=== PATIENT | male | born 1970 | race African-American/Black ===

== ENCOUNTER 2020-01-07 20:36 | Inpatient (IN) ==
[2020-01-07] MEDS ORDERED: METOCLOPRAMIDE 10 MG/2 ML VIAL IV STA (21:01)
[2020-01-07] MEDS ORDERED: SODIUM CHLORIDE 0.9% 1,000 ML IV STA (21:01)
[2020-01-07] MEDS ORDERED: ONDANSETRON 4 MG/2 ML VIAL IV STA (21:01)
[2020-01-07 21:13] LABS: Basophils % 0.3 % (0.0-0.8); Eosinophils # 0.1 10*3/uL (0.0-0.87); Eosinophils % 1.1 % (0.00-10.9); Hematocrit 43.5 VOL% (42.0-52.0); Hemoglobin 13.3 GM/DL (14.0-18.0); Immature Granulocytes % 0.8 %; Immature Granulocytes Absolute 0.09 #; Lymphocytes # 0.4 10*3/uL (1.4-4.0); Lymphocytes % 3.9 % (21.2-54.2); Mean Corpuscular HGB Conc 30.6 GM/DL (32-36); Mean Corpuscular Volume 81.5 FL (87-102); Monocytes % 5.7 % (1.7-12.7); Neutrophils % 88.2 % (38.7-73.9); Platelet Count 468 T/CUMM (130-400); Red Blood Count 5.34 MC/CUMM (3.8-5.5); Red Cell Distribution Width 21.7 % (9.3-17.3); White Blood Count 11.4 T/CUMM (4-12)
[2020-01-07 21:40] LABS: Lymphocytes 2 % (20-55); Platelet Estimate Adequate; Segmented Neutrophils 91 % (50-85); Total Cells Counted 100
[2020-01-07 21:50] LABS: INR 1.2
[2020-01-07] MEDS ORDERED: methylPREDNISolone SOD SUC 125 MG/2 ML VIAL IV STA (22:28)
[2020-01-07] MEDS ORDERED: AZITHROMYCIN INJ 500 MG in SODIUM CHLORIDE 0.9% 250 ML IV STA (22:28)
[2020-01-07] MEDS ORDERED: ENOXAPARIN 100 MG/ML SYRINGE SUBCUT STA (22:28)
[2020-01-07 22:29] LABS: Alanine Aminotransferase 11 U/L (16-61); Albumin 1.5 G/DL (3.4-5.0); Alkaline Phosphatase 82 U/L (45-117); Aspartate Amino Transferase 23 U/L (0-37); Blood Urea Nitrogen 281 MG/DL (7-18); Estimated Glom Filtration Rate 3 ML/MIN; Ferritin 468.4 ng/ml (26-388); Glucose 137 MG/DL (74-106); Osmolality,Calculated 374.5 MOS/KG (273-304); Total Protein 7.9 G/DL (6.4-8.3)
[2020-01-07 22:31] LABS: Troponin I 0.175 NG/ML (0.00-0.045)
[2020-01-07] MEDS ORDERED: DEXTROSE 50% 25 GM/50 ML VIAL IV STA (22:36)
[2020-01-07] MEDS ORDERED: CALCIUM CHLORIDE 1,000 MG/10 ML SYRINGE IV STA (22:36)
[2020-01-07] MEDS ORDERED: SODIUM BICARBONATE 50 MEQ/50 ML VIAL IV STA (22:36)
[2020-01-07] MEDS ORDERED: INSULIN REGULAR 100 UNIT/ML IV ONE (22:37)
[2020-01-07 22:41] LABS: Apearance,Urine CLOUDY (Clear); Bilirubin,Urine Negative (Negative); Blood, Urine Moderate mg/dL (Negative); Glucose,Urine (UA) 50 mg/dL (Negative); Ketones,Urine Negative (Negative); Nitrite,Urine Negative (Negative); Protein,Urine >=500 MG/DL; RBC,Urine 7 /HPF (0-4); Urine Color Yellow (Yellow); Urine Specific Gravity 1.026 (1.001-1.035); Urine Urobilinogen < 2.0 EU/DL (0.2-1.0); WBC,Urine 297 /HPF (0-6)
[2020-01-07] MEDS ORDERED: DEXTROSE 50% 25 GM/50 ML SYRINGE IV ONE (22:47)
[2020-01-07 23:12] LABS: Allen Test Positive; Pt O2 Delivery Device Other
[2020-01-07 23:14] LABS: ABG Base Excess -20.1 MMOL/L (-2.5-2.5); ABG HCO3 6.7 MMOL/L (20-26); ABG Oxygen Saturation 95.9 % (95-100); ABG PO2 105.1 MM HG (80-95); ABG TCO2 7.4 MMOL/L (23-27)
[2020-01-08] MEDS ORDERED: ALBUMIN 25% 25 GM in PREMIX 1 EACH IV PRN (00:55)
[2020-01-08] MEDS ORDERED: PANTOPRAZOLE 40 MG VIAL IV SCH (01:16)
[2020-01-08] MEDS ORDERED: PROMETHAZINE 25 MG/1 ML VIAL IM PRN (01:16)
[2020-01-08] MEDS ORDERED: ALBUTEROL 2.5 MG/3 ML NEB RESP TX PRN (01:16)
[2020-01-08 01:29] LABS: Calcium 9.1 MG/DL (8.5-10.1); Osmolality,Calculated 387.5 MOS/KG (273-304)
[2020-01-08] MEDS ORDERED: HEPARIN 10,000 UNIT/10 ML VIAL IV PRN (03:02)
[2020-01-08] MEDS: SODIUM CHLORIDE 0.9% 1,000 ML IV SCH ×2 (03:48→07:59)
[2020-01-08 04:53] LABS: ABG Base Excess -9.2 MMOL/L (-2.5-2.5); ABG HCO3 13.6 MMOL/L (20-26); ABG Oxygen Saturation 98.5 % (95-100); ABG PCO2 22.5 MM HG (35-48); ABG PO2 162.4 MM HG (80-95); ABG TCO2 14.3 MMOL/L (23-27); Allen Test Positive; Pt O2 Delivery Device Other
[2020-01-08 04:59] LABS: Hepatitis B Core IgM Quant 0.18 Index; Hepatitis B Surface Ag Quant 0.96 Index; Hepatitis B Surface Ag Result Negative (Negative); Hepatitis C Virus Ab Quant 0.15 Index; Hepatitis C Virus Ab Result Negative (Negative)
[2020-01-08 05:07] LABS: ABG PCO2 19.8 MM HG (35-48)
[2020-01-08 05:44] LABS: Basophils % 0.1 % (0.0-0.8); Hematocrit 35.5 VOL% (42.0-52.0); Hemoglobin 11.4 GM/DL (14.0-18.0); Lymphocytes # 0.2 10*3/uL (1.4-4.0); Lymphocytes % 1.7 % (21.2-54.2); Mean Corpuscular HGB Conc 32.1 GM/DL (32-36); Mean Platelet Volume 10.5 FL (9.6-12.0); Monocytes % 0.8 % (1.7-12.7); Neutrophils % 96.4 % (38.7-73.9); Platelet Count 377 T/CUMM (130-400); Red Blood Count 4.55 MC/CUMM (3.8-5.5); Red Cell Distribution Width 20.9 % (9.3-17.3); White Blood Count 9.9 T/CUMM (4-12)
[2020-01-08 06:16] LABS: Burr Cells Slight; Hypochromasia Slight; Lymphocytes 3 % (20-55); Microcytosis Slight; Platelet Estimate Adequate; Segmented Neutrophils 96 % (50-85); Total Cells Counted 100
[2020-01-08 06:17] LABS: Albumin 1.5 G/DL (3.4-5.0); Bilirubin,Total 0.6 MG/DL (0.2-1.0); Calcium 7.8 MG/DL (8.5-10.1); Osmolality,Calculated 346.5 MOS/KG (273-304); Total Protein 7.7 G/DL (6.4-8.3)
[2020-01-08] MEDS: cefTRIAXone 1,000 MG in SYRINGE 1 EACH IV SCH (06:47)
[2020-01-08] MEDS: PANTOPRAZOLE 40 MG VIAL IV SCH (09:00)
[2020-01-08] MEDS: ENOXAPARIN 30 MG/0.3 ML SYRINGE SUBCUT SCH (09:00)
[2020-01-08] MEDS: HYDROXYCHLOROQUINE 200 MG TABLET PO SCH (21:31)
[2020-01-09 05:25] LABS: Calcium 6.9 MG/DL (8.5-10.1); Osmolality,Calculated 355.4 MOS/KG (273-304)
[2020-01-09 05:29] LABS: Basophils % 0.1 % (0.0-0.8); Hematocrit 35.5 VOL% (42.0-52.0); Hemoglobin 11.2 GM/DL (14.0-18.0); Immature Granulocytes % 0.8 %; Immature Granulocytes Absolute 0.07 #; Lymphocytes # 0.4 10*3/uL (1.4-4.0); Lymphocytes % 4.3 % (21.2-54.2); Mean Corpuscular HGB Conc 31.5 GM/DL (32-36); Mean Corpuscular Volume 78.9 FL (87-102); Monocytes % 6.9 % (1.7-12.7); NRBC # 0.02 10*3/uL; Neutrophils % 87.9 % (38.7-73.9); Platelet Count 337 T/CUMM (130-400); Red Cell Distribution Width 20.7 % (9.3-17.3); White Blood Count 8.5 T/CUMM (4-12)
[2020-01-09] MEDS: cefTRIAXone 1,000 MG in SYRINGE 1 EACH IV SCH (05:56)
[2020-01-09] MEDS: SODIUM CHLORIDE 0.9% 1,000 ML IV SCH ×2 (05:59→08:54)
[2020-01-09] MEDS: PANTOPRAZOLE 40 MG VIAL IV SCH (09:08)
[2020-01-09] MEDS: ENOXAPARIN 30 MG/0.3 ML SYRINGE SUBCUT SCH (09:10)
[2020-01-09] MEDS: HYDROXYCHLOROQUINE 200 MG TABLET PO SCH ×2 (09:35→20:46)
[2020-01-09 10:42] LABS: Band Neutrophils 1 % (0-10); Hypochromasia 3+; Lymphocytes 4 % (20-55); Microcytosis 3+; Platelet Estimate Increased; Polychromasia Slight; Segmented Neutrophils 92 % (50-85); Total Cells Counted 100
[2020-01-09] MEDS: ONDANSETRON 4 MG/2 ML VIAL IV PRN (20:43)
[2020-01-10] MEDS: SODIUM CHLORIDE 0.9% 1,000 ML IV SCH ×3 (00:27→19:27)
[2020-01-10 03:58] LABS: Calcium 6.9 MG/DL (8.5-10.1)
[2020-01-10] MEDS: cefTRIAXone 1,000 MG in SYRINGE 1 EACH IV SCH (06:37)
[2020-01-10] MEDS: ONDANSETRON 4 MG/2 ML VIAL IV PRN ×2 (08:28→20:25)
[2020-01-10] MEDS: PANTOPRAZOLE 40 MG VIAL IV SCH (08:31)
[2020-01-10] MEDS: ENOXAPARIN 30 MG/0.3 ML SYRINGE SUBCUT SCH (08:33)
[2020-01-10 09:49] LABS: Basophils % 0.2 % (0.0-0.8); Eosinophils # 0.2 10*3/uL (0.0-0.87); Hematocrit 32.3 VOL% (42.0-52.0); Hemoglobin 10.4 GM/DL (14.0-18.0); Immature Granulocytes % 1.7 %; Immature Granulocytes Absolute 0.16 #; Lymphocytes # 0.3 10*3/uL (1.4-4.0); Lymphocytes % 3.6 % (21.2-54.2); Mean Corpuscular HGB Conc 32.2 GM/DL (32-36); Mean Corpuscular Volume 79.6 FL (87-102); Mean Platelet Volume 10.5 FL (9.6-12.0); Monocytes % 8.4 % (1.7-12.7); Neutrophils % 84.1 % (38.7-73.9); Platelet Count 274 T/CUMM (130-400); Red Blood Count 4.06 MC/CUMM (3.8-5.5); Red Cell Distribution Width 20.3 % (9.3-17.3); White Blood Count 9.6 T/CUMM (4-12)
[2020-01-10] MEDS: HYDROXYCHLOROQUINE 200 MG TABLET PO SCH ×2 (10:49→20:25)
[2020-01-11] MEDS: SODIUM CHLORIDE 0.9% 1,000 ML IV SCH ×2 (00:01→10:10)
[2020-01-11] MEDS: cefTRIAXone 1,000 MG in SYRINGE 1 EACH IV SCH (04:17)
[2020-01-11 04:43] LABS: Calcium 6.8 MG/DL (8.5-10.1)
[2020-01-11 04:47] LABS: Basophils % 0.2 % (0.0-0.8); Eosinophils # 0.2 10*3/uL (0.0-0.87); Eosinophils % 2.3 % (0.00-10.9); Hematocrit 32.2 VOL% (42.0-52.0); Hemoglobin 9.9 GM/DL (14.0-18.0); Immature Granulocytes % 2.3 %; Immature Granulocytes Absolute 0.23 #; Lymphocytes # 0.3 10*3/uL (1.4-4.0); Mean Corpuscular HGB Conc 30.7 GM/DL (32-36); Mean Platelet Volume 10.9 FL (9.6-12.0); Monocytes % 9.2 % (1.7-12.7); Platelet Count 259 T/CUMM (130-400); Red Blood Count 3.88 MC/CUMM (3.8-5.5); Red Cell Distribution Width 20.2 % (9.3-17.3); White Blood Count 9.8 T/CUMM (4-12)
[2020-01-11 05:13] LABS: Eosinophils 4 % (0-10); Lymphocytes 5 % (20-55); Platelet Estimate Adequate; Segmented Neutrophils 83 % (50-85); Total Cells Counted 100
[2020-01-11 05:14] LABS: Hypochromasia Slight; Ovalocytes Slight
[2020-01-11] MEDS: ONDANSETRON 4 MG/2 ML VIAL IV PRN (08:30)
[2020-01-11] MEDS: ENOXAPARIN 30 MG/0.3 ML SYRINGE SUBCUT SCH (08:38)
[2020-01-11] MEDS: HYDROXYCHLOROQUINE 200 MG TABLET PO SCH ×2 (08:38→21:21)
[2020-01-11] MEDS: PANTOPRAZOLE 40 MG VIAL IV SCH (08:38)
[2020-01-11] MEDS ORDERED: HEPARIN DRIP 25,000 UNITS/500 ML PREMIX IV SCH (21:00)
[2020-01-12] MEDS: SODIUM CHLORIDE 0.9% 1,000 ML IV SCH ×2 (02:40→17:47)
[2020-01-12] MEDS: cefTRIAXone 1,000 MG in SYRINGE 1 EACH IV SCH (04:46)
[2020-01-12 06:01] LABS: Basophils % 0.4 % (0.0-0.8); Eosinophils # 0.3 10*3/uL (0.0-0.87); Eosinophils % 2.6 % (0.00-10.9); Hematocrit 29.2 VOL% (42.0-52.0); Hemoglobin 9.3 GM/DL (14.0-18.0); Lymphocytes # 0.4 10*3/uL (1.4-4.0); Lymphocytes % 3.7 % (21.2-54.2); Mean Corpuscular HGB Conc 31.8 GM/DL (32-36); Mean Corpuscular Volume 79.6 FL (87-102); Mean Platelet Volume 11.5 FL (9.6-12.0); Monocytes % 10.1 % (1.7-12.7); Neutrophils % 81.2 % (38.7-73.9); Platelet Count 218 T/CUMM (130-400); Red Blood Count 3.67 MC/CUMM (3.8-5.5); Red Cell Distribution Width 20.1 % (9.3-17.3); White Blood Count 10.2 T/CUMM (4-12)
[2020-01-12 06:20] LABS: Eosinophils 4 % (0-10); Hypochromasia 1+; Lymphocytes 3 % (20-55); Microcytosis 1+; Platelet Estimate Normal; Segmented Neutrophils 81 % (50-85); Total Cells Counted 100
[2020-01-12 06:33] LABS: Calcium 6.6 MG/DL (8.5-10.1); Osmolality,Calculated 319.1 MOS/KG (273-304)
[2020-01-12] MEDS: HYDROXYCHLOROQUINE 200 MG TABLET PO SCH ×2 (07:47→20:50)
[2020-01-12] MEDS: PANTOPRAZOLE 40 MG VIAL IV SCH (08:07)
[2020-01-12] MEDS: LOPERAMIDE 2 MG CAPSULE PO PRN (13:28)
[2020-01-12] MEDS: HEPARIN 5,000 UNIT/1 ML VIAL SUBCUT SCH (13:39)
[2020-01-13] MEDS: HEPARIN 5,000 UNIT/1 ML VIAL SUBCUT SCH ×4 (00:40→22:02)
[2020-01-13] MEDS: cefTRIAXone 1,000 MG in SYRINGE 1 EACH IV SCH (05:50)
[2020-01-13 06:17] LABS: Basophils % 0.2 % (0.0-0.8); Eosinophils # 0.3 10*3/uL (0.0-0.87); Eosinophils % 2.9 % (0.00-10.9); Hematocrit 29.5 VOL% (42.0-52.0); Hemoglobin 8.8 GM/DL (14.0-18.0); Immature Granulocytes % 2.1 %; Immature Granulocytes Absolute 0.24 #; Lymphocytes # 0.4 10*3/uL (1.4-4.0); Lymphocytes % 3.1 % (21.2-54.2); Mean Corpuscular HGB Conc 29.8 GM/DL (32-36); Mean Corpuscular Volume 82.6 FL (87-102); Mean Platelet Volume 11.4 FL (9.6-12.0); Monocytes % 10.3 % (1.7-12.7); Neutrophils % 81.4 % (38.7-73.9); Platelet Count 217 T/CUMM (130-400); Red Blood Count 3.57 MC/CUMM (3.8-5.5); Red Cell Distribution Width 19.8 % (9.3-17.3); White Blood Count 11.2 T/CUMM (4-12)
[2020-01-13 06:38] LABS: Hypochromasia Slight; Lymphocytes 3 % (20-55); Microcytosis Slight; Platelet Estimate Adequate; Segmented Neutrophils 90 % (50-85); Total Cells Counted 100
[2020-01-13 06:39] LABS: Calcium 6.7 MG/DL (8.5-10.1)
[2020-01-13] MEDS: HYDROXYCHLOROQUINE 200 MG TABLET PO SCH (08:20)
[2020-01-13] MEDS: PANTOPRAZOLE 40 MG VIAL IV SCH (08:21)
[2020-01-13] MEDS: SODIUM CHLORIDE 0.9% 1,000 ML IV SCH (09:19)
[2020-01-13] MEDS: LOPERAMIDE 2 MG CAPSULE PO PRN ×2 (16:43→22:01)
[2020-01-14] MEDS: SODIUM CHLORIDE 0.9% 1,000 ML IV SCH ×2 (02:36→16:26)
[2020-01-14] MEDS: HEPARIN 5,000 UNIT/1 ML VIAL SUBCUT SCH ×3 (05:00→22:00)
[2020-01-14] MEDS: cefTRIAXone 1,000 MG in SYRINGE 1 EACH IV SCH (05:00)
[2020-01-14 05:04] LABS: Basophils # 0.1 10*3/uL (0.0-0.2); Basophils % 0.4 % (0.0-0.8); Eosinophils # 0.3 10*3/uL (0.0-0.87); Eosinophils % 1.9 % (0.00-10.9); Hematocrit 32.4 VOL% (42.0-52.0); Immature Granulocytes % 2.6 %; Immature Granulocytes Absolute 0.38 #; Lymphocytes # 0.5 10*3/uL (1.4-4.0); Lymphocytes % 3.7 % (21.2-54.2); Mean Corpuscular HGB Conc 30.9 GM/DL (32-36); Mean Platelet Volume 11.5 FL (9.6-12.0); Monocytes % 10.8 % (1.7-12.7); Neutrophils % 80.6 % (38.7-73.9); Platelet Count 238 T/CUMM (130-400); Red Blood Count 3.95 MC/CUMM (3.8-5.5); Red Cell Distribution Width 19.8 % (9.3-17.3); White Blood Count 14.5 T/CUMM (4-12)
[2020-01-14 05:39] LABS: Calcium 6.7 MG/DL (8.5-10.1); Osmolality,Calculated 315.7 MOS/KG (273-304)
[2020-01-14 06:12] LABS: Ferritin 578.3 ng/ml (26-388)
[2020-01-14 06:19] LABS: Anisocytosis 1+; Band Neutrophils 3 % (0-10); Eosinophils 1 % (0-10); Lymphocytes 3 % (20-55); Nucleated Red Blood Cells 1 (0-5); Platelet Estimate Normal; Segmented Neutrophils 78 % (50-85); Total Cells Counted 100
[2020-01-14] MEDS: PANTOPRAZOLE 40 MG VIAL IV SCH (09:08)
[2020-01-14] MEDS: ONDANSETRON 4 MG/2 ML VIAL IV PRN ×2 (10:02→13:51)
[2020-01-14] MEDS ORDERED: POTASSIUM CHLORIDE 20 MEQ TABLET PO ONE (14:00)
[2020-01-14] MEDS: LACTOBACILLUS ACIDOPHILUS/BULGARICUS CAPLET PO SCH ×2 (14:50→21:30)
[2020-01-15] MEDS: cefTRIAXone 1,000 MG in SYRINGE 1 EACH IV SCH (04:30)
[2020-01-15] MEDS: HEPARIN 5,000 UNIT/1 ML VIAL SUBCUT SCH ×3 (05:50→21:00)
[2020-01-15 06:31] LABS: Basophils # 0.1 10*3/uL (0.0-0.2); Basophils % 0.5 % (0.0-0.8); Eosinophils # 0.3 10*3/uL (0.0-0.87); Hematocrit 30.1 VOL% (42.0-52.0); Hemoglobin 9.3 GM/DL (14.0-18.0); Immature Granulocytes % 2.5 %; Immature Granulocytes Absolute 0.32 #; Lymphocytes # 0.4 10*3/uL (1.4-4.0); Lymphocytes % 2.8 % (21.2-54.2); Mean Corpuscular HGB Conc 30.9 GM/DL (32-36); Mean Corpuscular Volume 81.4 FL (87-102); Mean Platelet Volume 11.1 FL (9.6-12.0); Monocytes % 11.3 % (1.7-12.7); Neutrophils % 80.9 % (38.7-73.9); Platelet Count 222 T/CUMM (130-400); Red Cell Distribution Width 20.2 % (9.3-17.3)
[2020-01-15 06:46] LABS: Osmolality,Calculated 320.4 MOS/KG (273-304)
[2020-01-15 07:09] LABS: Ferritin 617.1 ng/ml (26-388)
[2020-01-15 08:04] LABS: Burr Cells Few; Eosinophils 1 % (0-10); Hypochromasia 2+; Segmented Neutrophils 93 % (50-85); Total Cells Counted 100
[2020-01-15 08:05] LABS: Ovalocytes Few; Platelet Estimate Adequate; Polychromasia Slight
[2020-01-15] MEDS: PANTOPRAZOLE 40 MG VIAL IV SCH (09:02)
[2020-01-15] MEDS: LACTOBACILLUS ACIDOPHILUS/BULGARICUS CAPLET PO SCH ×2 (09:02→20:15)
[2020-01-15] MEDS: SODIUM CHLORIDE 0.9% 1,000 ML IV SCH (09:02)
[2020-01-15] MEDS: ONDANSETRON 4 MG/2 ML VIAL IV PRN (09:05)
[2020-01-16] MEDS: SODIUM CHLORIDE 0.9% 1,000 ML IV SCH ×2 (02:54→18:52)
[2020-01-16] MEDS: HEPARIN 5,000 UNIT/1 ML VIAL SUBCUT SCH ×3 (05:40→21:49)
[2020-01-16 06:06] LABS: Basophils # 0.1 10*3/uL (0.0-0.2); Basophils % 0.4 % (0.0-0.8); Eosinophils # 0.4 10*3/uL (0.0-0.87); Eosinophils % 2.7 % (0.00-10.9); Hematocrit 28.9 VOL% (42.0-52.0); Hemoglobin 8.9 GM/DL (14.0-18.0); Immature Granulocytes % 2.4 %; Immature Granulocytes Absolute 0.31 #; Lymphocytes # 0.5 10*3/uL (1.4-4.0); Lymphocytes % 3.4 % (21.2-54.2); Mean Corpuscular HGB Conc 30.8 GM/DL (32-36); Mean Platelet Volume 11.1 FL (9.6-12.0); Neutrophils % 79.1 % (38.7-73.9); Platelet Count 223 T/CUMM (130-400); Red Blood Count 3.57 MC/CUMM (3.8-5.5); White Blood Count 13.1 T/CUMM (4-12)
[2020-01-16 06:35] LABS: Ferritin 564.8 ng/ml (26-388)
[2020-01-16 06:51] LABS: Band Neutrophils 1 % (0-10); Lymphocytes 2 % (20-55); Platelet Estimate Normal; Segmented Neutrophils 84 % (50-85); Total Cells Counted 100
[2020-01-16] MEDS: PANTOPRAZOLE 40 MG VIAL IV SCH (08:45)
[2020-01-16] MEDS: LACTOBACILLUS ACIDOPHILUS/BULGARICUS CAPLET PO SCH ×2 (08:46→20:12)
[2020-01-17] MEDS: HEPARIN 5,000 UNIT/1 ML VIAL SUBCUT SCH (05:35)
[2020-01-17 07:46] LABS: Osmolality,Calculated 304.8 MOS/KG (273-304)
[2020-01-17 08:22] LABS: Basophils % 0.4 % (0.0-0.8); Eosinophils # 0.3 10*3/uL (0.0-0.87); Eosinophils % 2.6 % (0.00-10.9); Hematocrit 28.1 VOL% (42.0-52.0); Hemoglobin 8.8 GM/DL (14.0-18.0); Immature Granulocytes % 3.7 %; Immature Granulocytes Absolute 0.38 #; Lymphocytes # 0.4 10*3/uL (1.4-4.0); Lymphocytes % 3.9 % (21.2-54.2); Mean Corpuscular HGB Conc 31.3 GM/DL (32-36); Mean Platelet Volume 10.5 FL (9.6-12.0); Monocytes % 9.3 % (1.7-12.7); Neutrophils % 80.1 % (38.7-73.9); Platelet Count 203 T/CUMM (130-400); Red Blood Count 3.47 MC/CUMM (3.8-5.5); Red Cell Distribution Width 20.2 % (9.3-17.3); White Blood Count 10.4 T/CUMM (4-12)
[2020-01-17 08:41] LABS: Band Neutrophils 1 % (0-10); Eosinophils 8 % (0-10); Hypochromasia 1+; Lymphocytes 2 % (20-55); Microcytosis Slight; Platelet Estimate Adequate; Segmented Neutrophils 77 % (50-85); Total Cells Counted 100
[2020-01-17] MEDS: PANTOPRAZOLE 40 MG VIAL IV SCH (08:46)
[2020-01-17] MEDS: LACTOBACILLUS ACIDOPHILUS/BULGARICUS CAPLET PO SCH ×2 (08:46→21:41)
[2020-01-17] MEDS: SODIUM CHLORIDE 0.9% 1,000 ML IV SCH (08:53)
[2020-01-17 10:01] LABS: Ferritin 511.6 ng/ml (26-388)
[2020-01-17 14:23] LABS: INR 1.1; PT Patient Result 11.4 SECS (9.8-11.9); Partial Thromboplastin Time 29.3 SECS (23.9-33.8)
[2020-01-17] MEDS: HEPARIN DRIP 25,000 UNITS/500 ML PREMIX IV SCH (15:20)
[2020-01-17 23:44] LABS: INR 1.1; PT Patient Result 11.6 SECS (9.8-11.9)
[2020-01-17 23:46] LABS: Partial Thromboplastin Time 47.6 SECS (23.9-33.8)
[2020-01-18] MEDS: LOPERAMIDE 2 MG CAPSULE PO PRN (00:50)
[2020-01-18] MEDS: SODIUM CHLORIDE 0.9% 1,000 ML IV SCH ×2 (02:46→10:33)
[2020-01-18 05:41] LABS: Basophils # 0.1 10*3/uL (0.0-0.2); Basophils % 0.3 % (0.0-0.8); Eosinophils # 0.5 10*3/uL (0.0-0.87); Eosinophils % 2.6 % (0.00-10.9); Hematocrit 22.1 VOL% (42.0-52.0); Immature Granulocytes % 3.5 %; Immature Granulocytes Absolute 0.61 #; Lymphocytes # 0.8 10*3/uL (1.4-4.0); Lymphocytes % 4.5 % (21.2-54.2); Mean Corpuscular HGB Conc 31.7 GM/DL (32-36); Mean Platelet Volume 10.6 FL (9.6-12.0); Monocytes % 8.5 % (1.7-12.7); Neutrophils % 80.6 % (38.7-73.9); Platelet Count 228 T/CUMM (130-400); Red Cell Distribution Width 20.3 % (9.3-17.3)
[2020-01-18 05:43] LABS: Red Blood Count 2.73 MC/CUMM (3.8-5.5); White Blood Count 17.3 T/CUMM (4-12)
[2020-01-18 06:05] LABS: Eosinophils 2 % (0-10); Hypochromasia 1+; Lymphocytes 3 % (20-55); Microcytosis 1+; Platelet Estimate Adequate; Segmented Neutrophils 88 % (50-85); Total Cells Counted 100
[2020-01-18 06:34] LABS: Ferritin 630.1 ng/ml (26-388)
[2020-01-18] MEDS ORDERED: POTASSIUM CHLORIDE 20 MEQ TABLET PO ONE ×2 (09:00→12:00)
[2020-01-18] MEDS: HEPARIN DRIP 25,000 UNITS/500 ML PREMIX IV SCH (09:27)
[2020-01-18] MEDS: LACTOBACILLUS ACIDOPHILUS/BULGARICUS CAPLET PO SCH ×2 (10:31→21:08)
[2020-01-19 07:55] LABS: Basophils % 0.2 % (0.0-0.8); Eosinophils # 0.4 10*3/uL (0.0-0.87); Eosinophils % 2.7 % (0.00-10.9); Hematocrit 28.2 VOL% (42.0-52.0); Hemoglobin 8.7 GM/DL (14.0-18.0); Immature Granulocytes % 2.9 %; Immature Granulocytes Absolute 0.45 #; Lymphocytes # 0.6 10*3/uL (1.4-4.0); Lymphocytes % 3.6 % (21.2-54.2); Mean Corpuscular HGB Conc 30.9 GM/DL (32-36); Mean Corpuscular Volume 81.7 FL (87-102); Mean Platelet Volume 11.7 FL (9.6-12.0); Monocytes % 10.9 % (1.7-12.7); Neutrophils % 79.7 % (38.7-73.9); Platelet Count 160 T/CUMM (130-400); Red Blood Count 3.45 MC/CUMM (3.8-5.5); Red Cell Distribution Width 20.7 % (9.3-17.3); White Blood Count 15.4 T/CUMM (4-12)
[2020-01-19 08:13] LABS: Eosinophils 2 % (0-10); Lymphocytes 2 % (20-55); Segmented Neutrophils 88 % (50-85); Total Cells Counted 100
[2020-01-19 08:14] LABS: Hypochromasia 1+; Microcytosis Slight; Platelet Estimate Adequate
[2020-01-19] MEDS: SODIUM CHLORIDE 0.9% 1,000 ML IV SCH ×2 (09:05→23:26)
[2020-01-19] MEDS: LACTOBACILLUS ACIDOPHILUS/BULGARICUS CAPLET PO SCH ×2 (09:06→20:40)
[2020-01-19] MEDS: HEPARIN DRIP 25,000 UNITS/500 ML PREMIX IV SCH (09:06)
[2020-01-19] MEDS: HEPARIN 5,000 UNIT/1 ML VIAL SUBCUT SCH ×2 (09:34→17:44)
[2020-01-19 11:45] LABS: Calcium 5.9 MG/DL (8.5-10.1); Osmolality,Calculated 298.8 MOS/KG (273-304)
[2020-01-19] MEDS ORDERED: POTASSIUM CHLORIDE INJ 50 MEQ in SODIUM CHLORIDE 0.9% 500 ML IV ONE (12:00)
[2020-01-19] MEDS ORDERED: ceFAZolin 1,000 MG in SYRINGE 1 EACH IV ONE (12:30)
[2020-01-19] MEDS ORDERED: HEPARIN 5,000 UNIT/1 ML VIAL ONE (13:05)
[2020-01-19] MEDS ORDERED: TISSUE ADHESIVE 1 EACH APPLICATOR TOP ONE (16:30)
[2020-01-19 17:17] LABS: ABG Base Excess -12.2 MMOL/L (-2.5-2.5); ABG HCO3 14.8 MMOL/L (20-26); ABG Oxygen Saturation 99.6 % (95-100); ABG PCO2 31.7 MM HG (35-48); ABG PH 7.253 (7.35-7.45); ABG TCO2 13.1 MMOL/L (23-27); Allen Test Positive; Pt O2 Delivery Device Ventilator
[2020-01-19 17:45] LABS: Basophils % 0.2 % (0.0-0.8); Eosinophils # 0.4 10*3/uL (0.0-0.87); Eosinophils % 2.1 % (0.00-10.9); Hematocrit 30.1 VOL% (42.0-52.0); Hemoglobin 9.1 GM/DL (14.0-18.0); Immature Granulocytes Absolute 0.52 #; Lymphocytes # 0.4 10*3/uL (1.4-4.0); Lymphocytes % 2.1 % (21.2-54.2); Mean Corpuscular HGB Conc 30.2 GM/DL (32-36); Mean Corpuscular Volume 83.6 FL (87-102); Mean Platelet Volume 10.9 FL (9.6-12.0); Monocytes % 10.2 % (1.7-12.7); NRBC # 0.02 10*3/uL; Neutrophils % 82.4 % (38.7-73.9); Platelet Count 168 T/CUMM (130-400); Red Cell Distribution Width 21.2 % (9.3-17.3); White Blood Count 17.4 T/CUMM (4-12)
[2020-01-19 18:01] LABS: Calcium 6.4 MG/DL (8.5-10.1); Osmolality,Calculated 298.8 MOS/KG (273-304)
[2020-01-19 18:11] LABS: Anisocytosis Slight; Eosinophils 3 % (0-10); Lymphocytes 2 % (20-55); Microcytosis Slight; Platelet Estimate Normal; Polychromasia Slight; Segmented Neutrophils 89 % (50-85); Total Cells Counted 100
[2020-01-20] MEDS: HEPARIN 5,000 UNIT/1 ML VIAL SUBCUT SCH ×3 (00:02→17:27)
[2020-01-20 04:09] LABS: Basophils % 0.1 % (0.0-0.8); Eosinophils # 0.4 10*3/uL (0.0-0.87); Eosinophils % 2.6 % (0.00-10.9); Hematocrit 27.4 VOL% (42.0-52.0); Hemoglobin 8.5 GM/DL (14.0-18.0); Immature Granulocytes % 3.1 %; Immature Granulocytes Absolute 0.44 #; Lymphocytes # 0.5 10*3/uL (1.4-4.0); Lymphocytes % 3.7 % (21.2-54.2); Mean Corpuscular Volume 80.8 FL (87-102); Mean Platelet Volume 11.3 FL (9.6-12.0); Monocytes % 10.1 % (1.7-12.7); Neutrophils % 80.4 % (38.7-73.9); Platelet Count 154 T/CUMM (130-400); Red Blood Count 3.39 MC/CUMM (3.8-5.5); Red Cell Distribution Width 21.3 % (9.3-17.3); White Blood Count 14.4 T/CUMM (4-12)
[2020-01-20 04:26] LABS: Calcium 6.4 MG/DL (8.5-10.1); Osmolality,Calculated 300.5 MOS/KG (273-304)
[2020-01-20 04:28] LABS: ABG Base Excess -12.5 MMOL/L (-2.5-2.5); ABG HCO3 13.3 MMOL/L (20-26); ABG Oxygen Saturation 98.5 % (95-100); ABG PCO2 29.9 MM HG (35-48); ABG PH 7.266 (7.35-7.45); ABG PO2 176.4 MM HG (80-95); ABG TCO2 14.2 MMOL/L (23-27); Allen Test Positive; Pt O2 Delivery Device Ventilator
[2020-01-20 04:56] LABS: Band Neutrophils 1 % (0-10); Eosinophils 4 % (0-10); Lymphocytes 1 % (20-55); Segmented Neutrophils 84 % (50-85); Total Cells Counted 100
[2020-01-20 04:57] LABS: Hypochromasia 1+; Microcytosis 1+; Platelet Estimate Adequate
[2020-01-20] MEDS: LACTOBACILLUS ACIDOPHILUS/BULGARICUS CAPLET PO SCH ×2 (08:34→20:53)
[2020-01-20] MEDS: SODIUM CHLORIDE 0.9% 1,000 ML IV SCH ×2 (08:47→17:28)
[2020-01-20] MEDS ORDERED: POTASSIUM CHLORIDE 20 MEQ/15 ML UDCUP PER TUBE ONE (10:00)
[2020-01-20] MEDS ORDERED: ALTEPLASE 2 MG VIAL INTRACATH ONE ×2 (15:30)
[2020-01-21] MEDS: HEPARIN 5,000 UNIT/1 ML VIAL SUBCUT SCH ×3 (00:10→17:30)
[2020-01-21] MEDS: SODIUM CHLORIDE 0.9% 1,000 ML IV SCH ×2 (01:33→06:32)
[2020-01-21 03:48] LABS: Basophils % 0.2 % (0.0-0.8); Eosinophils # 0.5 10*3/uL (0.0-0.87); Eosinophils % 2.9 % (0.00-10.9); Hematocrit 29.7 VOL% (42.0-52.0); Hemoglobin 9.1 GM/DL (14.0-18.0); Immature Granulocytes % 2.6 %; Immature Granulocytes Absolute 0.45 #; Lymphocytes # 0.8 10*3/uL (1.4-4.0); Lymphocytes % 4.5 % (21.2-54.2); Mean Corpuscular HGB Conc 30.6 GM/DL (32-36); Mean Corpuscular Volume 83.4 FL (87-102); Mean Platelet Volume 11.6 FL (9.6-12.0); Monocytes % 10.3 % (1.7-12.7); NRBC # 0.03 10*3/uL; Neutrophils % 79.5 % (38.7-73.9); Platelet Count 169 T/CUMM (130-400); Red Blood Count 3.56 MC/CUMM (3.8-5.5); Red Cell Distribution Width 21.8 % (9.3-17.3); White Blood Count 17.6 T/CUMM (4-12)
[2020-01-21 03:54] LABS: Calcium 6.4 MG/DL (8.5-10.1); Osmolality,Calculated 306.4 MOS/KG (273-304)
[2020-01-21 04:27] LABS: Band Neutrophils 2 % (0-10); Eosinophils 4 % (0-10); Lymphocytes 3 % (20-55); Metamyelocytes 1 %; Platelet Estimate Normal; Polychromasia Few; Segmented Neutrophils 79 % (50-85); Total Cells Counted 100
[2020-01-21 04:29] LABS: Hypochromasia 1+
[2020-01-21] MEDS: LACTOBACILLUS ACIDOPHILUS/BULGARICUS CAPLET PO SCH ×2 (08:30→22:10)
[2020-01-22] MEDS: HEPARIN 5,000 UNIT/1 ML VIAL SUBCUT SCH ×3 (00:45→17:04)
[2020-01-22] MEDS: LACTOBACILLUS ACIDOPHILUS/BULGARICUS CAPLET PO SCH ×2 (09:48→21:05)
[2020-01-22] MEDS: SODIUM BICARBONATE 650 MG TABLET PO SCH ×2 (17:04→21:05)
[2020-01-23] MEDS: HEPARIN 5,000 UNIT/1 ML VIAL SUBCUT SCH ×3 (00:50→17:37)
[2020-01-23 06:21] LABS: Basophils % 0.3 % (0.0-0.8); Eosinophils # 0.6 10*3/uL (0.0-0.87); Eosinophils % 4.7 % (0.00-10.9); Hematocrit 27.3 VOL% (42.0-52.0); Hemoglobin 8.5 GM/DL (14.0-18.0); Immature Granulocytes % 4.3 %; Immature Granulocytes Absolute 0.53 #; Lymphocytes # 0.9 10*3/uL (1.4-4.0); Lymphocytes % 7.3 % (21.2-54.2); Mean Corpuscular HGB Conc 31.1 GM/DL (32-36); Mean Corpuscular Volume 81.5 FL (87-102); Mean Platelet Volume 10.5 FL (9.6-12.0); Monocytes % 11.9 % (1.7-12.7); NRBC # 0.05 10*3/uL; Neutrophils % 71.5 % (38.7-73.9); Platelet Count 118 T/CUMM (130-400); Red Blood Count 3.35 MC/CUMM (3.8-5.5); Red Cell Distribution Width 21.7 % (9.3-17.3); White Blood Count 12.3 T/CUMM (4-12)
[2020-01-23 06:53] LABS: Calcium 6.6 MG/DL (8.5-10.1)
[2020-01-23 06:57] LABS: Anisocytosis 1+; Band Neutrophils 4 % (0-10); Eosinophils 1 % (0-10); Lymphocytes 8 % (20-55); Myelocytes 1 %; Ovalocytes 1+; Segmented Neutrophils 72 % (50-85); Total Cells Counted 100
[2020-01-23 06:58] LABS: Platelet Estimate Adequate
[2020-01-23] MEDS ORDERED: POTASSIUM CHLORIDE RIDER 10 MEQ in PREMIX 1 EACH IV PRN (08:16)
[2020-01-23] MEDS ORDERED: POTASSIUM CHLORIDE 20 MEQ TABLET PO ONE (08:16)
[2020-01-23] MEDS: SODIUM BICARBONATE 650 MG TABLET PO SCH ×2 (08:30→20:30)
[2020-01-23] MEDS: LACTOBACILLUS ACIDOPHILUS/BULGARICUS CAPLET PO SCH ×2 (08:30→20:30)
[2020-01-23] MEDS: LOPERAMIDE 2 MG CAPSULE PO PRN (20:30)
[2020-01-23] MEDS: ACETAMINOPHEN 325 MG TABLET PO PRN (20:30)
[2020-01-24] MEDS: HEPARIN 5,000 UNIT/1 ML VIAL SUBCUT SCH ×3 (01:00→16:34)
[2020-01-24 05:49] LABS: Basophils % 0.4 % (0.0-0.8); Eosinophils # 0.7 10*3/uL (0.0-0.87); Eosinophils % 6.4 % (0.00-10.9); Hemoglobin 7.9 GM/DL (14.0-18.0); Immature Granulocytes % 5.2 %; Immature Granulocytes Absolute 0.55 #; Lymphocytes % 9.4 % (21.2-54.2); Mean Corpuscular HGB Conc 30.4 GM/DL (32-36); Mean Corpuscular Volume 83.6 FL (87-102); Mean Platelet Volume 11.1 FL (9.6-12.0); Monocytes % 10.5 % (1.7-12.7); NRBC # 0.04 10*3/uL; Neutrophils % 68.1 % (38.7-73.9); Platelet Count 123 T/CUMM (130-400); Red Blood Count 3.11 MC/CUMM (3.8-5.5); White Blood Count 10.7 T/CUMM (4-12)
[2020-01-24 06:12] LABS: Calcium 6.2 MG/DL (8.5-10.1)
[2020-01-24 06:32] LABS: Anisocytosis 2+; Band Neutrophils 17 % (0-10); Eosinophils 3 % (0-10); Lymphocytes 10 % (20-55); Metamyelocytes 2 %; Nucleated Red Blood Cells 2 (0-5); Segmented Neutrophils 58 % (50-85); Total Cells Counted 100
[2020-01-24 06:33] LABS: Poikilocytosis Slight; Polychromasia Slight
[2020-01-24 06:34] LABS: Macrocytosis 1+; Platelet Estimate Adequate
[2020-01-24] MEDS: SODIUM BICARBONATE 650 MG TABLET PO SCH ×2 (09:11→21:30)
[2020-01-24] MEDS: LACTOBACILLUS ACIDOPHILUS/BULGARICUS CAPLET PO SCH ×2 (09:11→21:30)
[2020-01-24] MEDS: ACETAMINOPHEN 325 MG TABLET PO PRN (21:30)
[2020-01-24] MEDS: LOPERAMIDE 2 MG CAPSULE PO PRN (21:30)
[2020-01-25] MEDS: HEPARIN 5,000 UNIT/1 ML VIAL SUBCUT SCH ×3 (00:30→18:35)
[2020-01-25 06:09] LABS: Basophils % 0.2 % (0.0-0.8); Eosinophils # 0.9 10*3/uL (0.0-0.87); Eosinophils % 10.1 % (0.00-10.9); Hematocrit 24.4 VOL% (42.0-52.0); Hemoglobin 7.3 GM/DL (14.0-18.0); Immature Granulocytes % 5.9 %; Lymphocytes # 0.7 10*3/uL (1.4-4.0); Lymphocytes % 7.7 % (21.2-54.2); Mean Corpuscular HGB Conc 29.9 GM/DL (32-36); Mean Corpuscular Volume 84.1 FL (87-102); Mean Platelet Volume 11.2 FL (9.6-12.0); Monocytes % 11.2 % (1.7-12.7); NRBC # 0.02 10*3/uL; Neutrophils % 64.9 % (38.7-73.9); Platelet Count 125 T/CUMM (130-400); Red Cell Distribution Width 22.3 % (9.3-17.3); White Blood Count 8.4 T/CUMM (4-12)
[2020-01-25 06:30] LABS: Calcium 6.2 MG/DL (8.5-10.1); Osmolality,Calculated 282.4 MOS/KG (273-304)
[2020-01-25 06:31] LABS: Band Neutrophils 3 % (0-10); Eosinophils 14 % (0-10); Lymphocytes 3 % (20-55); Segmented Neutrophils 75 % (50-85); Total Cells Counted 100
[2020-01-25 06:32] LABS: Hypochromasia 1+; Microcytosis 1+; Platelet Estimate Adequate; Polychromasia Slight
[2020-01-25] MEDS: SODIUM BICARBONATE 650 MG TABLET PO SCH ×2 (08:19→21:56)
[2020-01-25] MEDS: LACTOBACILLUS ACIDOPHILUS/BULGARICUS CAPLET PO SCH ×2 (08:19→21:55)
[2020-01-25] MEDS: MENTHOL/ZINC OXIDE OINT 71 GM JAR TOP SCH ×2 (12:27→21:56)
[2020-01-25] MEDS: POTASSIUM CHLORIDE 20 MEQ TABLET PO SCH ×2 (18:35→21:56)
[2020-01-26] MEDS: HEPARIN 5,000 UNIT/1 ML VIAL SUBCUT SCH ×3 (01:31→16:44)
[2020-01-26] MEDS: MENTHOL/ZINC OXIDE OINT 71 GM JAR TOP SCH ×2 (09:07→21:20)
[2020-01-26] MEDS: POTASSIUM CHLORIDE 20 MEQ TABLET PO SCH ×2 (09:09→21:20)
[2020-01-26] MEDS: SODIUM BICARBONATE 650 MG TABLET PO SCH ×2 (09:09→21:20)
[2020-01-26] MEDS: LACTOBACILLUS ACIDOPHILUS/BULGARICUS CAPLET PO SCH ×2 (09:10→21:20)
[2020-01-26 11:11] LABS: Basophils % 0.4 % (0.0-0.8); Eosinophils # 0.8 10*3/uL (0.0-0.87); Eosinophils % 8.1 % (0.00-10.9); Hematocrit 26.5 VOL% (42.0-52.0); Immature Granulocytes % 4.4 %; Immature Granulocytes Absolute 0.46 #; Lymphocytes # 0.7 10*3/uL (1.4-4.0); Lymphocytes % 6.8 % (21.2-54.2); Mean Corpuscular HGB Conc 30.2 GM/DL (32-36); Mean Corpuscular Volume 84.1 FL (87-102); Mean Platelet Volume 11.5 FL (9.6-12.0); Monocytes % 9.4 % (1.7-12.7); NRBC # 0.02 10*3/uL; Neutrophils % 70.9 % (38.7-73.9); Platelet Count 134 T/CUMM (130-400); Red Blood Count 3.15 MC/CUMM (3.8-5.5); Red Cell Distribution Width 22.6 % (9.3-17.3); White Blood Count 10.4 T/CUMM (4-12)
[2020-01-26 11:30] LABS: Hypochromasia 1+; Microcytosis 1+; Ovalocytes Slight; Platelet Estimate Adequate; Polychromasia Slight; Spherocytes Slight
[2020-01-26 11:35] LABS: Calcium 6.3 MG/DL (8.5-10.1); Osmolality,Calculated 279.1 MOS/KG (273-304)
[2020-01-26] MEDS: traMADol 50 MG TABLET PO PRN ×2 (14:36→21:50)
[2020-01-27] MEDS: HEPARIN 5,000 UNIT/1 ML VIAL SUBCUT SCH ×2 (00:33→08:45)
[2020-01-27] MEDS: SODIUM BICARBONATE 650 MG TABLET PO SCH (08:44)
[2020-01-27] MEDS: POTASSIUM CHLORIDE 20 MEQ TABLET PO SCH (08:44)
[2020-01-27] MEDS: LACTOBACILLUS ACIDOPHILUS/BULGARICUS CAPLET PO SCH (08:45)
[2020-01-27] MEDS: traMADol 50 MG TABLET PO PRN (08:45)
[2020-01-27] MEDS: MENTHOL/ZINC OXIDE OINT 71 GM JAR TOP SCH (08:49)
[2020-01-27 12:04] VITALS: BP 98/59
[2020-01-28] MEDS ORDERED: allopurinoL 100 MG TABLET PO SCH (09:00)
== END 2020-01-27 15:24 | disposition home or self-care (01) | DRG 177 ==
LOC: EDBD → EDUNIT# → N.ED 20:36 → SUATTDRO 01-08 00:17 → N.EDINP 01-08 00:17 → N.ICU 01-08 00:46 → N.2E 01-11 16:04 → N.3E 01-16 14:40 → N.2W 01-17 10:16 → N.CC 01-19 15:26 → N.2E 01-21 17:02
PROVIDERS: ADMIT Surgery; ATTEND Hospitalist

== ENCOUNTER 2020-02-06 12:16 | Inpatient (IN) ==
[2020-02-06] MEDS ORDERED: ALBUTEROL 2.5 MG/3 ML NEB RESP TX STA (12:41)
[2020-02-06 13:17] LABS: Basophils # 0.1 10*3/uL (0.0-0.2); Basophils % 0.7 % (0.0-0.8); Eosinophils # 0.4 10*3/uL (0.0-0.87); Eosinophils % 2.1 % (0.00-10.9); Hematocrit 24.7 VOL% (42.0-52.0); Hemoglobin 7.1 GM/DL (14.0-18.0); Immature Granulocytes % 1.6 %; Immature Granulocytes Absolute 0.29 #; Lymphocytes # 1.8 10*3/uL (1.4-4.0); Lymphocytes % 10.2 % (21.2-54.2); Mean Corpuscular HGB Conc 28.7 GM/DL (32-36); Mean Corpuscular Volume 94.3 FL (87-102); Mean Platelet Volume 10.7 FL (9.6-12.0); Monocytes % 8.5 % (1.7-12.7); Neutrophils % 76.9 % (38.7-73.9); Platelet Count 276 T/CUMM (130-400); Red Blood Count 2.62 MC/CUMM (3.8-5.5); Red Cell Distribution Width 23.4 % (9.3-17.3); White Blood Count 17.8 T/CUMM (4-12)
[2020-02-06 13:35] LABS: Alanine Aminotransferase 16 U/L (16-61); Albumin 1.7 G/DL (3.4-5.0); Alkaline Phosphatase 76 U/L (45-117); Aspartate Amino Transferase 29 U/L (0-37); Blood Urea Nitrogen 28 MG/DL (7-18); Calcium 6.6 MG/DL (8.5-10.1); Estimated Glom Filtration Rate 12 ML/MIN; Glucose 113 MG/DL (74-106); Osmolality,Calculated 276.1 MOS/KG (273-304); Total Protein 7.1 G/DL (6.4-8.3)
[2020-02-06 13:36] LABS: INR 1.3; Troponin I 0.325 NG/ML (0.00-0.045)
[2020-02-06] MEDS ORDERED: PIPERACILLIN/TAZOBACTAM 3,375 MG in SODIUM CHLORIDE 0.9% 100 ML IV STA (13:41)
[2020-02-06] MEDS ORDERED: VANCOMYCIN INJ 1,000 MG in SODIUM CHLORIDE 0.9% 250 ML IV STA (13:41)
[2020-02-06 14:06] LABS: Anisocytosis 1+; Microcytosis 1+
[2020-02-06 14:07] LABS: Platelet Estimate Adequate; Polychromasia Few
[2020-02-06] MEDS ORDERED: ONDANSETRON 4 MG/2 ML VIAL IV PRN (16:10)
[2020-02-06] MEDS ORDERED: traMADol 50 MG TABLET PO PRN (16:17)
[2020-02-06] MEDS: HEPARIN 5,000 UNIT/1 ML VIAL SUBCUT SCH (18:22)
[2020-02-07] MEDS: PIPERACILLIN/TAZOBACTAM 3,375 MG in SODIUM CHLORIDE 0.9% 100 ML IV SCH ×2 (02:13→17:10)
[2020-02-07 03:40] LABS: Basophils # 0.1 10*3/uL (0.0-0.2); Basophils % 0.6 % (0.0-0.8); Eosinophils # 0.2 10*3/uL (0.0-0.87); Eosinophils % 1.3 % (0.00-10.9); Hematocrit 22.3 VOL% (42.0-52.0); Immature Granulocytes % 1.1 %; Immature Granulocytes Absolute 0.15 #; Lymphocytes # 0.9 10*3/uL (1.4-4.0); Lymphocytes % 6.4 % (21.2-54.2); Mean Corpuscular HGB Conc 28.7 GM/DL (32-36); Mean Corpuscular Volume 89.9 FL (87-102); Mean Platelet Volume 10.9 FL (9.6-12.0); Monocytes % 7.7 % (1.7-12.7); Neutrophils % 82.9 % (38.7-73.9); Platelet Count 187 T/CUMM (130-400); Red Blood Count 2.48 MC/CUMM (3.8-5.5); Red Cell Distribution Width 22.6 % (9.3-17.3); White Blood Count 13.4 T/CUMM (4-12)
[2020-02-07 03:45] LABS: Hemoglobin 6.4 GM/DL (14.0-18.0)
[2020-02-07 03:59] LABS: Calcium 6.6 MG/DL (8.5-10.1); Osmolality,Calculated 277.8 MOS/KG (273-304)
[2020-02-07] MEDS: HEPARIN 5,000 UNIT/1 ML VIAL SUBCUT SCH ×2 (06:06→17:11)
[2020-02-07] MEDS: allopurinoL 100 MG TABLET PO SCH (08:45)
[2020-02-07] MEDS ORDERED: atenoloL 50 MG TABLET PO SCH (09:00)
[2020-02-07] MEDS ORDERED: SODIUM CHLORIDE 0.9% 1,000 ML IV PRN ×3 (09:22→23:12)
[2020-02-07] MEDS ORDERED: POTASSIUM CHLORIDE 20 MEQ TABLET PO ONE (09:48)
[2020-02-07] MEDS ORDERED: ALBUTEROL/IPRATROPIUM 3 ML NEB RESP TX PRN (15:12)
[2020-02-07] MEDS ORDERED: FUROSEMIDE 40 MG/4 ML VIAL IV ONE (15:38)
[2020-02-07] MEDS ORDERED: SUCCINYLCHOLINE 200 MG/10 ML VIAL ONE ×2 (17:46→17:47)
[2020-02-07] MEDS ORDERED: NOREPINEPHRINE 4 MG/4 ML VIAL IV ONE (17:47)
[2020-02-07] MEDS ORDERED: ALBUTEROL 2.5 MG/3 ML NEB RESP TX PRN (17:50)
[2020-02-07] MEDS ORDERED: VECURONIUM 10 MG VIAL IV ONE (18:01)
[2020-02-07 18:44] LABS: Basophils # 0.1 10*3/uL (0.0-0.2); Basophils % 0.7 % (0.0-0.8); Eosinophils # 0.2 10*3/uL (0.0-0.87); Eosinophils % 1.3 % (0.00-10.9); Hematocrit 24.8 VOL% (42.0-52.0); Hemoglobin 7.3 GM/DL (14.0-18.0); Immature Granulocytes Absolute 0.17 #; Lymphocytes # 1.1 10*3/uL (1.4-4.0); Lymphocytes % 6.6 % (21.2-54.2); Mean Corpuscular HGB Conc 29.4 GM/DL (32-36); Mean Corpuscular Volume 91.9 FL (87-102); Monocytes % 5.9 % (1.7-12.7); Neutrophils % 84.5 % (38.7-73.9); Platelet Count 216 T/CUMM (130-400); Red Cell Distribution Width 22.4 % (9.3-17.3); White Blood Count 16.6 T/CUMM (4-12)
[2020-02-07] MEDS: PANTOPRAZOLE 40 MG VIAL IV SCH (18:44)
[2020-02-07] MEDS ORDERED: SUCCINYLCHOLINE 200 MG/10 ML VIAL IV ONE (18:44)
[2020-02-07 18:45] LABS: ABG Base Excess 1.8 MMOL/L (-2.5-2.5); ABG Oxygen Saturation 93.5 % (95-100); ABG PH 7.302 (7.35-7.45); ABG PO2 92.9 MM HG (80-95); ABG TCO2 27.6 MMOL/L (23-27); Allen Test Positive; Pt O2 Delivery Device Ventilator
[2020-02-07] MEDS ORDERED: propofoL 200 MG/20 ML VIAL IV ONE (18:45)
[2020-02-07 18:51] LABS: Calcium 6.7 MG/DL (8.5-10.1); Osmolality,Calculated 281.8 MOS/KG (273-304)
[2020-02-07] MEDS: NOREPINEPHRINE 8 MG in SODIUM CHLORIDE 0.9% 242 ML IV PRN (19:12)
[2020-02-07] MEDS: ALBUTEROL/IPRATROPIUM 3 ML NEB RESP TX SCH (20:27)
[2020-02-07 20:34] LABS: ABG Base Excess 2.1 MMOL/L (-2.5-2.5); ABG HCO3 26.3 MMOL/L (20-26); ABG Oxygen Saturation 97.9 % (95-100); ABG PCO2 49.2 MM HG (35-48); ABG PH 7.361 (7.35-7.45); ABG TCO2 26.5 MMOL/L (23-27)
[2020-02-07] MEDS ORDERED: LEVOFLOXACIN INJ 500 MG in PREMIX 1 EACH IV ONE (21:00)
[2020-02-07 22:32] LABS: Hematocrit 23.1 VOL% (42.0-52.0); Hemoglobin 6.7 GM/DL (14.0-18.0)
[2020-02-08] MEDS: ALBUTEROL/IPRATROPIUM 3 ML NEB RESP TX SCH ×4 (00:16→19:00)
[2020-02-08] MEDS: PIPERACILLIN/TAZOBACTAM 3,375 MG in SODIUM CHLORIDE 0.9% 100 ML IV SCH ×2 (03:30→15:50)
[2020-02-08 04:50] LABS: ABG Base Excess 1.2 MMOL/L (-2.5-2.5); ABG HCO3 25.5 MMOL/L (20-26); ABG Oxygen Saturation 99.4 % (95-100); ABG PCO2 46.8 MM HG (35-48); ABG PH 7.368 (7.35-7.45); ABG TCO2 24.7 MMOL/L (23-27); Allen Test Positive; Pt O2 Delivery Device Ventilator
[2020-02-08 05:36] LABS: Basophils # 0.1 10*3/uL (0.0-0.2); Basophils % 0.5 % (0.0-0.8); Eosinophils # 0.1 10*3/uL (0.0-0.87); Eosinophils % 0.4 % (0.00-10.9); Hematocrit 24.7 VOL% (42.0-52.0); Hemoglobin 7.3 GM/DL (14.0-18.0); Immature Granulocytes % 1.1 %; Immature Granulocytes Absolute 0.18 #; Lymphocytes # 0.8 10*3/uL (1.4-4.0); Lymphocytes % 4.6 % (21.2-54.2); Mean Corpuscular HGB Conc 29.6 GM/DL (32-36); Mean Corpuscular Volume 92.2 FL (87-102); Mean Platelet Volume 10.4 FL (9.6-12.0); Monocytes % 5.9 % (1.7-12.7); Neutrophils % 87.5 % (38.7-73.9); Platelet Count 211 T/CUMM (130-400); Red Blood Count 2.68 MC/CUMM (3.8-5.5); Red Cell Distribution Width 21.2 % (9.3-17.3)
[2020-02-08 05:46] LABS: Calcium 6.7 MG/DL (8.5-10.1); Osmolality,Calculated 287.7 MOS/KG (273-304)
[2020-02-08 06:04] LABS: Lymphocytes 4 % (20-55); Platelet Estimate Adequate; Segmented Neutrophils 94 % (50-85); Total Cells Counted 100
[2020-02-08 06:05] LABS: Hypochromasia 1+; Microcytosis Slight
[2020-02-08] MEDS: NOREPINEPHRINE 8 MG in SODIUM CHLORIDE 0.9% 242 ML IV PRN (07:11)
[2020-02-08] MEDS: allopurinoL 100 MG TABLET PO SCH (09:51)
[2020-02-08] MEDS ORDERED: ALBUMIN 25% 25 GM in PREMIX 1 EACH IV ONE ×2 (13:30→13:33)
[2020-02-08] MEDS ORDERED: CALCIUM GLUCONATE 1,000 MG in SODIUM CHLORIDE 0.9% 100 ML IV ONE (13:31)
[2020-02-08] MEDS ORDERED: HEPARIN 10,000 UNIT/10 ML VIAL IV SCH (13:45)
[2020-02-08] MEDS ORDERED: SODIUM CHLORIDE 0.9% 1,000 ML IV PRN ×2 (13:56→14:00)
[2020-02-08] MEDS: PANTOPRAZOLE 40 MG VIAL IV SCH (17:09)
[2020-02-09] MEDS: ALBUTEROL/IPRATROPIUM 3 ML NEB RESP TX SCH ×4 (01:00→19:00)
[2020-02-09] MEDS: PIPERACILLIN/TAZOBACTAM 3,375 MG in SODIUM CHLORIDE 0.9% 100 ML IV SCH ×2 (02:12→14:50)
[2020-02-09 04:23] LABS: ABG Base Excess 0.1 MMOL/L (-2.5-2.5); ABG HCO3 24.5 MMOL/L (20-26); ABG Oxygen Saturation 94.1 % (95-100); ABG PCO2 38.6 MM HG (35-48); ABG PO2 72.9 MM HG (80-95); ABG TCO2 25.7 MMOL/L (23-27); Allen Test Positive; Pt O2 Delivery Device Ventilator
[2020-02-09 05:11] LABS: Basophils # 0.1 10*3/uL (0.0-0.2); Basophils % 0.4 % (0.0-0.8); Eosinophils # 0.6 10*3/uL (0.0-0.87); Eosinophils % 4.1 % (0.00-10.9); Hemoglobin 8.2 GM/DL (14.0-18.0); Immature Granulocytes % 1.4 %; Lymphocytes # 0.6 10*3/uL (1.4-4.0); Lymphocytes % 4.5 % (21.2-54.2); Mean Corpuscular HGB Conc 31.5 GM/DL (32-36); Mean Corpuscular Volume 87.5 FL (87-102); Mean Platelet Volume 11.1 FL (9.6-12.0); Monocytes % 4.5 % (1.7-12.7); Neutrophils % 85.1 % (38.7-73.9); Platelet Count 162 T/CUMM (130-400); Red Blood Count 2.97 MC/CUMM (3.8-5.5); Red Cell Distribution Width 21.5 % (9.3-17.3); White Blood Count 13.9 T/CUMM (4-12)
[2020-02-09 05:24] LABS: Calcium 7.5 MG/DL (8.5-10.1); Osmolality,Calculated 281.5 MOS/KG (273-304)
[2020-02-09 05:34] LABS: Anisocytosis 1+; Band Neutrophils 3 % (0-10); Eosinophils 2 % (0-10); Hypochromasia 1+; Lymphocytes 5 % (20-55); Microcytosis 1+; Segmented Neutrophils 88 % (50-85); Total Cells Counted 100
[2020-02-09 05:35] LABS: Platelet Estimate Adequate; Polychromasia Slight
[2020-02-09] MEDS: allopurinoL 100 MG TABLET PO SCH (08:16)
[2020-02-09] MEDS ORDERED: DEXAMETHASONE 0.5 MG/5 ML ORAL.SYR PO SCH (09:00)
[2020-02-09] MEDS: NOREPINEPHRINE 8 MG in SODIUM CHLORIDE 0.9% 242 ML IV PRN (09:20)
[2020-02-09] MEDS: [UNRECOGNIZED DRUG - OTHER] PER TUBE SCH ×2 (11:03→21:57)
[2020-02-09] MEDS: DEXAMETHASONE PER TUBE SCH ×2 (11:03→21:57)
[2020-02-09] MEDS: MENTHOL/ZINC OXIDE OINT 71 GM JAR TOP SCH ×2 (17:04→21:57)
[2020-02-09] MEDS: PANTOPRAZOLE 40 MG VIAL IV SCH (17:24)
[2020-02-09] MEDS: INSULIN REGULAR 100 UNIT/ML SUBCUT SCH ×2 (18:06→23:10)
[2020-02-09] MEDS: LEVOFLOXACIN INJ 250 MG in PREMIX 1 EACH IV SCH (21:57)
[2020-02-10] MEDS: PIPERACILLIN/TAZOBACTAM 3,375 MG in SODIUM CHLORIDE 0.9% 100 ML IV SCH ×2 (03:03→16:51)
[2020-02-10 03:29] LABS: ABG Base Excess 1.6 MMOL/L (-2.5-2.5); ABG HCO3 25.8 MMOL/L (20-26); ABG Oxygen Saturation 95.6 % (95-100); ABG PCO2 40.5 MM HG (35-48); ABG PH 7.419 (7.35-7.45); ABG PO2 80.3 MM HG (80-95); ABG TCO2 23.2 MMOL/L (23-27); Allen Test Positive; Pt O2 Delivery Device Ventilator
[2020-02-10] MEDS: ALBUTEROL/IPRATROPIUM 3 ML NEB RESP TX SCH ×3 (04:39→14:01)
[2020-02-10] MEDS: INSULIN REGULAR 100 UNIT/ML SUBCUT SCH ×3 (05:03→18:00)
[2020-02-10 05:39] LABS: Calcium 7.4 MG/DL (8.5-10.1); Osmolality,Calculated 277.1 MOS/KG (273-304)
[2020-02-10] MEDS: [UNRECOGNIZED DRUG - OTHER] PER TUBE SCH ×2 (08:20→20:52)
[2020-02-10] MEDS: DEXAMETHASONE PER TUBE SCH ×2 (08:20→20:52)
[2020-02-10] MEDS: MENTHOL/ZINC OXIDE OINT 71 GM JAR TOP SCH ×2 (08:20→20:52)
[2020-02-10] MEDS: allopurinoL 100 MG TABLET PO SCH (08:20)
[2020-02-10] MEDS: NOREPINEPHRINE 8 MG in SODIUM CHLORIDE 0.9% 242 ML IV PRN (08:21)
[2020-02-10] MEDS: MICAFUNGIN 100 MG in SODIUM CHLORIDE 0.9% 100 ML IV SCH (12:04)
[2020-02-10] MEDS: PANTOPRAZOLE 40 MG VIAL IV SCH (18:00)
[2020-02-11] MEDS: INSULIN REGULAR 100 UNIT/ML SUBCUT SCH ×5 (00:20→23:13)
[2020-02-11] MEDS: ALBUTEROL/IPRATROPIUM 3 ML NEB RESP TX SCH ×4 (03:14→19:05)
[2020-02-11] MEDS: PIPERACILLIN/TAZOBACTAM 3,375 MG in SODIUM CHLORIDE 0.9% 100 ML IV SCH ×2 (03:46→15:34)
[2020-02-11 05:01] LABS: ABG Base Excess -1.1 MMOL/L (-2.5-2.5); ABG HCO3 23.5 MMOL/L (20-26); ABG Oxygen Saturation 96.1 % (95-100); ABG PCO2 42.6 MM HG (35-48); ABG PH 7.363 (7.35-7.45); ABG PO2 83.8 MM HG (80-95); ABG TCO2 22.6 MMOL/L (23-27); Allen Test Positive; Pt O2 Delivery Device Ventilator
[2020-02-11 08:21] LABS: Basophils % 0.2 % (0.0-0.8); Eosinophils % 0.2 % (0.00-10.9); Hematocrit 28.3 VOL% (42.0-52.0); Hemoglobin 8.8 GM/DL (14.0-18.0); Immature Granulocytes % 2.3 %; Immature Granulocytes Absolute 0.28 #; Lymphocytes # 0.6 10*3/uL (1.4-4.0); Lymphocytes % 4.9 % (21.2-54.2); Mean Corpuscular HGB Conc 31.1 GM/DL (32-36); Mean Corpuscular Volume 87.9 FL (87-102); Monocytes % 5.6 % (1.7-12.7); Neutrophils % 86.8 % (38.7-73.9); Platelet Count 154 T/CUMM (130-400); Red Blood Count 3.22 MC/CUMM (3.8-5.5); Red Cell Distribution Width 22.5 % (9.3-17.3)
[2020-02-11] MEDS: [UNRECOGNIZED DRUG - OTHER] PER TUBE SCH ×2 (08:22→20:57)
[2020-02-11] MEDS: MENTHOL/ZINC OXIDE OINT 71 GM JAR TOP SCH ×2 (08:22→20:58)
[2020-02-11] MEDS: DEXAMETHASONE PER TUBE SCH ×2 (08:22→20:57)
[2020-02-11] MEDS: allopurinoL 100 MG TABLET PO SCH (08:22)
[2020-02-11 08:37] LABS: Calcium 7.3 MG/DL (8.5-10.1); Osmolality,Calculated 279.2 MOS/KG (273-304)
[2020-02-11 08:44] LABS: Band Neutrophils 1 % (0-10); Eosinophils 1 % (0-10); Hypochromasia 1+; Lymphocytes 4 % (20-55); Microcytosis 1+; Platelet Estimate Adequate; Segmented Neutrophils 90 % (50-85); Total Cells Counted 100
[2020-02-11] MEDS: MICAFUNGIN 100 MG in SODIUM CHLORIDE 0.9% 100 ML IV SCH (12:30)
[2020-02-11] MEDS: PANTOPRAZOLE 40 MG VIAL IV SCH (18:28)
[2020-02-11] MEDS: LEVOFLOXACIN INJ 250 MG in PREMIX 1 EACH IV SCH (20:56)
[2020-02-12] MEDS: ALBUTEROL/IPRATROPIUM 3 ML NEB RESP TX SCH ×4 (00:22→19:49)
[2020-02-12] MEDS: PIPERACILLIN/TAZOBACTAM 3,375 MG in SODIUM CHLORIDE 0.9% 100 ML IV SCH ×2 (03:43→15:01)
[2020-02-12 04:24] LABS: Basophils % 0.1 % (0.0-0.8); Eosinophils % 0.3 % (0.00-10.9); Hematocrit 25.3 VOL% (42.0-52.0); Hemoglobin 8.1 GM/DL (14.0-18.0); Immature Granulocytes % 3.8 %; Immature Granulocytes Absolute 0.43 #; Lymphocytes # 0.5 10*3/uL (1.4-4.0); Mean Corpuscular Volume 86.1 FL (87-102); Mean Platelet Volume 11.1 FL (9.6-12.0); Monocytes % 4.6 % (1.7-12.7); Neutrophils % 87.2 % (38.7-73.9); Platelet Count 152 T/CUMM (130-400); Red Blood Count 2.94 MC/CUMM (3.8-5.5); Red Cell Distribution Width 22.2 % (9.3-17.3); White Blood Count 11.2 T/CUMM (4-12)
[2020-02-12 04:38] LABS: Calcium 7.3 MG/DL (8.5-10.1); Osmolality,Calculated 275.1 MOS/KG (273-304)
[2020-02-12 04:40] LABS: ABG Base Excess 0.8 MMOL/L (-2.5-2.5); ABG HCO3 25.2 MMOL/L (20-26); ABG Oxygen Saturation 99.4 % (95-100); ABG PCO2 44.9 MM HG (35-48); ABG PH 7.375 (7.35-7.45); ABG TCO2 24.5 MMOL/L (23-27); Allen Test Positive; Pt O2 Delivery Device Ventilator
[2020-02-12 04:52] LABS: Hypochromasia 1+; Lymphocytes 2 % (20-55); Platelet Estimate Adequate; Segmented Neutrophils 97 % (50-85); Total Cells Counted 100
[2020-02-12 04:53] LABS: Microcytosis 1+
[2020-02-12] MEDS: INSULIN REGULAR 100 UNIT/ML SUBCUT SCH ×3 (06:21→18:02)
[2020-02-12] MEDS ORDERED: DEXTROSE 10% 250 ML BAG IV PRN (09:11)
[2020-02-12] MEDS ORDERED: GLUCAGON 1 MG VIAL IM PRN (09:11)
[2020-02-12] MEDS: DEXMEDETOMIDINE 200 MCG in SODIUM CHLORIDE 0.9% 48 ML IV PRN ×2 (10:05→16:14)
[2020-02-12] MEDS: allopurinoL 100 MG TABLET PO SCH (10:05)
[2020-02-12] MEDS: MENTHOL/ZINC OXIDE OINT 71 GM JAR TOP SCH ×2 (10:06→20:33)
[2020-02-12] MEDS: MICAFUNGIN 100 MG in SODIUM CHLORIDE 0.9% 100 ML IV SCH (12:33)
[2020-02-12] MEDS: [UNRECOGNIZED DRUG - OTHER] PER TUBE SCH (13:04)
[2020-02-12] MEDS: DEXAMETHASONE PER TUBE SCH (13:04)
[2020-02-12] MEDS: PANTOPRAZOLE 40 MG VIAL IV SCH (17:54)
[2020-02-12] MEDS: DEXAMETHASONE 4 MG TABLET PER TUBE SCH (20:33)
[2020-02-13] MEDS: INSULIN REGULAR 100 UNIT/ML SUBCUT SCH ×4 (00:55→18:50)
[2020-02-13] MEDS: DEXMEDETOMIDINE 200 MCG in SODIUM CHLORIDE 0.9% 48 ML IV PRN (03:00)
[2020-02-13] MEDS: ALBUTEROL/IPRATROPIUM 3 ML NEB RESP TX SCH ×4 (03:03→20:13)
[2020-02-13] MEDS: PIPERACILLIN/TAZOBACTAM 3,375 MG in SODIUM CHLORIDE 0.9% 100 ML IV SCH ×2 (03:15→15:31)
[2020-02-13 03:49] LABS: ABG Base Excess -1.5 MMOL/L (-2.5-2.5); ABG HCO3 21.2 MMOL/L (20-26); ABG PCO2 30.7 MM HG (35-48); ABG PH 7.458 (7.35-7.45); ABG PO2 127.9 MM HG (80-95); ABG TCO2 22.2 MMOL/L (23-27)
[2020-02-13 03:50] LABS: ABG Oxygen Saturation 98.7 % (95-100)
[2020-02-13 05:16] LABS: Basophils % 0.1 % (0.0-0.8); Eosinophils % 0.1 % (0.00-10.9); Hematocrit 24.2 VOL% (42.0-52.0); Hemoglobin 7.9 GM/DL (14.0-18.0); Immature Granulocytes % 4.7 %; Immature Granulocytes Absolute 0.36 #; Lymphocytes # 0.5 10*3/uL (1.4-4.0); Mean Corpuscular HGB Conc 32.6 GM/DL (32-36); Mean Corpuscular Volume 84.9 FL (87-102); Mean Platelet Volume 10.9 FL (9.6-12.0); Monocytes % 5.8 % (1.7-12.7); Neutrophils % 83.3 % (38.7-73.9); Platelet Count 159 T/CUMM (130-400); Red Blood Count 2.85 MC/CUMM (3.8-5.5); Red Cell Distribution Width 22.5 % (9.3-17.3); White Blood Count 7.6 T/CUMM (4-12)
[2020-02-13 05:30] LABS: Calcium 7.3 MG/DL (8.5-10.1); Osmolality,Calculated 288.7 MOS/KG (273-304)
[2020-02-13] MEDS: allopurinoL 100 MG TABLET PO SCH (09:03)
[2020-02-13] MEDS: DEXAMETHASONE 4 MG TABLET PER TUBE SCH ×2 (09:03→22:11)
[2020-02-13] MEDS: MENTHOL/ZINC OXIDE OINT 71 GM JAR TOP SCH ×2 (09:03→22:11)
[2020-02-13] MEDS: MICAFUNGIN 100 MG in SODIUM CHLORIDE 0.9% 100 ML IV SCH (12:58)
[2020-02-13] MEDS: DEXMEDETOMIDINE 400 MCG in SODIUM CHLORIDE 0.9% 96 ML IV PRN (13:56)
[2020-02-13] MEDS: PANTOPRAZOLE 40 MG VIAL IV SCH (19:05)
[2020-02-13] MEDS: LEVOFLOXACIN INJ 250 MG in PREMIX 1 EACH IV SCH (22:11)
[2020-02-14] MEDS: INSULIN REGULAR 100 UNIT/ML SUBCUT SCH ×3 (00:20→12:22)
[2020-02-14] MEDS: ALBUTEROL/IPRATROPIUM 3 ML NEB RESP TX SCH ×4 (01:47→19:37)
[2020-02-14] MEDS: PIPERACILLIN/TAZOBACTAM 3,375 MG in SODIUM CHLORIDE 0.9% 100 ML IV SCH (04:15)
[2020-02-14 04:26] LABS: ABG Base Excess 0.6 MMOL/L (-2.5-2.5); ABG Oxygen Saturation 98.9 % (95-100); ABG PCO2 44.9 MM HG (35-48); ABG PH 7.372 (7.35-7.45); ABG TCO2 24.3 MMOL/L (23-27); Allen Test Positive; Pt O2 Delivery Device Ventilator
[2020-02-14 05:10] LABS: Basophils % 0.5 % (0.0-0.8); Eosinophils # 0.2 10*3/uL (0.0-0.87); Eosinophils % 2.5 % (0.00-10.9); Hematocrit 26.5 VOL% (42.0-52.0); Hemoglobin 8.3 GM/DL (14.0-18.0); Immature Granulocytes % 5.5 %; Immature Granulocytes Absolute 0.47 #; Lymphocytes # 0.6 10*3/uL (1.4-4.0); Lymphocytes % 6.5 % (21.2-54.2); Mean Corpuscular HGB Conc 31.3 GM/DL (32-36); Monocytes % 7.5 % (1.7-12.7); Neutrophils % 77.5 % (38.7-73.9); Platelet Count 168 T/CUMM (130-400); Red Blood Count 3.01 MC/CUMM (3.8-5.5); Red Cell Distribution Width 22.4 % (9.3-17.3); White Blood Count 8.6 T/CUMM (4-12)
[2020-02-14 05:38] LABS: Calcium 7.6 MG/DL (8.5-10.1); Osmolality,Calculated 282.7 MOS/KG (273-304)
[2020-02-14 06:12] LABS: Band Neutrophils 1 % (0-10); Hypochromasia 1+; Lymphocytes 6 % (20-55); Nucleated Red Blood Cells 1 (0-5); Platelet Estimate Adequate; Segmented Neutrophils 84 % (50-85); Total Cells Counted 100
[2020-02-14] MEDS: allopurinoL 100 MG TABLET PO SCH (09:42)
[2020-02-14] MEDS: DEXAMETHASONE 4 MG TABLET PER TUBE SCH ×2 (09:42→20:30)
[2020-02-14] MEDS: MENTHOL/ZINC OXIDE OINT 71 GM JAR TOP SCH ×2 (09:42→20:30)
[2020-02-14] MEDS: DEXMEDETOMIDINE 400 MCG in SODIUM CHLORIDE 0.9% 96 ML IV PRN (10:03)
[2020-02-14 11:52] LABS: ABG Base Excess -0.3 MMOL/L (-2.5-2.5); ABG HCO3 24.2 MMOL/L (20-26); ABG Oxygen Saturation 98.9 % (95-100); ABG PCO2 46.3 MM HG (35-48); ABG PH 7.349 (7.35-7.45); ABG TCO2 23.7 MMOL/L (23-27); Pt O2 Delivery Device Ventilator
[2020-02-14] MEDS: MICAFUNGIN 100 MG in SODIUM CHLORIDE 0.9% 100 ML IV SCH (12:32)
[2020-02-14] MEDS: PANTOPRAZOLE 40 MG VIAL IV SCH (18:13)
[2020-02-15] MEDS: ALBUTEROL/IPRATROPIUM 3 ML NEB RESP TX SCH ×4 (00:01→19:15)
[2020-02-15] MEDS: ACETAMINOPHEN 325 MG TABLET PO PRN (03:04)
[2020-02-15 03:17] LABS: ABG Base Excess -1.5 MMOL/L (-2.5-2.5); ABG HCO3 23.2 MMOL/L (20-26); ABG Oxygen Saturation 98.1 % (95-100); ABG PCO2 39.7 MM HG (35-48); ABG PH 7.379 (7.35-7.45); ABG TCO2 21.5 MMOL/L (23-27)
[2020-02-15 04:43] LABS: Calcium 8.1 MG/DL (8.5-10.1); Osmolality,Calculated 289.5 MOS/KG (273-304)
[2020-02-15 04:44] LABS: Osmolality,Calculated 289.5 MOS/KG (273-304)
[2020-02-15] MEDS: MENTHOL/ZINC OXIDE OINT 71 GM JAR TOP SCH ×2 (08:23→20:40)
[2020-02-15] MEDS: allopurinoL 100 MG TABLET PO SCH (08:23)
[2020-02-15] MEDS: DEXAMETHASONE 4 MG TABLET PER TUBE SCH ×2 (08:23→20:39)
[2020-02-15] MEDS: PANTOPRAZOLE 40 MG TABLET PO SCH (09:11)
[2020-02-15] MEDS: MICAFUNGIN 100 MG in SODIUM CHLORIDE 0.9% 100 ML IV SCH (11:50)
[2020-02-15 15:15] LABS: Calcium 8.2 MG/DL (8.5-10.1); Osmolality,Calculated 290.5 MOS/KG (273-304)
[2020-02-15] MEDS ORDERED: POTASSIUM CHLORIDE 20 MEQ TABLET PO ONE (15:50)
[2020-02-15] MEDS: LEVOFLOXACIN INJ 250 MG in PREMIX 1 EACH IV SCH (20:38)
[2020-02-16] MEDS: ALBUTEROL/IPRATROPIUM 3 ML NEB RESP TX SCH ×4 (01:55→19:37)
[2020-02-16 05:49] LABS: Calcium 8.4 MG/DL (8.5-10.1); Osmolality,Calculated 296.3 MOS/KG (273-304)
[2020-02-16] MEDS: PANTOPRAZOLE 40 MG TABLET PO SCH (08:29)
[2020-02-16] MEDS: DEXAMETHASONE 4 MG TABLET PER TUBE SCH ×2 (08:29→20:26)
[2020-02-16] MEDS: allopurinoL 100 MG TABLET PO SCH (08:29)
[2020-02-16] MEDS: POTASSIUM CHLORIDE 20 MEQ TABLET PO SCH ×2 (08:29→20:26)
[2020-02-16] MEDS: MENTHOL/ZINC OXIDE OINT 71 GM JAR TOP SCH ×2 (08:29→20:27)
[2020-02-16] MEDS ORDERED: ALTEPLASE 2 MG VIAL IV ONE (09:31)
[2020-02-16] MEDS: MICAFUNGIN 100 MG in SODIUM CHLORIDE 0.9% 100 ML IV SCH (11:10)
[2020-02-17] MEDS: ALBUTEROL/IPRATROPIUM 3 ML NEB RESP TX SCH ×4 (00:44→19:51)
[2020-02-17] MEDS: ACETAMINOPHEN 325 MG TABLET PO PRN (03:12)
[2020-02-17] MEDS: POTASSIUM CHLORIDE 20 MEQ TABLET PO SCH ×2 (09:43→20:30)
[2020-02-17] MEDS: allopurinoL 100 MG TABLET PO SCH (09:44)
[2020-02-17] MEDS: DEXAMETHASONE 4 MG TABLET PER TUBE SCH ×2 (09:44→20:30)
[2020-02-17] MEDS: MENTHOL/ZINC OXIDE OINT 71 GM JAR TOP SCH ×2 (09:44→20:31)
[2020-02-17] MEDS: PANTOPRAZOLE 40 MG TABLET PO SCH (09:44)
[2020-02-18] MEDS: ALBUTEROL/IPRATROPIUM 3 ML NEB RESP TX SCH ×3 (01:05→14:07)
[2020-02-18 04:47] LABS: Basophils # 0.1 10*3/uL (0.0-0.2); Basophils % 0.6 % (0.0-0.8); Eosinophils # 0.5 10*3/uL (0.0-0.87); Hematocrit 29.5 VOL% (42.0-52.0); Hemoglobin 9.4 GM/DL (14.0-18.0); Immature Granulocytes % 1.7 %; Immature Granulocytes Absolute 0.18 #; Lymphocytes # 0.5 10*3/uL (1.4-4.0); Mean Corpuscular HGB Conc 31.9 GM/DL (32-36); Mean Corpuscular Volume 87.5 FL (87-102); Monocytes % 7.4 % (1.7-12.7); Neutrophils % 80.3 % (38.7-73.9); Platelet Count 270 T/CUMM (130-400); Red Blood Count 3.37 MC/CUMM (3.8-5.5); White Blood Count 10.8 T/CUMM (4-12)
[2020-02-18 05:37] LABS: Bilirubin,Total 1.3 MG/DL (0.2-1.0); Calcium 8.4 MG/DL (8.5-10.1); Osmolality,Calculated 289.3 MOS/KG (273-304); Total Protein 6.9 G/DL (6.4-8.3)
[2020-02-18 05:48] LABS: Hypochromasia 1+; Microcytosis 1+; Ovalocytes Slight; Platelet Estimate Normal; Target Cells Slight
[2020-02-18] MEDS: DEXAMETHASONE 4 MG TABLET PER TUBE SCH (09:00)
[2020-02-18] MEDS: MENTHOL/ZINC OXIDE OINT 71 GM JAR TOP SCH (09:00)
[2020-02-18] MEDS: POTASSIUM CHLORIDE 20 MEQ TABLET PO SCH (09:00)
[2020-02-18] MEDS: PANTOPRAZOLE 40 MG TABLET PO SCH (14:43)
[2020-02-18] MEDS: allopurinoL 100 MG TABLET PO SCH (14:44)
[2020-02-18 16:16] VITALS: BP 98/67
== END 2020-02-18 17:33 | disposition home health service (06) | DRG 870 ==
LOC: N.ED 12:16 → N.EDINP 16:10 → SUATTDRO 16:10 → N.ICU 17:25 → N.TELES 20:02 → N.ICU 02-07 18:07 → N.TELEN 02-17 13:45
PROVIDERS: ADMIT Internal Medicine; ATTEND Family Medicine

== ENCOUNTER 2020-04-04 18:48 | Observation (INO) ==
[2020-04-04 19:37] LABS: Basophils # 0.1 10*3/uL (0.0-0.2); Basophils % 0.7 % (0.0-0.8); Eosinophils # 0.7 10*3/uL (0.0-0.87); Eosinophils % 5.3 % (0.00-10.9); Hematocrit 27.8 VOL% (42.0-52.0); Hemoglobin 8.5 GM/DL (14.0-18.0); Immature Granulocytes % 0.5 %; Immature Granulocytes Absolute 0.07 #; Lymphocytes % 7.1 % (21.2-54.2); Mean Corpuscular HGB Conc 30.6 GM/DL (32-36); Mean Corpuscular Volume 96.9 FL (87-102); Mean Platelet Volume 10.9 FL (9.6-12.0); Monocytes % 7.6 % (1.7-12.7); Neutrophils % 78.8 % (38.7-73.9); Platelet Count 347 T/CUMM (130-400); Red Blood Count 2.87 MC/CUMM (3.8-5.5); Red Cell Distribution Width 16.3 % (9.3-17.3); White Blood Count 13.4 T/CUMM (4-12)
[2020-04-04] MEDS ORDERED: ALBUTEROL/IPRATROPIUM 3 ML NEB RESP TX STA (19:53)
[2020-04-04] MEDS ORDERED: ONDANSETRON 4 MG/2 ML VIAL IV STA (19:53)
[2020-04-04] MEDS ORDERED: FUROSEMIDE 100 MG/10 ML VIAL IV STA (19:53)
[2020-04-04] MEDS ORDERED: methylPREDNISolone SOD SUC 125 MG/2 ML VIAL IV STA (19:53)
[2020-04-04 20:00] LABS: Albumin 2.4 G/DL (3.4-5.0); Bilirubin,Total 0.7 MG/DL (0.2-1.0); Calcium 8.9 MG/DL (8.5-10.1); Osmolality,Calculated 291.3 MOS/KG (273-304); Total Protein 8.1 G/DL (6.4-8.3)
[2020-04-04] MEDS ORDERED: cefTRIAXone 1,000 MG in SODIUM CHLORIDE 0.9% 100 ML IV STA (20:13)
[2020-04-04 20:20] LABS: Ferritin 342.1 ng/ml (26-388)
[2020-04-04 20:36] LABS: PT Patient Result 10.9 SECS (9.8-11.9)
[2020-04-04] MEDS ORDERED: ACETAMINOPHEN 325 MG TABLET PO PRN (20:39)
[2020-04-04] MEDS ORDERED: MORPHINE 4 MG/1 ML VIAL IV PRN (20:39)
[2020-04-04] MEDS ORDERED: ONDANSETRON 4 MG/2 ML VIAL IV PRN (20:39)
[2020-04-04] MEDS: DOCUSATE SODIUM 100 MG CAPSULE PO SCH (21:15)
[2020-04-04] MEDS: SODIUM CHLORIDE 0.9% 1,000 ML IV SCH (21:15)
[2020-04-04] MEDS: ENOXAPARIN 30 MG/0.3 ML SYRINGE SUBCUT SCH (21:15)
[2020-04-04 22:34] LABS: Apearance,Urine CLEAR (Clear); Bilirubin,Urine Negative (Negative); Blood, Urine Negative (Negative); Glucose,Urine (UA) 50 mg/dL (Negative); Hyaline Casts,Urine 4 /LPF (0-3); Ketones,Urine Negative (Negative); Mucus,Urine Occasional /LPF (Occasional); Nitrite,Urine Negative (Negative); Protein,Urine >=500 MG/DL; RBC,Urine 2 /HPF (0-4); Squamous Epithelial Cell,Urine Occasional /HPF (0-10); Urine Color Yellow (Yellow); Urine Specific Gravity 1.014 (1.001-1.035); Urine Urobilinogen < 2.0 EU/DL (0.2-1.0); WBC,Urine 5 /HPF (0-6)
[2020-04-04 22:39] LABS: Barbiturates Screen,Urine Negative (Negative); Benzodiazepines Screen,Urine Negative (Negative); Cannabinoid Screen,Urine Negative (Negative); Opiate Screen,Urine Negative (Negative); Phencyclidine Screen,Urine Negative (Negative)
[2020-04-04] MEDS: ALBUTEROL/IPRATROPIUM 3 ML NEB RESP TX SCH (23:41)
[2020-04-05] MEDS: ALBUTEROL/IPRATROPIUM 3 ML NEB RESP TX SCH ×5 (02:45→20:37)
[2020-04-05] MEDS ORDERED: methylPREDNISolone ACETATE 40 MG/1 ML VIAL ONE (03:47)
[2020-04-05] MEDS: methylPREDNISolone SOD SUC 40 MG/1 ML VIAL IV SCH ×3 (04:03→21:10)
[2020-04-05 04:32] LABS: Basophils # 0.1 10*3/uL (0.0-0.2); Basophils % 0.4 % (0.0-0.8); Eosinophils % 0.1 % (0.00-10.9); Hematocrit 25.9 VOL% (42.0-52.0); Hemoglobin 7.8 GM/DL (14.0-18.0); Immature Granulocytes Absolute 0.13 #; Lymphocytes # 0.4 10*3/uL (1.4-4.0); Lymphocytes % 2.8 % (21.2-54.2); Mean Corpuscular HGB Conc 30.1 GM/DL (32-36); Mean Corpuscular Volume 99.6 FL (87-102); Mean Platelet Volume 10.8 FL (9.6-12.0); Monocytes % 1.2 % (1.7-12.7); Neutrophils % 94.5 % (38.7-73.9); Platelet Count 324 T/CUMM (130-400); Red Cell Distribution Width 16.1 % (9.3-17.3); White Blood Count 13.3 T/CUMM (4-12)
[2020-04-05 04:50] LABS: Eosinophils 1 % (0-10); Hypochromasia 2+; Lymphocytes 3 % (20-55); Platelet Estimate Adequate; Segmented Neutrophils 95 % (50-85); Total Cells Counted 100
[2020-04-05 04:51] LABS: Microcytosis Slight
[2020-04-05 04:53] LABS: Albumin 2.2 G/DL (3.4-5.0); Bilirubin,Total 0.6 MG/DL (0.2-1.0); Calcium 8.6 MG/DL (8.5-10.1); Osmolality,Calculated 289.5 MOS/KG (273-304); Risk Ratio 3.83; Total Protein 7.6 G/DL (6.4-8.3)
[2020-04-05] MEDS ORDERED: ALBUTEROL/IPRATROPIUM 3 ML NEB RESP TX ONE ×3 (08:11→15:47)
[2020-04-05] MEDS ORDERED: DOCUSATE SODIUM 100 MG CAPSULE ONE (09:28)
[2020-04-05] MEDS ORDERED: PANTOPRAZOLE 40 MG TABLET PO ONE (09:28)
[2020-04-05] MEDS ORDERED: FUROSEMIDE 40 MG/4 ML VIAL ONE (09:28)
[2020-04-05] MEDS: PANTOPRAZOLE 40 MG TABLET PO SCH (09:31)
[2020-04-05] MEDS: DOCUSATE SODIUM 100 MG CAPSULE PO SCH ×2 (09:31→21:11)
[2020-04-05] MEDS: FUROSEMIDE 40 MG/4 ML VIAL IV SCH ×2 (09:32→19:04)
[2020-04-05] MEDS ORDERED: HEPARIN 10,000 UNIT/10 ML VIAL IV SCH (15:30)
[2020-04-05] MEDS ORDERED: cefTRIAXone 1,000 MG in SYRINGE 1 EACH IV SCH (21:00)
[2020-04-05] MEDS: ENOXAPARIN 30 MG/0.3 ML SYRINGE SUBCUT SCH (21:12)
[2020-04-05] MEDS: SODIUM CHLORIDE 0.9% 1,000 ML IV SCH (21:16)
[2020-04-05 21:24] LABS: Troponin I 0.273 NG/ML (0.00-0.045)
[2020-04-06] MEDS: ALBUTEROL/IPRATROPIUM 3 ML NEB RESP TX SCH ×5 (00:38→14:41)
[2020-04-06] MEDS: methylPREDNISolone SOD SUC 40 MG/1 ML VIAL IV SCH ×2 (04:55→13:41)
[2020-04-06 06:25] LABS: Troponin I 0.277 NG/ML (0.00-0.045)
[2020-04-06] MEDS: PANTOPRAZOLE 40 MG TABLET PO SCH (10:14)
[2020-04-06] MEDS: DOCUSATE SODIUM 100 MG CAPSULE PO SCH (10:14)
[2020-04-06] MEDS: FUROSEMIDE 40 MG/4 ML VIAL IV SCH (10:14)
[2020-04-06 10:46] LABS: Basophils % 0.2 % (0.0-0.8); Hematocrit 24.7 VOL% (42.0-52.0); Hemoglobin 7.7 GM/DL (14.0-18.0); Immature Granulocytes % 0.9 %; Immature Granulocytes Absolute 0.12 #; Lymphocytes # 0.5 10*3/uL (1.4-4.0); Lymphocytes % 3.7 % (21.2-54.2); Mean Corpuscular HGB Conc 31.2 GM/DL (32-36); Mean Corpuscular Volume 95.7 FL (87-102); Mean Platelet Volume 10.7 FL (9.6-12.0); Monocytes % 5.1 % (1.7-12.7); Neutrophils % 90.1 % (38.7-73.9); Platelet Count 329 T/CUMM (130-400); Red Blood Count 2.58 MC/CUMM (3.8-5.5); Red Cell Distribution Width 16.1 % (9.3-17.3); White Blood Count 12.9 T/CUMM (4-12)
[2020-04-06 11:03] LABS: Calcium 8.2 MG/DL (8.5-10.1); Osmolality,Calculated 292.7 MOS/KG (273-304)
[2020-04-06 11:09] LABS: Eosinophils 1 % (0-10); Hypochromasia 2+; Lymphocytes 6 % (20-55); Microcytosis 1+; Ovalocytes Slight; Platelet Estimate Adequate; Segmented Neutrophils 86 % (50-85); Total Cells Counted 100
[2020-04-06 12:26] VITALS: BP 136/91
== END 2020-04-06 16:18 | disposition home health service (06) ==
LOC: N.EDINP 18:48 → N.ED 18:48 → N.EDINP 04-05 13:36 → N.TELES 04-05 13:45
PROVIDERS: ADMIT Family Medicine; ATTEND Family Medicine

== ENCOUNTER 2020-07-02 16:55 | Observation (INO) ==
[2020-07-02 19:05] LABS: Basophils # 0.1 10*3/uL (0.0-0.2); Basophils % 0.4 % (0.0-0.8); Eosinophils # 0.2 10*3/uL (0.0-0.87); Eosinophils % 1.7 % (0.00-10.9); Hematocrit 31.4 VOL% (42.0-52.0); Hemoglobin 10.2 GM/DL (14.0-18.0); Immature Granulocytes % 0.9 %; Immature Granulocytes Absolute 0.11 #; Lymphocytes # 0.8 10*3/uL (1.4-4.0); Lymphocytes % 6.2 % (21.2-54.2); Mean Corpuscular HGB Conc 32.5 GM/DL (32-36); Mean Platelet Volume 11.3 FL (9.6-12.0); Monocytes % 11.4 % (1.7-12.7); Neutrophils % 79.4 % (38.7-73.9); Platelet Count 213 T/CUMM (130-400); Red Blood Count 3.53 MC/CUMM (3.8-5.5); Red Cell Distribution Width 16.1 % (9.3-17.3); White Blood Count 12.8 T/CUMM (4-12)
[2020-07-02 19:17] LABS: Alanine Aminotransferase < 6 U/L (16-61); Albumin 2.5 G/DL (3.4-5.0); Alkaline Phosphatase 67 U/L (45-117); Aspartate Amino Transferase 15 U/L (0-37); Blood Urea Nitrogen 16 MG/DL (7-18); Calcium 8.3 MG/DL (8.5-10.1); Estimated Glom Filtration Rate 16 ML/MIN; Glucose 103 MG/DL (74-106); Osmolality,Calculated 275.7 MOS/KG (273-304)
[2020-07-02] MEDS ORDERED: ASPIRIN EC 325 MG TABLET PO STA (19:34)
[2020-07-02] MEDS ORDERED: ENOXAPARIN 30 MG/0.3 ML SYRINGE SUBCUT STA (19:34)
[2020-07-02] MEDS ORDERED: ALUM/MAG/SIMETH/LIDO VISC 1:1 30 ML BOTTLE PO STA (19:38)
[2020-07-02] MEDS ORDERED: ONDANSETRON 4 MG/2 ML VIAL IV PRN (19:39)
[2020-07-02] MEDS ORDERED: ACETAMINOPHEN 325 MG TABLET PO PRN (19:39)
[2020-07-02] MEDS ORDERED: ASPIRIN 325 MG TABLET PO ONE (21:07)
[2020-07-03 04:47] LABS: Basophils % 0.4 % (0.0-0.8); Eosinophils % 0.4 % (0.00-10.9); Hematocrit 27.8 VOL% (42.0-52.0); Hemoglobin 8.9 GM/DL (14.0-18.0); Immature Granulocytes % 0.8 %; Immature Granulocytes Absolute 0.08 #; Lymphocytes # 0.5 10*3/uL (1.4-4.0); Mean Corpuscular Volume 89.1 FL (87-102); Mean Platelet Volume 10.4 FL (9.6-12.0); Monocytes % 11.1 % (1.7-12.7); Neutrophils % 82.3 % (38.7-73.9); Platelet Count 180 T/CUMM (130-400); Red Blood Count 3.12 MC/CUMM (3.8-5.5); Red Cell Distribution Width 16.3 % (9.3-17.3); White Blood Count 10.5 T/CUMM (4-12)
[2020-07-03 05:16] LABS: Alanine Aminotransferase < 6 U/L (16-61); Albumin 2.3 G/DL (3.4-5.0); Alkaline Phosphatase 55 U/L (45-117); Aspartate Amino Transferase 10 U/L (0-37); Blood Urea Nitrogen 19 MG/DL (7-18); Calcium 7.9 MG/DL (8.5-10.1); Estimated Glom Filtration Rate 14 ML/MIN; Glucose 100 MG/DL (74-106); Osmolality,Calculated 282.3 MOS/KG (273-304); Total Protein 6.6 G/DL (6.4-8.3)
[2020-07-03] MEDS: amLODIPine 5 MG TABLET PO SCH (09:59)
[2020-07-03] MEDS: PANTOPRAZOLE 40 MG VIAL IV SCH (09:59)
[2020-07-03] MEDS: atenoloL 50 MG TABLET PO SCH (09:59)
[2020-07-03] MEDS: ASPIRIN EC 81 MG TABLET PO SCH (12:00)
[2020-07-04 04:35] LABS: Basophils % 0.3 % (0.0-0.8); Eosinophils % 0.3 % (0.00-10.9); Hematocrit 33.3 VOL% (42.0-52.0); Hemoglobin 10.5 GM/DL (14.0-18.0); Immature Granulocytes % 0.6 %; Immature Granulocytes Absolute 0.09 #; Lymphocytes # 0.6 10*3/uL (1.4-4.0); Mean Corpuscular HGB Conc 31.5 GM/DL (32-36); Mean Platelet Volume 10.9 FL (9.6-12.0); Monocytes % 7.7 % (1.7-12.7); Neutrophils % 87.1 % (38.7-73.9); Platelet Count 177 T/CUMM (130-400); Red Cell Distribution Width 16.1 % (9.3-17.3); White Blood Count 15.5 T/CUMM (4-12)
[2020-07-04 04:54] LABS: Calcium 8.3 MG/DL (8.5-10.1); Osmolality,Calculated 281.7 MOS/KG (273-304)
[2020-07-04 04:58] LABS: Risk Ratio 3.5; VLDL CHOLESTEROL 14.4 MG/DL
[2020-07-04 05:29] LABS: Band Neutrophils 3 % (0-10); Hypochromasia 1+; Lymphocytes 4 % (20-55); Microcytosis 1+; Ovalocytes Slight; Platelet Estimate Adequate; Segmented Neutrophils 88 % (50-85); Total Cells Counted 100
[2020-07-04] MEDS ORDERED: LIDOCAINE 5% PATCH TRANSDERM SCH (09:00)
[2020-07-04] MEDS ORDERED: ACETAMINOPHEN 325 MG TABLET PO SCH (09:00)
[2020-07-04] MEDS: ASPIRIN EC 81 MG TABLET PO SCH (09:59)
[2020-07-04] MEDS: amLODIPine 5 MG TABLET PO SCH (10:00)
[2020-07-04] MEDS: GABAPENTIN 100 MG CAPSULE PO SCH ×2 (10:00→14:56)
[2020-07-04] MEDS: PANTOPRAZOLE 40 MG VIAL IV SCH (10:01)
[2020-07-04] MEDS: atenoloL 50 MG TABLET PO SCH (10:01)
[2020-07-04 13:03] VITALS: BP 127/72
== END 2020-07-04 16:41 | disposition home or self-care (01) ==
LOC: N.EDINP 16:55 → N.ED 16:55 → N.TELES 20:19
PROVIDERS: ADMIT Family Medicine; ATTEND Family Medicine

== ENCOUNTER 2020-07-09 15:11 | Observation (INO) ==
[2020-07-09] MEDS ORDERED: ONDANSETRON 4 MG/2 ML VIAL IV PRN (15:50)
[2020-07-09 15:56] LABS: Basophils % 0.1 % (0.0-0.8); Eosinophils # 0.4 10*3/uL (0.0-0.87); Eosinophils % 1.6 % (0.00-10.9); Hematocrit 27.4 VOL% (42.0-52.0); Hemoglobin 8.8 GM/DL (14.0-18.0); Immature Granulocytes % 5.3 %; Immature Granulocytes Absolute 1.14 #; Lymphocytes # 0.6 10*3/uL (1.4-4.0); Lymphocytes % 2.9 % (21.2-54.2); Mean Corpuscular HGB Conc 32.1 GM/DL (32-36); Mean Corpuscular Volume 89.8 FL (87-102); Monocytes % 3.2 % (1.7-12.7); Neutrophils % 86.9 % (38.7-73.9); Platelet Count 281 T/CUMM (130-400); Red Blood Count 3.05 MC/CUMM (3.8-5.5); Red Cell Distribution Width 17.2 % (9.3-17.3); White Blood Count 21.5 T/CUMM (4-12)
[2020-07-09 16:06] LABS: INR 1.1; PT Patient Result 11.4 SECS (9.8-11.9)
[2020-07-09 16:12] LABS: Calcium 8.1 MG/DL (8.5-10.1); Osmolality,Calculated 292.5 MOS/KG (273-304)
[2020-07-09] MEDS: GABAPENTIN 100 MG CAPSULE PO SCH (21:20)
[2020-07-10] MEDS ORDERED: HEPARIN 5,000 UNIT/1 ML VIAL ONE (08:42)
[2020-07-10] MEDS ORDERED: BUPIVACAINE MPF 0.25% 30 ML VIAL ONE (08:42)
[2020-07-10] MEDS ORDERED: LIDOCAINE 1%/EPI INJ 20 ML VIAL ONE (08:42)
[2020-07-10] MEDS ORDERED: propofoL 200 MG/20 ML VIAL IV ONE (09:15)
[2020-07-10] MEDS ORDERED: fentaNYL 100 MCG/2 ML VIAL ONE (09:15)
[2020-07-10] MEDS ORDERED: MIDAZOLAM 2 MG/2 ML VIAL ONE (09:15)
[2020-07-10] MEDS ORDERED: LIDOCAINE 2% 5 ML VIAL ONE (09:15)
[2020-07-10] MEDS ORDERED: SODIUM CHLORIDE 0.9% 100 ML IV ONE (11:34)
[2020-07-10] MEDS: PANTOPRAZOLE 40 MG TABLET PO SCH (11:46)
[2020-07-10] MEDS: atenoloL 50 MG TABLET PO SCH (11:46)
[2020-07-10] MEDS: amLODIPine 10 MG TABLET PO SCH (11:46)
[2020-07-10] MEDS: GABAPENTIN 100 MG CAPSULE PO SCH ×3 (11:47→21:42)
[2020-07-10] MEDS ORDERED: SKIN HEALING OINT (AQUAPHOR) 50 GM TUBE TOP PRN (14:06)
[2020-07-11] MEDS ORDERED: MIDAZOLAM 2 MG/2 ML VIAL IV ONE (08:42)
[2020-07-11] MEDS ORDERED: DIAZEPAM 5 MG TABLET PO ONE (08:42)
[2020-07-11] MEDS ORDERED: ceFAZolin 1,000 MG in SYRINGE 1 EACH IV ONE (08:42)
[2020-07-11] MEDS ORDERED: fentaNYL 100 MCG/2 ML VIAL IV ONE (08:42)
[2020-07-11] MEDS ORDERED: HEPARIN LOCK FLUSH 500 UNIT/5 ML SYRINGE IV ONE (10:16)
[2020-07-11] MEDS ORDERED: TISSUE ADHESIVE 1 EACH APPLICATOR TOP ONE (10:17)
[2020-07-11] MEDS: atenoloL 50 MG TABLET PO SCH (11:38)
[2020-07-11] MEDS: PANTOPRAZOLE 40 MG TABLET PO SCH (11:38)
[2020-07-11] MEDS: amLODIPine 10 MG TABLET PO SCH (11:38)
[2020-07-11] MEDS: GABAPENTIN 100 MG CAPSULE PO SCH ×3 (11:38→20:42)
[2020-07-11] MEDS: SODIUM CHLORIDE 0.45% 1,000 ML IV SCH (11:39)
[2020-07-11] MEDS ORDERED: HEPARIN LOCK FLUSH 500 UNIT/5 ML SYRINGE IV PRN (12:53)
[2020-07-11] MEDS ORDERED: MORPHINE 4 MG/1 ML VIAL IV PRN ×2 (20:10→20:14)
[2020-07-11] MEDS ORDERED: HEPARIN 10,000 UNIT/10 ML VIAL IV SCH (20:30)
[2020-07-12] MEDS ORDERED: VANCOMYCIN INJ 1,000 MG in SODIUM CHLORIDE 0.9% 250 ML IV SCH ×3 (09:34→17:00)
[2020-07-12] MEDS: atenoloL 50 MG TABLET PO SCH (13:24)
[2020-07-12] MEDS: PANTOPRAZOLE 40 MG TABLET PO SCH (13:25)
[2020-07-12] MEDS: GABAPENTIN 100 MG CAPSULE PO SCH ×3 (13:25→15:56)
[2020-07-12] MEDS: amLODIPine 10 MG TABLET PO SCH (13:25)
[2020-07-12] MEDS: SODIUM CHLORIDE 0.45% 1,000 ML IV SCH (13:26)
[2020-07-12 15:57] VITALS: BP 123/73
[2020-07-12] MEDS ORDERED: SODIUM CHLORIDE 0.9% 250 ML IV ONE (16:43)
== END 2020-07-12 18:30 | disposition home or self-care (01) ==
LOC: N.ED 15:11 → N.EDINP 15:11 → N.3E 17:12
PROVIDERS: ADMIT Surgery; ATTEND Surgery

== ENCOUNTER 2020-10-10 16:45 | Inpatient (IN) ==
[2020-10-10 18:13] LABS: Thyroid Stimulating Hormone 3.31 uIU/ml (0.358-3.74)
[2020-10-10 18:15] LABS: Basophils # 0.1 10*3/uL (0.0-0.2); Basophils % 0.6 % (0.0-0.8); Eosinophils # 0.2 10*3/uL (0.0-0.87); Eosinophils % 1.1 % (0.00-10.9); Hematocrit 29.9 VOL% (42.0-52.0); Hemoglobin 9.2 GM/DL (14.0-18.0); Immature Granulocytes % 1.6 %; Immature Granulocytes Absolute 0.28 #; Lymphocytes # 0.4 10*3/uL (1.4-4.0); Lymphocytes % 2.3 % (21.2-54.2); Mean Corpuscular HGB Conc 30.8 GM/DL (32-36); Mean Corpuscular Volume 86.7 FL (87-102); Monocytes % 4.6 % (1.7-12.7); Neutrophils % 89.8 % (38.7-73.9); Platelet Count 588 T/CUMM (130-400); Red Blood Count 3.45 MC/CUMM (3.8-5.5); Red Cell Distribution Width 18.9 % (9.3-17.3); White Blood Count 17.7 T/CUMM (4-12)
[2020-10-10 18:22] LABS: Alanine Aminotransferase 18 U/L (16-61); Albumin 1.9 G/DL (3.4-5.0); Alkaline Phosphatase 112 U/L (45-117); Aspartate Amino Transferase 25 U/L (0-37); Blood Urea Nitrogen 125 MG/DL (7-18); Carbon Dioxide 24 MMOL/L (21-32); Estimated Glom Filtration Rate 4 ML/MIN; Glucose 103 MG/DL (74-106); Osmolality,Calculated 301.7 MOS/KG (273-304); Sodium 131 MMOL/L (136-145); Total Protein 9.3 G/DL (6.4-8.3); Troponin I 0.016 NG/ML (0.00-0.045)
[2020-10-10] MEDS ORDERED: INSULIN REGULAR 10 UNIT, CALCIUM GLUCONATE 1,000 MG in DEXTROSE 10% 250 ML IV ONE ×2 (18:34→19:00)
[2020-10-10] MEDS ORDERED: SODIUM POLYSTYRENE SULFATE 15 GM/60 ML BOTTLE PO STA (18:35)
[2020-10-10 18:50] LABS: Anisocytosis 1+; Atypical Lymphocytes Few; Band Neutrophils 2 % (0-10); Hypochromasia 1+; Lymphocytes 3 % (20-55); Metamyelocytes 1 %; Microcytosis 1+; Segmented Neutrophils 88 % (50-85); Total Cells Counted 100
[2020-10-10 18:51] LABS: Platelet Estimate Increased; Polychromasia Few
[2020-10-10] MEDS ORDERED: ONDANSETRON 4 MG/2 ML VIAL IV PRN (19:03)
[2020-10-10] MEDS ORDERED: FUROSEMIDE 100 MG/10 ML VIAL IV STA (19:26)
[2020-10-10 21:27] LABS: Albumin 1.9 G/DL (3.4-5.0); Bilirubin,Direct 0.21 MG/DL (0.0-0.20); Bilirubin,Indirect 0.5 MG/DL (0.0-1.0); Bilirubin,Total 0.7 MG/DL (0.2-1.0); Total Protein 9.1 G/DL (6.4-8.3)
[2020-10-11] MEDS: SODIUM POLYSTYRENE SULFATE 15 GM/60 ML BOTTLE PO SCH ×2 (00:35→03:19)
[2020-10-11 04:29] LABS: Basophils # 0.1 10*3/uL (0.0-0.2); Basophils % 0.4 % (0.0-0.8); Eosinophils # 0.1 10*3/uL (0.0-0.87); Eosinophils % 0.5 % (0.00-10.9); Hematocrit 27.6 VOL% (42.0-52.0); Hemoglobin 7.9 GM/DL (14.0-18.0); Immature Granulocytes % 1.2 %; Immature Granulocytes Absolute 0.23 #; Lymphocytes # 0.4 10*3/uL (1.4-4.0); Lymphocytes % 2.1 % (21.2-54.2); Mean Corpuscular HGB Conc 28.6 GM/DL (32-36); Mean Corpuscular Volume 93.6 FL (87-102); Mean Platelet Volume 9.2 FL (9.6-12.0); Monocytes % 5.9 % (1.7-12.7); Neutrophils % 89.9 % (38.7-73.9); Platelet Count 558 T/CUMM (130-400); Red Blood Count 2.95 MC/CUMM (3.8-5.5); Red Cell Distribution Width 18.8 % (9.3-17.3); White Blood Count 19.2 T/CUMM (4-12)
[2020-10-11 04:34] LABS: INR 1.2; PT Patient Result 12.5 SECS (9.8-11.9)
[2020-10-11 04:44] LABS: Calcium 8.8 MG/DL (8.5-10.1); Potassium 5.2 MMOL/L (3.5-5.1)
[2020-10-11 04:50] LABS: Uric Acid 9.9 MG/DL (3.5-7.2)
[2020-10-11 05:09] LABS: Eosinophils 1 % (0-10); Hypochromasia 2+; Lymphocytes 3 % (20-55); Microcytosis 1+; Platelet Estimate Increased; Segmented Neutrophils 88 % (50-85); Total Cells Counted 100
[2020-10-11 05:10] LABS: Ovalocytes Slight
[2020-10-11] MEDS ORDERED: SODIUM ZIRCONIUM CYCLOSILICATE 10 GM PACK PO SCH (09:00)
[2020-10-11] MEDS ORDERED: amLODIPine 10 MG TABLET PO SCH (09:00)
[2020-10-11] MEDS ORDERED: atenoloL 50 MG TABLET PO SCH (09:00)
[2020-10-11] MEDS: CALCIUM ACETATE 667 MG CAPSULE PO SCH ×2 (09:01→13:05)
[2020-10-11] MEDS: ASPIRIN EC 81 MG TABLET PO SCH (09:02)
[2020-10-11] MEDS: PANTOPRAZOLE 40 MG TABLET PO SCH (09:02)
[2020-10-11] MEDS ORDERED: HEPARIN 10,000 UNIT/10 ML VIAL IV SCH (17:45)
[2020-10-11] MEDS: SEVELAMER CARBONATE 800 MG TABLET PO SCH (17:48)
[2020-10-12] MEDS: ACETAMINOPHEN 325 MG TABLET PO PRN ×2 (00:59→17:08)
[2020-10-12 05:07] LABS: Basophils # 0.1 10*3/uL (0.0-0.2); Basophils % 0.6 % (0.0-0.8); Eosinophils # 0.2 10*3/uL (0.0-0.87); Eosinophils % 1.4 % (0.00-10.9); Hematocrit 27.2 VOL% (42.0-52.0); Hemoglobin 8.1 GM/DL (14.0-18.0); Immature Granulocytes % 1.2 %; Immature Granulocytes Absolute 0.17 #; Lymphocytes # 0.5 10*3/uL (1.4-4.0); Lymphocytes % 3.5 % (21.2-54.2); Mean Corpuscular HGB Conc 29.8 GM/DL (32-36); Mean Corpuscular Volume 90.7 FL (87-102); Monocytes % 7.3 % (1.7-12.7); Platelet Count 457 T/CUMM (130-400); Red Cell Distribution Width 18.6 % (9.3-17.3); White Blood Count 13.9 T/CUMM (4-12)
[2020-10-12 05:22] LABS: Calcium 9.1 MG/DL (8.5-10.1); Osmolality,Calculated 281.2 MOS/KG (273-304); Potassium 4.6 MMOL/L (3.5-5.1)
[2020-10-12 05:26] LABS: Eosinophils 1 % (0-10); Hypochromasia 1+; Lymphocytes 4 % (20-55); Microcytosis 1+; Platelet Estimate Adequate; Segmented Neutrophils 83 % (50-85); Total Cells Counted 100
[2020-10-12] MEDS: ASPIRIN EC 81 MG TABLET PO SCH (10:13)
[2020-10-12] MEDS: SEVELAMER CARBONATE 800 MG TABLET PO SCH ×3 (10:14→17:08)
[2020-10-12] MEDS: PANTOPRAZOLE 40 MG TABLET PO SCH (10:14)
[2020-10-12] MEDS ORDERED: VANCOMYCIN INJ 2,000 MG in SODIUM CHLORIDE 0.9% 500 ML IV ONE (15:00)
[2020-10-12] MEDS: RIVAROXABAN 15 MG TABLET PO SCH (17:08)
[2020-10-13 06:34] LABS: Calcium 8.8 MG/DL (8.5-10.1); Osmolality,Calculated 282.4 MOS/KG (273-304); Potassium 4.3 MMOL/L (3.5-5.1)
[2020-10-13 06:50] LABS: Immunoglobulin A 724 MG/DL (70-400); Immunoglobulin G 2200 MG/DL (700-1600); Immunoglobulin M 155 MG/DL (40-230)
[2020-10-13 07:49] LABS: Immunoglobulin A (Chem) 724 MG/DL (70-400); Immunoglobulin G (Chem) 2200 MG/DL (700-1600); Immunoglobulin M (Chem) 155 MG/DL (40-230)
[2020-10-13] MEDS: RIVAROXABAN 15 MG TABLET PO SCH ×2 (09:18→17:30)
[2020-10-13] MEDS: ASPIRIN EC 81 MG TABLET PO SCH (09:18)
[2020-10-13] MEDS: SEVELAMER CARBONATE 800 MG TABLET PO SCH ×3 (09:18→17:30)
[2020-10-13] MEDS: traMADol 50 MG TABLET PO PRN (09:19)
[2020-10-13] MEDS: PANTOPRAZOLE 40 MG TABLET PO SCH (09:19)
[2020-10-13 09:31] LABS: Albumin (SPE) 3.3 G/DL (3.2-5.3); Albumin (SPE) Rel % 36.5 %; Alpha 1 (SPE) 0.6 G/DL (0.1-0.4); Alpha 1 (SPE) Rel % 6.6 %; Alpha 2 (SPE) 1.2 G/DL (0.4-1.0); Alpha 2 (SPE) Rel % 13.2 %; Beta (SPE) 1.1 G/DL (0.5-1.1); Beta (SPE) Rel % 12.3 %; Gamma (SPE) 2.8 G/DL (0.7-1.7); Gamma (SPE) Rel % 31.4 %
[2020-10-13 10:08] LABS: Basophils # 0.1 10*3/uL (0.0-0.2); Basophils % 0.6 % (0.0-0.8); Eosinophils # 0.3 10*3/uL (0.0-0.87); Eosinophils % 1.8 % (0.00-10.9); Hematocrit 32.7 VOL% (42.0-52.0); Hemoglobin 9.7 GM/DL (14.0-18.0); Immature Granulocytes Absolute 0.15 #; Lymphocytes # 0.5 10*3/uL (1.4-4.0); Lymphocytes % 3.4 % (21.2-54.2); Mean Corpuscular HGB Conc 29.7 GM/DL (32-36); Mean Corpuscular Volume 88.1 FL (87-102); Mean Platelet Volume 9.1 FL (9.6-12.0); Monocytes % 6.5 % (1.7-12.7); Neutrophils % 86.7 % (38.7-73.9); Platelet Count 505 T/CUMM (130-400); Red Blood Count 3.71 MC/CUMM (3.8-5.5); Red Cell Distribution Width 18.3 % (9.3-17.3); White Blood Count 14.6 T/CUMM (4-12)
[2020-10-13 10:29] LABS: Eosinophils 1 % (0-10); Hypochromasia 1+; Lymphocytes 4 % (20-55); Microcytosis 1+; Segmented Neutrophils 85 % (50-85); Total Cells Counted 100
[2020-10-13] MEDS: ALBUTEROL/IPRATROPIUM 3 ML NEB RESP TX SCH ×2 (14:38→20:03)
[2020-10-13] MEDS ORDERED: VANCOMYCIN INJ 750 MG in SODIUM CHLORIDE 0.9% 250 ML IV PRN (17:00)
[2020-10-13] MEDS ORDERED: VANCOMYCIN INJ 750 MG in SODIUM CHLORIDE 0.9% 250 ML IV ONE (17:00)
[2020-10-14] MEDS: ALBUTEROL/IPRATROPIUM 3 ML NEB RESP TX SCH ×4 (00:38→19:10)
[2020-10-14 05:54] LABS: Basophils # 0.1 10*3/uL (0.0-0.2); Basophils % 0.6 % (0.0-0.8); Eosinophils # 0.3 10*3/uL (0.0-0.87); Eosinophils % 2.4 % (0.00-10.9); Hemoglobin 8.1 GM/DL (14.0-18.0); Immature Granulocytes % 1.2 %; Immature Granulocytes Absolute 0.15 #; Lymphocytes # 0.6 10*3/uL (1.4-4.0); Lymphocytes % 4.4 % (21.2-54.2); Mean Corpuscular HGB Conc 28.9 GM/DL (32-36); Mean Platelet Volume 9.3 FL (9.6-12.0); Neutrophils % 84.4 % (38.7-73.9); Platelet Count 461 T/CUMM (130-400); Red Blood Count 3.11 MC/CUMM (3.8-5.5); Red Cell Distribution Width 18.1 % (9.3-17.3); White Blood Count 12.6 T/CUMM (4-12)
[2020-10-14 06:12] LABS: Calcium 8.6 MG/DL (8.5-10.1); Potassium 4.3 MMOL/L (3.5-5.1)
[2020-10-14 06:16] LABS: Risk Ratio 3.02
[2020-10-14 07:25] LABS: Eosinophils 3 % (0-10); Hypochromasia 2+; Lymphocytes 4 % (20-55); Myelocytes 2 %; Segmented Neutrophils 83 % (50-85); Total Cells Counted 100
[2020-10-14 07:26] LABS: Microcytosis 1+; Platelet Estimate Increased; Target Cells Slight
[2020-10-14] MEDS: SEVELAMER CARBONATE 800 MG TABLET PO SCH ×3 (09:14→17:21)
[2020-10-14] MEDS: RIVAROXABAN 15 MG TABLET PO SCH ×2 (09:25→17:21)
[2020-10-14] MEDS: PANTOPRAZOLE 40 MG TABLET PO SCH (09:25)
[2020-10-14] MEDS: ASPIRIN EC 81 MG TABLET PO SCH (09:25)
[2020-10-14] MEDS ORDERED: MIDAZOLAM 10 MG/2 ML VIAL ONE (12:27)
[2020-10-14 12:34] LABS: Immuno Free Light Chain Kappa 53.52 MG/DL (0.33-1.94); Immuno Free Light Chain Lambda 100.97 MG/DL (0.57-2.63); Immuno Free Light Chain Ratio 0.53 MG/DL (0.26-1.65)
[2020-10-14] MEDS ORDERED: MIDAZOLAM 2 MG/2 ML VIAL IV ONE (12:44)
[2020-10-14] MEDS: SODIUM CHLORIDE 0.9% 1,000 ML IV SCH (14:07)
[2020-10-15] MEDS: ALBUTEROL/IPRATROPIUM 3 ML NEB RESP TX SCH ×4 (00:40→19:28)
[2020-10-15 04:30] LABS: Basophils # 0.1 10*3/uL (0.0-0.2); Basophils % 0.7 % (0.0-0.8); Eosinophils # 0.5 10*3/uL (0.0-0.87); Eosinophils % 3.8 % (0.00-10.9); Hematocrit 27.9 VOL% (42.0-52.0); Hemoglobin 8.2 GM/DL (14.0-18.0); Immature Granulocytes % 0.9 %; Immature Granulocytes Absolute 0.12 #; Lymphocytes # 0.5 10*3/uL (1.4-4.0); Lymphocytes % 4.1 % (21.2-54.2); Mean Corpuscular HGB Conc 29.4 GM/DL (32-36); Mean Corpuscular Volume 89.1 FL (87-102); Mean Platelet Volume 9.3 FL (9.6-12.0); Monocytes % 6.9 % (1.7-12.7); Neutrophils % 83.6 % (38.7-73.9); Platelet Count 471 T/CUMM (130-400); Red Blood Count 3.13 MC/CUMM (3.8-5.5); White Blood Count 13.1 T/CUMM (4-12)
[2020-10-15 04:53] LABS: Calcium 8.6 MG/DL (8.5-10.1); Potassium 4.2 MMOL/L (3.5-5.1)
[2020-10-15 05:18] LABS: Eosinophils 2 % (0-10); Lymphocytes 2 % (20-55); Segmented Neutrophils 90 % (50-85); Total Cells Counted 100
[2020-10-15 05:19] LABS: Hypochromasia 3+; Platelet Estimate Increased
[2020-10-15] MEDS: RIVAROXABAN 15 MG TABLET PO SCH ×2 (07:01→18:14)
[2020-10-15] MEDS: traMADol 50 MG TABLET PO PRN (07:01)
[2020-10-15] MEDS ORDERED: LIDOCAINE 1%/EPI INJ 20 ML VIAL MISC INJ ONE (08:00)
[2020-10-15] MEDS: PANTOPRAZOLE 40 MG TABLET PO SCH (09:04)
[2020-10-15] MEDS: ASPIRIN EC 81 MG TABLET PO SCH (09:04)
[2020-10-15] MEDS: SEVELAMER CARBONATE 800 MG TABLET PO SCH (18:09)
[2020-10-15] MEDS: SODIUM CHLORIDE 0.9% 1,000 ML IV SCH (18:10)
[2020-10-16] MEDS: ALBUTEROL/IPRATROPIUM 3 ML NEB RESP TX SCH ×4 (00:27→19:53)
[2020-10-16] MEDS: traMADol 50 MG TABLET PO PRN (04:30)
[2020-10-16 06:38] LABS: Basophils % 0.3 % (0.0-0.8); Eosinophils # 0.4 10*3/uL (0.0-0.87); Eosinophils % 3.5 % (0.00-10.9); Hematocrit 27.8 VOL% (42.0-52.0); Hemoglobin 8.4 GM/DL (14.0-18.0); Immature Granulocytes % 1.1 %; Immature Granulocytes Absolute 0.13 #; Lymphocytes # 0.4 10*3/uL (1.4-4.0); Lymphocytes % 3.4 % (21.2-54.2); Mean Corpuscular HGB Conc 30.2 GM/DL (32-36); Mean Corpuscular Volume 87.7 FL (87-102); Mean Platelet Volume 9.4 FL (9.6-12.0); Monocytes % 6.5 % (1.7-12.7); Neutrophils % 85.2 % (38.7-73.9); Platelet Count 424 T/CUMM (130-400); Red Blood Count 3.17 MC/CUMM (3.8-5.5); Red Cell Distribution Width 17.6 % (9.3-17.3); White Blood Count 11.3 T/CUMM (4-12)
[2020-10-16 06:44] LABS: Calcium 8.6 MG/DL (8.5-10.1)
[2020-10-16 08:25] LABS: Band Neutrophils 1 % (0-10); Eosinophils 2 % (0-10); Lymphocytes 2 % (20-55); Segmented Neutrophils 88 % (50-85); Total Cells Counted 100
[2020-10-16 08:26] LABS: Anisocytosis 2+; Macrocytosis 2+; Platelet Estimate Increased
[2020-10-16] MEDS: ASPIRIN EC 81 MG TABLET PO SCH (09:12)
[2020-10-16] MEDS: PANTOPRAZOLE 40 MG TABLET PO SCH (09:12)
[2020-10-16] MEDS: RIVAROXABAN 15 MG TABLET PO SCH ×2 (09:12→16:54)
[2020-10-16] MEDS: SEVELAMER CARBONATE 800 MG TABLET PO SCH ×3 (09:13→16:54)
[2020-10-16] MEDS: SODIUM CHLORIDE 0.9% 1,000 ML IV SCH (13:45)
[2020-10-17] MEDS: ALBUTEROL/IPRATROPIUM 3 ML NEB RESP TX SCH ×4 (01:13→20:25)
[2020-10-17] MEDS: traMADol 50 MG TABLET PO PRN (06:29)
[2020-10-17 06:54] LABS: Basophils % 0.2 % (0.0-0.8); Eosinophils # 0.9 10*3/uL (0.0-0.87); Eosinophils % 6.7 % (0.00-10.9); Hematocrit 29.9 VOL% (42.0-52.0); Hemoglobin 8.7 GM/DL (14.0-18.0); Immature Granulocytes % 0.8 %; Lymphocytes # 0.4 10*3/uL (1.4-4.0); Mean Corpuscular HGB Conc 29.1 GM/DL (32-36); Mean Corpuscular Volume 90.6 FL (87-102); Mean Platelet Volume 9.8 FL (9.6-12.0); Monocytes % 5.3 % (1.7-12.7); Platelet Count 424 T/CUMM (130-400); Red Cell Distribution Width 17.5 % (9.3-17.3); White Blood Count 12.8 T/CUMM (4-12)
[2020-10-17 07:02] LABS: Eosinophils 5 % (0-10); Lymphocytes 1 % (20-55); Segmented Neutrophils 88 % (50-85); Total Cells Counted 100
[2020-10-17 07:03] LABS: Calcium 8.9 MG/DL (8.5-10.1); Hypochromasia 2+; Microcytosis 1+; Osmolality,Calculated 274.2 MOS/KG (273-304); Potassium 4.2 MMOL/L (3.5-5.1)
[2020-10-17 07:06] LABS: Platelet Estimate Increased
[2020-10-17] MEDS: PANTOPRAZOLE 40 MG TABLET PO SCH (08:17)
[2020-10-17] MEDS: RIVAROXABAN 15 MG TABLET PO SCH ×2 (08:18→16:21)
[2020-10-17] MEDS: ASPIRIN EC 81 MG TABLET PO SCH (08:18)
[2020-10-17] MEDS: SEVELAMER CARBONATE 800 MG TABLET PO SCH ×3 (08:18→16:21)
[2020-10-17 10:32] LABS: Albumin (UPER) 253.3 MG/DL; Albumin (UPER) Rel% 40.6 %; Alpha 1 (UPER) 72.4 MG/DL; Alpha 1 (UPER) Rel% 11.6 %; Alpha 2 (UPER) 52.4 MG/DL; Alpha 2 (UPER) Rel % 8.4 %; Beta (UPER) 126.6 MG/DL; Beta (UPER) Rel % 20.3 %; Gamma (UPER) 119.1 MG/DL; Gamma (UPER) Rel % 19.1 %
[2020-10-17] MEDS: IBUPROFEN 600 MG TABLET PO PRN (16:21)
[2020-10-18] MEDS: ALBUTEROL/IPRATROPIUM 3 ML NEB RESP TX SCH ×4 (00:22→19:05)
[2020-10-18 07:16] LABS: Calcium 8.7 MG/DL (8.5-10.1); Potassium 4.6 MMOL/L (3.5-5.1)
[2020-10-18 07:30] LABS: Basophils % 0.3 % (0.0-0.8); Eosinophils # 0.8 10*3/uL (0.0-0.87); Eosinophils % 7.5 % (0.00-10.9); Hemoglobin 8.7 GM/DL (14.0-18.0); Immature Granulocytes % 0.6 %; Immature Granulocytes Absolute 0.07 #; Lymphocytes # 0.3 10*3/uL (1.4-4.0); Lymphocytes % 3.1 % (21.2-54.2); Mean Corpuscular Volume 88.5 FL (87-102); Mean Platelet Volume 9.5 FL (9.6-12.0); Monocytes % 5.8 % (1.7-12.7); Neutrophils % 82.7 % (38.7-73.9); Platelet Count 437 T/CUMM (130-400); Red Blood Count 3.39 MC/CUMM (3.8-5.5); Red Cell Distribution Width 17.3 % (9.3-17.3); White Blood Count 10.8 T/CUMM (4-12)
[2020-10-18 07:37] LABS: Eosinophils 11 % (0-10); Hypochromasia 1+; Lymphocytes 4 % (20-55); Microcytosis 1+; Platelet Estimate Adequate; Segmented Neutrophils 78 % (50-85); Total Cells Counted 100
[2020-10-18] MEDS ORDERED: CLINDAMYCIN INJ 900 MG in PREMIX 1 EACH IV ONE (08:00)
[2020-10-18] MEDS: RIVAROXABAN 15 MG TABLET PO SCH ×2 (09:16→18:45)
[2020-10-18] MEDS: PANTOPRAZOLE 40 MG TABLET PO SCH (09:16)
[2020-10-18] MEDS: SEVELAMER CARBONATE 800 MG TABLET PO SCH ×3 (09:16→18:45)
[2020-10-18] MEDS: ASPIRIN EC 81 MG TABLET PO SCH (09:16)
[2020-10-18] MEDS: ceFAZolin 2,000 MG in PREMIX 1 EACH IV SCH (18:54)
[2020-10-18] MEDS: traMADol 50 MG TABLET PO PRN (23:43)
[2020-10-19] MEDS: ALBUTEROL/IPRATROPIUM 3 ML NEB RESP TX SCH ×4 (01:54→20:51)
[2020-10-19 05:52] LABS: Basophils % 0.2 % (0.0-0.8); Eosinophils # 0.9 10*3/uL (0.0-0.87); Eosinophils % 9.7 % (0.00-10.9); Hemoglobin 8.4 GM/DL (14.0-18.0); Immature Granulocytes % 0.6 %; Immature Granulocytes Absolute 0.06 #; Lymphocytes # 0.3 10*3/uL (1.4-4.0); Lymphocytes % 3.4 % (21.2-54.2); Mean Corpuscular Volume 90.1 FL (87-102); Mean Platelet Volume 9.3 FL (9.6-12.0); Monocytes % 6.7 % (1.7-12.7); Neutrophils % 79.4 % (38.7-73.9); Platelet Count 481 T/CUMM (130-400); Red Blood Count 3.22 MC/CUMM (3.8-5.5); Red Cell Distribution Width 17.3 % (9.3-17.3); White Blood Count 9.6 T/CUMM (4-12)
[2020-10-19 06:16] LABS: Eosinophils 10 % (0-10); Hypochromasia 1+; Lymphocytes 3 % (20-55); Microcytosis 1+; Platelet Estimate Adequate; Segmented Neutrophils 85 % (50-85); Total Cells Counted 100
[2020-10-19 06:29] LABS: Calcium 8.5 MG/DL (8.5-10.1); Osmolality,Calculated 282.2 MOS/KG (273-304); Potassium 4.7 MMOL/L (3.5-5.1)
[2020-10-19] MEDS ORDERED: MIDAZOLAM 2 MG/2 ML VIAL ONE (08:28)
[2020-10-19] MEDS ORDERED: fentaNYL 100 MCG/2 ML VIAL ONE (08:28)
[2020-10-19] MEDS ORDERED: LIDOCAINE 2% 5 ML VIAL ONE (08:28)
[2020-10-19] MEDS ORDERED: propofoL 200 MG/20 ML VIAL IV ONE (08:28)
[2020-10-19] MEDS ORDERED: HEPARIN 5,000 UNIT/1 ML VIAL ONE (08:29)
[2020-10-19] MEDS ORDERED: BUPIVACAINE MPF 0.25% 30 ML VIAL ONE (08:29)
[2020-10-19] MEDS ORDERED: LIDOCAINE 1%/EPI INJ 20 ML VIAL ONE (08:30)
[2020-10-19] MEDS ORDERED: DEXMEDETOMIDINE 200 MCG/2 ML VIAL ONE (08:51)
[2020-10-19] MEDS ORDERED: KETAMINE 500 MG/10 ML VIAL ONE (08:59)
[2020-10-19] MEDS ORDERED: SODIUM CHLORIDE 0.9% 250 ML IV SCH (09:00)
[2020-10-19] MEDS ORDERED: ePHEDrine 50 MG/ML VIAL ONE (09:02)
[2020-10-19] MEDS ORDERED: ETOMIDATE 40 MG/20 ML VIAL IV ONE (09:03)
[2020-10-19] MEDS ORDERED: CLINDAMYCIN INJ 50 ML IV ONE (09:09)
[2020-10-19] MEDS ORDERED: DEXTROSE 50% 25 GM/50 ML VIAL IV PRN (10:00)
[2020-10-19] MEDS ORDERED: GLUCAGON 1 MG VIAL IM PRN (10:00)
[2020-10-19] MEDS: SEVELAMER CARBONATE 800 MG TABLET PO SCH ×3 (12:39→21:41)
[2020-10-19] MEDS: RIVAROXABAN 15 MG TABLET PO SCH ×2 (12:40→21:41)
[2020-10-19] MEDS: PANTOPRAZOLE 40 MG TABLET PO SCH (12:40)
[2020-10-19] MEDS: ASPIRIN EC 81 MG TABLET PO SCH (12:40)
[2020-10-20] MEDS: ALBUTEROL/IPRATROPIUM 3 ML NEB RESP TX SCH ×5 (00:23→20:23)
[2020-10-20] MEDS ORDERED: SODIUM CHLORIDE 0.9% 250 ML IV ONE ×2 (01:03→01:58)
[2020-10-20] MEDS: ACETAMINOPHEN 325 MG TABLET PO PRN (06:21)
[2020-10-20 06:48] LABS: Basophils % 0.2 % (0.0-0.8); Eosinophils # 0.7 10*3/uL (0.0-0.87); Hematocrit 27.2 VOL% (42.0-52.0); Hemoglobin 7.8 GM/DL (14.0-18.0); Immature Granulocytes % 0.7 %; Immature Granulocytes Absolute 0.06 #; Lymphocytes # 0.3 10*3/uL (1.4-4.0); Lymphocytes % 3.5 % (21.2-54.2); Mean Corpuscular HGB Conc 28.7 GM/DL (32-36); Mean Corpuscular Volume 89.8 FL (87-102); Mean Platelet Volume 9.5 FL (9.6-12.0); Monocytes % 7.7 % (1.7-12.7); Neutrophils % 79.9 % (38.7-73.9); Platelet Count 409 T/CUMM (130-400); Red Blood Count 3.03 MC/CUMM (3.8-5.5); Red Cell Distribution Width 17.5 % (9.3-17.3)
[2020-10-20 07:09] LABS: Calcium 8.3 MG/DL (8.5-10.1); Osmolality,Calculated 274.2 MOS/KG (273-304); Potassium 4.7 MMOL/L (3.5-5.1)
[2020-10-20 07:20] LABS: Anisocytosis 2+; Band Neutrophils 4 % (0-10); Eosinophils 9 % (0-10); Lymphocytes 3 % (20-55); Platelet Estimate Normal; Segmented Neutrophils 80 % (50-85); Total Cells Counted 100
[2020-10-20 07:22] LABS: Hypochromasia 1+
[2020-10-20 07:23] LABS: Macrocytosis Slight
[2020-10-20] MEDS: SEVELAMER CARBONATE 800 MG TABLET PO SCH ×3 (08:33→16:49)
[2020-10-20] MEDS: ASPIRIN EC 81 MG TABLET PO SCH (08:33)
[2020-10-20] MEDS: RIVAROXABAN 15 MG TABLET PO SCH ×2 (08:33→16:49)
[2020-10-20] MEDS: PANTOPRAZOLE 40 MG TABLET PO SCH (08:33)
[2020-10-20] MEDS: ceFAZolin 2,000 MG in PREMIX 1 EACH IV SCH (17:08)
[2020-10-21] MEDS: ALBUTEROL/IPRATROPIUM 3 ML NEB RESP TX SCH ×4 (01:33→19:55)
[2020-10-21] MEDS: ACETAMINOPHEN 325 MG TABLET PO PRN (05:16)
[2020-10-21 05:58] LABS: Basophils % 0.4 % (0.0-0.8); Eosinophils # 0.7 10*3/uL (0.0-0.87); Eosinophils % 6.4 % (0.00-10.9); Hematocrit 25.4 VOL% (42.0-52.0); Hemoglobin 7.5 GM/DL (14.0-18.0); Immature Granulocytes % 0.8 %; Immature Granulocytes Absolute 0.08 #; Lymphocytes # 0.5 10*3/uL (1.4-4.0); Lymphocytes % 4.7 % (21.2-54.2); Mean Corpuscular HGB Conc 29.5 GM/DL (32-36); Mean Corpuscular Volume 89.1 FL (87-102); Mean Platelet Volume 9.2 FL (9.6-12.0); Monocytes % 10.9 % (1.7-12.7); Neutrophils % 76.8 % (38.7-73.9); Platelet Count 360 T/CUMM (130-400); Red Blood Count 2.85 MC/CUMM (3.8-5.5); Red Cell Distribution Width 17.3 % (9.3-17.3); White Blood Count 10.2 T/CUMM (4-12)
[2020-10-21 06:10] LABS: Calcium 8.7 MG/DL (8.5-10.1); Osmolality,Calculated 271.1 MOS/KG (273-304); Potassium 4.4 MMOL/L (3.5-5.1)
[2020-10-21 06:28] LABS: Eosinophils 5 % (0-10); Lymphocytes 8 % (20-55); Platelet Estimate Normal; Segmented Neutrophils 82 % (50-85); Total Cells Counted 100
[2020-10-21 06:29] LABS: Hypochromasia 1+
[2020-10-21] MEDS: PANTOPRAZOLE 40 MG TABLET PO SCH (08:22)
[2020-10-21] MEDS: RIVAROXABAN 15 MG TABLET PO SCH ×2 (08:22→16:01)
[2020-10-21] MEDS: SEVELAMER CARBONATE 800 MG TABLET PO SCH ×3 (08:22→16:01)
[2020-10-21] MEDS: ASPIRIN EC 81 MG TABLET PO SCH (08:22)
[2020-10-21] MEDS: NAFCILLIN 2,000 MG in SODIUM CHLORIDE 0.9% 100 ML IV SCH ×4 (11:17→22:10)
[2020-10-21] MEDS ORDERED: VANCOMYCIN INJ 2,000 MG in SODIUM CHLORIDE 0.9% 500 ML IV ONE (16:00)
[2020-10-22] MEDS: ALBUTEROL/IPRATROPIUM 3 ML NEB RESP TX SCH ×4 (01:45→19:44)
[2020-10-22] MEDS: NAFCILLIN 2,000 MG in SODIUM CHLORIDE 0.9% 100 ML IV SCH ×6 (02:49→22:21)
[2020-10-22] MEDS: ACETAMINOPHEN 325 MG TABLET PO PRN (04:39)
[2020-10-22] MEDS: SEVELAMER CARBONATE 800 MG TABLET PO SCH ×3 (07:41→17:25)
[2020-10-22] MEDS: PANTOPRAZOLE 40 MG TABLET PO SCH (08:00)
[2020-10-22] MEDS: ASPIRIN EC 81 MG TABLET PO SCH (08:00)
[2020-10-22] MEDS: RIVAROXABAN 15 MG TABLET PO SCH ×2 (08:00→17:25)
[2020-10-22] MEDS ORDERED: VANCOMYCIN INJ 750 MG in SODIUM CHLORIDE 0.9% 250 ML IV PRN (17:00)
[2020-10-23] MEDS: ALBUTEROL/IPRATROPIUM 3 ML NEB RESP TX SCH ×5 (01:03→19:40)
[2020-10-23] MEDS: NAFCILLIN 2,000 MG in SODIUM CHLORIDE 0.9% 100 ML IV SCH ×6 (03:55→22:39)
[2020-10-23] MEDS: PANTOPRAZOLE 40 MG TABLET PO SCH (08:23)
[2020-10-23] MEDS: ASPIRIN EC 81 MG TABLET PO SCH (08:23)
[2020-10-23] MEDS: RIVAROXABAN 15 MG TABLET PO SCH ×2 (08:23→18:07)
[2020-10-23] MEDS: SEVELAMER CARBONATE 800 MG TABLET PO SCH ×4 (08:24→18:07)
[2020-10-24] MEDS: ALBUTEROL/IPRATROPIUM 3 ML NEB RESP TX SCH ×4 (00:20→20:04)
[2020-10-24] MEDS: ACETAMINOPHEN 325 MG TABLET PO PRN (02:31)
[2020-10-24] MEDS: NAFCILLIN 2,000 MG in SODIUM CHLORIDE 0.9% 100 ML IV SCH ×6 (02:31→22:10)
[2020-10-24 06:04] LABS: Basophils # 0.1 10*3/uL (0.0-0.2); Basophils % 0.8 % (0.0-0.8); Eosinophils # 0.7 10*3/uL (0.0-0.87); Eosinophils % 6.6 % (0.00-10.9); Hematocrit 25.7 VOL% (42.0-52.0); Hemoglobin 7.5 GM/DL (14.0-18.0); Immature Granulocytes % 0.5 %; Immature Granulocytes Absolute 0.05 #; Lymphocytes # 0.8 10*3/uL (1.4-4.0); Lymphocytes % 7.7 % (21.2-54.2); Mean Corpuscular HGB Conc 29.2 GM/DL (32-36); Mean Corpuscular Volume 90.2 FL (87-102); Mean Platelet Volume 9.5 FL (9.6-12.0); Monocytes % 10.3 % (1.7-12.7); Neutrophils % 74.1 % (38.7-73.9); Platelet Count 303 T/CUMM (130-400); Red Blood Count 2.85 MC/CUMM (3.8-5.5); Red Cell Distribution Width 17.2 % (9.3-17.3); White Blood Count 10.6 T/CUMM (4-12)
[2020-10-24 06:32] LABS: Calcium 8.4 MG/DL (8.5-10.1); Osmolality,Calculated 277.8 MOS/KG (273-304); Potassium 4.6 MMOL/L (3.5-5.1)
[2020-10-24] MEDS: RIVAROXABAN 15 MG TABLET PO SCH ×2 (08:11→16:54)
[2020-10-24] MEDS: SEVELAMER CARBONATE 800 MG TABLET PO SCH ×3 (08:11→16:54)
[2020-10-24] MEDS: ASPIRIN EC 81 MG TABLET PO SCH (08:11)
[2020-10-24] MEDS: PANTOPRAZOLE 40 MG TABLET PO SCH (08:11)
[2020-10-25] MEDS: ALBUTEROL/IPRATROPIUM 3 ML NEB RESP TX SCH ×4 (00:36→19:43)
[2020-10-25] MEDS: NAFCILLIN 2,000 MG in SODIUM CHLORIDE 0.9% 100 ML IV SCH ×6 (02:32→22:06)
[2020-10-25] MEDS: SEVELAMER CARBONATE 800 MG TABLET PO SCH ×3 (08:29→18:15)
[2020-10-25] MEDS: RIVAROXABAN 15 MG TABLET PO SCH ×2 (08:30→18:14)
[2020-10-25] MEDS: ASPIRIN EC 81 MG TABLET PO SCH (08:30)
[2020-10-25] MEDS: PANTOPRAZOLE 40 MG TABLET PO SCH (08:30)
[2020-10-25 11:15] LABS: Hepatitis B Core IgM Quant 0.13 Index; Hepatitis B Surface Ag Quant < 0.10 Index; Hepatitis B Surface Ag Result Non-Reactive (NonReactive); Hepatitis C Virus Ab Quant 0.17 Index; Hepatitis C Virus Ab Result Non-Reactive (NonReactive)
[2020-10-25] MEDS ORDERED: POLYETHYLENE GLYCOL POWDER 17 GM PACK PO PRN (18:05)
[2020-10-25] MEDS ORDERED: LORazepam 2 MG/1 ML VIAL IV ONE (21:02)
[2020-10-25 21:45] LABS: Alanine Aminotransferase < 6 U/L (16-61); Alkaline Phosphatase 71 U/L (45-117); Aspartate Amino Transferase 13 U/L (0-37); Blood Urea Nitrogen 20 MG/DL (7-18); Calcium 8.7 MG/DL (8.5-10.1); Carbon Dioxide 25 MMOL/L (21-32); Estimated Glom Filtration Rate 14 ML/MIN; Glucose 90 MG/DL (74-106); Sodium 136 MMOL/L (136-145); Total Protein 9.5 G/DL (5.0-7.5)
[2020-10-26] MEDS: ALBUTEROL/IPRATROPIUM 3 ML NEB RESP TX SCH ×4 (01:21→19:09)
[2020-10-26] MEDS: NAFCILLIN 2,000 MG in SODIUM CHLORIDE 0.9% 100 ML IV SCH ×6 (02:52→22:40)
[2020-10-26] MEDS: SEVELAMER CARBONATE 800 MG TABLET PO SCH ×3 (09:15→18:36)
[2020-10-26] MEDS: IBUPROFEN 600 MG TABLET PO PRN (09:15)
[2020-10-26] MEDS: ASPIRIN EC 81 MG TABLET PO SCH (09:17)
[2020-10-26] MEDS: PANTOPRAZOLE 40 MG TABLET PO SCH (09:17)
[2020-10-26] MEDS: RIVAROXABAN 15 MG TABLET PO SCH ×2 (09:19→18:37)
[2020-10-27] MEDS: ALBUTEROL/IPRATROPIUM 3 ML NEB RESP TX SCH ×3 (02:09→13:43)
[2020-10-27] MEDS: NAFCILLIN 2,000 MG in SODIUM CHLORIDE 0.9% 100 ML IV SCH ×7 (02:31→22:51)
[2020-10-27 06:15] LABS: Basophils # 0.1 10*3/uL (0.0-0.2); Basophils % 1.5 % (0.0-0.8); Eosinophils # 0.9 10*3/uL (0.0-0.87); Eosinophils % 9.1 % (0.00-10.9); Hematocrit 26.9 VOL% (42.0-52.0); Hemoglobin 7.7 GM/DL (14.0-18.0); Immature Granulocytes % 0.5 %; Immature Granulocytes Absolute 0.05 #; Lymphocytes # 0.5 10*3/uL (1.4-4.0); Lymphocytes % 5.6 % (21.2-54.2); Mean Corpuscular HGB Conc 28.6 GM/DL (32-36); Mean Corpuscular Volume 90.3 FL (87-102); Mean Platelet Volume 9.3 FL (9.6-12.0); Monocytes % 6.8 % (1.7-12.7); Neutrophils % 76.5 % (38.7-73.9); Platelet Count 236 T/CUMM (130-400); Red Blood Count 2.98 MC/CUMM (3.8-5.5); Red Cell Distribution Width 17.3 % (9.3-17.3); White Blood Count 9.3 T/CUMM (4-12)
[2020-10-27 06:32] LABS: Calcium 8.2 MG/DL (8.5-10.1); Osmolality,Calculated 274.1 MOS/KG (273-304); Potassium 4.7 MMOL/L (3.5-5.1)
[2020-10-27 06:38] LABS: Hypochromasia 2+; Microcytosis 1+; Platelet Estimate Adequate
[2020-10-27] MEDS: SEVELAMER CARBONATE 800 MG TABLET PO SCH ×3 (10:20→18:10)
[2020-10-27] MEDS: RIVAROXABAN 15 MG TABLET PO SCH ×2 (13:32→18:10)
[2020-10-27] MEDS: ASPIRIN EC 81 MG TABLET PO SCH (13:32)
[2020-10-27] MEDS: PANTOPRAZOLE 40 MG TABLET PO SCH (13:32)
[2020-10-27] MEDS: ACETAMINOPHEN 325 MG TABLET PO PRN (22:54)
[2020-10-28] MEDS: ALBUTEROL/IPRATROPIUM 3 ML NEB RESP TX SCH ×4 (02:45→19:56)
[2020-10-28] MEDS: NAFCILLIN 2,000 MG in SODIUM CHLORIDE 0.9% 100 ML IV SCH ×5 (03:36→18:18)
[2020-10-28 06:03] LABS: Basophils # 0.1 10*3/uL (0.0-0.2); Basophils % 1.6 % (0.0-0.8); Eosinophils # 0.7 10*3/uL (0.0-0.87); Eosinophils % 8.6 % (0.00-10.9); Hematocrit 26.7 VOL% (42.0-52.0); Hemoglobin 7.6 GM/DL (14.0-18.0); Immature Granulocytes % 0.4 %; Immature Granulocytes Absolute 0.03 #; Lymphocytes # 0.5 10*3/uL (1.4-4.0); Lymphocytes % 6.3 % (21.2-54.2); Mean Corpuscular HGB Conc 28.5 GM/DL (32-36); Mean Corpuscular Volume 91.1 FL (87-102); Mean Platelet Volume 9.8 FL (9.6-12.0); Monocytes % 8.8 % (1.7-12.7); Neutrophils % 74.3 % (38.7-73.9); Platelet Count 242 T/CUMM (130-400); Red Blood Count 2.93 MC/CUMM (3.8-5.5); Red Cell Distribution Width 17.1 % (9.3-17.3); White Blood Count 8.3 T/CUMM (4-12)
[2020-10-28 06:14] LABS: Calcium 7.9 MG/DL (8.5-10.1); Potassium 4.8 MMOL/L (3.5-5.1)
[2020-10-28 07:36] LABS: Hypochromasia 2+
[2020-10-28 07:37] LABS: Microcytosis 1+
[2020-10-28 07:38] LABS: Platelet Estimate Normal
[2020-10-28] MEDS: RIVAROXABAN 15 MG TABLET PO SCH ×2 (09:39→16:33)
[2020-10-28] MEDS: SEVELAMER CARBONATE 800 MG TABLET PO SCH ×3 (09:39→16:34)
[2020-10-28] MEDS: PANTOPRAZOLE 40 MG TABLET PO SCH (09:40)
[2020-10-28] MEDS: ASPIRIN EC 81 MG TABLET PO SCH (09:40)
[2020-10-29] MEDS: NAFCILLIN 2,000 MG in SODIUM CHLORIDE 0.9% 100 ML IV SCH ×5 (00:01→15:10)
[2020-10-29] MEDS: ALBUTEROL/IPRATROPIUM 3 ML NEB RESP TX SCH ×4 (02:03→19:41)
[2020-10-29 05:31] LABS: Potassium 4.8 MMOL/L (3.5-5.1)
[2020-10-29 05:46] LABS: Basophils # 0.1 10*3/uL (0.0-0.2); Eosinophils # 0.6 10*3/uL (0.0-0.87); Eosinophils % 7.2 % (0.00-10.9); Hemoglobin 7.7 GM/DL (14.0-18.0); Immature Granulocytes % 0.4 %; Immature Granulocytes Absolute 0.04 #; Lymphocytes # 0.5 10*3/uL (1.4-4.0); Lymphocytes % 5.1 % (21.2-54.2); Mean Corpuscular HGB Conc 29.6 GM/DL (32-36); Mean Platelet Volume 9.8 FL (9.6-12.0); Monocytes % 8.8 % (1.7-12.7); Neutrophils % 77.5 % (38.7-73.9); Platelet Count 229 T/CUMM (130-400); Red Blood Count 2.92 MC/CUMM (3.8-5.5); Red Cell Distribution Width 17.2 % (9.3-17.3)
[2020-10-29 06:02] LABS: Anisocytosis 1+; Hypochromasia Slight; Platelet Estimate Normal
[2020-10-29] MEDS: RIVAROXABAN 15 MG TABLET PO SCH ×2 (08:25→16:44)
[2020-10-29] MEDS: SEVELAMER CARBONATE 800 MG TABLET PO SCH ×3 (08:25→16:44)
[2020-10-29] MEDS: ASPIRIN EC 81 MG TABLET PO SCH (08:25)
[2020-10-29] MEDS: PANTOPRAZOLE 40 MG TABLET PO SCH (08:25)
[2020-10-29] MEDS ORDERED: VANCOMYCIN INJ 1,000 MG in SODIUM CHLORIDE 0.9% 250 ML IV SCH (17:00)
[2020-10-30] MEDS: ALBUTEROL/IPRATROPIUM 3 ML NEB RESP TX SCH ×2 (00:01→07:52)
[2020-10-30] MEDS: RIVAROXABAN 15 MG TABLET PO SCH (07:56)
[2020-10-30] MEDS: SEVELAMER CARBONATE 800 MG TABLET PO SCH ×2 (07:56→12:58)
[2020-10-30] MEDS: ASPIRIN EC 81 MG TABLET PO SCH (09:34)
[2020-10-30] MEDS: PANTOPRAZOLE 40 MG TABLET PO SCH (09:34)
[2020-10-30 09:57] VITALS: BP 116/80
== END 2020-10-30 12:37 | disposition home or self-care (01) | DRG 466 ==
LOC: EDUNIT# → EDBD → N.ED 16:45 → SUATTDRO 19:03 → N.EDINP 19:03 → N.CC 23:14 → N.TELEN 10-11 16:58
PROVIDERS: ADMIT Family Medicine; ATTEND Internal Medicine

== ENCOUNTER 2020-11-22 12:08 | Inpatient (IN) ==
[2020-11-22 13:33] LABS: Basophils % 0.3 % (0.0-0.8); Eosinophils # 0.2 10*3/uL (0.0-0.87); Eosinophils % 1.5 % (0.00-10.9); Immature Granulocytes % 0.6 %; Immature Granulocytes Absolute 0.09 #; Lymphocytes # 0.3 10*3/uL (1.4-4.0); Lymphocytes % 2.1 % (21.2-54.2); Mean Corpuscular HGB Conc 29.4 GM/DL (32-36); Mean Corpuscular Volume 96.5 FL (87-102); Mean Platelet Volume 9.4 FL (9.6-12.0); Monocytes % 2.1 % (1.7-12.7); Neutrophils % 93.4 % (38.7-73.9); Platelet Count 330 T/CUMM (130-400); Red Blood Count 2.26 MC/CUMM (3.8-5.5); White Blood Count 14.6 T/CUMM (4-12)
[2020-11-22 13:36] LABS: Hematocrit 21.8 VOL% (42.0-52.0); Hemoglobin 6.4 GM/DL (14.0-18.0)
[2020-11-22 13:48] LABS: Calcium 9.4 MG/DL (8.5-10.1); Osmolality,Calculated 300.3 MOS/KG (273-304); Potassium 4.1 MMOL/L (3.5-5.1)
[2020-11-22] MEDS ORDERED: FUROSEMIDE 40 MG/4 ML VIAL IV STA (14:34)
[2020-11-22] MEDS ORDERED: ONDANSETRON 4 MG/2 ML VIAL IV PRN (15:00)
[2020-11-22 15:13] LABS: Eosinophils 2 % (0-10); Hypochromasia 4+; Lymphocytes 3 % (20-55); Microcytosis 4+; Segmented Neutrophils 95 % (50-85); Total Cells Counted 100
[2020-11-22 15:29] LABS: ABG Base Excess 1.9 MMOL/L (-2.5-2.5); ABG HCO3 26.2 MMOL/L (20-26); ABG PCO2 51.1 MM HG (35-48); ABG PH 7.347 (7.35-7.45); ABG TCO2 26.7 MMOL/L (23-27)
[2020-11-22] MEDS: CALCIUM ACETATE 667 MG CAPSULE PO SCH (16:51)
[2020-11-23 03:52] LABS: Basophils % 0.4 % (0.0-0.8); Eosinophils # 0.3 10*3/uL (0.0-0.87); Hematocrit 19.6 VOL% (42.0-52.0); Immature Granulocytes % 0.6 %; Immature Granulocytes Absolute 0.06 #; Lymphocytes # 0.6 10*3/uL (1.4-4.0); Lymphocytes % 5.2 % (21.2-54.2); Mean Corpuscular HGB Conc 30.1 GM/DL (32-36); Mean Corpuscular Volume 94.7 FL (87-102); Mean Platelet Volume 9.4 FL (9.6-12.0); Monocytes % 4.2 % (1.7-12.7); Neutrophils % 86.6 % (38.7-73.9); Platelet Count 285 T/CUMM (130-400); Red Blood Count 2.07 MC/CUMM (3.8-5.5); Red Cell Distribution Width 20.2 % (9.3-17.3); White Blood Count 10.9 T/CUMM (4-12)
[2020-11-23 03:55] LABS: Hemoglobin 5.9 GM/DL (14.0-18.0)
[2020-11-23 04:12] LABS: Albumin 2.3 G/DL (3.4-5.0); Bilirubin,Total 0.8 MG/DL (0.2-1.0); Calcium 8.9 MG/DL (8.5-10.1); Osmolality,Calculated 291.5 MOS/KG (273-304); Potassium 4.2 MMOL/L (3.5-5.1); Total Protein 9.2 G/DL (6.4-8.2)
[2020-11-23] MEDS ORDERED: SODIUM CHLORIDE 0.9% 1,000 ML IV PRN (04:23)
[2020-11-23] MEDS: PANTOPRAZOLE 40 MG TABLET PO SCH (09:08)
[2020-11-23] MEDS: amLODIPine 10 MG TABLET PO SCH (09:08)
[2020-11-23] MEDS: CALCIUM ACETATE 667 MG CAPSULE PO SCH ×2 (09:08→12:14)
[2020-11-23] MEDS: RIVAROXABAN 20 MG TABLET PO SCH (09:09)
[2020-11-23] MEDS: ASPIRIN EC 81 MG TABLET PO SCH (09:09)
[2020-11-23] MEDS ORDERED: HEPARIN 10,000 UNIT/10 ML VIAL IV SCH (18:15)
[2020-11-24 06:17] LABS: Calcium 9.6 MG/DL (8.5-10.1); Osmolality,Calculated 289.1 MOS/KG (273-304); Potassium 3.8 MMOL/L (3.5-5.1)
[2020-11-24 06:19] LABS: Basophils # 0.1 10*3/uL (0.0-0.2); Basophils % 0.6 % (0.0-0.8); Eosinophils # 0.5 10*3/uL (0.0-0.87); Eosinophils % 4.7 % (0.00-10.9); Hematocrit 25.5 VOL% (42.0-52.0); Immature Granulocytes % 0.5 %; Immature Granulocytes Absolute 0.05 #; Lymphocytes # 0.5 10*3/uL (1.4-4.0); Lymphocytes % 4.5 % (21.2-54.2); Mean Corpuscular HGB Conc 31.4 GM/DL (32-36); Mean Corpuscular Volume 91.7 FL (87-102); Mean Platelet Volume 9.2 FL (9.6-12.0); Monocytes % 5.2 % (1.7-12.7); Neutrophils % 84.5 % (38.7-73.9); Platelet Count 330 T/CUMM (130-400); Red Cell Distribution Width 19.4 % (9.3-17.3); White Blood Count 10.8 T/CUMM (4-12)
[2020-11-24 06:21] LABS: Red Blood Count 2.78 MC/CUMM (3.8-5.5)
[2020-11-24 06:34] LABS: Eosinophils 4 % (0-10); Lymphocytes 3 % (20-55); Platelet Estimate Normal; Segmented Neutrophils 88 % (50-85); Total Cells Counted 100
[2020-11-24 06:35] LABS: Hypochromasia Slight
[2020-11-24 07:54] VITALS: BP 110/75
[2020-11-24] MEDS: CALCIUM ACETATE 667 MG CAPSULE PO SCH ×2 (10:43→14:43)
[2020-11-24] MEDS: amLODIPine 10 MG TABLET PO SCH (10:45)
[2020-11-24] MEDS: RIVAROXABAN 20 MG TABLET PO SCH (10:45)
[2020-11-24] MEDS: ASPIRIN EC 81 MG TABLET PO SCH (10:45)
[2020-11-24] MEDS: PANTOPRAZOLE 40 MG TABLET PO SCH (10:45)
== END 2020-11-24 03:45 | disposition home or self-care (01) | DRG 133 ==
LOC: EDBD → EDUNIT# → N.ED 12:08 → SUATTDRO 15:00 → N.EDINP 15:00 → N.ICU 15:27 → N.3E 11-23 17:59
PROVIDERS: ADMIT Family Medicine; ATTEND Internal Medicine

== ENCOUNTER 2020-12-29 17:37 | Inpatient (IN) ==
[2020-12-29] MEDS ORDERED: ONDANSETRON 4 MG/2 ML VIAL IV STA (18:20)
[2020-12-29 18:54] LABS: Basophils # 0.1 10*3/uL (0.0-0.2); Basophils % 0.3 % (0.0-0.8); Eosinophils # 0.2 10*3/uL (0.0-0.87); Hematocrit 32.1 VOL% (42.0-52.0); Hemoglobin 9.8 GM/DL (14.0-18.0); Immature Granulocytes % 0.9 %; Immature Granulocytes Absolute 0.15 #; Lymphocytes # 0.7 10*3/uL (1.4-4.0); Lymphocytes % 4.5 % (21.2-54.2); Mean Corpuscular HGB Conc 30.5 GM/DL (32-36); Mean Corpuscular Volume 90.2 FL (87-102); Mean Platelet Volume 10.1 FL (9.6-12.0); Neutrophils % 84.3 % (38.7-73.9); Platelet Count 420 T/CUMM (130-400); Red Blood Count 3.56 MC/CUMM (3.8-5.5); White Blood Count 16.4 T/CUMM (4-12)
[2020-12-29] MEDS ORDERED: fentaNYL 100 MCG/2 ML VIAL IV STA ×2 (19:16→22:57)
[2020-12-29 19:25] LABS: Alanine Aminotransferase 10 U/L (16-61); Albumin 2.1 G/DL (3.4-5.0); Alkaline Phosphatase 82 U/L (45-117); Aspartate Amino Transferase 45 U/L (0-37); Blood Urea Nitrogen 25 MG/DL (7-18); Calcium 9.3 MG/DL (8.5-10.1); Carbon Dioxide 35 MMOL/L (21-32); Estimated Glom Filtration Rate 17 ML/MIN; Glucose 87 MG/DL (74-106); Osmolality,Calculated 268.4 MOS/KG (273-304); Potassium 5.1 MMOL/L (3.5-5.1); Sodium 133 MMOL/L (136-145); Total Protein 9.1 G/DL (6.4-8.2)
[2020-12-29 19:48] LABS: Band Neutrophils 3 % (0-10); Eosinophils 3 % (0-10); Lymphocytes 6 % (20-55); Total Cells Counted 100
[2020-12-29 19:49] LABS: Burr Cells Few; Hypochromasia Slight; Microcytosis Slight; Ovalocytes Few; Platelet Estimate Normal; Segmented Neutrophils 83 % (50-85)
[2020-12-29] MEDS ORDERED: CEFEPIME 1,000 MG in SODIUM CHLORIDE 0.9% 100 ML IV STA (20:28)
[2020-12-29] MEDS ORDERED: VANCOMYCIN INJ 1,000 MG in SODIUM CHLORIDE 0.9% 250 ML IV STA (20:29)
[2020-12-29] MEDS ORDERED: ASPIRIN CHEW 81 MG TABLET PO STA (20:29)
[2020-12-29] MEDS ORDERED: ENOXAPARIN 30 MG/0.3 ML SYRINGE SUBCUT STA (20:30)
[2020-12-29] MEDS ORDERED: ENOXAPARIN 100 MG/ML SYRINGE SUBCUT ONE (20:35)
[2020-12-29] MEDS ORDERED: hydrALAZINE 20 MG/1 ML VIAL IV PRN (21:19)
[2020-12-29] MEDS ORDERED: GLUCAGON 1 MG VIAL IM PRN (21:19)
[2020-12-29] MEDS ORDERED: ZALEPLON 5 MG CAPSULE PO PRN (21:19)
[2020-12-29] MEDS ORDERED: diphenhydrAMINE CAP 25 MG CAPSULE PO PRN (21:19)
[2020-12-29] MEDS ORDERED: guaiFENesin/DM ER 600-30 MG TABLET PO PRN (21:19)
[2020-12-29] MEDS ORDERED: ONDANSETRON 4 MG/2 ML VIAL IV PRN (21:19)
[2020-12-29] MEDS ORDERED: DEXTROSE 50% 25 GM/50 ML VIAL IV PRN (21:19)
[2020-12-29] MEDS ORDERED: NICOTINE 21 MG/24 HR PATCH TRANSDERM PRN (21:19)
[2020-12-29] MEDS ORDERED: VANCOMYCIN INJ 500 MG in SODIUM CHLORIDE 0.9% 100 ML IV PRN (23:10)
[2020-12-30] MEDS ORDERED: VANCOMYCIN INJ 1,000 MG in SODIUM CHLORIDE 0.9% 250 ML IV ONE
[2020-12-30] MEDS: ALBUTEROL/IPRATROPIUM 3 ML NEB RESP TX SCH ×4 (01:38→20:52)
[2020-12-30] MEDS ORDERED: LEVOFLOXACIN INJ 750 MG/150 ML PREMIX IV ONE (02:00)
[2020-12-30] MEDS: PIPERACILLIN/TAZOBACTAM 3,375 MG in SODIUM CHLORIDE 0.9% 100 ML IV SCH ×2 (04:48→15:36)
[2020-12-30 06:06] LABS: Basophils % 0.4 % (0.0-0.8); Eosinophils # 0.3 10*3/uL (0.0-0.87); Eosinophils % 2.6 % (0.00-10.9); Hematocrit 26.5 VOL% (42.0-52.0); Hemoglobin 8.2 GM/DL (14.0-18.0); Immature Granulocytes % 0.8 %; Immature Granulocytes Absolute 0.09 #; Lymphocytes # 0.2 10*3/uL (1.4-4.0); Lymphocytes % 1.7 % (21.2-54.2); Mean Corpuscular HGB Conc 30.9 GM/DL (32-36); Mean Corpuscular Volume 89.5 FL (87-102); Monocytes % 7.5 % (1.7-12.7); Platelet Count 372 T/CUMM (130-400); Red Blood Count 2.96 MC/CUMM (3.8-5.5); Red Cell Distribution Width 18.1 % (9.3-17.3)
[2020-12-30 06:13] LABS: Eosinophils 3 % (0-10); Hypochromasia 1+; Lymphocytes 1 % (20-55); Microcytosis 1+; Platelet Estimate Adequate; Segmented Neutrophils 92 % (50-85); Total Cells Counted 100
[2020-12-30 06:59] LABS: Calcium 9.3 MG/DL (8.5-10.1); Osmolality,Calculated 278.8 MOS/KG (273-304); Potassium 3.6 MMOL/L (3.5-5.1)
[2020-12-30] MEDS: PANTOPRAZOLE 40 MG TABLET PO SCH (09:32)
[2020-12-30] MEDS ORDERED: CLINDAMYCIN INJ 900 MG/50 ML PREMIX IV ONE (09:39)
[2020-12-30] MEDS ORDERED: LIDOCAINE 1%/EPI INJ 20 ML VIAL ONE (10:33)
[2020-12-30] MEDS ORDERED: ETOMIDATE 40 MG/20 ML VIAL IV ONE (10:40)
[2020-12-30] MEDS ORDERED: LIDOCAINE 2% 5 ML VIAL ONE (10:40)
[2020-12-30] MEDS ORDERED: propofoL 200 MG/20 ML VIAL IV ONE (10:40)
[2020-12-30] MEDS ORDERED: SODIUM CHLORIDE 0.9% 250 ML IV SCH (11:00)
[2020-12-30] MEDS ORDERED: fentaNYL 100 MCG/2 ML VIAL ONE (11:05)
[2020-12-30 13:35] LABS: Amylase,Pleural Fluid 46 U/L; Glucose,Pleural Fluid < 1 MG/DL
[2020-12-30 14:34] LABS: Lymphocytes,Pleural Fluid 17 %; Neutrophils,Pleural Fluid 83 %; RBC,Pleural Fluid 78436 T/CUMM
[2020-12-30] MEDS: ACETAMINOPHEN 325 MG TABLET PO PRN (18:22)
[2020-12-30 23:19] LABS: Bilirubin,Urine Negative (Negative); Blood, Urine Small mg/dL (Negative); Glucose,Urine (UA) 50 mg/dL (Negative); Ketones,Urine Negative (Negative); Mucus,Urine Occasional /LPF (Occasional); Nitrite,Urine Negative (Negative); Protein,Urine >=500 MG/DL; RBC,Urine 12 /HPF (0-4); Squamous Epithelial Cell,Urine Few /HPF (0-10); Urine Appearance CLOUDY (Clear); Urine Color Amber (Yellow); Urine Specific Gravity 1.025 (1.001-1.035); Urine Urobilinogen < 2.0 EU/DL (0.2-1.0)
[2020-12-31] MEDS: ALBUTEROL/IPRATROPIUM 3 ML NEB RESP TX SCH ×4 (00:26→18:30)
[2020-12-31] MEDS: PIPERACILLIN/TAZOBACTAM 3,375 MG in SODIUM CHLORIDE 0.9% 100 ML IV SCH ×2 (03:43→14:20)
[2020-12-31 05:38] LABS: Basophils % 0.1 % (0.0-0.8); Eosinophils # 0.6 10*3/uL (0.0-0.87); Eosinophils % 5.5 % (0.00-10.9); Hemoglobin 8.4 GM/DL (14.0-18.0); Immature Granulocytes Absolute 0.11 #; Lymphocytes # 0.3 10*3/uL (1.4-4.0); Mean Platelet Volume 9.9 FL (9.6-12.0); Monocytes % 8.4 % (1.7-12.7); Platelet Count 390 T/CUMM (130-400); Red Blood Count 3.11 MC/CUMM (3.8-5.5); Red Cell Distribution Width 18.6 % (9.3-17.3); White Blood Count 10.8 T/CUMM (4-12)
[2020-12-31 05:59] LABS: Albumin 1.7 G/DL (3.4-5.0); Calcium 8.9 MG/DL (8.5-10.1); Osmolality,Calculated 281.8 MOS/KG (273-304); Potassium 3.9 MMOL/L (3.5-5.1)
[2020-12-31 06:54] LABS: Sedimentation Rate-Westergren 123 MM/HR (0-20)
[2020-12-31 07:10] LABS: Band Neutrophils 4 % (0-10); Eosinophils 4 % (0-10); Lymphocytes 3 % (20-55); Platelet Estimate Normal; Segmented Neutrophils 81 % (50-85); Total Cells Counted 100
[2020-12-31 07:11] LABS: Hypochromasia Slight
[2020-12-31] MEDS ORDERED: HEPARIN 10,000 UNIT/10 ML VIAL IV SCH (12:30)
[2020-12-31] MEDS: PANTOPRAZOLE 40 MG TABLET PO SCH (12:36)
[2020-12-31] MEDS: CALCIUM ACETATE 667 MG CAPSULE PO SCH ×2 (12:36→17:29)
[2020-12-31] MEDS: DOCUSATE SODIUM 100 MG CAPSULE PO PRN (12:37)
[2020-12-31] MEDS: ACETAMINOPHEN 325 MG TABLET PO PRN (12:37)
[2020-12-31] MEDS ORDERED: VANCOMYCIN INJ 500 MG in SODIUM CHLORIDE 0.9% 100 ML IV ONE (18:00)
[2021-01-01] MEDS: ALBUTEROL/IPRATROPIUM 3 ML NEB RESP TX SCH ×4 (01:40→18:51)
[2021-01-01] MEDS ORDERED: LEVOFLOXACIN INJ 500 MG/100 ML PREMIX IV SCH (02:00)
[2021-01-01] MEDS: PIPERACILLIN/TAZOBACTAM 3,375 MG in SODIUM CHLORIDE 0.9% 100 ML IV SCH ×2 (04:07→16:19)
[2021-01-01 06:27] LABS: Basophils % 0.2 % (0.0-0.8); Eosinophils # 0.8 10*3/uL (0.0-0.87); Eosinophils % 8.8 % (0.00-10.9); Hematocrit 29.1 VOL% (42.0-52.0); Hemoglobin 8.5 GM/DL (14.0-18.0); Immature Granulocytes % 1.1 %; Lymphocytes # 0.4 10*3/uL (1.4-4.0); Lymphocytes % 4.2 % (21.2-54.2); Mean Corpuscular HGB Conc 29.2 GM/DL (32-36); Mean Corpuscular Volume 92.4 FL (87-102); Monocytes % 7.8 % (1.7-12.7); Neutrophils % 77.9 % (38.7-73.9); Platelet Count 431 T/CUMM (130-400); Red Blood Count 3.15 MC/CUMM (3.8-5.5); Red Cell Distribution Width 18.7 % (9.3-17.3); White Blood Count 9.1 T/CUMM (4-12)
[2021-01-01 06:50] LABS: Albumin 1.9 G/DL (3.4-5.0); Calcium 9.3 MG/DL (8.5-10.1); Potassium 4.5 MMOL/L (3.5-5.1)
[2021-01-01 07:06] LABS: Eosinophils 6 % (0-10); Lymphocytes 4 % (20-55); Platelet Estimate Increased; Segmented Neutrophils 86 % (50-85); Total Cells Counted 100
[2021-01-01 07:07] LABS: Hypochromasia Slight
[2021-01-01] MEDS: ASPIRIN EC 81 MG TABLET PO SCH (08:52)
[2021-01-01] MEDS: DOCUSATE SODIUM 100 MG CAPSULE PO PRN ×2 (08:52→08:53)
[2021-01-01] MEDS: PANTOPRAZOLE 40 MG TABLET PO SCH (08:52)
[2021-01-01] MEDS: CALCIUM ACETATE 667 MG CAPSULE PO SCH ×3 (08:53→16:19)
[2021-01-01 10:39] LABS: Sedimentation Rate-Westergren 120 MM/HR (0-20)
[2021-01-01] MEDS: ACETAMINOPHEN 325 MG TABLET PO PRN (16:24)
[2021-01-02] MEDS: ALBUTEROL/IPRATROPIUM 3 ML NEB RESP TX SCH ×4 (01:40→19:40)
[2021-01-02] MEDS: PIPERACILLIN/TAZOBACTAM 3,375 MG in SODIUM CHLORIDE 0.9% 100 ML IV SCH (03:29)
[2021-01-02 09:12] LABS: INR 1.2; PT Patient Result 13.2 SECS (10.5-12.0)
[2021-01-02] MEDS: CALCIUM ACETATE 667 MG CAPSULE PO SCH ×4 (09:40→17:53)
[2021-01-02] MEDS: PANTOPRAZOLE 40 MG TABLET PO SCH (09:40)
[2021-01-02] MEDS: ASPIRIN EC 81 MG TABLET PO SCH (09:40)
[2021-01-02] MEDS: ceFAZolin 2,000 MG/50 ML DUPLEX IV SCH (12:55)
[2021-01-03] MEDS: ALBUTEROL/IPRATROPIUM 3 ML NEB RESP TX SCH ×4 (07:00→20:42)
[2021-01-03 07:56] LABS: Basophils % 0.1 % (0.0-0.8); Eosinophils # 1.2 10*3/uL (0.0-0.87); Eosinophils % 10.7 % (0.00-10.9); Hematocrit 27.4 VOL% (42.0-52.0); Hemoglobin 8.3 GM/DL (14.0-18.0); Immature Granulocytes % 1.9 %; Immature Granulocytes Absolute 0.21 #; Lymphocytes # 0.5 10*3/uL (1.4-4.0); Lymphocytes % 4.4 % (21.2-54.2); Mean Corpuscular HGB Conc 30.3 GM/DL (32-36); Mean Platelet Volume 9.9 FL (9.6-12.0); Monocytes % 5.2 % (1.7-12.7); Neutrophils % 77.7 % (38.7-73.9); Platelet Count 440 T/CUMM (130-400); Red Blood Count 3.08 MC/CUMM (3.8-5.5); Red Cell Distribution Width 19.2 % (9.3-17.3); White Blood Count 11.2 T/CUMM (4-12)
[2021-01-03 08:15] LABS: Eosinophils 14 % (0-10); Hypochromasia 1+; Lymphocytes 3 % (20-55); Microcytosis 1+; Platelet Estimate Adequate; Segmented Neutrophils 78 % (50-85); Total Cells Counted 100
[2021-01-03 08:22] LABS: Calcium 9.9 MG/DL (8.5-10.1); Potassium 4.7 MMOL/L (3.5-5.1)
[2021-01-03] MEDS: CALCIUM ACETATE 667 MG CAPSULE PO SCH ×3 (08:54→17:22)
[2021-01-03] MEDS: PANTOPRAZOLE 40 MG TABLET PO SCH (13:27)
[2021-01-03] MEDS: ASPIRIN EC 81 MG TABLET PO SCH (13:27)
[2021-01-03] MEDS: ceFAZolin 2,000 MG/50 ML DUPLEX IV SCH (17:38)
[2021-01-03] MEDS: CLINDAMYCIN INJ 900 MG/50 ML PREMIX IV SCH (18:31)
[2021-01-04] MEDS: ALBUTEROL/IPRATROPIUM 3 ML NEB RESP TX SCH ×4 (00:24→18:55)
[2021-01-04] MEDS: CLINDAMYCIN INJ 900 MG/50 ML PREMIX IV SCH ×3 (02:10→17:11)
[2021-01-04 05:54] LABS: Basophils # 0.1 10*3/uL (0.0-0.2); Basophils % 0.5 % (0.0-0.8); Eosinophils # 1.1 10*3/uL (0.0-0.87); Eosinophils % 11.1 % (0.00-10.9); Hematocrit 27.5 VOL% (42.0-52.0); Hemoglobin 8.5 GM/DL (14.0-18.0); Immature Granulocytes Absolute 0.21 #; Lymphocytes # 0.6 10*3/uL (1.4-4.0); Lymphocytes % 6.1 % (21.2-54.2); Mean Corpuscular HGB Conc 30.9 GM/DL (32-36); Mean Corpuscular Volume 88.1 FL (87-102); Mean Platelet Volume 9.6 FL (9.6-12.0); Monocytes % 5.9 % (1.7-12.7); Neutrophils % 74.4 % (38.7-73.9); Platelet Count 396 T/CUMM (130-400); Red Blood Count 3.12 MC/CUMM (3.8-5.5); Red Cell Distribution Width 19.2 % (9.3-17.3); White Blood Count 10.3 T/CUMM (4-12)
[2021-01-04 06:04] LABS: Calcium 9.8 MG/DL (8.5-10.1); Osmolality,Calculated 276.8 MOS/KG (273-304); Potassium 4.1 MMOL/L (3.5-5.1)
[2021-01-04 06:35] LABS: Eosinophils 13 % (0-10); Hypochromasia 1+; Lymphocytes 5 % (20-55); Segmented Neutrophils 77 % (50-85); Total Cells Counted 100
[2021-01-04 06:36] LABS: Microcytosis 1+; Platelet Estimate Normal
[2021-01-04] MEDS: CALCIUM ACETATE 667 MG CAPSULE PO SCH ×3 (09:19→17:09)
[2021-01-04] MEDS: ASPIRIN EC 81 MG TABLET PO SCH (09:20)
[2021-01-04] MEDS: PANTOPRAZOLE 40 MG TABLET PO SCH (09:20)
[2021-01-04] MEDS: MORPHINE 4 MG/1 ML VIAL IV PRN ×2 (12:22→17:29)
[2021-01-05] MEDS: CLINDAMYCIN INJ 900 MG/50 ML PREMIX IV SCH ×3 (01:06→18:36)
[2021-01-05] MEDS: MORPHINE 4 MG/1 ML VIAL IV PRN ×2 (01:07→06:05)
[2021-01-05] MEDS: ALBUTEROL/IPRATROPIUM 3 ML NEB RESP TX SCH ×4 (04:41→18:10)
[2021-01-05 05:04] LABS: Basophils % 0.4 % (0.0-0.8); Eosinophils # 1.2 10*3/uL (0.0-0.87); Hematocrit 31.4 VOL% (42.0-52.0); Hemoglobin 9.5 GM/DL (14.0-18.0); Immature Granulocytes % 2.5 %; Immature Granulocytes Absolute 0.25 #; Lymphocytes # 0.7 10*3/uL (1.4-4.0); Lymphocytes % 7.3 % (21.2-54.2); Mean Corpuscular HGB Conc 30.3 GM/DL (32-36); Mean Corpuscular Volume 90.8 FL (87-102); Mean Platelet Volume 9.5 FL (9.6-12.0); Monocytes % 5.2 % (1.7-12.7); Neutrophils % 72.6 % (38.7-73.9); Platelet Count 414 T/CUMM (130-400); Red Blood Count 3.46 MC/CUMM (3.8-5.5); Red Cell Distribution Width 19.3 % (9.3-17.3); White Blood Count 10.2 T/CUMM (4-12)
[2021-01-05 05:29] LABS: Eosinophils 8 % (0-10); Lymphocytes 6 % (20-55); Platelet Estimate Increased; Segmented Neutrophils 82 % (50-85); Total Cells Counted 100
[2021-01-05 05:32] LABS: Calcium 10.2 MG/DL (8.5-10.1); Osmolality,Calculated 275.1 MOS/KG (273-304); Potassium 4.2 MMOL/L (3.5-5.1)
[2021-01-05] MEDS: CALCIUM ACETATE 667 MG CAPSULE PO SCH ×3 (09:20→17:50)
[2021-01-05] MEDS: PANTOPRAZOLE 40 MG TABLET PO SCH (09:20)
[2021-01-05] MEDS: ASPIRIN EC 81 MG TABLET PO SCH (09:20)
[2021-01-05] MEDS: ceFAZolin 2,000 MG/50 ML DUPLEX IV SCH (17:44)
[2021-01-06] MEDS: ALBUTEROL/IPRATROPIUM 3 ML NEB RESP TX SCH ×4 (00:50→20:05)
[2021-01-06] MEDS: CLINDAMYCIN INJ 900 MG/50 ML PREMIX IV SCH ×5 (01:30→23:33)
[2021-01-06 05:55] LABS: Basophils # 0.1 10*3/uL (0.0-0.2); Basophils % 0.5 % (0.0-0.8); Eosinophils # 1.4 10*3/uL (0.0-0.87); Eosinophils % 11.3 % (0.00-10.9); Hematocrit 31.4 VOL% (42.0-52.0); Hemoglobin 9.4 GM/DL (14.0-18.0); Immature Granulocytes % 2.2 %; Immature Granulocytes Absolute 0.27 #; Lymphocytes % 7.7 % (21.2-54.2); Mean Corpuscular HGB Conc 29.9 GM/DL (32-36); Mean Corpuscular Volume 90.2 FL (87-102); Mean Platelet Volume 9.5 FL (9.6-12.0); Monocytes % 4.7 % (1.7-12.7); Neutrophils % 73.6 % (38.7-73.9); Platelet Count 400 T/CUMM (130-400); Red Blood Count 3.48 MC/CUMM (3.8-5.5); Red Cell Distribution Width 19.4 % (9.3-17.3); White Blood Count 12.3 T/CUMM (4-12)
[2021-01-06] MEDS: MORPHINE 4 MG/1 ML VIAL IV PRN (05:59)
[2021-01-06 06:16] LABS: Calcium 10.2 MG/DL (8.5-10.1); Osmolality,Calculated 271.1 MOS/KG (273-304); Potassium 4.3 MMOL/L (3.5-5.1)
[2021-01-06 06:44] LABS: Anisocytosis 1+; Band Neutrophils 5 % (0-10); Eosinophils 10 % (0-10); Lymphocytes 10 % (20-55); Platelet Estimate Normal; Segmented Neutrophils 70 % (50-85); Total Cells Counted 100
[2021-01-06] MEDS: ASPIRIN EC 81 MG TABLET PO SCH (08:49)
[2021-01-06] MEDS: CALCIUM ACETATE 667 MG CAPSULE PO SCH ×3 (08:49→17:12)
[2021-01-06] MEDS: PANTOPRAZOLE 40 MG TABLET PO SCH (08:49)
[2021-01-07] MEDS: ALBUTEROL/IPRATROPIUM 3 ML NEB RESP TX SCH ×4 (00:43→19:30)
[2021-01-07] MEDS: CLINDAMYCIN INJ 900 MG/50 ML PREMIX IV SCH ×4 (02:14→23:31)
[2021-01-07] MEDS: CALCIUM ACETATE 667 MG CAPSULE PO SCH ×3 (08:22→16:11)
[2021-01-07] MEDS: PANTOPRAZOLE 40 MG TABLET PO SCH (08:23)
[2021-01-07] MEDS: ASPIRIN EC 81 MG TABLET PO SCH (08:23)
[2021-01-07] MEDS: MORPHINE 4 MG/1 ML VIAL IV PRN (20:47)
[2021-01-08] MEDS: ALBUTEROL/IPRATROPIUM 3 ML NEB RESP TX SCH ×4 (00:24→20:10)
[2021-01-08] MEDS: MORPHINE 4 MG/1 ML VIAL IV PRN (04:01)
[2021-01-08 05:05] LABS: Basophils % 0.3 % (0.0-0.8); Eosinophils # 1.6 10*3/uL (0.0-0.87); Eosinophils % 11.1 % (0.00-10.9); Hematocrit 31.9 VOL% (42.0-52.0); Hemoglobin 9.6 GM/DL (14.0-18.0); Immature Granulocytes % 2.7 %; Immature Granulocytes Absolute 0.37 #; Lymphocytes # 1.1 10*3/uL (1.4-4.0); Lymphocytes % 7.7 % (21.2-54.2); Mean Corpuscular HGB Conc 30.1 GM/DL (32-36); Mean Corpuscular Volume 90.4 FL (87-102); Mean Platelet Volume 9.6 FL (9.6-12.0); Monocytes % 4.9 % (1.7-12.7); Neutrophils % 73.3 % (38.7-73.9); Platelet Count 408 T/CUMM (130-400); Red Blood Count 3.53 MC/CUMM (3.8-5.5); Red Cell Distribution Width 19.9 % (9.3-17.3)
[2021-01-08 05:53] LABS: Calcium 9.6 MG/DL (8.5-10.1); Potassium 3.5 MMOL/L (3.5-5.1)
[2021-01-08 05:57] LABS: Eosinophils 10 % (0-10); Lymphocytes 5 % (20-55); Platelet Estimate Increased; Segmented Neutrophils 82 % (50-85); Total Cells Counted 100
[2021-01-08 05:58] LABS: Anisocytosis 1+; Hypochromasia Slight; Microcytosis 1+; Polychromasia Slight
[2021-01-08] MEDS: PANTOPRAZOLE 40 MG TABLET PO SCH (09:13)
[2021-01-08] MEDS: CALCIUM ACETATE 667 MG CAPSULE PO SCH ×3 (09:13→16:13)
[2021-01-08] MEDS: ASPIRIN EC 81 MG TABLET PO SCH (09:13)
[2021-01-08] MEDS: CLINDAMYCIN INJ 900 MG/50 ML PREMIX IV SCH ×3 (09:13→23:27)
[2021-01-08] MEDS: ACETAMINOPHEN 325 MG TABLET PO PRN (11:50)
[2021-01-09] MEDS: MORPHINE 4 MG/1 ML VIAL IV PRN ×2 (00:14→06:23)
[2021-01-09] MEDS: ALBUTEROL/IPRATROPIUM 3 ML NEB RESP TX SCH ×2 (01:33→08:05)
[2021-01-09] MEDS: CALCIUM ACETATE 667 MG CAPSULE PO SCH ×2 (09:34→13:51)
[2021-01-09] MEDS: PANTOPRAZOLE 40 MG TABLET PO SCH (09:35)
[2021-01-09] MEDS: ASPIRIN EC 81 MG TABLET PO SCH (09:35)
[2021-01-09] MEDS: CLINDAMYCIN INJ 900 MG/50 ML PREMIX IV SCH (09:35)
[2021-01-09 12:54] VITALS: BP 87/67
== END 2021-01-09 15:17 | disposition home health service (06) | DRG 137 ==
LOC: N.ED 17:37 → N.EDINP 21:19 → SUATTDRO 21:19 → N.EDINP 23:20 → N.TELEN 23:40
PROVIDERS: ADMIT Internal Medicine; ATTEND Internal Medicine Geriatric Medicine

== ENCOUNTER 2021-03-14 07:40 | Inpatient (IN) ==
[2021-03-14] MEDS ORDERED: ETOMIDATE 20 MG/10 ML VIAL IV ONE (07:50)
[2021-03-14] MEDS ORDERED: ROCURONIUM 100 MG/10 ML VIAL IV ONE (07:52)
[2021-03-14] MEDS ORDERED: NITROGLYCERIN DRIP 50 MG/250 ML BOTTLE IV SCH (08:00)
[2021-03-14] MEDS ORDERED: ALBUTEROL NEB SOLN 5 MG/ML 20 ML/BOTTLE CONT NEB SCH (08:00)
[2021-03-14] MEDS ORDERED: ALBUTEROL 2.5 MG/3 ML NEB RESP TX PRN (08:05)
[2021-03-14] MEDS ORDERED: ACETAMINOPHEN 325 MG TABLET PO PRN (08:07)
[2021-03-14] MEDS ORDERED: ALBUTEROL/IPRATROPIUM 3 ML NEB RESP TX PRN (08:07)
[2021-03-14] MEDS ORDERED: hydrALAZINE 20 MG/1 ML VIAL IV PRN (08:07)
[2021-03-14] MEDS ORDERED: ONDANSETRON 4 MG/2 ML VIAL IV PRN (08:07)
[2021-03-14 08:15] LABS: ABG Base Excess -1.6 MMOL/L (-2.5-2.5); ABG HCO3 26.1 MMOL/L (20-26); ABG Oxygen Saturation 99.6 % (95-100); ABG PCO2 57.7 MM HG (35-48); ABG PH 7.273 (7.35-7.45); ABG PO2 281.3 MM HG (80-95); ABG TCO2 27.9 MMOL/L (23-27)
[2021-03-14 09:08] LABS: ABG Base Excess 1.5 MMOL/L (-2.5-2.5); ABG HCO3 27.9 MMOL/L (20-26); ABG Oxygen Saturation 99.4 % (95-100); ABG PCO2 52.1 MM HG (35-48); ABG PH 7.347 (7.35-7.45); ABG PO2 265.5 MM HG (80-95); ABG TCO2 29.5 MMOL/L (23-27); Allen Test Positive; Pt O2 Delivery Device Ventilator
[2021-03-14 09:10] LABS: Basophils # 0.1 10*3/uL (0.0-0.2); Basophils % 0.3 % (0.0-0.8); Eosinophils # 0.8 10*3/uL (0.0-0.87); Eosinophils % 4.5 % (0.00-10.9); Hematocrit 34.9 VOL% (42.0-52.0); Hemoglobin 10.7 GM/DL (14.0-18.0); Immature Granulocytes % 0.7 %; Immature Granulocytes Absolute 0.12 #; Lymphocytes # 0.4 10*3/uL (1.4-4.0); Lymphocytes % 2.3 % (21.2-54.2); Mean Corpuscular HGB Conc 30.7 GM/DL (32-36); Mean Corpuscular Volume 96.4 FL (87-102); Mean Platelet Volume 10.1 FL (9.6-12.0); Monocytes % 4.9 % (1.7-12.7); Neutrophils % 87.3 % (38.7-73.9); Platelet Count 251 T/CUMM (130-400); Red Blood Count 3.62 MC/CUMM (3.8-5.5); Red Cell Distribution Width 19.1 % (9.3-17.3); White Blood Count 17.2 T/CUMM (4-12)
[2021-03-14 09:21] LABS: INR 1.1; PT Patient Result 11.8 SECS (10.5-12.0); Partial Thromboplastin Time 56.9 SECS (23.9-33.8)
[2021-03-14 09:39] LABS: Albumin 2.7 G/DL (3.4-5.0); Band Neutrophils 2 % (0-10); Bilirubin,Total 0.8 MG/DL (0.20-1.00); Calcium 8.7 MG/DL (8.5-10.1); Eosinophils 5 % (0-10); Lymphocytes 3 % (20-55); Osmolality,Calculated 291.7 MOS/KG (273-304); Potassium 4.5 MMOL/L (3.5-5.1); Segmented Neutrophils 87 % (50-85); Total Cells Counted 100; Total Protein 7.9 G/DL (6.4-8.2)
[2021-03-14 09:40] LABS: Platelet Estimate Normal; Polychromasia Slight
[2021-03-14] MEDS: RIVAROXABAN 20 MG TABLET PO SCH (10:31)
[2021-03-14] MEDS: amLODIPine 10 MG TABLET PO SCH (10:31)
[2021-03-14] MEDS: ASPIRIN EC 81 MG TABLET PO SCH (10:31)
[2021-03-14] MEDS: PANTOPRAZOLE 40 MG VIAL IV SCH (10:35)
[2021-03-14] MEDS ORDERED: MIDAZOLAM 100 MG in SODIUM CHLORIDE 0.9% 80 ML IV PRN (12:12)
[2021-03-14] MEDS ORDERED: HEPARIN 5,000 UNIT/1 ML VIAL ONE ×2 (12:16→12:21)
[2021-03-14] MEDS ORDERED: MIDAZOLAM 2 MG/2 ML VIAL ONE (12:19)
[2021-03-14] MEDS: CALCIUM ACETATE 667 MG CAPSULE PO SCH ×2 (12:24→17:08)
[2021-03-14] MEDS ORDERED: MIDAZOLAM 2 MG/2 ML VIAL IV STA (12:25)
[2021-03-14 15:19] LABS: ABG Base Excess 2.2 MMOL/L (-2.5-2.5); ABG HCO3 26.4 MMOL/L (20-26); ABG Oxygen Saturation 98.1 % (95-100); ABG PCO2 48.6 MM HG (35-48); ABG PH 7.371 (7.35-7.45); ABG TCO2 25.5 MMOL/L (23-27)
[2021-03-14] MEDS ORDERED: FUROSEMIDE 100 MG/10 ML VIAL ONE (16:06)
[2021-03-14] MEDS ORDERED: FUROSEMIDE 40 MG/4 ML VIAL IV STA (16:17)
[2021-03-15] MEDS: OLOPATADINE 0.1% OPH SOLN 5 ML BOTTLE BOTH EYES SCH ×3 (00:09→20:31)
[2021-03-15 05:36] LABS: Basophils % 0.1 % (0.0-0.8); Eosinophils # 1.1 10*3/uL (0.0-0.87); Hematocrit 36.3 VOL% (42.0-52.0); Hemoglobin 11.5 GM/DL (14.0-18.0); Immature Granulocytes % 0.3 %; Immature Granulocytes Absolute 0.03 #; Lymphocytes # 0.3 10*3/uL (1.4-4.0); Lymphocytes % 3.6 % (21.2-54.2); Mean Corpuscular HGB Conc 31.7 GM/DL (32-36); Mean Corpuscular Volume 95.8 FL (87-102); Monocytes % 1.8 % (1.7-12.7); Neutrophils % 82.2 % (38.7-73.9); Platelet Count 222 T/CUMM (130-400); Red Blood Count 3.79 MC/CUMM (3.8-5.5); White Blood Count 8.8 T/CUMM (4-12)
[2021-03-15 05:53] LABS: Albumin 2.5 G/DL (3.4-5.0); Bilirubin,Total 1.3 MG/DL (0.20-1.00); Osmolality,Calculated 281.7 MOS/KG (273-304); Potassium 4.6 MMOL/L (3.5-5.1); Total Protein 7.6 G/DL (6.4-8.2)
[2021-03-15 07:25] LABS: Band Neutrophils 1 % (0-10); Eosinophils 11 % (0-10); Hypochromasia 1+; Lymphocytes 6 % (20-55); Microcytosis 1+; Segmented Neutrophils 80 % (50-85); Total Cells Counted 100
[2021-03-15 07:26] LABS: Platelet Estimate Normal
[2021-03-15] MEDS: PANTOPRAZOLE 40 MG VIAL IV SCH (09:35)
[2021-03-15] MEDS: amLODIPine 10 MG TABLET PO SCH (09:36)
[2021-03-15] MEDS: RIVAROXABAN 20 MG TABLET PO SCH (09:36)
[2021-03-15] MEDS: ASPIRIN EC 81 MG TABLET PO SCH (09:36)
[2021-03-15] MEDS: CALCIUM ACETATE 667 MG CAPSULE PO SCH ×3 (09:36→16:14)
[2021-03-16 04:56] LABS: Basophils % 0.1 % (0.0-0.8); Eosinophils # 1.5 10*3/uL (0.0-0.87); Eosinophils % 20.3 % (0.00-10.9); Hematocrit 34.3 VOL% (42.0-52.0); Hemoglobin 10.9 GM/DL (14.0-18.0); Immature Granulocytes % 0.4 %; Immature Granulocytes Absolute 0.03 #; Lymphocytes # 0.3 10*3/uL (1.4-4.0); Lymphocytes % 4.4 % (21.2-54.2); Mean Corpuscular HGB Conc 31.8 GM/DL (32-36); Mean Corpuscular Volume 94.8 FL (87-102); Mean Platelet Volume 10.6 FL (9.6-12.0); Monocytes % 6.2 % (1.7-12.7); Neutrophils % 68.6 % (38.7-73.9); Platelet Count 225 T/CUMM (130-400); Red Blood Count 3.62 MC/CUMM (3.8-5.5); Red Cell Distribution Width 18.6 % (9.3-17.3); White Blood Count 7.5 T/CUMM (4-12)
[2021-03-16 05:24] LABS: Anisocytosis 1+; Eosinophils 16 % (0-10); Hypochromasia 1+; Lymphocytes 1 % (20-55); Microcytosis 1+; Segmented Neutrophils 74 % (50-85); Total Cells Counted 100
[2021-03-16 05:25] LABS: Platelet Estimate Normal
[2021-03-16 05:29] LABS: Albumin 2.6 G/DL (3.4-5.0); Calcium 8.9 MG/DL (8.5-10.1); Osmolality,Calculated 292.4 MOS/KG (273-304); Potassium 4.7 MMOL/L (3.5-5.1); Total Protein 7.9 G/DL (6.4-8.2)
[2021-03-16 08:16] VITALS: BP 112/78
[2021-03-16] MEDS: OLOPATADINE 0.1% OPH SOLN 5 ML BOTTLE BOTH EYES SCH (09:12)
[2021-03-16] MEDS: amLODIPine 10 MG TABLET PO SCH (09:12)
[2021-03-16] MEDS: PANTOPRAZOLE 40 MG VIAL IV SCH (09:13)
[2021-03-16] MEDS ORDERED: PANTOPRAZOLE 40 MG TABLET PO SCH (10:00)
[2021-03-16] MEDS: CALCIUM ACETATE 667 MG CAPSULE PO SCH ×2 (10:15→11:05)
[2021-03-16] MEDS ORDERED: HEPARIN 10,000 UNIT/10 ML VIAL IV SCH (11:00)
[2021-03-16] MEDS: ASPIRIN EC 81 MG TABLET PO SCH (11:05)
[2021-03-16] MEDS: RIVAROXABAN 20 MG TABLET PO SCH (11:05)
== END 2021-03-16 14:06 | disposition home or self-care (01) | DRG 133 ==
LOC: EDUNIT# → EDBD → N.ED 07:40 → SUATTDRO 08:05 → N.EDINP 08:05 → N.TELES 21:44
PROVIDERS: ADMIT Family Medicine; ATTEND Internal Medicine

== ENCOUNTER 2021-06-08 07:32 | Inpatient (IN) ==
[2021-06-08] MEDS ORDERED: HEPARIN LOCK FLUSH 500 UNIT/5 ML SYRINGE IV ONE ×2 (08:54→09:20)
[2021-06-08 09:09] LABS: Basophils # 0.1 10*3/uL (0.0-0.2); Basophils % 0.7 % (0.0-0.8); Eosinophils # 0.1 10*3/uL (0.0-0.87); Eosinophils % 0.6 % (0.00-10.9); Hematocrit 27.7 VOL% (42.0-52.0); Hemoglobin 8.9 GM/DL (14.0-18.0); Immature Granulocytes % 0.6 %; Immature Granulocytes Absolute 0.11 #; Lymphocytes # 0.4 10*3/uL (1.4-4.0); Lymphocytes % 2.4 % (21.2-54.2); Mean Corpuscular HGB Conc 32.1 GM/DL (32-36); Mean Corpuscular Volume 89.1 FL (87-102); Mean Platelet Volume 9.3 FL (9.6-12.0); Neutrophils % 89.7 % (38.7-73.9); Platelet Count 429 T/CUMM (130-400); Red Blood Count 3.11 MC/CUMM (3.8-5.5); Red Cell Distribution Width 18.6 % (9.3-17.3)
[2021-06-08 09:29] LABS: Band Neutrophils 1 % (0-10); Eosinophils 1 % (0-10); Hypochromasia 1+; Lymphocytes 2 % (20-55); Microcytosis 1+; Platelet Estimate Adequate; Segmented Neutrophils 94 % (50-85); Total Cells Counted 100
[2021-06-08 10:00] LABS: INR 1.1; PT Patient Result 12.6 SECS (10.5-12.0)
[2021-06-08] MEDS ORDERED: ONDANSETRON 4 MG/2 ML VIAL IV PRN (10:01)
[2021-06-08 10:02] LABS: Partial Thromboplastin Time 99.5 SECS (23.8-32.1)
[2021-06-08 10:03] LABS: Calcium 8.5 MG/DL (8.5-10.1); Osmolality,Calculated 273.4 MOS/KG (273-304); Potassium 4.7 MMOL/L (3.5-5.1)
[2021-06-08] MEDS ORDERED: CIPROFLOXACIN 500 MG TABLET PO SCH (10:30)
[2021-06-08] MEDS: PANTOPRAZOLE 40 MG TABLET PO SCH (12:33)
[2021-06-08] MEDS: APIXABAN 5 MG TABLET PO SCH ×2 (12:33→20:05)
[2021-06-08] MEDS ORDERED: HEPARIN 10,000 UNIT/10 ML VIAL IV SCH (14:45)
[2021-06-08 15:11] LABS: Hepatitis B Core IgM Quant 0.06 Index; Hepatitis B Surface Ag Quant < 0.10 Index; Hepatitis B Surface Ag Result Non-Reactive (NonReactive); Hepatitis C Virus Ab Quant 0.12 Index; Hepatitis C Virus Ab Result Non-Reactive (NonReactive)
[2021-06-08] MEDS: oxyCODONE/ACETAMINOPHEN 5-325 MG TABLET PO PRN ×2 (15:59→22:55)
[2021-06-08] MEDS: amLODIPine 10 MG TABLET PO SCH (15:59)
[2021-06-08] MEDS: CALCIUM ACETATE 667 MG CAPSULE PO SCH (18:02)
[2021-06-09 05:37] LABS: Basophils # 0.1 10*3/uL (0.0-0.2); Eosinophils # 0.1 10*3/uL (0.0-0.87); Eosinophils % 0.8 % (0.00-10.9); Hematocrit 26.4 VOL% (42.0-52.0); Hemoglobin 8.4 GM/DL (14.0-18.0); Immature Granulocytes % 0.9 %; Lymphocytes # 0.8 10*3/uL (1.4-4.0); Lymphocytes % 6.6 % (21.2-54.2); Mean Corpuscular HGB Conc 31.8 GM/DL (32-36); Mean Corpuscular Volume 90.4 FL (87-102); Mean Platelet Volume 9.8 FL (9.6-12.0); Monocytes % 11.7 % (1.7-12.7); Platelet Count 374 T/CUMM (130-400); Red Blood Count 2.92 MC/CUMM (3.8-5.5); Red Cell Distribution Width 18.3 % (9.3-17.3); White Blood Count 11.4 T/CUMM (4-12)
[2021-06-09] MEDS ORDERED: amLODIPine 10 MG TABLET PO SCH (09:00)
[2021-06-09] MEDS: PANTOPRAZOLE 40 MG TABLET PO SCH (09:03)
[2021-06-09] MEDS: CALCIUM ACETATE 667 MG CAPSULE PO SCH ×3 (09:03→17:01)
[2021-06-09] MEDS: APIXABAN 5 MG TABLET PO SCH ×2 (09:04→20:35)
[2021-06-09] MEDS: amLODIPine 10 MG TABLET PO SCH (09:04)
[2021-06-09] MEDS: oxyCODONE/ACETAMINOPHEN 5-325 MG TABLET PO PRN (09:05)
[2021-06-09] MEDS: MENTHOL/ZINC OXIDE OINT 71 GM JAR TOP SCH ×2 (19:12→20:35)
[2021-06-10] MEDS: oxyCODONE/ACETAMINOPHEN 5-325 MG TABLET PO PRN ×2 (00:17→15:51)
[2021-06-10] MEDS: amLODIPine 10 MG TABLET PO SCH (10:22)
[2021-06-10] MEDS: CALCIUM ACETATE 667 MG CAPSULE PO SCH ×3 (10:22→16:44)
[2021-06-10] MEDS: MENTHOL/ZINC OXIDE OINT 71 GM JAR TOP SCH ×3 (10:22→20:53)
[2021-06-10] MEDS: APIXABAN 5 MG TABLET PO SCH ×2 (10:22→20:53)
[2021-06-10] MEDS: PANTOPRAZOLE 40 MG TABLET PO SCH (10:23)
[2021-06-11] MEDS: oxyCODONE/ACETAMINOPHEN 5-325 MG TABLET PO PRN (06:56)
[2021-06-11] MEDS: amLODIPine 10 MG TABLET PO SCH (08:44)
[2021-06-11] MEDS: CALCIUM ACETATE 667 MG CAPSULE PO SCH ×3 (08:44→17:04)
[2021-06-11] MEDS: APIXABAN 5 MG TABLET PO SCH ×2 (08:44→21:09)
[2021-06-11] MEDS: PANTOPRAZOLE 40 MG TABLET PO SCH (08:44)
[2021-06-11] MEDS: MENTHOL/ZINC OXIDE OINT 71 GM JAR TOP SCH ×2 (08:45→21:09)
[2021-06-11 08:49] LABS: Basophils # 0.1 10*3/uL (0.0-0.2); Basophils % 1.1 % (0.0-0.8); Eosinophils # 0.1 10*3/uL (0.0-0.87); Eosinophils % 1.3 % (0.00-10.9); Hematocrit 25.1 VOL% (42.0-52.0); Hemoglobin 7.7 GM/DL (14.0-18.0); Immature Granulocytes % 0.6 %; Immature Granulocytes Absolute 0.06 #; Lymphocytes # 0.9 10*3/uL (1.4-4.0); Lymphocytes % 9.3 % (21.2-54.2); Mean Corpuscular HGB Conc 30.7 GM/DL (32-36); Mean Corpuscular Volume 91.3 FL (87-102); Mean Platelet Volume 9.6 FL (9.6-12.0); Monocytes % 14.7 % (1.7-12.7); Platelet Count 375 T/CUMM (130-400); Red Blood Count 2.75 MC/CUMM (3.8-5.5); Red Cell Distribution Width 18.4 % (9.3-17.3); White Blood Count 9.5 T/CUMM (4-12)
[2021-06-11 09:20] LABS: Calcium 8.6 MG/DL (8.5-10.1); Osmolality,Calculated 274.8 MOS/KG (273-304); Potassium 4.2 MMOL/L (3.5-5.1)
[2021-06-12] MEDS: oxyCODONE/ACETAMINOPHEN 5-325 MG TABLET PO PRN ×3 (00:59→23:54)
[2021-06-12 06:03] LABS: Basophils # 0.1 10*3/uL (0.0-0.2); Eosinophils # 0.1 10*3/uL (0.0-0.87); Eosinophils % 1.5 % (0.00-10.9); Hematocrit 23.3 VOL% (42.0-52.0); Hemoglobin 7.3 GM/DL (14.0-18.0); Immature Granulocytes Absolute 0.09 #; Lymphocytes # 0.9 10*3/uL (1.4-4.0); Lymphocytes % 9.9 % (21.2-54.2); Mean Corpuscular HGB Conc 31.3 GM/DL (32-36); Mean Corpuscular Volume 91.7 FL (87-102); Mean Platelet Volume 9.7 FL (9.6-12.0); Monocytes % 11.7 % (1.7-12.7); Neutrophils % 74.9 % (38.7-73.9); Platelet Count 374 T/CUMM (130-400); Red Blood Count 2.54 MC/CUMM (3.8-5.5); Red Cell Distribution Width 17.7 % (9.3-17.3); White Blood Count 8.9 T/CUMM (4-12)
[2021-06-12 06:25] LABS: Calcium 8.6 MG/DL (8.5-10.1); Osmolality,Calculated 276.8 MOS/KG (273-304); Potassium 4.4 MMOL/L (3.5-5.1)
[2021-06-12] MEDS ORDERED: SODIUM CHLORIDE 0.9% 1,000 ML IV PRN (07:47)
[2021-06-12 08:15] LABS: Basophils # 0.1 10*3/uL (0.0-0.2); Eosinophils # 0.1 10*3/uL (0.0-0.87); Eosinophils % 1.5 % (0.00-10.9); Hematocrit 24.1 VOL% (42.0-52.0); Hemoglobin 7.5 GM/DL (14.0-18.0); Immature Granulocytes % 0.7 %; Immature Granulocytes Absolute 0.06 #; Lymphocytes # 0.8 10*3/uL (1.4-4.0); Lymphocytes % 9.8 % (21.2-54.2); Mean Corpuscular HGB Conc 31.1 GM/DL (32-36); Mean Corpuscular Volume 92.3 FL (87-102); Mean Platelet Volume 9.4 FL (9.6-12.0); Monocytes % 13.6 % (1.7-12.7); Neutrophils % 73.4 % (38.7-73.9); Platelet Count 357 T/CUMM (130-400); Red Blood Count 2.61 MC/CUMM (3.8-5.5); Red Cell Distribution Width 17.6 % (9.3-17.3); White Blood Count 8.2 T/CUMM (4-12)
[2021-06-12 08:18] LABS: % Iron Saturation 32.9 % (18-50); Ferritin 748.3 ng/mL (26-388)
[2021-06-12] MEDS ORDERED: EPOETIN ALFA-EPBX 2,000 UNIT/ML VIAL IV PRN (08:47)
[2021-06-12] MEDS: CALCIUM ACETATE 667 MG CAPSULE PO SCH ×3 (09:02→16:13)
[2021-06-12] MEDS: PANTOPRAZOLE 40 MG TABLET PO SCH (09:03)
[2021-06-12] MEDS: APIXABAN 5 MG TABLET PO SCH ×2 (09:03→21:02)
[2021-06-12] MEDS: amLODIPine 10 MG TABLET PO SCH (09:03)
[2021-06-12 09:07] LABS: Folate 3.15 NG/ML (5.38-24.0); Vitamin B12 1496 PG/ML (211-911)
[2021-06-12 09:14] LABS: Sedimentation Rate-Westergren 132 MM/HR (0-20)
[2021-06-12 09:17] LABS: Anisocytosis 1+; Macrocytosis Slight; Platelet Estimate Normal
[2021-06-12 10:15] LABS: Hemoglobin A1 (Alkaline) 97.7 % (96.5-98.5); Hemoglobin A2 (Alkaline) 2.3 % (1.5-3.5)
[2021-06-12] MEDS: FOLIC ACID 1 MG TABLET PO SCH (11:05)
[2021-06-12] MEDS: MENTHOL/ZINC OXIDE OINT 71 GM JAR TOP SCH ×2 (11:25→21:02)
[2021-06-13] MEDS: PANTOPRAZOLE 40 MG TABLET PO SCH (08:38)
[2021-06-13] MEDS: APIXABAN 5 MG TABLET PO SCH ×2 (08:38→20:52)
[2021-06-13] MEDS: CALCIUM ACETATE 667 MG CAPSULE PO SCH ×3 (08:38→17:00)
[2021-06-13] MEDS: oxyCODONE/ACETAMINOPHEN 5-325 MG TABLET PO PRN (08:38)
[2021-06-13] MEDS: FOLIC ACID 1 MG TABLET PO SCH (08:38)
[2021-06-13] MEDS: amLODIPine 10 MG TABLET PO SCH (08:38)
[2021-06-13 09:34] LABS: Basophils # 0.1 10*3/uL (0.0-0.2); Basophils % 1.1 % (0.0-0.8); Eosinophils # 0.2 10*3/uL (0.0-0.87); Eosinophils % 2.2 % (0.00-10.9); Hematocrit 24.8 VOL% (42.0-52.0); Hemoglobin 7.8 GM/DL (14.0-18.0); Immature Granulocytes % 0.6 %; Immature Granulocytes Absolute 0.05 #; Lymphocytes # 0.7 10*3/uL (1.4-4.0); Lymphocytes % 9.4 % (21.2-54.2); Mean Corpuscular HGB Conc 31.5 GM/DL (32-36); Mean Corpuscular Volume 91.2 FL (87-102); Mean Platelet Volume 9.5 FL (9.6-12.0); Monocytes % 9.1 % (1.7-12.7); Neutrophils % 77.6 % (38.7-73.9); Platelet Count 388 T/CUMM (130-400); Red Blood Count 2.72 MC/CUMM (3.8-5.5); Red Cell Distribution Width 17.6 % (9.3-17.3); White Blood Count 7.9 T/CUMM (4-12)
[2021-06-13 10:17] LABS: Calcium 8.8 MG/DL (8.5-10.1); Osmolality,Calculated 275.1 MOS/KG (273-304)
[2021-06-13] MEDS: MENTHOL/ZINC OXIDE OINT 71 GM JAR TOP SCH ×2 (10:34→20:52)
[2021-06-14 05:57] LABS: Basophils # 0.1 10*3/uL (0.0-0.2); Basophils % 1.3 % (0.0-0.8); Eosinophils # 0.2 10*3/uL (0.0-0.87); Eosinophils % 1.6 % (0.00-10.9); Hematocrit 33.7 VOL% (42.0-52.0); Hemoglobin 10.7 GM/DL (14.0-18.0); Immature Granulocytes % 1.1 %; Lymphocytes # 0.7 10*3/uL (1.4-4.0); Lymphocytes % 7.3 % (21.2-54.2); Mean Corpuscular HGB Conc 31.8 GM/DL (32-36); Mean Corpuscular Volume 90.3 FL (87-102); Mean Platelet Volume 9.9 FL (9.6-12.0); Monocytes % 10.1 % (1.7-12.7); Neutrophils % 78.6 % (38.7-73.9); Platelet Count 383 T/CUMM (130-400); Red Blood Count 3.73 MC/CUMM (3.8-5.5); White Blood Count 9.4 T/CUMM (4-12)
[2021-06-14 06:20] LABS: Calcium 9.2 MG/DL (8.5-10.1); Osmolality,Calculated 275.8 MOS/KG (273-304); Potassium 4.2 MMOL/L (3.5-5.1)
[2021-06-14] MEDS: oxyCODONE/ACETAMINOPHEN 5-325 MG TABLET PO PRN (07:07)
[2021-06-14] MEDS: amLODIPine 10 MG TABLET PO SCH (09:23)
[2021-06-14] MEDS: CALCIUM ACETATE 667 MG CAPSULE PO SCH (09:23)
[2021-06-14] MEDS: FOLIC ACID 1 MG TABLET PO SCH (09:23)
[2021-06-14] MEDS: APIXABAN 5 MG TABLET PO SCH (09:24)
[2021-06-14] MEDS: PANTOPRAZOLE 40 MG TABLET PO SCH (09:24)
[2021-06-14] MEDS: MENTHOL/ZINC OXIDE OINT 71 GM JAR TOP SCH (09:24)
[2021-06-14 11:20] VITALS: BP 112/78
[2021-06-15] MEDS ORDERED: APIXABAN 5 MG TABLET PO SCH (09:00)
== END 2021-06-14 16:13 | disposition home or self-care (01) | DRG 197 ==
LOC: EDUNIT# → N.ED 07:32 → N.EDINP 07:32 → SUATTDRO 09:28 → N.3E 09:56
PROVIDERS: ADMIT Internal Medicine; ATTEND Internal Medicine

== ENCOUNTER 2021-07-12 20:54 | Inpatient (IN) ==
[2021-07-12] MEDS ORDERED: SODIUM CHLORIDE 0.9% 2,500 ML IV ONE (21:28)
[2021-07-12] MEDS ORDERED: SODIUM CHLORIDE 0.9% 500 ML IV STA (21:31)
[2021-07-12 21:44] LABS: Basophils # 0.1 10*3/uL (0.0-0.2); Basophils % 0.2 % (0.0-0.8); Eosinophils % 0.1 % (0.00-10.9); Immature Granulocytes % 1.5 %; Lymphocytes # 0.7 10*3/uL (1.4-4.0); Lymphocytes % 2.2 % (21.2-54.2); Monocytes % 1.6 % (1.7-12.7); NRBC # 0.02 10*3/uL; Neutrophils % 94.4 % (38.7-73.9); Platelet Count 136 T/CUMM (130-400); Red Blood Count 1.91 MC/CUMM (3.8-5.5); Red Cell Distribution Width 17.1 % (9.3-17.3); White Blood Count 33.5 T/CUMM (4-12)
[2021-07-12 21:48] LABS: Hematocrit 16.8 VOL% (42.0-52.0); Hemoglobin 5.2 GM/DL (14.0-18.0)
[2021-07-12 22:02] LABS: Alanine Aminotransferase 10 U/L (16-61); Albumin 1.1 G/DL (3.4-5.0); Alkaline Phosphatase 170 U/L (45-117); Aspartate Amino Transferase 23 U/L (0-37); Blood Urea Nitrogen 13 MG/DL (7-18); Calcium 8.5 MG/DL (8.5-10.1); Carbon Dioxide 28 MMOL/L (21-32); Estimated Glom Filtration Rate 49 ML/MIN; Glucose 72 MG/DL (74-106); Osmolality,Calculated 271.8 MOS/KG (273-304); Potassium 2.9 MMOL/L (3.5-5.1); Sodium 137 MMOL/L (136-145); Total Protein 6.8 G/DL (6.4-8.2)
[2021-07-12 22:43] LABS: Band Neutrophils 1 % (0-10); Hypochromia 1+; Lymphocytes 2 % (20-55); Microcytosis 1+; Platelet Estimate Normal; Segmented Neutrophils 96 % (50-85); Total Cells Counted 100
[2021-07-12] MEDS ORDERED: PIPERACILLIN/TAZOBACTAM 3,375 MG in SODIUM CHLORIDE 0.9% 100 ML IV STA (22:45)
[2021-07-12 22:46] LABS: Stomatocytes Slight
[2021-07-12] MEDS ORDERED: SODIUM CHLORIDE 0.9% 1,000 ML IV STA (23:07)
[2021-07-13] MEDS ORDERED: PHENYLEPHRINE DRIP 40 MG/250 ML PREMIX IV PRN (00:18)
[2021-07-13] MEDS ORDERED: SODIUM CHLORIDE 0.9% 1,000 ML IV PRN ×3 (00:18→09:15)
[2021-07-13] MEDS ORDERED: NICOTINE 21 MG/24 HR PATCH TRANSDERM PRN (00:18)
[2021-07-13] MEDS: ALBUTEROL/IPRATROPIUM 3 ML NEB RESP TX SCH ×4 (01:46→19:30)
[2021-07-13] MEDS ORDERED: VANCOMYCIN INJ 750 MG in SODIUM CHLORIDE 0.9% 250 ML IV PRN (02:36)
[2021-07-13] MEDS ORDERED: SODIUM CHLORIDE 0.9% 1,000 ML IV STA (02:48)
[2021-07-13] MEDS ORDERED: VANCOMYCIN INJ 1,500 MG in SODIUM CHLORIDE 0.9% 500 ML IV ONE ×2 (03:00→08:00)
[2021-07-13] MEDS ORDERED: ALBUMIN 25% 25 GM/100 ML VIAL IV ONE (06:57)
[2021-07-13 08:40] LABS: Basophils # 0.1 10*3/uL (0.0-0.2); Basophils % 0.2 % (0.0-0.8); Hematocrit 18.5 VOL% (42.0-52.0); Immature Granulocytes % 1.9 %; Immature Granulocytes Absolute 0.57 #; Lymphocytes # 0.7 10*3/uL (1.4-4.0); Lymphocytes % 2.2 % (21.2-54.2); Mean Corpuscular HGB Conc 31.9 GM/DL (32-36); Mean Corpuscular Volume 87.7 FL (87-102); Monocytes % 1.7 % (1.7-12.7); Platelet Count 110 T/CUMM (130-400); Red Blood Count 2.11 MC/CUMM (3.8-5.5); Red Cell Distribution Width 16.3 % (9.3-17.3)
[2021-07-13 08:49] LABS: Hemoglobin 5.9 GM/DL (14.0-18.0)
[2021-07-13 09:06] LABS: Band Neutrophils 12 % (0-10); Lymphocytes 1 % (20-55); Metamyelocytes 2 %; Segmented Neutrophils 82 % (50-85); Total Cells Counted 100
[2021-07-13 09:07] LABS: Hypochromia 1+; Microcytosis 1+; Platelet Estimate Decreased
[2021-07-13 09:10] LABS: Albumin 1.4 G/DL (3.4-5.0); Bilirubin,Total 1.4 MG/DL (0.20-1.00); Calcium 8.3 MG/DL (8.5-10.1); Osmolality,Calculated 279.4 MOS/KG (273-304); Potassium 3.3 MMOL/L (3.5-5.1); Total Protein 6.4 G/DL (6.4-8.2)
[2021-07-13] MEDS ORDERED: PHENYLEPHRINE DRIP 40 MG/250 ML PREMIX IV ONE (09:22)
[2021-07-13] MEDS: PHENYLEPHRINE DRIP 40 MG/250 ML PREMIX IV PRN ×2 (09:30→15:41)
[2021-07-13] MEDS: PIPERACILLIN/TAZOBACTAM 3,375 MG in SODIUM CHLORIDE 0.9% 100 ML IV SCH ×2 (09:31→21:40)
[2021-07-13] MEDS: PANTOPRAZOLE 40 MG VIAL IV SCH (09:31)
[2021-07-14] MEDS: ALBUTEROL/IPRATROPIUM 3 ML NEB RESP TX SCH ×4 (00:50→20:00)
[2021-07-14] MEDS: PHENYLEPHRINE DRIP 40 MG/250 ML PREMIX IV PRN ×3 (02:04→19:33)
[2021-07-14] MEDS: PANTOPRAZOLE 40 MG VIAL IV SCH (08:14)
[2021-07-14] MEDS: PIPERACILLIN/TAZOBACTAM 3,375 MG in SODIUM CHLORIDE 0.9% 100 ML IV SCH ×2 (08:15→21:40)
[2021-07-14 08:26] LABS: Basophils # 0.1 10*3/uL (0.0-0.2); Basophils % 0.4 % (0.0-0.8); Eosinophils # 0.2 10*3/uL (0.0-0.87); Eosinophils % 0.7 % (0.00-10.9); Hematocrit 29.5 VOL% (42.0-52.0); Hemoglobin 9.4 GM/DL (14.0-18.0); Immature Granulocytes % 1.5 %; Immature Granulocytes Absolute 0.41 #; Lymphocytes # 0.6 10*3/uL (1.4-4.0); Lymphocytes % 2.2 % (21.2-54.2); Mean Corpuscular HGB Conc 31.9 GM/DL (32-36); Mean Corpuscular Volume 84.8 FL (87-102); Mean Platelet Volume 10.9 FL (9.6-12.0); Monocytes % 1.5 % (1.7-12.7); Neutrophils % 93.7 % (38.7-73.9); Platelet Count 108 T/CUMM (130-400); Red Blood Count 3.48 MC/CUMM (3.8-5.5); Red Cell Distribution Width 16.5 % (9.3-17.3); White Blood Count 26.8 T/CUMM (4-12)
[2021-07-14 08:51] LABS: Alanine Aminotransferase < 9 U/L (16-61); Albumin 1.2 G/DL (3.4-5.0); Alkaline Phosphatase 160 U/L (45-117); Aspartate Amino Transferase 18 U/L (0-37); Blood Urea Nitrogen 26 MG/DL (7-18); Calcium 8.3 MG/DL (8.5-10.1); Carbon Dioxide 26 MMOL/L (21-32); Estimated Glom Filtration Rate 32 ML/MIN; Glucose 106 MG/DL (74-106); Osmolality,Calculated 279.7 MOS/KG (273-304); Potassium 2.7 MMOL/L (3.5-5.1); Sodium 138 MMOL/L (136-145); Total Protein 6.5 G/DL (6.4-8.2)
[2021-07-14] MEDS ORDERED: POTASSIUM PHOSPHATE 30 MMOL in SODIUM CHLORIDE 0.9% 250 ML IV ONE (09:30)
[2021-07-14 09:39] LABS: Band Neutrophils 11 % (0-10); Eosinophils 1 % (0-10); Hypochromia 2+; Lymphocytes 1 % (20-55); Platelet Estimate Adequate; Polychromasia Slight; Segmented Neutrophils 86 % (50-85); Target Cells Few; Total Cells Counted 100
[2021-07-14] MEDS: POTASSIUM CHLORIDE RIDER 10 MEQ/100 ML PREMIX IV SCH ×4 (10:56→14:08)
[2021-07-14] MEDS: ACETAMINOPHEN 325 MG TABLET PO PRN (21:40)
[2021-07-15] MEDS: ALBUTEROL/IPRATROPIUM 3 ML NEB RESP TX SCH ×5 (00:02→23:45)
[2021-07-15] MEDS: PHENYLEPHRINE DRIP 40 MG/250 ML PREMIX IV PRN ×5 (02:25→21:52)
[2021-07-15 04:56] LABS: Calcium 8.1 MG/DL (8.5-10.1); Osmolality,Calculated 267.7 MOS/KG (273-304); Potassium 4.8 MMOL/L (3.5-5.1)
[2021-07-15] MEDS ORDERED: HYDROCORTISONE 100 MG VIAL IV ONE (08:17)
[2021-07-15] MEDS: PANTOPRAZOLE 40 MG VIAL IV SCH (08:22)
[2021-07-15] MEDS ORDERED: LEVOFLOXACIN INJ 750 MG/150 ML PREMIX IV SCH (09:00)
[2021-07-15 09:13] LABS: Basophils # 0.1 10*3/uL (0.0-0.2); Basophils % 0.4 % (0.0-0.8); Eosinophils # 0.3 10*3/uL (0.0-0.87); Hematocrit 25.9 VOL% (42.0-52.0); Hemoglobin 8.5 GM/DL (14.0-18.0); Immature Granulocytes % 1.6 %; Lymphocytes # 0.8 10*3/uL (1.4-4.0); Lymphocytes % 2.6 % (21.2-54.2); Mean Corpuscular HGB Conc 32.8 GM/DL (32-36); Mean Corpuscular Volume 84.6 FL (87-102); Mean Platelet Volume 10.6 FL (9.6-12.0); Monocytes % 1.7 % (1.7-12.7); NRBC # 0.02 10*3/uL; Neutrophils % 92.7 % (38.7-73.9); Red Blood Count 3.06 MC/CUMM (3.8-5.5); White Blood Count 30.7 T/CUMM (4-12)
[2021-07-15 09:18] LABS: Platelet Count 87 T/CUMM (130-400)
[2021-07-15 09:33] LABS: Band Neutrophils 10 % (0-10); Hypochromia 2+; Lymphocytes 5 % (20-55); Segmented Neutrophils 80 % (50-85); Target Cells Slight; Total Cells Counted 100
[2021-07-15 09:38] LABS: Microcytosis 1+; Ovalocytes Slight; Platelet Estimate Decreased
[2021-07-15] MEDS: ONDANSETRON 4 MG/2 ML VIAL IV PRN (09:42)
[2021-07-15] MEDS ORDERED: HEPARIN 10,000 UNIT/10 ML VIAL IV SCH (16:45)
[2021-07-15] MEDS: MEROPENEM 500 MG in SODIUM CHLORIDE 0.9% 100 ML IV SCH (17:21)
[2021-07-15] MEDS: HYDROCORTISONE 100 MG VIAL IV SCH (20:22)
[2021-07-15] MEDS ORDERED: VANCOMYCIN INJ 750 MG in SODIUM CHLORIDE 0.9% 250 ML IV ONE (21:00)
[2021-07-16] MEDS: PHENYLEPHRINE DRIP 40 MG/250 ML PREMIX IV PRN ×4 (02:10→13:55)
[2021-07-16] MEDS: MEROPENEM 500 MG in SODIUM CHLORIDE 0.9% 100 ML IV SCH ×3 (02:10→18:03)
[2021-07-16 05:20] LABS: Basophils # 0.1 10*3/uL (0.0-0.2); Basophils % 0.3 % (0.0-0.8); Hematocrit 31.5 VOL% (42.0-52.0); Immature Granulocytes % 1.2 %; Immature Granulocytes Absolute 0.26 #; Lymphocytes # 0.7 10*3/uL (1.4-4.0); Lymphocytes % 3.2 % (21.2-54.2); Mean Corpuscular HGB Conc 31.7 GM/DL (32-36); Mean Corpuscular Volume 85.8 FL (87-102); Mean Platelet Volume 10.9 FL (9.6-12.0); Monocytes % 1.2 % (1.7-12.7); NRBC # 0.02 10*3/uL; Neutrophils % 94.1 % (38.7-73.9); Platelet Count 77 T/CUMM (130-400); Red Blood Count 3.67 MC/CUMM (3.8-5.5); Red Cell Distribution Width 17.4 % (9.3-17.3); White Blood Count 21.3 T/CUMM (4-12)
[2021-07-16 05:55] LABS: Band Neutrophils 1 % (0-10); Lymphocytes 2 % (20-55); Platelet Estimate Decreased; Segmented Neutrophils 96 % (50-85); Total Cells Counted 100
[2021-07-16 05:56] LABS: Hypochromia Slight; Microcytosis Slight
[2021-07-16 06:13] LABS: Albumin 1.2 G/DL (3.4-5.0); Osmolality,Calculated 272.4 MOS/KG (273-304); Potassium 4.2 MMOL/L (3.5-5.1); Total Protein 7.9 G/DL (6.4-8.2)
[2021-07-16] MEDS: ALBUTEROL/IPRATROPIUM 3 ML NEB RESP TX SCH ×3 (07:00→19:45)
[2021-07-16] MEDS: PANTOPRAZOLE 40 MG VIAL IV SCH (08:38)
[2021-07-16] MEDS: HYDROCORTISONE 100 MG VIAL IV SCH ×2 (08:38→21:54)
[2021-07-16] MEDS ORDERED: MIDAZOLAM 2 MG/2 ML VIAL ONE (08:40)
[2021-07-16] MEDS ORDERED: fentaNYL 100 MCG/2 ML VIAL ONE (08:40)
[2021-07-16] MEDS ORDERED: HEPARIN/NACL 0.9% 2 UNITS/ML 1,000 UNIT/500 ML BAG IV ONE (08:55)
[2021-07-16] MEDS ORDERED: ALBUMIN 5% 12.5 GM/250 ML VIAL IV ONE (10:29)
[2021-07-16] MEDS ORDERED: ePHEDrine 50 MG/ML VIAL ONE (12:02)
[2021-07-16 12:16] LABS: ABG Base Excess -1.5 MMOL/L (-2.5-2.5); ABG HCO3 22.6 MMOL/L (20-26); ABG Oxygen Saturation 99.1 % (95-100); ABG PCO2 35.2 MM HG (35-48); ABG PH 7.426 (7.35-7.45); ABG PO2 302.7 MM HG (80-95); ABG TCO2 23.7 MMOL/L (23-27); Glucose Heart Surgery 121 MG/DL (74-106); Hemoglobin Heart Surgery 7.7 G/DL (14.0-18.0); Potassium Heart/CVR 3.7 MMOL/L (3.5-5.1)
[2021-07-16] MEDS ORDERED: PHENYLEPHRINE 10 MG/1 ML VIAL IV ONE (12:25)
[2021-07-16] MEDS ORDERED: SODIUM CHLORIDE 0.9% 1,000 ML IV PRN ×2 (12:40→14:40)
[2021-07-16] MEDS: MIDODRINE 5 MG TABLET PO SCH ×2 (13:00→21:52)
[2021-07-16] MEDS ORDERED: LIDOCAINE 2% 5 ML VIAL ONE (13:20)
[2021-07-16] MEDS ORDERED: propofoL 200 MG/20 ML VIAL IV ONE (13:20)
[2021-07-16] MEDS ORDERED: ROCURONIUM 50 MG/5 ML VIAL IV ONE (13:20)
[2021-07-16] MEDS ORDERED: SODIUM CHLORIDE 0.9% 500 ML IV ONE (13:21)
[2021-07-16] MEDS ORDERED: SODIUM CHLORIDE 0.9% 250 ML IV ONE (13:21)
[2021-07-16] MEDS ORDERED: SEVOFLURANE 1 UNIT/15 MINUTE INH ONE (13:23)
[2021-07-16] MEDS ORDERED: TRANEXAMIC ACID 1,000 MG/10 ML VIAL ONE (13:23)
[2021-07-16 15:30] LABS: ABG Base Excess -3.6 MMOL/L (-2.5-2.5); ABG HCO3 21.4 MMOL/L (20-26); ABG Oxygen Saturation 99.8 % (95-100); ABG PCO2 34.7 MM HG (35-48); ABG PH 7.387 (7.35-7.45); ABG TCO2 19.2 MMOL/L (23-27)
[2021-07-16] MEDS: PHENYLEPHRINE INJ 160 MG in SODIUM CHLORIDE 0.9% 234 ML IV SCH ×2 (16:03→21:55)
[2021-07-16] MEDS: MIDAZOLAM 100 MG in SODIUM CHLORIDE 0.9% 80 ML IV PRN (16:03)
[2021-07-16 17:23] LABS: Basophils # 0.1 10*3/uL (0.0-0.2); Basophils % 0.2 % (0.0-0.8); Hematocrit 26.8 VOL% (42.0-52.0); Hemoglobin 8.5 GM/DL (14.0-18.0); Immature Granulocytes % 0.8 %; Immature Granulocytes Absolute 0.19 #; Lymphocytes # 1.4 10*3/uL (1.4-4.0); Lymphocytes % 5.7 % (21.2-54.2); Mean Corpuscular HGB Conc 31.7 GM/DL (32-36); Mean Corpuscular Volume 87.3 FL (87-102); Monocytes % 2.6 % (1.7-12.7); NRBC # 0.03 10*3/uL; Neutrophils % 90.7 % (38.7-73.9); Red Blood Count 3.07 MC/CUMM (3.8-5.5); Red Cell Distribution Width 15.8 % (9.3-17.3)
[2021-07-16 17:25] LABS: Platelet Count 61 T/CUMM (130-400)
[2021-07-16 17:42] LABS: Anisocytosis 1+; Band Neutrophils 7 % (0-10); Hypochromia 1+; Lymphocytes 6 % (20-55); Segmented Neutrophils 86 % (50-85); Total Cells Counted 100
[2021-07-16 17:43] LABS: Burr Cells Few; Platelet Estimate Decreased; Polychromasia Few
[2021-07-16] MEDS ORDERED: GENTAMICIN INJ 240 MG in SODIUM CHLORIDE 0.9% 100 ML IV ONE (18:00)
[2021-07-16 21:40] LABS: Calcium 7.5 MG/DL (8.5-10.1); Osmolality,Calculated 287.4 MOS/KG (273-304); Potassium 3.8 MMOL/L (3.5-5.1)
[2021-07-17] MEDS: ALBUTEROL/IPRATROPIUM 3 ML NEB RESP TX SCH ×4 (01:00→19:19)
[2021-07-17] MEDS: MEROPENEM 500 MG in SODIUM CHLORIDE 0.9% 100 ML IV SCH ×2 (02:35→09:46)
[2021-07-17] MEDS: PHENYLEPHRINE INJ 160 MG in SODIUM CHLORIDE 0.9% 234 ML IV SCH (04:16)
[2021-07-17 05:34] LABS: Basophils % 0.2 % (0.0-0.8); Eosinophils % 0.1 % (0.00-10.9); Hematocrit 24.8 VOL% (42.0-52.0); Hemoglobin 8.1 GM/DL (14.0-18.0); Immature Granulocytes % 1.3 %; Immature Granulocytes Absolute 0.25 #; Lymphocytes # 1.4 10*3/uL (1.4-4.0); Lymphocytes % 7.1 % (21.2-54.2); Mean Corpuscular HGB Conc 32.7 GM/DL (32-36); Mean Corpuscular Volume 85.5 FL (87-102); Mean Platelet Volume 12.4 FL (9.6-12.0); Monocytes % 2.5 % (1.7-12.7); NRBC # 0.05 10*3/uL; Neutrophils % 88.8 % (38.7-73.9); Platelet Count 74 T/CUMM (130-400); Red Cell Distribution Width 15.6 % (9.3-17.3); White Blood Count 19.4 T/CUMM (4-12)
[2021-07-17 05:46] LABS: Alanine Aminotransferase < 9 U/L (16-61); Albumin 1.2 G/DL (3.4-5.0); Alkaline Phosphatase 105 U/L (45-117); Aspartate Amino Transferase 17 U/L (0-37); Blood Urea Nitrogen 41 MG/DL (7-18); Calcium 7.4 MG/DL (8.5-10.1); Carbon Dioxide 18 MMOL/L (21-32); Estimated Glom Filtration Rate 30 ML/MIN; Glucose 116 MG/DL (74-106); Osmolality,Calculated 287.5 MOS/KG (273-304); Potassium 4.3 MMOL/L (3.5-5.1); Sodium 139 MMOL/L (136-145); Total Protein 5.8 G/DL (6.4-8.2)
[2021-07-17 05:54] LABS: Band Neutrophils 1 % (0-10); Hypochromia 1+; Lymphocytes 7 % (20-55); Microcytosis 1+; Nucleated Red Blood Cells 1 (0-5); Ovalocytes Slight; Platelet Estimate Decreased; Segmented Neutrophils 91 % (50-85); Total Cells Counted 100
[2021-07-17 07:16] LABS: ABG Base Excess -4.6 MMOL/L (-2.5-2.5); ABG HCO3 18.1 MMOL/L (20-26); ABG PCO2 24.9 MM HG (35-48); ABG PH 7.479 (7.35-7.45); ABG PO2 397.2 MM HG (80-95); ABG TCO2 18.9 MMOL/L (23-27)
[2021-07-17 07:46] LABS: Basophils % 0.2 % (0.0-0.8); Eosinophils % 0.1 % (0.00-10.9); Hematocrit 23.2 VOL% (42.0-52.0); Hemoglobin 7.8 GM/DL (14.0-18.0); Immature Granulocytes % 1.2 %; Immature Granulocytes Absolute 0.21 #; Lymphocytes # 1.2 10*3/uL (1.4-4.0); Lymphocytes % 6.8 % (21.2-54.2); Mean Corpuscular HGB Conc 33.6 GM/DL (32-36); Mean Corpuscular Volume 84.7 FL (87-102); Mean Platelet Volume 11.1 FL (9.6-12.0); Monocytes % 2.3 % (1.7-12.7); NRBC # 0.04 10*3/uL; Neutrophils % 89.4 % (38.7-73.9); Platelet Count 71 T/CUMM (130-400); Red Blood Count 2.74 MC/CUMM (3.8-5.5); Red Cell Distribution Width 15.6 % (9.3-17.3); White Blood Count 17.9 T/CUMM (4-12)
[2021-07-17] MEDS: HYDROmorphone 2 MG/1 ML VIAL IV PRN ×2 (07:48→16:23)
[2021-07-17 08:08] LABS: Band Neutrophils 1 % (0-10); Hypochromia 1+; Lymphocytes 7 % (20-55); Microcytosis 1+; Platelet Estimate Decreased; Segmented Neutrophils 87 % (50-85); Total Cells Counted 100
[2021-07-17] MEDS: MIDODRINE 5 MG TABLET PO SCH ×2 (08:34→20:51)
[2021-07-17] MEDS: HYDROCORTISONE 100 MG VIAL IV SCH ×2 (08:34→20:52)
[2021-07-17] MEDS: PANTOPRAZOLE 40 MG VIAL IV SCH (08:35)
[2021-07-17] MEDS: PHENYLEPHRINE DRIP 40 MG/250 ML PREMIX IV PRN ×9 (08:50→22:41)
[2021-07-17] MEDS ORDERED: ALBUMIN 25% 25 GM/100 ML VIAL IV ONE (11:00)
[2021-07-17] MEDS: SODIUM HYPOCHLORITE 0.25% IRRIG 473 ML BOTTLE TOP SCH (12:00)
[2021-07-17] MEDS ORDERED: FUROSEMIDE 40 MG/4 ML VIAL IV ONE (12:00)
[2021-07-17 12:22] LABS: Basophils % 0.2 % (0.0-0.8); Eosinophils % 0.1 % (0.00-10.9); Hematocrit 21.5 VOL% (42.0-52.0); Immature Granulocytes % 1.4 %; Immature Granulocytes Absolute 0.26 #; Lymphocytes # 1.3 10*3/uL (1.4-4.0); Lymphocytes % 6.8 % (21.2-54.2); Mean Corpuscular HGB Conc 32.6 GM/DL (32-36); Mean Platelet Volume 12.2 FL (9.6-12.0); Monocytes % 2.4 % (1.7-12.7); NRBC # 0.03 10*3/uL; Neutrophils % 89.1 % (38.7-73.9); Platelet Count 73 T/CUMM (130-400); Red Blood Count 2.53 MC/CUMM (3.8-5.5); Red Cell Distribution Width 15.7 % (9.3-17.3)
[2021-07-17 12:46] LABS: Band Neutrophils 1 % (0-10); Lymphocytes 7 % (20-55); Segmented Neutrophils 89 % (50-85); Total Cells Counted 100
[2021-07-17 12:47] LABS: Hypochromia 2+
[2021-07-17 12:48] LABS: Microcytosis 1+; Platelet Estimate Adequate; Polychromasia Slight
[2021-07-17] MEDS ORDERED: NOREPINEPHRINE 4 MG/4 ML VIAL IV ONE (14:01)
[2021-07-17] MEDS: NOREPINEPHRINE 8 MG in SODIUM CHLORIDE 0.9% 242 ML IV PRN (14:08)
[2021-07-17] MEDS ORDERED: GENTAMICIN INJ 160 MG in SODIUM CHLORIDE 0.9% 100 ML IV PRN (17:00)
[2021-07-17 20:22] LABS: Basophils # 0.1 10*3/uL (0.0-0.2); Basophils % 0.2 % (0.0-0.8); Hematocrit 20.3 VOL% (42.0-52.0); Hemoglobin 6.6 GM/DL (14.0-18.0); Immature Granulocytes % 1.5 %; Immature Granulocytes Absolute 0.34 #; Lymphocytes # 1.6 10*3/uL (1.4-4.0); Lymphocytes % 7.1 % (21.2-54.2); Mean Corpuscular HGB Conc 32.5 GM/DL (32-36); Mean Corpuscular Volume 85.3 FL (87-102); Mean Platelet Volume 11.1 FL (9.6-12.0); Monocytes % 2.2 % (1.7-12.7); NRBC # 0.05 10*3/uL; Platelet Count 89 T/CUMM (130-400); Red Blood Count 2.38 MC/CUMM (3.8-5.5); Red Cell Distribution Width 16.1 % (9.3-17.3); White Blood Count 22.1 T/CUMM (4-12)
[2021-07-17 20:41] LABS: Band Neutrophils 9 % (0-10); Lymphocytes 3 % (20-55); Nucleated Red Blood Cells 1 (0-5); Segmented Neutrophils 87 % (50-85); Total Cells Counted 100
[2021-07-17 20:42] LABS: Anisocytosis 1+; Macrocytosis Slight; Microcytosis 1+; Poikilocytosis Slight; Polychromasia 1+; Schistocytes Slight
[2021-07-17 20:43] LABS: Platelet Estimate Decreased
[2021-07-18] MEDS: PHENYLEPHRINE DRIP 40 MG/250 ML PREMIX IV PRN ×8 (00:19→16:00)
[2021-07-18] MEDS: ALBUTEROL/IPRATROPIUM 3 ML NEB RESP TX SCH ×4 (01:10→19:00)
[2021-07-18] MEDS: HYDROmorphone 2 MG/1 ML VIAL IV PRN ×2 (02:04→10:15)
[2021-07-18 04:46] LABS: ABG Base Excess -5.7 MMOL/L (-2.5-2.5); ABG HCO3 19.7 MMOL/L (20-26); ABG Oxygen Saturation 99.2 % (95-100); ABG PCO2 34.6 MM HG (35-48); ABG PH 7.353 (7.35-7.45); ABG TCO2 17.8 MMOL/L (23-27)
[2021-07-18 04:59] LABS: Basophils # 0.1 10*3/uL (0.0-0.2); Basophils % 0.3 % (0.0-0.8); Eosinophils % 0.1 % (0.00-10.9); Hematocrit 26.5 VOL% (42.0-52.0); Immature Granulocytes % 1.4 %; Immature Granulocytes Absolute 0.26 #; Lymphocytes # 1.5 10*3/uL (1.4-4.0); Lymphocytes % 7.9 % (21.2-54.2); Mean Corpuscular HGB Conc 32.8 GM/DL (32-36); Mean Corpuscular Volume 84.9 FL (87-102); Mean Platelet Volume 11.7 FL (9.6-12.0); Monocytes % 2.5 % (1.7-12.7); NRBC # 0.03 10*3/uL; Neutrophils % 87.8 % (38.7-73.9); Platelet Count 82 T/CUMM (130-400); Red Cell Distribution Width 15.3 % (9.3-17.3); White Blood Count 18.7 T/CUMM (4-12)
[2021-07-18 05:03] LABS: Red Blood Count 3.12 MC/CUMM (3.8-5.5)
[2021-07-18 05:04] LABS: Hemoglobin 8.7 GM/DL (14.0-18.0)
[2021-07-18 05:20] LABS: Alanine Aminotransferase < 9 U/L (16-61); Albumin 1.3 G/DL (3.4-5.0); Alkaline Phosphatase 99 U/L (45-117); Aspartate Amino Transferase 17 U/L (0-37); Blood Urea Nitrogen 57 MG/DL (7-18); Carbon Dioxide 18 MMOL/L (21-32); Estimated Glom Filtration Rate 28 ML/MIN; Glucose 118 MG/DL (74-106); Osmolality,Calculated 291.7 MOS/KG (273-304); Potassium 4.1 MMOL/L (3.5-5.1); Sodium 138 MMOL/L (136-145); Total Protein 5.8 G/DL (6.4-8.2)
[2021-07-18 05:22] LABS: Band Neutrophils 1 % (0-10); Hypochromia 1+; Lymphocytes 5 % (20-55); Microcytosis 1+; Platelet Estimate Decreased; Segmented Neutrophils 92 % (50-85); Total Cells Counted 100
[2021-07-18] MEDS ORDERED: SODIUM CHLORIDE 0.9% 1,000 ML IV PRN (07:18)
[2021-07-18] MEDS: PANTOPRAZOLE 40 MG VIAL IV SCH (09:12)
[2021-07-18] MEDS: HYDROCORTISONE 100 MG VIAL IV SCH ×2 (09:12→20:03)
[2021-07-18] MEDS: MEROPENEM 500 MG in SODIUM CHLORIDE 0.9% 100 ML IV SCH (09:14)
[2021-07-18] MEDS: SODIUM HYPOCHLORITE 0.25% IRRIG 473 ML BOTTLE TOP SCH (09:22)
[2021-07-18 10:08] LABS: Basophils % 0.1 % (0.0-0.8); Eosinophils % 0.1 % (0.00-10.9); Hematocrit 25.2 VOL% (42.0-52.0); Hemoglobin 8.4 GM/DL (14.0-18.0); Immature Granulocytes % 1.4 %; Immature Granulocytes Absolute 0.26 #; Lymphocytes # 1.6 10*3/uL (1.4-4.0); Lymphocytes % 8.6 % (21.2-54.2); Mean Corpuscular HGB Conc 33.3 GM/DL (32-36); Mean Corpuscular Volume 84.8 FL (87-102); Mean Platelet Volume 11.4 FL (9.6-12.0); Monocytes % 2.7 % (1.7-12.7); NRBC # 0.03 10*3/uL; Neutrophils % 87.1 % (38.7-73.9); Platelet Count 83 T/CUMM (130-400); Red Blood Count 2.97 MC/CUMM (3.8-5.5); Red Cell Distribution Width 15.6 % (9.3-17.3); White Blood Count 18.1 T/CUMM (4-12)
[2021-07-18] MEDS: MIDODRINE 5 MG TABLET PO SCH ×2 (10:17→20:02)
[2021-07-18 10:35] LABS: Band Neutrophils 1 % (0-10); Eosinophils 1 % (0-10); Hypochromia 1+; Lymphocytes 4 % (20-55); Microcytosis 1+; Nucleated Red Blood Cells 1 (0-5); Platelet Estimate Decreased; Segmented Neutrophils 88 % (50-85); Total Cells Counted 100
[2021-07-18 15:45] LABS: Basophils % 0.2 % (0.0-0.8); Eosinophils % 0.1 % (0.00-10.9); Hematocrit 31.9 VOL% (42.0-52.0); Hemoglobin 10.7 GM/DL (14.0-18.0); Immature Granulocytes Absolute 0.16 #; Lymphocytes # 1.6 10*3/uL (1.4-4.0); Lymphocytes % 10.1 % (21.2-54.2); Mean Corpuscular HGB Conc 33.5 GM/DL (32-36); Mean Corpuscular Volume 86.7 FL (87-102); Mean Platelet Volume 11.4 FL (9.6-12.0); Monocytes % 2.7 % (1.7-12.7); NRBC # 0.02 10*3/uL; Neutrophils % 85.9 % (38.7-73.9); Platelet Count 67 T/CUMM (130-400); Red Blood Count 3.68 MC/CUMM (3.8-5.5); Red Cell Distribution Width 16.2 % (9.3-17.3); White Blood Count 16.2 T/CUMM (4-12)
[2021-07-18 16:11] LABS: Band Neutrophils 3 % (0-10); Lymphocytes 5 % (20-55); Segmented Neutrophils 91 % (50-85); Total Cells Counted 100
[2021-07-18 16:12] LABS: Basophilic Stippling Few
[2021-07-18 16:13] LABS: Atypical Lymphocytes Few; Hypochromia Slight; Polychromasia Few
[2021-07-18 16:15] LABS: Burr Cells Slight; Platelet Estimate Decreased; Target Cells Slight
[2021-07-18] MEDS ORDERED: GENTAMICIN INJ 160 MG in SODIUM CHLORIDE 0.9% 100 ML IV ONE (17:00)
[2021-07-18] MEDS: MIDAZOLAM 100 MG in SODIUM CHLORIDE 0.9% 80 ML IV PRN (18:25)
[2021-07-19] MEDS: ALBUTEROL/IPRATROPIUM 3 ML NEB RESP TX SCH ×4 (00:28→19:47)
[2021-07-19] MEDS: HYDROmorphone 2 MG/1 ML VIAL IV PRN (02:32)
[2021-07-19 04:31] LABS: ABG HCO3 21.9 MMOL/L (20-26); ABG Oxygen Saturation 99.6 % (95-100); ABG PCO2 36.5 MM HG (35-48); ABG PH 7.381 (7.35-7.45); ABG TCO2 19.9 MMOL/L (23-27)
[2021-07-19 04:34] LABS: Basophils % 0.1 % (0.0-0.8); Eosinophils % 0.1 % (0.00-10.9); Hematocrit 27.9 VOL% (42.0-52.0); Hemoglobin 9.1 GM/DL (14.0-18.0); Immature Granulocytes % 1.1 %; Immature Granulocytes Absolute 0.12 #; Lymphocytes # 0.9 10*3/uL (1.4-4.0); Lymphocytes % 8.8 % (21.2-54.2); Mean Corpuscular HGB Conc 32.6 GM/DL (32-36); Mean Corpuscular Volume 87.2 FL (87-102); Mean Platelet Volume 10.9 FL (9.6-12.0); Monocytes % 3.4 % (1.7-12.7); Neutrophils % 86.5 % (38.7-73.9); Red Cell Distribution Width 16.1 % (9.3-17.3)
[2021-07-19 04:35] LABS: Platelet Count 56 T/CUMM (130-400); White Blood Count 10.6 T/CUMM (4-12)
[2021-07-19 04:48] LABS: Albumin 1.3 G/DL (3.4-5.0); Calcium 6.8 MG/DL (8.5-10.1); Osmolality,Calculated 283.8 MOS/KG (273-304); Potassium 3.8 MMOL/L (3.5-5.1); Total Protein 5.2 G/DL (6.4-8.2)
[2021-07-19 04:53] LABS: Hypochromia Slight; Lymphocytes 12 % (20-55); Microcytosis Slight; Platelet Estimate Decreased; Segmented Neutrophils 85 % (50-85); Total Cells Counted 100
[2021-07-19] MEDS: MIDODRINE 5 MG TABLET PO SCH ×2 (08:56→20:33)
[2021-07-19] MEDS: HYDROCORTISONE 100 MG VIAL IV SCH ×2 (08:58→20:33)
[2021-07-19] MEDS: PANTOPRAZOLE 40 MG VIAL IV SCH (09:00)
[2021-07-19] MEDS ORDERED: LIDOCAINE 2% 5 ML VIAL ONE (09:58)
[2021-07-19] MEDS ORDERED: propofoL 200 MG/20 ML VIAL IV ONE (09:58)
[2021-07-19] MEDS ORDERED: ROCURONIUM 50 MG/5 ML VIAL IV ONE (09:58)
[2021-07-19] MEDS ORDERED: fentaNYL 100 MCG/2 ML VIAL ONE ×2 (09:58→12:22)
[2021-07-19] MEDS ORDERED: MIDAZOLAM 2 MG/2 ML VIAL ONE (09:59)
[2021-07-19] MEDS ORDERED: PHENYLEPHRINE 10 MG/1 ML VIAL IV ONE ×2 (11:01→12:46)
[2021-07-19] MEDS: SODIUM HYPOCHLORITE 0.25% IRRIG 473 ML BOTTLE TOP SCH (11:21)
[2021-07-19] MEDS: MEROPENEM 500 MG in SODIUM CHLORIDE 0.9% 100 ML IV SCH (14:14)
[2021-07-19 14:45] LABS: Basophils % 0.1 % (0.0-0.8); Eosinophils % 0.1 % (0.00-10.9); Hemoglobin 8.5 GM/DL (14.0-18.0); Immature Granulocytes Absolute 0.14 #; Lymphocytes # 1.2 10*3/uL (1.4-4.0); Mean Corpuscular HGB Conc 32.7 GM/DL (32-36); Mean Corpuscular Volume 87.2 FL (87-102); Mean Platelet Volume 11.5 FL (9.6-12.0); Monocytes % 3.6 % (1.7-12.7); NRBC # 0.02 10*3/uL; Neutrophils % 87.2 % (38.7-73.9); Platelet Count 85 T/CUMM (130-400); Red Blood Count 2.98 MC/CUMM (3.8-5.5); Red Cell Distribution Width 16.1 % (9.3-17.3)
[2021-07-19 14:48] LABS: White Blood Count 14.7 T/CUMM (4-12)
[2021-07-19 15:24] LABS: Calcium 6.2 MG/DL (8.5-10.1); Osmolality,Calculated 285.7 MOS/KG (273-304)
[2021-07-19] MEDS ORDERED: ALBUMIN 5% 12.5 GM/250 ML VIAL IV STA (16:39)
[2021-07-19] MEDS ORDERED: ALBUMIN 5% 12.5 GM/250 ML VIAL IV ONE (16:47)
[2021-07-19] MEDS: PHENYLEPHRINE INJ 160 MG in SODIUM CHLORIDE 0.9% 234 ML IV PRN (20:28)
[2021-07-19 20:32] LABS: ABG HCO3 17.4 MMOL/L (20-26); ABG Oxygen Saturation 98.8 % (95-100); ABG PH 7.366 (7.35-7.45); ABG PO2 233.2 MM HG (80-95); ABG TCO2 18.3 MMOL/L (23-27)
[2021-07-19 20:37] LABS: Basophils % 0.1 % (0.0-0.8); Hematocrit 24.7 VOL% (42.0-52.0); Immature Granulocytes % 0.8 %; Immature Granulocytes Absolute 0.19 #; Mean Corpuscular HGB Conc 32.4 GM/DL (32-36); Mean Corpuscular Volume 88.2 FL (87-102); Mean Platelet Volume 12.2 FL (9.6-12.0); Monocytes % 2.5 % (1.7-12.7); NRBC # 0.03 10*3/uL; Neutrophils % 87.6 % (38.7-73.9); Platelet Count 98 T/CUMM (130-400); Red Cell Distribution Width 16.1 % (9.3-17.3); White Blood Count 22.5 T/CUMM (4-12)
[2021-07-19 20:58] LABS: Band Neutrophils 12 % (0-10); Lymphocytes 6 % (20-55); Metamyelocytes 1 %; Nucleated Red Blood Cells 2 (0-5); Segmented Neutrophils 78 % (50-85); Total Cells Counted 100
[2021-07-19 20:59] LABS: Anisocytosis 1+; Macrocytosis Slight; Microcytosis 1+; Platelet Estimate Decreased; Polychromasia 1+
[2021-07-19 21:00] LABS: Dohle Bodies Few; Toxic Granulation 1+
[2021-07-19 21:01] LABS: Burr Cells Few; Poikilocytosis Few
[2021-07-19] MEDS ORDERED: SODIUM CHLORIDE 0.9% 250 ML IV ONE (21:19)
[2021-07-19] MEDS ORDERED: NOREPINEPHRINE 4 MG/4 ML VIAL IV ONE (21:28)
[2021-07-19] MEDS: NOREPINEPHRINE 8 MG in SODIUM CHLORIDE 0.9% 242 ML IV PRN (21:59)
[2021-07-19] MEDS ORDERED: SODIUM CHLORIDE 0.9% 500 ML IV ONE (23:31)
[2021-07-20] MEDS: ALBUTEROL/IPRATROPIUM 3 ML NEB RESP TX SCH ×4 (00:30→19:00)
[2021-07-20] MEDS: PHENYLEPHRINE INJ 160 MG in SODIUM CHLORIDE 0.9% 234 ML IV PRN ×4 (02:34→20:50)
[2021-07-20 03:48] LABS: ABG Oxygen Saturation 99.7 % (95-100); ABG PCO2 25.5 MM HG (35-48); ABG PH 7.399 (7.35-7.45); ABG TCO2 14.5 MMOL/L (23-27)
[2021-07-20 03:51] LABS: Basophils # 0.1 10*3/uL (0.0-0.2); Basophils % 0.2 % (0.0-0.8); Hematocrit 26.5 VOL% (42.0-52.0); Hemoglobin 8.5 GM/DL (14.0-18.0); Immature Granulocytes % 1.3 %; Immature Granulocytes Absolute 0.34 #; Lymphocytes % 7.7 % (21.2-54.2); Mean Corpuscular HGB Conc 32.1 GM/DL (32-36); Mean Corpuscular Volume 88.3 FL (87-102); Mean Platelet Volume 11.9 FL (9.6-12.0); Monocytes % 1.9 % (1.7-12.7); NRBC # 0.09 10*3/uL; Neutrophils % 88.9 % (38.7-73.9); Platelet Count 114 T/CUMM (130-400); Red Cell Distribution Width 15.9 % (9.3-17.3); White Blood Count 26.1 T/CUMM (4-12)
[2021-07-20 04:16] LABS: Albumin 1.4 G/DL (3.4-5.0); Bilirubin,Total 0.7 MG/DL (0.20-1.00); Calcium 6.2 MG/DL (8.5-10.1); Osmolality,Calculated 295.3 MOS/KG (273-304); Potassium 4.5 MMOL/L (3.5-5.1); Total Protein 5.6 G/DL (6.4-8.2)
[2021-07-20 04:21] LABS: Hypochromia 1+; Lymphocytes 4 % (20-55); Microcytosis 1+; Nucleated Red Blood Cells 2 (0-5); Platelet Estimate Decreased; Segmented Neutrophils 93 % (50-85); Total Cells Counted 100
[2021-07-20] MEDS ORDERED: SODIUM BICARBONATE 50 MEQ/50 ML VIAL IV ONE (08:03)
[2021-07-20] MEDS: NOREPINEPHRINE 8 MG in SODIUM CHLORIDE 0.9% 242 ML IV PRN ×4 (08:20→23:49)
[2021-07-20] MEDS: MIDODRINE 5 MG TABLET PO SCH ×2 (08:26→20:50)
[2021-07-20] MEDS: HYDROCORTISONE 100 MG VIAL IV SCH ×2 (08:29→20:50)
[2021-07-20] MEDS: PANTOPRAZOLE 40 MG VIAL IV SCH (09:06)
[2021-07-20] MEDS ORDERED: CALCIUM GLUCONATE 1,000 MG in SODIUM CHLORIDE 0.9% 100 ML IV STA (10:13)
[2021-07-20] MEDS: SODIUM HYPOCHLORITE 0.25% IRRIG 473 ML BOTTLE TOP SCH (10:16)
[2021-07-20 11:59] LABS: Basophils % 0.2 % (0.0-0.8); Hematocrit 23.6 VOL% (42.0-52.0); Hemoglobin 7.7 GM/DL (14.0-18.0); Immature Granulocytes % 1.2 %; Immature Granulocytes Absolute 0.31 #; Lymphocytes # 1.9 10*3/uL (1.4-4.0); Lymphocytes % 7.7 % (21.2-54.2); Mean Corpuscular HGB Conc 32.6 GM/DL (32-36); Mean Corpuscular Volume 88.1 FL (87-102); Mean Platelet Volume 12.1 FL (9.6-12.0); Monocytes % 2.7 % (1.7-12.7); Neutrophils % 88.2 % (38.7-73.9); Platelet Count 115 T/CUMM (130-400); Red Blood Count 2.68 MC/CUMM (3.8-5.5); Red Cell Distribution Width 16.1 % (9.3-17.3)
[2021-07-20 12:21] LABS: Lymphocytes 8 % (20-55); Segmented Neutrophils 88 % (50-85); Total Cells Counted 100
[2021-07-20 12:22] LABS: Anisocytosis 2+; Hypochromia Slight; Macrocytosis 1+; Microcytosis 1+; Platelet Estimate Adequate; Polychromasia Slight
[2021-07-20 14:44] LABS: ABG Base Excess -6.5 MMOL/L (-2.5-2.5); ABG HCO3 19.1 MMOL/L (20-26); ABG Oxygen Saturation 99.5 % (95-100); ABG PCO2 30.9 MM HG (35-48); ABG PH 7.372 (7.35-7.45); ABG TCO2 16.8 MMOL/L (23-27)
[2021-07-20 15:21] LABS: Calcium 6.3 MG/DL (8.5-10.1); Osmolality,Calculated 295.1 MOS/KG (273-304); Potassium 4.4 MMOL/L (3.5-5.1)
[2021-07-20] MEDS: MEROPENEM 500 MG in SODIUM CHLORIDE 0.9% 100 ML IV SCH (17:33)
[2021-07-20] MEDS: INSULIN REGULAR 100 UNIT/ML SUBCUT SCH ×2 (19:09→23:59)
[2021-07-20 21:12] LABS: Basophils % 0.1 % (0.0-0.8); Hematocrit 22.2 VOL% (42.0-52.0); Hemoglobin 7.3 GM/DL (14.0-18.0); Immature Granulocytes % 1.3 %; Immature Granulocytes Absolute 0.31 #; Lymphocytes # 1.7 10*3/uL (1.4-4.0); Lymphocytes % 6.9 % (21.2-54.2); Mean Corpuscular HGB Conc 32.9 GM/DL (32-36); Mean Corpuscular Volume 88.4 FL (87-102); Mean Platelet Volume 11.9 FL (9.6-12.0); Monocytes % 2.5 % (1.7-12.7); NRBC # 0.19 10*3/uL; Neutrophils % 89.2 % (38.7-73.9); Platelet Count 152 T/CUMM (130-400); Red Blood Count 2.51 MC/CUMM (3.8-5.5); Red Cell Distribution Width 16.2 % (9.3-17.3); White Blood Count 23.9 T/CUMM (4-12)
[2021-07-20 21:38] LABS: Band Neutrophils 1 % (0-10); Hypochromia Slight; Lymphocytes 5 % (20-55); Platelet Estimate Normal; Segmented Neutrophils 94 % (50-85); Total Cells Counted 100
[2021-07-21] MEDS: ALBUTEROL/IPRATROPIUM 3 ML NEB RESP TX SCH ×4 (01:15→19:55)
[2021-07-21] MEDS: PHENYLEPHRINE INJ 160 MG in SODIUM CHLORIDE 0.9% 234 ML IV PRN (02:30)
[2021-07-21] MEDS: MIDAZOLAM 100 MG in SODIUM CHLORIDE 0.9% 80 ML IV PRN (03:05)
[2021-07-21 04:12] LABS: Basophils % 0.1 % (0.0-0.8); Hematocrit 21.6 VOL% (42.0-52.0); Immature Granulocytes % 1.3 %; Immature Granulocytes Absolute 0.34 #; Lymphocytes # 1.8 10*3/uL (1.4-4.0); Lymphocytes % 7.1 % (21.2-54.2); Mean Corpuscular HGB Conc 32.4 GM/DL (32-36); Mean Corpuscular Volume 88.9 FL (87-102); Mean Platelet Volume 11.3 FL (9.6-12.0); Monocytes % 2.5 % (1.7-12.7); NRBC # 0.19 10*3/uL; Platelet Count 154 T/CUMM (130-400); Red Blood Count 2.43 MC/CUMM (3.8-5.5); White Blood Count 25.5 T/CUMM (4-12)
[2021-07-21 04:13] LABS: ABG Base Excess -7.5 MMOL/L (-2.5-2.5); ABG HCO3 18.2 MMOL/L (20-26); ABG Oxygen Saturation 99.5 % (95-100); ABG PCO2 30.5 MM HG (35-48); ABG PH 7.358 (7.35-7.45); ABG TCO2 16.3 MMOL/L (23-27)
[2021-07-21] MEDS: NOREPINEPHRINE 8 MG in SODIUM CHLORIDE 0.9% 242 ML IV PRN (04:20)
[2021-07-21 04:29] LABS: Albumin 1.5 G/DL (3.4-5.0); Bilirubin,Total 0.7 MG/DL (0.20-1.00); Calcium 6.2 MG/DL (8.5-10.1); Osmolality,Calculated 293.5 MOS/KG (273-304); Potassium 4.4 MMOL/L (3.5-5.1); Total Protein 5.5 G/DL (6.4-8.2)
[2021-07-21 04:50] LABS: Hypochromia 1+; Lymphocytes 2 % (20-55); Microcytosis 1+; Nucleated Red Blood Cells 1 (0-5); Platelet Estimate Adequate; Segmented Neutrophils 97 % (50-85); Total Cells Counted 100
[2021-07-21] MEDS: INSULIN REGULAR 100 UNIT/ML SUBCUT SCH ×3 (06:02→18:17)
[2021-07-21] MEDS ORDERED: PHENYLEPHRINE DRIP 40 MG/250 ML PREMIX IV ONE ×2 (06:45→06:46)
[2021-07-21] MEDS: PHENYLEPHRINE DRIP 40 MG/250 ML PREMIX IV PRN ×8 (06:50→21:40)
[2021-07-21] MEDS ORDERED: SODIUM CHLORIDE 0.9% 1,000 ML IV PRN (07:22)
[2021-07-21] MEDS: MIDODRINE 5 MG TABLET PO SCH ×2 (09:00→21:33)
[2021-07-21] MEDS: HYDROmorphone 2 MG/1 ML VIAL IV PRN (09:15)
[2021-07-21] MEDS: SODIUM HYPOCHLORITE 0.25% IRRIG 473 ML BOTTLE TOP SCH (10:10)
[2021-07-21 10:52] LABS: Peripheral Blood Smear Slide SEE INTERP.
[2021-07-21 10:56] LABS: Peripheral Smear Path Interp SEE COMMENTS
[2021-07-21 12:06] LABS: Hematocrit 31.9 VOL% (42.0-52.0); Hemoglobin 10.3 GM/DL (14.0-18.0)
[2021-07-21] MEDS: PANTOPRAZOLE 40 MG VIAL IV SCH (13:04)
[2021-07-21] MEDS: HYDROCORTISONE 100 MG VIAL IV SCH ×2 (13:04→21:32)
[2021-07-21] MEDS ORDERED: MIDAZOLAM 2 MG/2 ML VIAL ONE ×2 (13:18)
[2021-07-21] MEDS ORDERED: ROCURONIUM 50 MG/5 ML VIAL IV ONE ×2 (13:18→14:54)
[2021-07-21] MEDS ORDERED: CALCIUM CHLORIDE 1,000 MG/10 ML VIAL IV ONE ×3 (13:36→15:22)
[2021-07-21] MEDS ORDERED: SEVOFLURANE 1 UNIT/15 MINUTE INH ONE ×3 (15:22→15:45)
[2021-07-21] MEDS ORDERED: PHENYLEPHRINE 1 MG/10 ML SYRINGE IV ONE (15:44)
[2021-07-21] MEDS: MEROPENEM 500 MG in SODIUM CHLORIDE 0.9% 100 ML IV SCH (17:59)
[2021-07-21] MEDS: DEXTROSE 50% 25 GM/50 ML SYRINGE IV PRN (18:12)
[2021-07-22] MEDS: ALBUTEROL/IPRATROPIUM 3 ML NEB RESP TX SCH ×4 (00:41→19:50)
[2021-07-22] MEDS: PHENYLEPHRINE DRIP 40 MG/250 ML PREMIX IV PRN ×5 (00:52→23:45)
[2021-07-22] MEDS: INSULIN REGULAR 100 UNIT/ML SUBCUT SCH ×4 (00:57→17:39)
[2021-07-22] MEDS: HYDROmorphone 2 MG/1 ML VIAL IV PRN ×2 (04:09→21:29)
[2021-07-22 04:31] LABS: ABG Base Excess -3.9 MMOL/L (-2.5-2.5); ABG HCO3 21.1 MMOL/L (20-26); ABG Oxygen Saturation 99.6 % (95-100); ABG PCO2 36.5 MM HG (35-48); ABG PH 7.367 (7.35-7.45); ABG TCO2 19.8 MMOL/L (23-27)
[2021-07-22 04:34] LABS: Basophils % 0.1 % (0.0-0.8); Eosinophils % 0.1 % (0.00-10.9); Hematocrit 21.4 VOL% (42.0-52.0); Immature Granulocytes % 0.7 %; Immature Granulocytes Absolute 0.12 #; Mean Corpuscular HGB Conc 32.7 GM/DL (32-36); Mean Corpuscular Volume 87.3 FL (87-102); Mean Platelet Volume 11.4 FL (9.6-12.0); Monocytes % 2.2 % (1.7-12.7); NRBC # 0.13 10*3/uL; Neutrophils % 90.9 % (38.7-73.9); Platelet Count 137 T/CUMM (130-400); Red Blood Count 2.45 MC/CUMM (3.8-5.5); Red Cell Distribution Width 15.5 % (9.3-17.3); White Blood Count 16.2 T/CUMM (4-12)
[2021-07-22 04:56] LABS: Alanine Aminotransferase < 6 U/L (16-61); Albumin 1.4 G/DL (3.4-5.0); Alkaline Phosphatase 85 U/L (45-117); Aspartate Amino Transferase 18 U/L (0-37); Blood Urea Nitrogen 37 MG/DL (7-18); Calcium 7.1 MG/DL (8.5-10.1); Carbon Dioxide 22 MMOL/L (21-32); Estimated Glom Filtration Rate 49 ML/MIN; Glucose 97 MG/DL (74-106); Osmolality,Calculated 289.3 MOS/KG (273-304); Potassium 3.9 MMOL/L (3.5-5.1); Sodium 141 MMOL/L (136-145); Total Protein 4.9 G/DL (6.4-8.2)
[2021-07-22 04:57] LABS: Lymphocytes 5 % (20-55); Nucleated Red Blood Cells 1 (0-5); Platelet Estimate Normal; Segmented Neutrophils 95 % (50-85); Total Cells Counted 100
[2021-07-22 04:58] LABS: Hypochromia Slight; Microcytosis 1+; Pappenheimer Bodies 1+
[2021-07-22 05:00] LABS: Polychromasia Slight
[2021-07-22] MEDS ORDERED: SODIUM CHLORIDE 0.9% 1,000 ML IV PRN ×3 (05:52→07:40)
[2021-07-22] MEDS: HYDROCORTISONE 100 MG VIAL IV SCH ×2 (08:20→21:27)
[2021-07-22] MEDS: PANTOPRAZOLE 40 MG VIAL IV SCH (08:20)
[2021-07-22] MEDS: MIDODRINE 5 MG TABLET PO SCH ×2 (08:21→21:25)
[2021-07-22] MEDS: SODIUM HYPOCHLORITE 0.25% IRRIG 473 ML BOTTLE TOP SCH (08:21)
[2021-07-22] MEDS ORDERED: MIDAZOLAM 2 MG/2 ML VIAL ONE (11:14)
[2021-07-22] MEDS ORDERED: ROCURONIUM 50 MG/5 ML VIAL IV ONE (11:14)
[2021-07-22] MEDS ORDERED: SEVOFLURANE 1 UNIT/15 MINUTE INH ONE (12:57)
[2021-07-22] MEDS: MEROPENEM 500 MG in SODIUM CHLORIDE 0.9% 100 ML IV SCH (17:53)
[2021-07-23] MEDS: ALBUTEROL/IPRATROPIUM 3 ML NEB RESP TX SCH ×5 (00:05→19:30)
[2021-07-23 13:00] LABS: ABG PCO2 37.1 MM HG (35-48); ABG PH 7.364 (7.35-7.45)
[2021-07-23 13:01] LABS: ABG Base Excess -3.8 MMOL/L (-2.5-2.5); ABG HCO3 21.3 MMOL/L (20-26); ABG Oxygen Saturation 99.5 % (95-100); ABG TCO2 19.6 MMOL/L (23-27)
[2021-07-23 13:17] LABS: Basophils % 0.2 % (0.0-0.8); Hematocrit 25.8 VOL% (42.0-52.0); Hemoglobin 8.6 GM/DL (14.0-18.0); Immature Granulocytes % 0.7 %; Immature Granulocytes Absolute 0.07 #; Lymphocytes # 0.6 10*3/uL (1.4-4.0); Mean Corpuscular HGB Conc 33.3 GM/DL (32-36); Mean Corpuscular Volume 87.5 FL (87-102); Mean Platelet Volume 11.5 FL (9.6-12.0); Monocytes % 2.6 % (1.7-12.7); NRBC # 0.05 10*3/uL; Neutrophils % 90.5 % (38.7-73.9); Platelet Count 93 T/CUMM (130-400); Red Blood Count 2.95 MC/CUMM (3.8-5.5); Red Cell Distribution Width 15.8 % (9.3-17.3); White Blood Count 10.6 T/CUMM (4-12)
[2021-07-23] MEDS: INSULIN REGULAR 100 UNIT/ML SUBCUT SCH ×2 (13:41→18:38)
[2021-07-23] MEDS: SODIUM HYPOCHLORITE 0.25% IRRIG 473 ML BOTTLE TOP SCH (13:42)
[2021-07-23] MEDS: PANTOPRAZOLE 40 MG VIAL IV SCH (13:42)
[2021-07-23] MEDS: MIDODRINE 5 MG TABLET PO SCH ×2 (13:42→20:11)
[2021-07-23] MEDS: HYDROCORTISONE 100 MG VIAL IV SCH ×2 (13:42→20:15)
[2021-07-23] MEDS: MIDAZOLAM 100 MG in SODIUM CHLORIDE 0.9% 80 ML IV PRN (16:49)
[2021-07-23 18:47] LABS: Alanine Aminotransferase < 9 U/L (16-61); Albumin 1.4 G/DL (3.4-5.0); Alkaline Phosphatase 82 U/L (45-117); Aspartate Amino Transferase 14 U/L (0-37); Bilirubin,Total 0.58 MG/DL (0.20-1.00); Blood Urea Nitrogen 41 MG/DL (7-18); Calcium 6.9 MG/DL (8.5-10.1); Estimated Glom Filtration Rate 41 ML/MIN; Glucose 116 MG/DL (74-106); Total Protein 4.8 G/DL (6.4-8.2)
[2021-07-23 18:48] LABS: Carbon Dioxide 20 MMOL/L (21-32); Osmolality,Calculated 291.3 MOS/KG (273-304); Potassium 3.9 MMOL/L (3.5-5.1); Sodium 141 MMOL/L (136-145)
[2021-07-23] MEDS: MEROPENEM 500 MG in SODIUM CHLORIDE 0.9% 100 ML IV SCH (18:49)
[2021-07-24] MEDS: INSULIN REGULAR 100 UNIT/ML SUBCUT SCH ×4 (00:34→18:00)
[2021-07-24] MEDS: ALBUTEROL/IPRATROPIUM 3 ML NEB RESP TX SCH ×4 (00:45→20:04)
[2021-07-24 03:36] LABS: ABG Base Excess -3.4 MMOL/L (-2.5-2.5); ABG HCO3 21.6 MMOL/L (20-26); ABG Oxygen Saturation 99.4 % (95-100); ABG PCO2 34.9 MM HG (35-48); ABG PH 7.388 (7.35-7.45); ABG TCO2 19.5 MMOL/L (23-27)
[2021-07-24 03:43] LABS: Basophils % 0.1 % (0.0-0.8); Hematocrit 26.7 VOL% (42.0-52.0); Immature Granulocytes % 0.4 %; Immature Granulocytes Absolute 0.04 #; Lymphocytes # 0.5 10*3/uL (1.4-4.0); Lymphocytes % 5.1 % (21.2-54.2); Mean Corpuscular HGB Conc 33.7 GM/DL (32-36); Mean Corpuscular Volume 86.7 FL (87-102); Mean Platelet Volume 11.8 FL (9.6-12.0); Monocytes % 2.7 % (1.7-12.7); NRBC # 0.03 10*3/uL; Neutrophils % 91.7 % (38.7-73.9); Platelet Count 100 T/CUMM (130-400); Red Blood Count 3.08 MC/CUMM (3.8-5.5); Red Cell Distribution Width 15.9 % (9.3-17.3); White Blood Count 10.1 T/CUMM (4-12)
[2021-07-24 03:56] LABS: Calcium 6.6 MG/DL (8.5-10.1); Osmolality,Calculated 297.8 MOS/KG (273-304)
[2021-07-24 03:58] LABS: Alanine Aminotransferase < 6 U/L (16-61); Albumin 1.5 G/DL (3.4-5.0); Alkaline Phosphatase 86 U/L (45-117); Aspartate Amino Transferase 14 U/L (0-37); Blood Urea Nitrogen 46 MG/DL (7-18); Calcium 6.8 MG/DL (8.5-10.1); Carbon Dioxide 21 MMOL/L (21-32); Estimated Glom Filtration Rate 35 ML/MIN; Glucose 96 MG/DL (74-106); Osmolality,Calculated 292.3 MOS/KG (273-304); Sodium 141 MMOL/L (136-145)
[2021-07-24 04:05] LABS: Band Neutrophils 1 % (0-10); Lymphocytes 2 % (20-55); Platelet Estimate Decreased; Segmented Neutrophils 96 % (50-85); Total Cells Counted 100
[2021-07-24 04:06] LABS: Hypochromia 1+; Microcytosis 1+
[2021-07-24] MEDS ORDERED: MIDAZOLAM 100 MG in SODIUM CHLORIDE 0.9% 80 ML IV PRN (04:14)
[2021-07-24] MEDS: HYDROCORTISONE 100 MG VIAL IV SCH ×2 (09:25→20:59)
[2021-07-24] MEDS: PANTOPRAZOLE 40 MG VIAL IV SCH (09:25)
[2021-07-24] MEDS: MIDODRINE 5 MG TABLET PO SCH ×2 (09:30→20:57)
[2021-07-24] MEDS: COLLAGENASE OINT 30 GM TUBE TOP SCH (12:20)
[2021-07-24] MEDS: SODIUM HYPOCHLORITE 0.25% IRRIG 473 ML BOTTLE TOP SCH (12:20)
[2021-07-24] MEDS: MEROPENEM 500 MG in SODIUM CHLORIDE 0.9% 100 ML IV SCH (18:15)
[2021-07-25] MEDS: INSULIN REGULAR 100 UNIT/ML SUBCUT SCH ×4 (00:26→17:53)
[2021-07-25] MEDS: ALBUTEROL/IPRATROPIUM 3 ML NEB RESP TX SCH ×4 (01:22→20:18)
[2021-07-25 05:17] LABS: Osmolality,Calculated 291.3 MOS/KG (273-304); Potassium 3.7 MMOL/L (3.5-5.1)
[2021-07-25 05:18] LABS: Basophils % 0.1 % (0.0-0.8); Eosinophils % 0.1 % (0.00-10.9); Hematocrit 28.1 VOL% (42.0-52.0); Hemoglobin 9.2 GM/DL (14.0-18.0); Immature Granulocytes % 0.5 %; Immature Granulocytes Absolute 0.05 #; Lymphocytes # 0.5 10*3/uL (1.4-4.0); Lymphocytes % 4.3 % (21.2-54.2); Mean Corpuscular HGB Conc 32.7 GM/DL (32-36); Mean Corpuscular Volume 86.7 FL (87-102); Monocytes % 3.6 % (1.7-12.7); NRBC # 0.03 10*3/uL; Neutrophils % 91.4 % (38.7-73.9); Platelet Count 127 T/CUMM (130-400); Red Blood Count 3.24 MC/CUMM (3.8-5.5); Red Cell Distribution Width 15.5 % (9.3-17.3)
[2021-07-25 05:44] LABS: ABG Base Excess -0.1 MMOL/L (-2.5-2.5); ABG HCO3 24.4 MMOL/L (20-26); ABG Oxygen Saturation 99.7 % (95-100); ABG PCO2 34.1 MM HG (35-48); ABG PH 7.446 (7.35-7.45); ABG TCO2 21.2 MMOL/L (23-27)
[2021-07-25 05:49] LABS: Band Neutrophils 1 % (0-10); Hypochromia Slight; Lymphocytes 5 % (20-55); Microcytosis Slight; Nucleated Red Blood Cells 1 (0-5); Segmented Neutrophils 92 % (50-85); Total Cells Counted 100
[2021-07-25] MEDS ORDERED: METHYL SALICYLATE 60 ML BOTTLE TOP PRN (07:48)
[2021-07-25] MEDS: MIDODRINE 5 MG TABLET PO SCH ×2 (09:05→21:02)
[2021-07-25] MEDS: PANTOPRAZOLE 40 MG VIAL IV SCH (09:05)
[2021-07-25] MEDS: COLLAGENASE OINT 30 GM TUBE TOP SCH (09:09)
[2021-07-25] MEDS: SODIUM HYPOCHLORITE 0.25% IRRIG 473 ML BOTTLE TOP SCH (09:09)
[2021-07-25] MEDS: PHENYLEPHRINE DRIP 40 MG/250 ML PREMIX IV PRN (09:24)
[2021-07-25] MEDS: HYDROCORTISONE 100 MG VIAL IV SCH ×2 (10:21→21:04)
[2021-07-25] MEDS: HYDROmorphone 2 MG/1 ML VIAL IV PRN (13:49)
[2021-07-25] MEDS: MIDAZOLAM 100 MG in SODIUM CHLORIDE 0.9% 80 ML IV PRN (16:20)
[2021-07-25] MEDS: MEROPENEM 500 MG in SODIUM CHLORIDE 0.9% 100 ML IV SCH (17:53)
[2021-07-26] MEDS: INSULIN REGULAR 100 UNIT/ML SUBCUT SCH ×4 (00:12→17:44)
[2021-07-26] MEDS: ALBUTEROL/IPRATROPIUM 3 ML NEB RESP TX SCH ×4 (00:33→20:10)
[2021-07-26 04:20] LABS: Basophils % 0.1 % (0.0-0.8); Eosinophils % 0.1 % (0.00-10.9); Hematocrit 26.5 VOL% (42.0-52.0); Hemoglobin 8.8 GM/DL (14.0-18.0); Immature Granulocytes % 0.5 %; Immature Granulocytes Absolute 0.05 #; Lymphocytes # 0.4 10*3/uL (1.4-4.0); Lymphocytes % 4.1 % (21.2-54.2); Mean Corpuscular HGB Conc 33.2 GM/DL (32-36); Mean Corpuscular Volume 86.3 FL (87-102); Mean Platelet Volume 12.1 FL (9.6-12.0); Monocytes % 3.9 % (1.7-12.7); NRBC # 0.02 10*3/uL; Neutrophils % 91.3 % (38.7-73.9); Platelet Count 119 T/CUMM (130-400); Red Blood Count 3.07 MC/CUMM (3.8-5.5); Red Cell Distribution Width 16.7 % (9.3-17.3); White Blood Count 9.9 T/CUMM (4-12)
[2021-07-26 04:21] LABS: ABG Base Excess 0.6 MMOL/L (-2.5-2.5); ABG HCO3 23.8 MMOL/L (20-26); ABG Oxygen Saturation 98.7 % (95-100); ABG PCO2 32.2 MM HG (35-48); ABG PH 7.486 (7.35-7.45); ABG PO2 199.3 MM HG (80-95); ABG TCO2 24.8 MMOL/L (23-27)
[2021-07-26 04:30] LABS: Osmolality,Calculated 290.1 MOS/KG (273-304); Potassium 3.7 MMOL/L (3.5-5.1)
[2021-07-26 04:39] LABS: Hypochromia 1+; Lymphocytes 3 % (20-55); Microcytosis 1+; Platelet Estimate Normal; Segmented Neutrophils 94 % (50-85); Total Cells Counted 100
[2021-07-26] MEDS: HYDROmorphone 2 MG/1 ML VIAL IV PRN ×2 (08:21→23:17)
[2021-07-26] MEDS: SODIUM HYPOCHLORITE 0.25% IRRIG 473 ML BOTTLE TOP SCH (08:35)
[2021-07-26] MEDS: PANTOPRAZOLE 40 MG VIAL IV SCH (09:57)
[2021-07-26] MEDS: HYDROCORTISONE 100 MG VIAL IV SCH ×2 (09:57→21:34)
[2021-07-26] MEDS: MIDODRINE 5 MG TABLET PO SCH ×2 (09:57→21:34)
[2021-07-26] MEDS ORDERED: VANCOMYCIN INJ 750 MG in SODIUM CHLORIDE 0.9% 250 ML IV PRN (11:50)
[2021-07-26] MEDS ORDERED: VANCOMYCIN INJ 1,750 MG in SODIUM CHLORIDE 0.9% 500 ML IV ONE (13:00)
[2021-07-26] MEDS: COLLAGENASE OINT 30 GM TUBE TOP SCH (14:04)
[2021-07-26 14:43] LABS: Albumin 1.6 G/DL (3.4-5.0); Bilirubin,Direct 0.29 MG/DL (0.0-0.20); Bilirubin,Indirect 0.3 MG/DL (0.0-1.0); Bilirubin,Total 0.6 MG/DL (0.20-1.00); Total Protein 5.2 G/DL (6.4-8.2)
[2021-07-26] MEDS: PHENYLEPHRINE DRIP 40 MG/250 ML PREMIX IV PRN (16:39)
[2021-07-26] MEDS: MEROPENEM 500 MG in SODIUM CHLORIDE 0.9% 100 ML IV SCH (17:52)
[2021-07-27] MEDS: ALBUTEROL/IPRATROPIUM 3 ML NEB RESP TX SCH ×4 (00:05→19:14)
[2021-07-27] MEDS: INSULIN REGULAR 100 UNIT/ML SUBCUT SCH ×4 (02:04→17:53)
[2021-07-27] MEDS: HYDROmorphone 2 MG/1 ML VIAL IV PRN ×2 (02:13→10:26)
[2021-07-27 04:53] LABS: ABG Base Excess 0.3 MMOL/L (-2.5-2.5); ABG HCO3 23.7 MMOL/L (20-26); ABG Oxygen Saturation 98.9 % (95-100); ABG PCO2 33.3 MM HG (35-48); ABG PO2 208.7 MM HG (80-95); ABG TCO2 24.7 MMOL/L (23-27); Basophils % 0.1 % (0.0-0.8); Eosinophils % 0.2 % (0.00-10.9); Hematocrit 27.2 VOL% (42.0-52.0); Hemoglobin 9.1 GM/DL (14.0-18.0); Immature Granulocytes % 0.3 %; Immature Granulocytes Absolute 0.03 #; Lymphocytes # 0.5 10*3/uL (1.4-4.0); Lymphocytes % 5.8 % (21.2-54.2); Mean Corpuscular HGB Conc 33.5 GM/DL (32-36); Mean Corpuscular Volume 87.2 FL (87-102); Mean Platelet Volume 11.9 FL (9.6-12.0); Monocytes % 6.1 % (1.7-12.7); NRBC # 0.02 10*3/uL; Neutrophils % 87.5 % (38.7-73.9); Platelet Count 95 T/CUMM (130-400); Red Blood Count 3.12 MC/CUMM (3.8-5.5); Red Cell Distribution Width 17.5 % (9.3-17.3); White Blood Count 8.8 T/CUMM (4-12)
[2021-07-27 05:06] LABS: Calcium 7.3 MG/DL (8.5-10.1); Osmolality,Calculated 288.3 MOS/KG (273-304); Potassium 3.7 MMOL/L (3.5-5.1)
[2021-07-27 05:12] LABS: Band Neutrophils 5 % (0-10); Hypochromia 1+; Lymphocytes 4 % (20-55); Segmented Neutrophils 84 % (50-85); Total Cells Counted 100
[2021-07-27 05:13] LABS: Microcytosis 1+; Platelet Estimate Decreased
[2021-07-27] MEDS: COLLAGENASE OINT 30 GM TUBE TOP SCH (08:11)
[2021-07-27] MEDS: SODIUM HYPOCHLORITE 0.25% IRRIG 473 ML BOTTLE TOP SCH (08:11)
[2021-07-27] MEDS: MIDODRINE 5 MG TABLET PO SCH ×2 (08:12→21:24)
[2021-07-27] MEDS: HYDROCORTISONE 100 MG VIAL IV SCH ×2 (08:27→21:24)
[2021-07-27] MEDS: PANTOPRAZOLE 40 MG VIAL IV SCH (08:27)
[2021-07-27] MEDS: MIDAZOLAM 100 MG in SODIUM CHLORIDE 0.9% 80 ML IV PRN (15:41)
[2021-07-27 16:47] LABS: Hepatitis B Core IgM Quant 0.14 Index; Hepatitis B Surface Ag Quant < 0.10 Index; Hepatitis B Surface Ag Result Non-Reactive (NonReactive); Hepatitis C Virus Ab Quant 0.03 Index; Hepatitis C Virus Ab Result Non-Reactive (NonReactive)
[2021-07-27] MEDS: MEROPENEM 500 MG in SODIUM CHLORIDE 0.9% 100 ML IV SCH (17:34)
[2021-07-28] MEDS: ALBUTEROL/IPRATROPIUM 3 ML NEB RESP TX SCH ×4 (00:21→19:23)
[2021-07-28] MEDS: INSULIN REGULAR 100 UNIT/ML SUBCUT SCH ×4 (00:47→18:41)
[2021-07-28] MEDS: HYDROmorphone 2 MG/1 ML VIAL IV PRN (01:46)
[2021-07-28 03:47] LABS: ABG Base Excess 1.4 MMOL/L (-2.5-2.5); ABG HCO3 24.9 MMOL/L (20-26); ABG Oxygen Saturation 98.7 % (95-100); ABG PCO2 34.7 MM HG (35-48); ABG PH 7.473 (7.35-7.45); ABG PO2 211.2 MM HG (80-95); ABG TCO2 25.9 MMOL/L (23-27)
[2021-07-28 03:49] LABS: Basophils % 0.1 % (0.0-0.8); Eosinophils % 0.3 % (0.00-10.9); Hematocrit 28.2 VOL% (42.0-52.0); Hemoglobin 9.2 GM/DL (14.0-18.0); Immature Granulocytes % 0.7 %; Immature Granulocytes Absolute 0.05 #; Lymphocytes # 0.4 10*3/uL (1.4-4.0); Lymphocytes % 5.6 % (21.2-54.2); Mean Corpuscular HGB Conc 32.6 GM/DL (32-36); Mean Corpuscular Volume 88.1 FL (87-102); Mean Platelet Volume 12.2 FL (9.6-12.0); Neutrophils % 86.3 % (38.7-73.9); Platelet Count 102 T/CUMM (130-400); Red Cell Distribution Width 17.8 % (9.3-17.3); White Blood Count 7.6 T/CUMM (4-12)
[2021-07-28 04:03] LABS: Calcium 7.5 MG/DL (8.5-10.1); Osmolality,Calculated 292.1 MOS/KG (273-304); Potassium 3.7 MMOL/L (3.5-5.1)
[2021-07-28 04:15] LABS: Band Neutrophils 2 % (0-10); Lymphocytes 7 % (20-55); Platelet Estimate Adequate; Segmented Neutrophils 88 % (50-85); Total Cells Counted 100
[2021-07-28] MEDS ORDERED: LIDOCAINE 1%/EPI INJ 20 ML VIAL ONE (06:27)
[2021-07-28] MEDS ORDERED: VECURONIUM 10 MG VIAL IV ONE (07:21)
[2021-07-28] MEDS ORDERED: MIDAZOLAM 10 MG/2 ML VIAL ONE (07:23)
[2021-07-28] MEDS: COLLAGENASE OINT 30 GM TUBE TOP SCH (08:15)
[2021-07-28] MEDS: SODIUM HYPOCHLORITE 0.25% IRRIG 473 ML BOTTLE TOP SCH (08:15)
[2021-07-28] MEDS ORDERED: PHENYLEPHRINE 1 MG/10 ML SYRINGE IV ONE (08:20)
[2021-07-28] MEDS ORDERED: PHENYLEPHRINE 10 MG/1 ML VIAL IV ONE (08:31)
[2021-07-28] MEDS ORDERED: SEVOFLURANE 1 UNIT/15 MINUTE INH ONE (08:38)
[2021-07-28] MEDS ORDERED: SODIUM CHLORIDE 0.9% 250 ML IV ONE (08:38)
[2021-07-28] MEDS: MIDODRINE 5 MG TABLET PO SCH ×2 (10:43→20:58)
[2021-07-28] MEDS: PANTOPRAZOLE 40 MG VIAL IV SCH (10:44)
[2021-07-28] MEDS: HYDROCORTISONE 100 MG VIAL IV SCH ×2 (10:45→20:58)
[2021-07-28] MEDS ORDERED: EPOETIN ALFA-EPBX 10,000 UNIT/ML VIAL IV PRN (13:11)
[2021-07-28] MEDS: MEROPENEM 500 MG in SODIUM CHLORIDE 0.9% 100 ML IV SCH (18:30)
[2021-07-29] MEDS: INSULIN REGULAR 100 UNIT/ML SUBCUT SCH ×4 (01:17→19:06)
[2021-07-29] MEDS: ALBUTEROL/IPRATROPIUM 3 ML NEB RESP TX SCH ×4 (01:38→19:24)
[2021-07-29] MEDS ORDERED: HEPARIN/NACL 0.9% 2 UNITS/ML 1,000 UNIT/500 ML BAG IV ONE (03:53)
[2021-07-29 04:06] LABS: ABG Base Excess 1.2 MMOL/L (-2.5-2.5); ABG Oxygen Saturation 99.1 % (95-100); ABG PCO2 30.7 MM HG (35-48); ABG PH 7.511 (7.35-7.45); ABG PO2 216.3 MM HG (80-95); ABG TCO2 24.9 MMOL/L (23-27)
[2021-07-29 04:11] LABS: Basophils % 0.1 % (0.0-0.8); Eosinophils % 0.5 % (0.00-10.9); Hematocrit 25.4 VOL% (42.0-52.0); Hemoglobin 8.3 GM/DL (14.0-18.0); Immature Granulocytes % 0.6 %; Immature Granulocytes Absolute 0.05 #; Lymphocytes # 0.5 10*3/uL (1.4-4.0); Lymphocytes % 6.2 % (21.2-54.2); Mean Corpuscular HGB Conc 32.7 GM/DL (32-36); Mean Corpuscular Volume 89.1 FL (87-102); Monocytes % 8.6 % (1.7-12.7); NRBC # 0.02 10*3/uL; Platelet Count 117 T/CUMM (130-400); Red Blood Count 2.85 MC/CUMM (3.8-5.5); Red Cell Distribution Width 18.8 % (9.3-17.3); White Blood Count 8.3 T/CUMM (4-12)
[2021-07-29 04:23] LABS: Calcium 7.4 MG/DL (8.5-10.1); Osmolality,Calculated 294.1 MOS/KG (273-304); Potassium 3.9 MMOL/L (3.5-5.1)
[2021-07-29 04:41] LABS: Band Neutrophils 10 % (0-10); Hypochromia 1+; Lymphocytes 9 % (20-55); Microcytosis 1+; Segmented Neutrophils 74 % (50-85); Total Cells Counted 100
[2021-07-29] MEDS: SODIUM HYPOCHLORITE 0.25% IRRIG 473 ML BOTTLE TOP SCH (08:34)
[2021-07-29] MEDS: MIDODRINE 5 MG TABLET PO SCH ×2 (08:35→20:45)
[2021-07-29] MEDS: PANTOPRAZOLE 40 MG VIAL IV SCH (08:36)
[2021-07-29] MEDS: HYDROCORTISONE 100 MG VIAL IV SCH ×2 (08:37→20:45)
[2021-07-29] MEDS: COLLAGENASE OINT 30 GM TUBE TOP SCH (10:00)
[2021-07-29] MEDS: PHENYLEPHRINE DRIP 40 MG/250 ML PREMIX IV PRN (11:15)
[2021-07-29] MEDS: MEROPENEM 500 MG in SODIUM CHLORIDE 0.9% 100 ML IV SCH (19:25)
[2021-07-29] MEDS: MIDAZOLAM 100 MG in SODIUM CHLORIDE 0.9% 80 ML IV PRN (20:35)
[2021-07-30] MEDS: INSULIN REGULAR 100 UNIT/ML SUBCUT SCH ×4 (00:12→18:37)
[2021-07-30] MEDS: ALBUTEROL/IPRATROPIUM 3 ML NEB RESP TX SCH ×4 (00:22→19:38)
[2021-07-30 04:34] LABS: ABG Base Excess 1.3 MMOL/L (-2.5-2.5); ABG HCO3 25.6 MMOL/L (20-26); ABG Oxygen Saturation 99.9 % (95-100); ABG PCO2 32.9 MM HG (35-48); ABG PH 7.482 (7.35-7.45); ABG TCO2 23.1 MMOL/L (23-27)
[2021-07-30 04:38] LABS: Basophils % 0.1 % (0.0-0.8); Eosinophils % 0.1 % (0.00-10.9); Hematocrit 25.1 VOL% (42.0-52.0); Hemoglobin 8.1 GM/DL (14.0-18.0); Immature Granulocytes % 1.5 %; Immature Granulocytes Absolute 0.15 #; Lymphocytes # 0.6 10*3/uL (1.4-4.0); Lymphocytes % 6.3 % (21.2-54.2); Mean Corpuscular HGB Conc 32.3 GM/DL (32-36); Mean Corpuscular Volume 90.3 FL (87-102); Mean Platelet Volume 12.7 FL (9.6-12.0); Monocytes % 8.2 % (1.7-12.7); NRBC # 0.02 10*3/uL; Neutrophils % 83.8 % (38.7-73.9); Platelet Count 140 T/CUMM (130-400); Red Blood Count 2.78 MC/CUMM (3.8-5.5); Red Cell Distribution Width 19.9 % (9.3-17.3); White Blood Count 9.9 T/CUMM (4-12)
[2021-07-30 04:56] LABS: Band Neutrophils 7 % (0-10); Hypochromia 1+; Lymphocytes 9 % (20-55); Microcytosis 1+; Platelet Estimate Adequate; Segmented Neutrophils 78 % (50-85); Total Cells Counted 100
[2021-07-30 05:02] LABS: High Sensitive Troponin I* 106.8 ng/L (0-78)
[2021-07-30 05:10] LABS: Calcium 7.4 MG/DL (8.5-10.1); Osmolality,Calculated 290.5 MOS/KG (273-304); Potassium 3.6 MMOL/L (3.5-5.1)
[2021-07-30] MEDS: SODIUM HYPOCHLORITE 0.25% IRRIG 473 ML BOTTLE TOP SCH (09:11)
[2021-07-30] MEDS: MIDODRINE 5 MG TABLET PO SCH ×2 (09:12→21:47)
[2021-07-30] MEDS: HYDROCORTISONE 100 MG VIAL IV SCH ×2 (09:13→21:47)
[2021-07-30] MEDS: COLLAGENASE OINT 30 GM TUBE TOP SCH (09:14)
[2021-07-30] MEDS: PANTOPRAZOLE 40 MG VIAL IV SCH (09:18)
[2021-07-30] MEDS: HYDROmorphone 2 MG/1 ML VIAL IV PRN (15:30)
[2021-07-30] MEDS: MEROPENEM 500 MG in SODIUM CHLORIDE 0.9% 100 ML IV SCH (17:30)
[2021-07-30 22:04] LABS: ABG Base Excess 0.9 MMOL/L (-2.5-2.5); ABG HCO3 25.2 MMOL/L (20-26); ABG Oxygen Saturation 99.8 % (95-100); ABG PCO2 48.4 MM HG (35-48); ABG PH 7.351 (7.35-7.45)
[2021-07-31] MEDS: ALBUTEROL/IPRATROPIUM 3 ML NEB RESP TX SCH ×4 (00:42→19:21)
[2021-07-31] MEDS: INSULIN REGULAR 100 UNIT/ML SUBCUT SCH ×4 (01:11→18:25)
[2021-07-31 05:04] LABS: ABG Base Excess 1.1 MMOL/L (-2.5-2.5); ABG HCO3 25.2 MMOL/L (20-26); ABG Oxygen Saturation 98.6 % (95-100); ABG PO2 156.8 MM HG (80-95); ABG TCO2 26.4 MMOL/L (23-27)
[2021-07-31 05:21] LABS: Basophils % 0.1 % (0.0-0.8); Eosinophils % 0.1 % (0.00-10.9); Hematocrit 25.3 VOL% (42.0-52.0); Hemoglobin 8.1 GM/DL (14.0-18.0); Immature Granulocytes % 1.2 %; Immature Granulocytes Absolute 0.14 #; Lymphocytes # 0.7 10*3/uL (1.4-4.0); Lymphocytes % 5.9 % (21.2-54.2); Mean Corpuscular Volume 92.3 FL (87-102); Monocytes % 8.5 % (1.7-12.7); Neutrophils % 84.2 % (38.7-73.9); Platelet Count 139 T/CUMM (130-400); Red Blood Count 2.74 MC/CUMM (3.8-5.5); Red Cell Distribution Width 20.7 % (9.3-17.3); White Blood Count 12.2 T/CUMM (4-12)
[2021-07-31 05:36] LABS: Calcium 7.8 MG/DL (8.5-10.1); Osmolality,Calculated 292.4 MOS/KG (273-304); Potassium 3.7 MMOL/L (3.5-5.1)
[2021-07-31 05:38] LABS: Band Neutrophils 3 % (0-10); Lymphocytes 10 % (20-55); Nucleated Red Blood Cells 1 (0-5); Segmented Neutrophils 82 % (50-85); Total Cells Counted 100
[2021-07-31 05:39] LABS: Hypochromia 1+; Microcytosis 1+; Platelet Estimate Adequate
[2021-07-31] MEDS: HYDROmorphone 2 MG/1 ML VIAL IV PRN (08:49)
[2021-07-31] MEDS: SODIUM HYPOCHLORITE 0.25% IRRIG 473 ML BOTTLE TOP SCH (09:00)
[2021-07-31] MEDS: COLLAGENASE OINT 30 GM TUBE TOP SCH (09:19)
[2021-07-31] MEDS: APIXABAN 2.5 MG TABLET PO SCH ×2 (09:28→21:03)
[2021-07-31] MEDS: PANTOPRAZOLE 40 MG VIAL IV SCH (09:29)
[2021-07-31] MEDS: MIDODRINE 5 MG TABLET PO SCH ×2 (09:29→21:03)
[2021-07-31] MEDS: HYDROCORTISONE 100 MG VIAL IV SCH ×2 (09:30→21:02)
[2021-07-31] MEDS: METOCLOPRAMIDE 10 MG/2 ML VIAL IV SCH ×2 (18:25)
[2021-07-31] MEDS: MEROPENEM 500 MG in SODIUM CHLORIDE 0.9% 100 ML IV SCH (18:25)
[2021-08-01] MEDS: ALBUTEROL/IPRATROPIUM 3 ML NEB RESP TX SCH ×4 (00:04→19:29)
[2021-08-01] MEDS: INSULIN REGULAR 100 UNIT/ML SUBCUT SCH ×4 (00:53→17:28)
[2021-08-01] MEDS: METOCLOPRAMIDE 10 MG/2 ML VIAL IV SCH ×4 (00:56→18:08)
[2021-08-01 06:38] LABS: Basophils % 0.1 % (0.0-0.8); Eosinophils % 0.1 % (0.00-10.9); Hematocrit 25.4 VOL% (42.0-52.0); Immature Granulocytes % 0.8 %; Lymphocytes # 0.5 10*3/uL (1.4-4.0); Lymphocytes % 4.4 % (21.2-54.2); Mean Corpuscular HGB Conc 31.5 GM/DL (32-36); Mean Corpuscular Volume 92.7 FL (87-102); Mean Platelet Volume 12.9 FL (9.6-12.0); Monocytes % 5.3 % (1.7-12.7); NRBC # 0.02 10*3/uL; Neutrophils % 89.3 % (38.7-73.9); Platelet Count 155 T/CUMM (130-400); Red Blood Count 2.74 MC/CUMM (3.8-5.5); Red Cell Distribution Width 21.1 % (9.3-17.3)
[2021-08-01 07:11] LABS: Hypochromia Slight; Lymphocytes 11 % (20-55); Platelet Estimate Normal; Segmented Neutrophils 84 % (50-85); Total Cells Counted 100
[2021-08-01 07:14] LABS: Calcium 7.8 MG/DL (8.5-10.1); Osmolality,Calculated 300.1 MOS/KG (273-304); Potassium 3.9 MMOL/L (3.5-5.1)
[2021-08-01] MEDS: PANTOPRAZOLE 40 MG VIAL IV SCH (12:26)
[2021-08-01] MEDS: HYDROCORTISONE 100 MG VIAL IV SCH ×2 (12:26→21:19)
[2021-08-01] MEDS ORDERED: MIDAZOLAM 2 MG/2 ML VIAL ONE (12:40)
[2021-08-01] MEDS ORDERED: BUPIVACAINE MPF 0.25% 30 ML VIAL ONE (13:13)
[2021-08-01] MEDS ORDERED: LIDOCAINE 1%/EPI INJ 20 ML VIAL ONE (13:13)
[2021-08-01] MEDS ORDERED: KETAMINE 500 MG/10 ML VIAL ONE (13:15)
[2021-08-01] MEDS ORDERED: propofoL 200 MG/20 ML VIAL IV ONE (13:15)
[2021-08-01] MEDS ORDERED: LIDOCAINE 2% 5 ML VIAL ONE (13:15)
[2021-08-01] MEDS ORDERED: ETOMIDATE 40 MG/20 ML VIAL IV ONE (13:15)
[2021-08-01] MEDS ORDERED: fentaNYL 100 MCG/2 ML VIAL ONE (13:54)
[2021-08-01] MEDS: APIXABAN 2.5 MG TABLET PO SCH ×2 (15:48→21:19)
[2021-08-01] MEDS: MIDODRINE 5 MG TABLET PO SCH ×2 (15:48→21:19)
[2021-08-01] MEDS: SODIUM HYPOCHLORITE 0.25% IRRIG 473 ML BOTTLE TOP SCH (15:49)
[2021-08-01] MEDS: COLLAGENASE OINT 30 GM TUBE TOP SCH (15:49)
[2021-08-01] MEDS: MEROPENEM 500 MG in SODIUM CHLORIDE 0.9% 100 ML IV SCH (18:08)
[2021-08-02] MEDS: METOCLOPRAMIDE 10 MG/2 ML VIAL IV SCH ×4 (00:47→18:10)
[2021-08-02] MEDS: INSULIN REGULAR 100 UNIT/ML SUBCUT SCH ×4 (00:47→17:52)
[2021-08-02] MEDS: ALBUTEROL/IPRATROPIUM 3 ML NEB RESP TX SCH ×4 (01:21→19:42)
[2021-08-02 05:45] LABS: Basophils % 0.1 % (0.0-0.8); Eosinophils % 0.1 % (0.00-10.9); Hematocrit 25.3 VOL% (42.0-52.0); Hemoglobin 7.9 GM/DL (14.0-18.0); Immature Granulocytes % 0.8 %; Immature Granulocytes Absolute 0.12 #; Lymphocytes # 0.9 10*3/uL (1.4-4.0); Lymphocytes % 5.7 % (21.2-54.2); Mean Corpuscular HGB Conc 31.2 GM/DL (32-36); Mean Corpuscular Volume 94.1 FL (87-102); Mean Platelet Volume 12.3 FL (9.6-12.0); NRBC # 0.02 10*3/uL; Neutrophils % 88.3 % (38.7-73.9); Platelet Count 180 T/CUMM (130-400); Red Blood Count 2.69 MC/CUMM (3.8-5.5); Red Cell Distribution Width 21.1 % (9.3-17.3); White Blood Count 15.5 T/CUMM (4-12)
[2021-08-02 05:59] LABS: Calcium 7.6 MG/DL (8.5-10.1); Osmolality,Calculated 287.4 MOS/KG (273-304); Potassium 3.8 MMOL/L (3.5-5.1)
[2021-08-02 06:05] LABS: High Sensitive Troponin I* 150.2 ng/L (0-78)
[2021-08-02 06:37] LABS: Hypochromia 1+; Lymphocytes 2 % (20-55); Microcytosis 1+; Platelet Estimate Adequate; Segmented Neutrophils 95 % (50-85); Total Cells Counted 100
[2021-08-02] MEDS: DEXTROSE 50% 25 GM/50 ML SYRINGE IV PRN ×2 (06:43→12:22)
[2021-08-02] MEDS: MIDODRINE 5 MG TABLET PO SCH ×2 (08:54→21:15)
[2021-08-02] MEDS: APIXABAN 2.5 MG TABLET PO SCH ×2 (08:54→21:14)
[2021-08-02] MEDS: PANTOPRAZOLE 40 MG VIAL IV SCH (08:55)
[2021-08-02] MEDS: HYDROCORTISONE 100 MG VIAL IV SCH ×2 (08:57→21:15)
[2021-08-02] MEDS: HYDROmorphone 2 MG/1 ML VIAL IV PRN (12:29)
[2021-08-02] MEDS: COLLAGENASE OINT 30 GM TUBE TOP SCH (13:45)
[2021-08-02] MEDS: SODIUM HYPOCHLORITE 0.25% IRRIG 473 ML BOTTLE TOP SCH (13:45)
[2021-08-02] MEDS: MEROPENEM 500 MG in SODIUM CHLORIDE 0.9% 100 ML IV SCH (18:12)
[2021-08-03] MEDS: ALBUTEROL/IPRATROPIUM 3 ML NEB RESP TX SCH ×4 (00:25→19:45)
[2021-08-03] MEDS: HYDROmorphone 2 MG/1 ML VIAL IV PRN ×2 (00:50→17:19)
[2021-08-03] MEDS: INSULIN REGULAR 100 UNIT/ML SUBCUT SCH ×4 (00:55→18:26)
[2021-08-03] MEDS: METOCLOPRAMIDE 10 MG/2 ML VIAL IV SCH ×4 (00:55→17:17)
[2021-08-03 09:43] LABS: Basophils % 0.1 % (0.0-0.8); Eosinophils # 0.1 10*3/uL (0.0-0.87); Eosinophils % 0.5 % (0.00-10.9); Hematocrit 24.6 VOL% (42.0-52.0); Hemoglobin 7.8 GM/DL (14.0-18.0); Immature Granulocytes Absolute 0.14 #; Lymphocytes # 0.9 10*3/uL (1.4-4.0); Mean Corpuscular HGB Conc 31.7 GM/DL (32-36); Mean Corpuscular Volume 94.3 FL (87-102); Mean Platelet Volume 11.8 FL (9.6-12.0); Monocytes % 4.6 % (1.7-12.7); Neutrophils % 87.8 % (38.7-73.9); Platelet Count 185 T/CUMM (130-400); Red Blood Count 2.61 MC/CUMM (3.8-5.5); Red Cell Distribution Width 21.7 % (9.3-17.3); White Blood Count 14.7 T/CUMM (4-12)
[2021-08-03 10:19] LABS: Albumin 1.7 G/DL (3.4-5.0); Bilirubin,Total 1.1 MG/DL (0.20-1.00); Calcium 7.8 MG/DL (8.5-10.1); Osmolality,Calculated 290.5 MOS/KG (273-304); Potassium 3.8 MMOL/L (3.5-5.1); Total Protein 5.3 G/DL (6.4-8.2)
[2021-08-03] MEDS: MIDODRINE 5 MG TABLET PO SCH ×2 (10:19→21:10)
[2021-08-03] MEDS: APIXABAN 2.5 MG TABLET PO SCH ×2 (10:19→21:10)
[2021-08-03] MEDS: PANTOPRAZOLE 40 MG VIAL IV SCH (10:28)
[2021-08-03] MEDS: HYDROCORTISONE 100 MG VIAL IV SCH ×2 (10:30→21:10)
[2021-08-03] MEDS ORDERED: MIDAZOLAM 2 MG/2 ML VIAL ONE (10:38)
[2021-08-03] MEDS ORDERED: KETAMINE 500 MG/10 ML VIAL ONE (10:38)
[2021-08-03] MEDS ORDERED: LIDOCAINE 1%/EPI INJ 20 ML VIAL ONE (10:39)
[2021-08-03] MEDS ORDERED: BUPIVACAINE MPF 0.25% 30 ML VIAL ONE (10:39)
[2021-08-03] MEDS ORDERED: HEPARIN 5,000 UNIT/1 ML VIAL ONE (10:39)
[2021-08-03] MEDS ORDERED: LACTATED RINGERS 1,000 ML IV ONE (12:07)
[2021-08-03] MEDS ORDERED: ETOMIDATE 40 MG/20 ML VIAL IV ONE (12:07)
[2021-08-03] MEDS: COLLAGENASE OINT 30 GM TUBE TOP SCH (12:45)
[2021-08-03] MEDS: SODIUM HYPOCHLORITE 0.25% IRRIG 473 ML BOTTLE TOP SCH (12:45)
[2021-08-03] MEDS: SERTRALINE 50 MG TABLET PO SCH (14:25)
[2021-08-03] MEDS: NOREPINEPHRINE 8 MG in SODIUM CHLORIDE 0.9% 242 ML IV PRN (14:44)
[2021-08-03] MEDS: DEXTROSE 50% 25 GM/50 ML SYRINGE IV PRN ×2 (14:54→15:22)
[2021-08-03] MEDS: MEROPENEM 500 MG in SODIUM CHLORIDE 0.9% 100 ML IV SCH (17:15)
[2021-08-04] MEDS: ALBUTEROL/IPRATROPIUM 3 ML NEB RESP TX SCH ×4 (00:50→20:10)
[2021-08-04] MEDS: METOCLOPRAMIDE 10 MG/2 ML VIAL IV SCH ×4 (00:55→17:40)
[2021-08-04 04:45] LABS: Basophils % 0.1 % (0.0-0.8); Eosinophils % 0.1 % (0.00-10.9); Hematocrit 26.4 VOL% (42.0-52.0); Hemoglobin 8.4 GM/DL (14.0-18.0); Immature Granulocytes % 1.1 %; Immature Granulocytes Absolute 0.26 #; Lymphocytes # 0.8 10*3/uL (1.4-4.0); Lymphocytes % 3.4 % (21.2-54.2); Mean Corpuscular HGB Conc 31.8 GM/DL (32-36); Mean Corpuscular Volume 95.3 FL (87-102); Mean Platelet Volume 11.7 FL (9.6-12.0); Monocytes % 3.3 % (1.7-12.7); Platelet Count 181 T/CUMM (130-400); Red Blood Count 2.77 MC/CUMM (3.8-5.5); Red Cell Distribution Width 22.3 % (9.3-17.3); White Blood Count 24.6 T/CUMM (4-12)
[2021-08-04 05:00] LABS: Osmolality,Calculated 289.5 MOS/KG (273-304); Potassium 3.5 MMOL/L (3.5-5.1)
[2021-08-04 05:13] LABS: Band Neutrophils 2 % (0-10); Lymphocytes 3 % (20-55); Nucleated Red Blood Cells 1 (0-5); Platelet Estimate Normal; Segmented Neutrophils 95 % (50-85); Total Cells Counted 100
[2021-08-04 05:14] LABS: Hypochromia Slight
[2021-08-04] MEDS: INSULIN REGULAR 100 UNIT/ML SUBCUT SCH ×4 (06:32→17:46)
[2021-08-04] MEDS: NOREPINEPHRINE 8 MG in SODIUM CHLORIDE 0.9% 242 ML IV PRN (06:39)
[2021-08-04] MEDS: HYDROmorphone 2 MG/1 ML VIAL IV PRN (08:46)
[2021-08-04] MEDS: COLLAGENASE OINT 30 GM TUBE TOP SCH (08:55)
[2021-08-04] MEDS: SODIUM HYPOCHLORITE 0.25% IRRIG 473 ML BOTTLE TOP SCH (08:55)
[2021-08-04] MEDS: PANTOPRAZOLE 40 MG VIAL IV SCH (09:58)
[2021-08-04] MEDS: HYDROCORTISONE 100 MG VIAL IV SCH ×2 (10:00→20:49)
[2021-08-04] MEDS: SERTRALINE 50 MG TABLET PO SCH (10:30)
[2021-08-04] MEDS: APIXABAN 2.5 MG TABLET PO SCH ×2 (10:30→20:49)
[2021-08-04] MEDS: MIDODRINE 5 MG TABLET PO SCH ×2 (10:30→20:49)
[2021-08-04 15:23] LABS: Calcium 8.1 MG/DL (8.5-10.1); Osmolality,Calculated 292.4 MOS/KG (273-304); Potassium 3.6 MMOL/L (3.5-5.1)
[2021-08-04] MEDS ORDERED: POTASSIUM BICARB EFFERVESCENT 20 MEQ TAB.EFF NG ONE (17:22)
[2021-08-04] MEDS: MEROPENEM 500 MG in SODIUM CHLORIDE 0.9% 100 ML IV SCH (17:43)
[2021-08-04] MEDS: MELATONIN 3 MG TABLET PO PRN (23:46)
[2021-08-05] MEDS: METOCLOPRAMIDE 10 MG/2 ML VIAL IV SCH ×4 (00:18→17:59)
[2021-08-05] MEDS: INSULIN REGULAR 100 UNIT/ML SUBCUT SCH ×4 (00:22→17:53)
[2021-08-05] MEDS: ALBUTEROL/IPRATROPIUM 3 ML NEB RESP TX SCH ×4 (00:45→19:04)
[2021-08-05 05:33] LABS: Basophils % 0.1 % (0.0-0.8); Eosinophils % 0.1 % (0.00-10.9); Hematocrit 23.6 VOL% (42.0-52.0); Hemoglobin 7.3 GM/DL (14.0-18.0); Immature Granulocytes % 0.8 %; Immature Granulocytes Absolute 0.12 #; Lymphocytes # 0.6 10*3/uL (1.4-4.0); Mean Corpuscular HGB Conc 30.9 GM/DL (32-36); Mean Corpuscular Volume 97.1 FL (87-102); Mean Platelet Volume 11.7 FL (9.6-12.0); Monocytes % 3.2 % (1.7-12.7); Neutrophils % 91.8 % (38.7-73.9); Platelet Count 124 T/CUMM (130-400); Red Blood Count 2.43 MC/CUMM (3.8-5.5); Red Cell Distribution Width 22.9 % (9.3-17.3); White Blood Count 15.9 T/CUMM (4-12)
[2021-08-05 05:46] LABS: Calcium 8.2 MG/DL (8.5-10.1); Potassium 3.8 MMOL/L (3.5-5.1)
[2021-08-05 06:00] LABS: Anisocytosis 2+; Band Neutrophils 24 % (0-10); Basophilic Stippling Slight; Lymphocytes 4 % (20-55); Platelet Estimate Adequate; Segmented Neutrophils 71 % (50-85); Total Cells Counted 100
[2021-08-05 06:01] LABS: Macrocytosis Slight
[2021-08-05 07:54] LABS: ABG Base Excess 1.5 MMOL/L (-2.5-2.5); ABG HCO3 25.7 MMOL/L (20-26); ABG Oxygen Saturation 99.6 % (95-100); ABG PCO2 43.5 MM HG (35-48); ABG PH 7.393 (7.35-7.45); ABG TCO2 24.9 MMOL/L (23-27); Allen Test Positive
[2021-08-05] MEDS: APIXABAN 2.5 MG TABLET PO SCH ×2 (08:59→21:10)
[2021-08-05] MEDS: MIDODRINE 5 MG TABLET PO SCH ×2 (08:59→21:09)
[2021-08-05] MEDS: SERTRALINE 50 MG TABLET PO SCH (08:59)
[2021-08-05] MEDS: HYDROCORTISONE 100 MG VIAL IV SCH ×2 (11:48→21:09)
[2021-08-05] MEDS: PANTOPRAZOLE 40 MG VIAL IV SCH (11:51)
[2021-08-05] MEDS: COLLAGENASE OINT 30 GM TUBE TOP SCH (14:15)
[2021-08-05] MEDS: SODIUM HYPOCHLORITE 0.25% IRRIG 473 ML BOTTLE TOP SCH (14:15)
[2021-08-05] MEDS: MEROPENEM 500 MG in SODIUM CHLORIDE 0.9% 100 ML IV SCH (17:57)
[2021-08-06] MEDS: ALBUTEROL/IPRATROPIUM 3 ML NEB RESP TX SCH ×4 (00:14→19:44)
[2021-08-06] MEDS: METOCLOPRAMIDE 10 MG/2 ML VIAL IV SCH ×4 (00:44→18:41)
[2021-08-06] MEDS: INSULIN REGULAR 100 UNIT/ML SUBCUT SCH ×4 (00:46→19:08)
[2021-08-06 04:25] LABS: Basophils % 0.1 % (0.0-0.8); Eosinophils % 0.2 % (0.00-10.9); Hematocrit 23.9 VOL% (42.0-52.0); Hemoglobin 7.4 GM/DL (14.0-18.0); Immature Granulocytes % 0.8 %; Immature Granulocytes Absolute 0.09 #; Lymphocytes # 0.4 10*3/uL (1.4-4.0); Lymphocytes % 3.8 % (21.2-54.2); Mean Corpuscular Volume 98.4 FL (87-102); Mean Platelet Volume 11.7 FL (9.6-12.0); Monocytes % 2.9 % (1.7-12.7); Neutrophils % 92.2 % (38.7-73.9); Platelet Count 127 T/CUMM (130-400); Red Blood Count 2.43 MC/CUMM (3.8-5.5); Red Cell Distribution Width 22.5 % (9.3-17.3); White Blood Count 11.7 T/CUMM (4-12)
[2021-08-06 04:41] LABS: Calcium 8.1 MG/DL (8.5-10.1); Osmolality,Calculated 288.7 MOS/KG (273-304); Potassium 3.7 MMOL/L (3.5-5.1)
[2021-08-06 04:53] LABS: Anisocytosis 1+; Band Neutrophils 10 % (0-10); Lymphocytes 4 % (20-55); Microcytosis Slight; Platelet Estimate Normal; Segmented Neutrophils 86 % (50-85); Total Cells Counted 100
[2021-08-06] MEDS: SERTRALINE 50 MG TABLET PO SCH (09:31)
[2021-08-06] MEDS: APIXABAN 2.5 MG TABLET PO SCH ×2 (09:31→20:55)
[2021-08-06] MEDS: MIDODRINE 5 MG TABLET PO SCH ×2 (09:31→20:55)
[2021-08-06] MEDS: PANTOPRAZOLE 40 MG VIAL IV SCH (09:31)
[2021-08-06] MEDS: SODIUM HYPOCHLORITE 0.25% IRRIG 473 ML BOTTLE TOP SCH (09:32)
[2021-08-06] MEDS: COLLAGENASE OINT 30 GM TUBE TOP SCH (09:32)
[2021-08-06] MEDS: HYDROCORTISONE 100 MG VIAL IV SCH ×2 (09:32→20:55)
[2021-08-06] MEDS: HYDROmorphone 2 MG/1 ML VIAL IV PRN (15:22)
[2021-08-06] MEDS: MEROPENEM 500 MG in SODIUM CHLORIDE 0.9% 100 ML IV SCH (18:40)
[2021-08-07] MEDS: INSULIN REGULAR 100 UNIT/ML SUBCUT SCH ×4 (00:21→18:02)
[2021-08-07] MEDS: METOCLOPRAMIDE 10 MG/2 ML VIAL IV SCH ×4 (00:22→18:39)
[2021-08-07] MEDS: ALBUTEROL/IPRATROPIUM 3 ML NEB RESP TX SCH ×4 (01:27→20:08)
[2021-08-07 05:25] LABS: Basophils % 0.1 % (0.0-0.8); Eosinophils # 0.1 10*3/uL (0.0-0.87); Eosinophils % 0.4 % (0.00-10.9); Hematocrit 23.6 VOL% (42.0-52.0); Hemoglobin 7.3 GM/DL (14.0-18.0); Immature Granulocytes % 0.7 %; Immature Granulocytes Absolute 0.08 #; Lymphocytes # 0.5 10*3/uL (1.4-4.0); Lymphocytes % 4.1 % (21.2-54.2); Mean Corpuscular HGB Conc 30.9 GM/DL (32-36); Mean Corpuscular Volume 99.2 FL (87-102); Monocytes % 3.5 % (1.7-12.7); Neutrophils % 91.2 % (38.7-73.9); Platelet Count 126 T/CUMM (130-400); Red Blood Count 2.38 MC/CUMM (3.8-5.5); Red Cell Distribution Width 22.4 % (9.3-17.3); White Blood Count 11.4 T/CUMM (4-12)
[2021-08-07 05:47] LABS: Calcium 7.7 MG/DL (8.5-10.1); Osmolality,Calculated 296.5 MOS/KG (273-304); Potassium 3.8 MMOL/L (3.5-5.1)
[2021-08-07] MEDS: SODIUM HYPOCHLORITE 0.25% IRRIG 473 ML BOTTLE TOP SCH (09:00)
[2021-08-07] MEDS: COLLAGENASE OINT 30 GM TUBE TOP SCH (09:00)
[2021-08-07] MEDS: HYDROmorphone 2 MG/1 ML VIAL IV PRN ×2 (09:20→21:43)
[2021-08-07] MEDS: SERTRALINE 50 MG TABLET PO SCH (10:23)
[2021-08-07] MEDS: APIXABAN 2.5 MG TABLET PO SCH ×2 (10:23→20:50)
[2021-08-07] MEDS: MIDODRINE 5 MG TABLET PO SCH ×2 (10:23→20:50)
[2021-08-07] MEDS: HYDROCORTISONE 100 MG VIAL IV SCH ×2 (10:28→20:50)
[2021-08-07] MEDS: PANTOPRAZOLE 40 MG VIAL IV SCH (10:29)
[2021-08-07] MEDS: MEROPENEM 500 MG in SODIUM CHLORIDE 0.9% 100 ML IV SCH (18:39)
[2021-08-08] MEDS: INSULIN REGULAR 100 UNIT/ML SUBCUT SCH ×4 (00:07→17:44)
[2021-08-08] MEDS: ALBUTEROL/IPRATROPIUM 3 ML NEB RESP TX SCH ×4 (00:14→19:30)
[2021-08-08] MEDS: METOCLOPRAMIDE 10 MG/2 ML VIAL IV SCH ×4 (00:14→17:44)
[2021-08-08 04:14] LABS: Basophils % 0.1 % (0.0-0.8); Eosinophils % 0.2 % (0.00-10.9); Hematocrit 22.9 VOL% (42.0-52.0); Immature Granulocytes % 0.4 %; Immature Granulocytes Absolute 0.05 #; Lymphocytes # 0.4 10*3/uL (1.4-4.0); Lymphocytes % 3.1 % (21.2-54.2); Mean Corpuscular HGB Conc 30.6 GM/DL (32-36); Mean Corpuscular Volume 100.4 FL (87-102); Mean Platelet Volume 11.8 FL (9.6-12.0); Monocytes % 2.4 % (1.7-12.7); Neutrophils % 93.8 % (38.7-73.9); Platelet Count 126 T/CUMM (130-400); Red Blood Count 2.28 MC/CUMM (3.8-5.5); Red Cell Distribution Width 22.3 % (9.3-17.3); White Blood Count 11.4 T/CUMM (4-12)
[2021-08-08 04:36] LABS: Albumin 1.7 G/DL (3.4-5.0); Bilirubin,Total 1.9 MG/DL (0.20-1.00); Calcium 7.8 MG/DL (8.5-10.1); Osmolality,Calculated 300.7 MOS/KG (273-304); Potassium 3.9 MMOL/L (3.5-5.1); Total Protein 5.4 G/DL (6.4-8.2)
[2021-08-08 04:39] LABS: Band Neutrophils 1 % (0-10); Lymphocytes 4 % (20-55); Segmented Neutrophils 92 % (50-85); Total Cells Counted 100
[2021-08-08 04:40] LABS: Hypochromia 1+; Microcytosis 1+; Platelet Estimate Normal
[2021-08-08] MEDS ORDERED: METOPROLOL TARTRATE 5 MG/5 ML VIAL IV ONE (07:47)
[2021-08-08] MEDS: APIXABAN 2.5 MG TABLET PO SCH ×3 (09:59→21:32)
[2021-08-08] MEDS: SODIUM HYPOCHLORITE 0.25% IRRIG 473 ML BOTTLE TOP SCH (09:59)
[2021-08-08] MEDS: MIDODRINE 5 MG TABLET PO SCH ×2 (10:00→21:32)
[2021-08-08] MEDS: HYDROCORTISONE 100 MG VIAL IV SCH ×2 (10:00→21:32)
[2021-08-08] MEDS: HYDROmorphone 2 MG/1 ML VIAL IV PRN ×2 (10:00→15:09)
[2021-08-08] MEDS: SERTRALINE 50 MG TABLET PO SCH (10:00)
[2021-08-08] MEDS: PANTOPRAZOLE 40 MG VIAL IV SCH (10:00)
[2021-08-08] MEDS: COLLAGENASE OINT 30 GM TUBE TOP SCH (10:00)
[2021-08-08] MEDS: MEROPENEM 500 MG in SODIUM CHLORIDE 0.9% 100 ML IV SCH (17:44)
[2021-08-09] MEDS: HYDROmorphone 2 MG/1 ML VIAL IV PRN ×3 (00:30→22:21)
[2021-08-09] MEDS: INSULIN REGULAR 100 UNIT/ML SUBCUT SCH ×4 (00:36→18:20)
[2021-08-09] MEDS: METOCLOPRAMIDE 10 MG/2 ML VIAL IV SCH ×4 (00:44→18:30)
[2021-08-09] MEDS: ALBUTEROL/IPRATROPIUM 3 ML NEB RESP TX SCH ×4 (01:15→19:04)
[2021-08-09 05:13] LABS: Basophils % 0.1 % (0.0-0.8); Eosinophils # 0.1 10*3/uL (0.0-0.87); Eosinophils % 0.9 % (0.00-10.9); Hematocrit 24.2 VOL% (42.0-52.0); Hemoglobin 7.5 GM/DL (14.0-18.0); Lymphocytes # 0.6 10*3/uL (1.4-4.0); Lymphocytes % 6.1 % (21.2-54.2); Mean Corpuscular Volume 100.8 FL (87-102); Mean Platelet Volume 11.9 FL (9.6-12.0); Monocytes % 5.7 % (1.7-12.7); Neutrophils % 86.2 % (38.7-73.9); Platelet Count 124 T/CUMM (130-400); Red Cell Distribution Width 22.5 % (9.3-17.3); White Blood Count 10.5 T/CUMM (4-12)
[2021-08-09 05:47] LABS: Albumin 1.9 G/DL (3.4-5.0); Bilirubin,Total 0.4 MG/DL (0.20-1.00); Calcium 8.2 MG/DL (8.5-10.1); Osmolality,Calculated 289.8 MOS/KG (273-304); Potassium 3.5 MMOL/L (3.5-5.1); Total Protein 5.8 G/DL (6.4-8.2)
[2021-08-09] MEDS: MIDODRINE 5 MG TABLET PO SCH ×2 (09:14→21:17)
[2021-08-09] MEDS: SERTRALINE 50 MG TABLET PO SCH (09:14)
[2021-08-09] MEDS: SODIUM HYPOCHLORITE 0.25% IRRIG 473 ML BOTTLE TOP SCH (09:14)
[2021-08-09] MEDS: APIXABAN 2.5 MG TABLET PO SCH ×2 (09:14→21:17)
[2021-08-09] MEDS: COLLAGENASE OINT 30 GM TUBE TOP SCH (09:15)
[2021-08-09] MEDS: HYDROCORTISONE 100 MG VIAL IV SCH ×2 (09:16→21:17)
[2021-08-09] MEDS: PANTOPRAZOLE 40 MG VIAL IV SCH (09:20)
[2021-08-09] MEDS: MEROPENEM 500 MG in SODIUM CHLORIDE 0.9% 100 ML IV SCH (18:39)
[2021-08-10] MEDS: INSULIN REGULAR 100 UNIT/ML SUBCUT SCH ×4 (00:04→17:58)
[2021-08-10] MEDS: METOCLOPRAMIDE 10 MG/2 ML VIAL IV SCH ×4 (00:06→18:27)
[2021-08-10] MEDS: ALBUTEROL/IPRATROPIUM 3 ML NEB RESP TX SCH ×4 (00:16→20:05)
[2021-08-10 04:43] LABS: Basophils % 0.1 % (0.0-0.8); Eosinophils % 0.2 % (0.00-10.9); Hematocrit 22.3 VOL% (42.0-52.0); Immature Granulocytes % 0.5 %; Immature Granulocytes Absolute 0.05 #; Lymphocytes # 0.4 10*3/uL (1.4-4.0); Lymphocytes % 4.1 % (21.2-54.2); Mean Corpuscular HGB Conc 31.4 GM/DL (32-36); Mean Platelet Volume 11.4 FL (9.6-12.0); Monocytes % 4.4 % (1.7-12.7); Neutrophils % 90.7 % (38.7-73.9); Platelet Count 106 T/CUMM (130-400); Red Blood Count 2.23 MC/CUMM (3.8-5.5); Red Cell Distribution Width 22.4 % (9.3-17.3); White Blood Count 9.7 T/CUMM (4-12)
[2021-08-10 04:57] LABS: Albumin 1.8 G/DL (3.4-5.0); Bilirubin,Total 0.5 MG/DL (0.20-1.00); Calcium 7.9 MG/DL (8.5-10.1); Osmolality,Calculated 301.5 MOS/KG (273-304); Potassium 3.9 MMOL/L (3.5-5.1); Total Protein 5.4 G/DL (6.4-8.2)
[2021-08-10 05:06] LABS: Band Neutrophils 6 % (0-10); Eosinophils 1 % (0-10); Hypochromia Slight; Lymphocytes 4 % (20-55); Nucleated Red Blood Cells 1 (0-5); Segmented Neutrophils 82 % (50-85); Total Cells Counted 100
[2021-08-10 05:07] LABS: Anisocytosis 1+; Microcytosis 1+; Platelet Estimate Decreased
[2021-08-10] MEDS: HYDROmorphone 2 MG/1 ML VIAL IV PRN ×3 (07:56→18:22)
[2021-08-10] MEDS: COLLAGENASE OINT 30 GM TUBE TOP SCH (08:50)
[2021-08-10] MEDS: SODIUM HYPOCHLORITE 0.25% IRRIG 473 ML BOTTLE TOP SCH (08:50)
[2021-08-10] MEDS: SERTRALINE 50 MG TABLET PO SCH (10:33)
[2021-08-10] MEDS: MIDODRINE 5 MG TABLET PO SCH ×2 (10:33→21:15)
[2021-08-10] MEDS: APIXABAN 2.5 MG TABLET PO SCH (10:33)
[2021-08-10] MEDS: HYDROCORTISONE 100 MG VIAL IV SCH ×2 (10:41→21:15)
[2021-08-10] MEDS: PANTOPRAZOLE 40 MG VIAL IV SCH (10:43)
[2021-08-10] MEDS: MEROPENEM 500 MG in SODIUM CHLORIDE 0.9% 100 ML IV SCH (18:30)
[2021-08-11] MEDS: INSULIN REGULAR 100 UNIT/ML SUBCUT SCH ×4 (00:10→17:27)
[2021-08-11] MEDS: HYDROmorphone 2 MG/1 ML VIAL IV PRN ×6 (00:49→22:31)
[2021-08-11] MEDS: METOCLOPRAMIDE 10 MG/2 ML VIAL IV SCH ×4 (00:49→17:28)
[2021-08-11] MEDS: ALBUTEROL/IPRATROPIUM 3 ML NEB RESP TX SCH ×4 (01:55→19:52)
[2021-08-11 06:02] LABS: Eosinophils % 0.2 % (0.00-10.9); Hematocrit 23.5 VOL% (42.0-52.0); Hemoglobin 7.4 GM/DL (14.0-18.0); Immature Granulocytes % 0.7 %; Immature Granulocytes Absolute 0.06 #; Lymphocytes # 0.4 10*3/uL (1.4-4.0); Mean Corpuscular HGB Conc 31.5 GM/DL (32-36); Mean Corpuscular Volume 99.6 FL (87-102); Mean Platelet Volume 11.4 FL (9.6-12.0); Monocytes % 4.4 % (1.7-12.7); NRBC # 0.02 10*3/uL; Neutrophils % 89.7 % (38.7-73.9); Platelet Count 124 T/CUMM (130-400); Red Blood Count 2.36 MC/CUMM (3.8-5.5); Red Cell Distribution Width 22.5 % (9.3-17.3); White Blood Count 8.3 T/CUMM (4-12)
[2021-08-11 06:16] LABS: Calcium 8.4 MG/DL (8.5-10.1); Osmolality,Calculated 285.8 MOS/KG (273-304); Potassium 3.7 MMOL/L (3.5-5.1)
[2021-08-11 06:26] LABS: High Sensitive Troponin I* 318.8 ng/L (0-78)
[2021-08-11 08:12] LABS: Anisocytosis 2+; Stomatocytes Few
[2021-08-11 08:13] LABS: Platelet Estimate Adequate; Polychromasia Few
[2021-08-11] MEDS: COLLAGENASE OINT 30 GM TUBE TOP SCH (08:35)
[2021-08-11] MEDS: SODIUM HYPOCHLORITE 0.25% IRRIG 473 ML BOTTLE TOP SCH (08:35)
[2021-08-11] MEDS: PANTOPRAZOLE 40 MG VIAL IV SCH (09:47)
[2021-08-11] MEDS: SERTRALINE 50 MG TABLET PO SCH (09:47)
[2021-08-11] MEDS: MIDODRINE 5 MG TABLET PO SCH ×2 (09:47→21:43)
[2021-08-11] MEDS: APIXABAN 2.5 MG TABLET PO SCH ×2 (09:47→21:43)
[2021-08-11] MEDS: HYDROCORTISONE 100 MG VIAL IV SCH ×2 (09:47→21:43)
[2021-08-11] MEDS: ALBUTEROL 2.5 MG/3 ML NEB RESP TX PRN (10:47)
[2021-08-11] MEDS: MEROPENEM 500 MG in SODIUM CHLORIDE 0.9% 100 ML IV SCH (17:28)
[2021-08-12] MEDS: ALBUTEROL/IPRATROPIUM 3 ML NEB RESP TX SCH ×4 (01:53→22:23)
[2021-08-12] MEDS: HYDROmorphone 2 MG/1 ML VIAL IV PRN ×4 (03:18→21:34)
[2021-08-12] MEDS: METOCLOPRAMIDE 10 MG/2 ML VIAL IV SCH ×4 (05:59→17:03)
[2021-08-12] MEDS: INSULIN REGULAR 100 UNIT/ML SUBCUT SCH ×4 (06:01→17:03)
[2021-08-12 06:35] LABS: Basophils % 0.2 % (0.0-0.8); Eosinophils # 0.1 10*3/uL (0.0-0.87); Eosinophils % 1.2 % (0.00-10.9); Hemoglobin 7.7 GM/DL (14.0-18.0); Immature Granulocytes % 0.6 %; Immature Granulocytes Absolute 0.04 #; Lymphocytes # 0.6 10*3/uL (1.4-4.0); Lymphocytes % 9.9 % (21.2-54.2); Mean Corpuscular HGB Conc 30.8 GM/DL (32-36); Mean Platelet Volume 11.7 FL (9.6-12.0); Monocytes % 7.9 % (1.7-12.7); Neutrophils % 80.2 % (38.7-73.9); Platelet Count 157 T/CUMM (130-400); Red Cell Distribution Width 22.5 % (9.3-17.3); White Blood Count 6.5 T/CUMM (4-12)
[2021-08-12 06:58] LABS: Albumin 1.9 G/DL (3.4-5.0); Bilirubin,Total 0.5 MG/DL (0.20-1.00); Calcium 8.2 MG/DL (8.5-10.1); Potassium 3.6 MMOL/L (3.5-5.1)
[2021-08-12 07:02] LABS: Band Neutrophils 1 % (0-10); Eosinophils 2 % (0-10); Lymphocytes 7 % (20-55); Platelet Estimate Normal; Segmented Neutrophils 86 % (50-85); Total Cells Counted 100
[2021-08-12 07:03] LABS: Hypochromia 1+
[2021-08-12 07:11] LABS: Osmolality,Calculated 295.5 MOS/KG (273-304); Potassium 3.7 MMOL/L (3.5-5.1)
[2021-08-12] MEDS: SODIUM HYPOCHLORITE 0.25% IRRIG 473 ML BOTTLE TOP SCH (08:00)
[2021-08-12] MEDS: SERTRALINE 50 MG TABLET PO SCH (10:01)
[2021-08-12] MEDS: MIDODRINE 5 MG TABLET PO SCH ×2 (10:01→21:34)
[2021-08-12] MEDS: APIXABAN 2.5 MG TABLET PO SCH ×2 (10:01→21:33)
[2021-08-12] MEDS: HYDROCORTISONE 100 MG VIAL IV SCH (10:02)
[2021-08-12] MEDS: COLLAGENASE OINT 30 GM TUBE TOP SCH (10:02)
[2021-08-12] MEDS: PANTOPRAZOLE 40 MG VIAL IV SCH (10:02)
[2021-08-12] MEDS ORDERED: MOISTURIZING CREAM (EUCERIN) 106 GM JAR TOP PRN (12:14)
[2021-08-12] MEDS: MEROPENEM 500 MG in SODIUM CHLORIDE 0.9% 100 ML IV SCH (17:04)
[2021-08-13] MEDS: ALBUTEROL/IPRATROPIUM 3 ML NEB RESP TX SCH ×4 (00:15→19:30)
[2021-08-13] MEDS: INSULIN REGULAR 100 UNIT/ML SUBCUT SCH ×4 (02:41→17:26)
[2021-08-13] MEDS: METOCLOPRAMIDE 10 MG/2 ML VIAL IV SCH ×5 (02:54→23:11)
[2021-08-13 06:53] LABS: Basophils % 0.2 % (0.0-0.8); Eosinophils # 0.2 10*3/uL (0.0-0.87); Eosinophils % 2.9 % (0.00-10.9); Hematocrit 20.4 VOL% (42.0-52.0); Immature Granulocytes % 0.5 %; Immature Granulocytes Absolute 0.03 #; Lymphocytes # 0.9 10*3/uL (1.4-4.0); Lymphocytes % 15.6 % (21.2-54.2); Mean Corpuscular HGB Conc 30.9 GM/DL (32-36); Mean Platelet Volume 11.4 FL (9.6-12.0); Monocytes % 7.2 % (1.7-12.7); Neutrophils % 73.6 % (38.7-73.9); Red Blood Count 2.02 MC/CUMM (3.8-5.5); Red Cell Distribution Width 22.8 % (9.3-17.3); White Blood Count 5.6 T/CUMM (4-12)
[2021-08-13 06:58] LABS: Platelet Count 125 T/CUMM (130-400)
[2021-08-13 06:59] LABS: Hemoglobin 6.3 GM/DL (14.0-18.0)
[2021-08-13 07:11] LABS: Calcium 7.9 MG/DL (8.5-10.1); Osmolality,Calculated 296.7 MOS/KG (273-304); Potassium 3.9 MMOL/L (3.5-5.1)
[2021-08-13 07:14] LABS: Albumin 1.4 G/DL (3.4-5.0); Bilirubin,Total 0.5 MG/DL (0.20-1.00); Calcium 7.9 MG/DL (8.5-10.1); Osmolality,Calculated 297.7 MOS/KG (273-304); Total Protein 4.8 G/DL (6.4-8.2)
[2021-08-13 07:34] LABS: Band Neutrophils 6 % (0-10); Eosinophils 6 % (0-10); Hypochromia Slight; Lymphocytes 19 % (20-55); Segmented Neutrophils 57 % (50-85); Total Cells Counted 100
[2021-08-13 07:35] LABS: Anisocytosis 1+; Macrocytosis 1+; Platelet Estimate Adequate
[2021-08-13] MEDS: HYDROmorphone 2 MG/1 ML VIAL IV PRN ×3 (07:49→23:09)
[2021-08-13] MEDS: MIDODRINE 5 MG TABLET PO SCH ×2 (09:02→20:37)
[2021-08-13] MEDS: SODIUM HYPOCHLORITE 0.25% IRRIG 473 ML BOTTLE TOP SCH (09:02)
[2021-08-13] MEDS: PANTOPRAZOLE 40 MG VIAL IV SCH (09:02)
[2021-08-13] MEDS: APIXABAN 2.5 MG TABLET PO SCH (09:02)
[2021-08-13] MEDS: HYDROCORTISONE 100 MG VIAL IV SCH (09:03)
[2021-08-13] MEDS: SERTRALINE 50 MG TABLET PO SCH (09:03)
[2021-08-13] MEDS: COLLAGENASE OINT 30 GM TUBE TOP SCH (09:03)
[2021-08-13 09:26] LABS: % Iron Saturation 25.9 % (18-50)
[2021-08-13] MEDS ORDERED: SODIUM CHLORIDE 0.9% 1,000 ML IV PRN (09:47)
[2021-08-13 10:38] LABS: Hematocrit 21.4 VOL% (42.0-52.0); Hemoglobin 6.7 GM/DL (14.0-18.0)
[2021-08-13] MEDS: MEROPENEM 500 MG in SODIUM CHLORIDE 0.9% 100 ML IV SCH (17:27)
[2021-08-14] MEDS: INSULIN REGULAR 100 UNIT/ML SUBCUT SCH ×4 (00:08→17:23)
[2021-08-14] MEDS: ALBUTEROL/IPRATROPIUM 3 ML NEB RESP TX SCH ×4 (00:54→19:29)
[2021-08-14] MEDS: METOCLOPRAMIDE 10 MG/2 ML VIAL IV SCH ×3 (05:31→17:52)
[2021-08-14 06:17] LABS: Basophils % 0.4 % (0.0-0.8); Eosinophils # 0.3 10*3/uL (0.0-0.87); Eosinophils % 5.8 % (0.00-10.9); Hematocrit 28.5 VOL% (42.0-52.0); Immature Granulocytes % 0.6 %; Immature Granulocytes Absolute 0.03 #; Lymphocytes # 0.6 10*3/uL (1.4-4.0); Mean Corpuscular HGB Conc 31.6 GM/DL (32-36); Mean Platelet Volume 11.3 FL (9.6-12.0); Neutrophils % 73.2 % (38.7-73.9); Platelet Count 123 T/CUMM (130-400); Red Cell Distribution Width 23.1 % (9.3-17.3); White Blood Count 5.4 T/CUMM (4-12)
[2021-08-14] MEDS: HYDROmorphone 2 MG/1 ML VIAL IV PRN ×3 (07:15→13:12)
[2021-08-14 08:07] LABS: Calcium 7.8 MG/DL (8.5-10.1); Osmolality,Calculated 282.8 MOS/KG (273-304); Potassium 3.7 MMOL/L (3.5-5.1)
[2021-08-14] MEDS: MIDODRINE 5 MG TABLET PO SCH ×2 (09:49→21:00)
[2021-08-14] MEDS: PANTOPRAZOLE 40 MG VIAL IV SCH (09:49)
[2021-08-14] MEDS: SERTRALINE 50 MG TABLET PO SCH (09:49)
[2021-08-14] MEDS: COLLAGENASE OINT 30 GM TUBE TOP SCH (11:28)
[2021-08-14] MEDS: SODIUM HYPOCHLORITE 0.25% IRRIG 473 ML BOTTLE TOP SCH (11:28)
[2021-08-14] MEDS: HYDROCORTISONE 100 MG VIAL IV SCH (13:11)
[2021-08-14] MEDS: MEROPENEM 500 MG in SODIUM CHLORIDE 0.9% 100 ML IV SCH (17:52)
[2021-08-14] MEDS: oxyCODONE/ACETAMINOPHEN 5-325 MG TABLET PO PRN (19:31)
[2021-08-14] MEDS: APIXABAN 2.5 MG TABLET PO SCH (20:59)
[2021-08-14] MEDS: MELATONIN 3 MG TABLET PO PRN (21:02)
[2021-08-15] MEDS: METOCLOPRAMIDE 10 MG/2 ML VIAL IV SCH ×4 (00:29→17:27)
[2021-08-15] MEDS: INSULIN REGULAR 100 UNIT/ML SUBCUT SCH ×4 (00:36→17:58)
[2021-08-15] MEDS: ALBUTEROL/IPRATROPIUM 3 ML NEB RESP TX SCH ×5 (00:40→20:03)
[2021-08-15 05:29] LABS: Basophils % 0.2 % (0.0-0.8); Eosinophils # 0.1 10*3/uL (0.0-0.87); Eosinophils % 2.1 % (0.00-10.9); Hematocrit 27.6 VOL% (42.0-52.0); Hemoglobin 8.8 GM/DL (14.0-18.0); Immature Granulocytes % 0.5 %; Immature Granulocytes Absolute 0.02 #; Lymphocytes # 0.6 10*3/uL (1.4-4.0); Lymphocytes % 13.9 % (21.2-54.2); Mean Corpuscular HGB Conc 31.9 GM/DL (32-36); Mean Corpuscular Volume 93.9 FL (87-102); Mean Platelet Volume 11.5 FL (9.6-12.0); Monocytes % 11.8 % (1.7-12.7); Neutrophils % 71.5 % (38.7-73.9); Platelet Count 135 T/CUMM (130-400); Red Blood Count 2.94 MC/CUMM (3.8-5.5); Red Cell Distribution Width 22.3 % (9.3-17.3); White Blood Count 4.4 T/CUMM (4-12)
[2021-08-15 06:11] LABS: Albumin 1.6 G/DL (3.4-5.0); Bilirubin,Total 0.5 MG/DL (0.20-1.00); Calcium 8.1 MG/DL (8.5-10.1); Osmolality,Calculated 284.1 MOS/KG (273-304); Potassium 4.5 MMOL/L (3.5-5.1); Total Protein 5.6 G/DL (6.4-8.2)
[2021-08-15] MEDS: SERTRALINE 50 MG TABLET PO SCH (08:18)
[2021-08-15] MEDS: MIDODRINE 5 MG TABLET PO SCH ×2 (08:18→21:16)
[2021-08-15] MEDS: APIXABAN 2.5 MG TABLET PO SCH ×2 (08:19→21:17)
[2021-08-15] MEDS: PANTOPRAZOLE 40 MG VIAL IV SCH (08:19)
[2021-08-15] MEDS: HYDROCORTISONE 100 MG VIAL IV SCH (08:19)
[2021-08-15] MEDS: HYDROmorphone 2 MG/1 ML VIAL IV PRN ×2 (08:32→14:14)
[2021-08-15] MEDS: SODIUM HYPOCHLORITE 0.25% IRRIG 473 ML BOTTLE TOP SCH (10:05)
[2021-08-15] MEDS: COLLAGENASE OINT 30 GM TUBE TOP SCH (10:05)
[2021-08-15] MEDS: oxyCODONE/ACETAMINOPHEN 5-325 MG TABLET PO PRN (13:49)
[2021-08-15] MEDS ORDERED: ALBUTEROL/IPRATROPIUM 3 ML NEB RESP TX PRN (14:47)
[2021-08-15] MEDS: MEROPENEM 500 MG in SODIUM CHLORIDE 0.9% 100 ML IV SCH (17:24)
[2021-08-16] MEDS: METOCLOPRAMIDE 10 MG/2 ML VIAL IV SCH ×4 (00:54→17:18)
[2021-08-16] MEDS: ALBUTEROL/IPRATROPIUM 3 ML NEB RESP TX SCH ×5 (01:00→19:28)
[2021-08-16] MEDS: INSULIN REGULAR 100 UNIT/ML SUBCUT SCH ×4 (01:01→17:19)
[2021-08-16] MEDS: oxyCODONE/ACETAMINOPHEN 5-325 MG TABLET PO PRN ×2 (02:13→09:56)
[2021-08-16 06:07] LABS: Basophils % 0.3 % (0.0-0.8); Eosinophils # 0.2 10*3/uL (0.0-0.87); Eosinophils % 6.3 % (0.00-10.9); Hematocrit 29.5 VOL% (42.0-52.0); Hemoglobin 9.1 GM/DL (14.0-18.0); Immature Granulocytes % 0.3 %; Immature Granulocytes Absolute 0.01 #; Lymphocytes # 0.8 10*3/uL (1.4-4.0); Lymphocytes % 20.4 % (21.2-54.2); Mean Corpuscular HGB Conc 30.8 GM/DL (32-36); Mean Corpuscular Volume 95.5 FL (87-102); Monocytes % 14.9 % (1.7-12.7); Neutrophils % 57.8 % (38.7-73.9); Platelet Count 153 T/CUMM (130-400); Red Blood Count 3.09 MC/CUMM (3.8-5.5); Red Cell Distribution Width 21.6 % (9.3-17.3); White Blood Count 3.8 T/CUMM (4-12)
[2021-08-16 06:33] LABS: Albumin 1.5 G/DL (3.4-5.0); Bilirubin,Total 0.5 MG/DL (0.20-1.00); Calcium 8.1 MG/DL (8.5-10.1); Osmolality,Calculated 282.5 MOS/KG (273-304); Potassium 3.9 MMOL/L (3.5-5.1); Total Protein 5.7 G/DL (6.4-8.2)
[2021-08-16] MEDS: HYDROCORTISONE 100 MG VIAL IV SCH (08:42)
[2021-08-16] MEDS: PANTOPRAZOLE 40 MG VIAL IV SCH (08:42)
[2021-08-16] MEDS: APIXABAN 2.5 MG TABLET PO SCH ×2 (08:43→21:43)
[2021-08-16] MEDS: MIDODRINE 5 MG TABLET PO SCH ×2 (08:43→21:43)
[2021-08-16] MEDS: SERTRALINE 50 MG TABLET PO SCH (08:43)
[2021-08-16] MEDS: SODIUM HYPOCHLORITE 0.25% IRRIG 473 ML BOTTLE TOP SCH (10:52)
[2021-08-16] MEDS: COLLAGENASE OINT 30 GM TUBE TOP SCH (10:53)
[2021-08-16] MEDS: HYDROmorphone 2 MG/1 ML VIAL IV PRN (14:35)
[2021-08-16] MEDS: MEROPENEM 500 MG in SODIUM CHLORIDE 0.9% 100 ML IV SCH (17:14)
[2021-08-17] MEDS: ALBUTEROL/IPRATROPIUM 3 ML NEB RESP TX SCH ×4 (00:52→19:50)
[2021-08-17] MEDS: INSULIN REGULAR 100 UNIT/ML SUBCUT SCH ×4 (00:55→17:30)
[2021-08-17] MEDS: METOCLOPRAMIDE 10 MG/2 ML VIAL IV SCH ×5 (00:56→23:48)
[2021-08-17 06:51] LABS: Basophils % 0.9 % (0.0-0.8); Eosinophils # 0.3 10*3/uL (0.0-0.87); Eosinophils % 9.3 % (0.00-10.9); Hematocrit 30.8 VOL% (42.0-52.0); Hemoglobin 9.6 GM/DL (14.0-18.0); Immature Granulocytes % 0.3 %; Immature Granulocytes Absolute 0.01 #; Lymphocytes # 0.9 10*3/uL (1.4-4.0); Lymphocytes % 24.8 % (21.2-54.2); Mean Corpuscular HGB Conc 31.2 GM/DL (32-36); Mean Corpuscular Volume 95.4 FL (87-102); Mean Platelet Volume 10.6 FL (9.6-12.0); Monocytes % 17.8 % (1.7-12.7); Neutrophils % 46.9 % (38.7-73.9); Platelet Count 176 T/CUMM (130-400); Red Blood Count 3.23 MC/CUMM (3.8-5.5); Red Cell Distribution Width 21.2 % (9.3-17.3); White Blood Count 3.4 T/CUMM (4-12)
[2021-08-17 07:12] LABS: Albumin 1.7 G/DL (3.4-5.0); Bilirubin,Total 0.5 MG/DL (0.20-1.00); Calcium 8.2 MG/DL (8.5-10.1); Potassium 4.5 MMOL/L (3.5-5.1); Total Protein 5.9 G/DL (6.4-8.2)
[2021-08-17 07:17] LABS: Anisocytosis 1+; Band Neutrophils 16 % (0-10); Eosinophils 9 % (0-10); Lymphocytes 28 % (20-55); Metamyelocytes 1 %; Platelet Estimate Normal; Segmented Neutrophils 31 % (50-85); Total Cells Counted 100
[2021-08-17] MEDS: PANTOPRAZOLE 40 MG VIAL IV SCH (13:17)
[2021-08-17] MEDS: MIDODRINE 5 MG TABLET PO SCH ×2 (13:17→21:11)
[2021-08-17] MEDS: APIXABAN 2.5 MG TABLET PO SCH ×2 (13:17→21:11)
[2021-08-17] MEDS: SERTRALINE 50 MG TABLET PO SCH (13:27)
[2021-08-17] MEDS: oxyCODONE/ACETAMINOPHEN 5-325 MG TABLET PO PRN (13:28)
[2021-08-17] MEDS: SODIUM HYPOCHLORITE 0.25% IRRIG 473 ML BOTTLE TOP SCH (13:28)
[2021-08-17] MEDS: COLLAGENASE OINT 30 GM TUBE TOP SCH (13:30)
[2021-08-17] MEDS: MEROPENEM 500 MG in SODIUM CHLORIDE 0.9% 100 ML IV SCH (18:16)
[2021-08-17] MEDS: HYDROmorphone 2 MG/1 ML VIAL IV PRN (18:20)
[2021-08-18] MEDS: ALBUTEROL/IPRATROPIUM 3 ML NEB RESP TX SCH ×4 (00:40→20:46)
[2021-08-18] MEDS: INSULIN REGULAR 100 UNIT/ML SUBCUT SCH ×4 (01:43→17:06)
[2021-08-18] MEDS: METOCLOPRAMIDE 10 MG/2 ML VIAL IV SCH ×4 (05:00→23:50)
[2021-08-18 06:26] LABS: Basophils % 0.7 % (0.0-0.8); Eosinophils # 0.4 10*3/uL (0.0-0.87); Eosinophils % 9.2 % (0.00-10.9); Hematocrit 31.4 VOL% (42.0-52.0); Hemoglobin 9.6 GM/DL (14.0-18.0); Immature Granulocytes % 0.5 %; Immature Granulocytes Absolute 0.02 #; Lymphocytes # 0.6 10*3/uL (1.4-4.0); Lymphocytes % 15.9 % (21.2-54.2); Mean Corpuscular HGB Conc 30.6 GM/DL (32-36); Mean Corpuscular Volume 95.4 FL (87-102); Mean Platelet Volume 10.6 FL (9.6-12.0); Monocytes % 13.4 % (1.7-12.7); Neutrophils % 60.3 % (38.7-73.9); Platelet Count 195 T/CUMM (130-400); Red Blood Count 3.29 MC/CUMM (3.8-5.5); Red Cell Distribution Width 20.9 % (9.3-17.3)
[2021-08-18 06:45] LABS: Albumin 1.4 G/DL (3.4-5.0); Osmolality,Calculated 280.8 MOS/KG (273-304); Potassium 4.8 MMOL/L (3.5-5.1); Total Protein 5.7 G/DL (6.4-8.2)
[2021-08-18] MEDS: HYDROmorphone 2 MG/1 ML VIAL IV PRN (09:15)
[2021-08-18] MEDS: PANTOPRAZOLE 40 MG VIAL IV SCH (09:15)
[2021-08-18] MEDS: MIDODRINE 5 MG TABLET PO SCH ×2 (09:16→20:50)
[2021-08-18] MEDS: APIXABAN 2.5 MG TABLET PO SCH ×2 (09:16→20:50)
[2021-08-18] MEDS: HYDROCORTISONE 100 MG VIAL IV SCH (09:16)
[2021-08-18] MEDS: SERTRALINE 50 MG TABLET PO SCH (09:16)
[2021-08-18] MEDS: SODIUM HYPOCHLORITE 0.25% IRRIG 473 ML BOTTLE TOP SCH (09:17)
[2021-08-18] MEDS: COLLAGENASE OINT 30 GM TUBE TOP SCH (09:18)
[2021-08-18] MEDS: MEROPENEM 500 MG in SODIUM CHLORIDE 0.9% 100 ML IV SCH (17:05)
[2021-08-19] MEDS: ALBUTEROL/IPRATROPIUM 3 ML NEB RESP TX SCH ×4 (01:33→19:48)
[2021-08-19] MEDS: INSULIN REGULAR 100 UNIT/ML SUBCUT SCH ×4 (05:26→17:18)
[2021-08-19] MEDS: HYDROmorphone 2 MG/1 ML VIAL IV PRN (05:27)
[2021-08-19] MEDS: METOCLOPRAMIDE 10 MG/2 ML VIAL IV SCH ×4 (05:28→23:16)
[2021-08-19] MEDS: PANTOPRAZOLE 40 MG VIAL IV SCH (09:43)
[2021-08-19] MEDS: SERTRALINE 50 MG TABLET PO SCH (09:43)
[2021-08-19] MEDS: MIDODRINE 5 MG TABLET PO SCH ×2 (09:43→23:15)
[2021-08-19] MEDS: APIXABAN 2.5 MG TABLET PO SCH ×2 (09:43→23:15)
[2021-08-19] MEDS: COLLAGENASE OINT 30 GM TUBE TOP SCH (09:43)
[2021-08-19] MEDS: SODIUM HYPOCHLORITE 0.25% IRRIG 473 ML BOTTLE TOP SCH (09:43)
[2021-08-19] MEDS ORDERED: guaiFENesin/DM ER 600-30 MG TABLET PO ONE (10:00)
[2021-08-19] MEDS: MEROPENEM 500 MG in SODIUM CHLORIDE 0.9% 100 ML IV SCH (17:18)
[2021-08-19] MEDS: MELATONIN 3 MG TABLET PO PRN (23:15)
[2021-08-19] MEDS: guaiFENesin/DM ER 600-30 MG TABLET PO PRN (23:16)
[2021-08-20] MEDS: ALBUTEROL/IPRATROPIUM 3 ML NEB RESP TX SCH ×4 (00:14→19:27)
[2021-08-20 05:25] LABS: Basophils % 0.5 % (0.0-0.8); Eosinophils # 0.2 10*3/uL (0.0-0.87); Eosinophils % 3.7 % (0.00-10.9); Hematocrit 30.5 VOL% (42.0-52.0); Hemoglobin 9.4 GM/DL (14.0-18.0); Immature Granulocytes % 0.6 %; Immature Granulocytes Absolute 0.04 #; Lymphocytes # 0.8 10*3/uL (1.4-4.0); Lymphocytes % 11.6 % (21.2-54.2); Mean Corpuscular HGB Conc 30.8 GM/DL (32-36); Mean Corpuscular Volume 95.3 FL (87-102); Mean Platelet Volume 10.4 FL (9.6-12.0); Monocytes % 10.7 % (1.7-12.7); Neutrophils % 72.9 % (38.7-73.9); Platelet Count 261 T/CUMM (130-400); Red Cell Distribution Width 19.7 % (9.3-17.3); White Blood Count 6.5 T/CUMM (4-12)
[2021-08-20 05:47] LABS: Albumin 1.3 G/DL (3.4-5.0); Bilirubin,Total 0.5 MG/DL (0.20-1.00); Calcium 8.3 MG/DL (8.5-10.1); Osmolality,Calculated 278.2 MOS/KG (273-304); Potassium 5.3 MMOL/L (3.5-5.1); Total Protein 5.9 G/DL (6.4-8.2)
[2021-08-20] MEDS: INSULIN REGULAR 100 UNIT/ML SUBCUT SCH ×4 (06:23→17:13)
[2021-08-20] MEDS: METOCLOPRAMIDE 10 MG/2 ML VIAL IV SCH ×3 (06:25→17:12)
[2021-08-20 08:49] LABS: Anisocytosis 1+; Band Neutrophils 3 % (0-10); Lymphocytes 9 % (20-55); Microcytosis Slight; Polychromasia Few; Segmented Neutrophils 80 % (50-85); Total Cells Counted 100
[2021-08-20] MEDS: PANTOPRAZOLE 40 MG VIAL IV SCH (09:30)
[2021-08-20] MEDS: HYDROCORTISONE 100 MG VIAL IV SCH (09:30)
[2021-08-20] MEDS: SERTRALINE 50 MG TABLET PO SCH (09:31)
[2021-08-20] MEDS: APIXABAN 2.5 MG TABLET PO SCH ×2 (09:31→22:07)
[2021-08-20] MEDS: MIDODRINE 5 MG TABLET PO SCH ×2 (09:31→22:07)
[2021-08-20] MEDS: SODIUM HYPOCHLORITE 0.25% IRRIG 473 ML BOTTLE TOP SCH (09:32)
[2021-08-20] MEDS: COLLAGENASE OINT 30 GM TUBE TOP SCH (09:34)
[2021-08-20] MEDS: HYDROmorphone 2 MG/1 ML VIAL IV PRN (15:51)
[2021-08-20] MEDS: MEROPENEM 500 MG in SODIUM CHLORIDE 0.9% 100 ML IV SCH (17:14)
[2021-08-21] MEDS: ALBUTEROL/IPRATROPIUM 3 ML NEB RESP TX SCH ×4 (00:48→22:01)
[2021-08-21] MEDS: METOCLOPRAMIDE 10 MG/2 ML VIAL IV SCH ×5 (01:56→23:50)
[2021-08-21] MEDS: INSULIN REGULAR 100 UNIT/ML SUBCUT SCH ×4 (01:56→18:22)
[2021-08-21] MEDS: ACETAMINOPHEN 325 MG TABLET PO PRN (01:59)
[2021-08-21 08:32] LABS: Basophils % 0.4 % (0.0-0.8); Eosinophils # 0.3 10*3/uL (0.0-0.87); Eosinophils % 3.2 % (0.00-10.9); Hematocrit 30.8 VOL% (42.0-52.0); Hemoglobin 9.5 GM/DL (14.0-18.0); Immature Granulocytes % 0.5 %; Immature Granulocytes Absolute 0.04 #; Lymphocytes # 0.7 10*3/uL (1.4-4.0); Lymphocytes % 9.2 % (21.2-54.2); Mean Corpuscular HGB Conc 30.8 GM/DL (32-36); Mean Corpuscular Volume 93.9 FL (87-102); Mean Platelet Volume 10.3 FL (9.6-12.0); Monocytes % 7.3 % (1.7-12.7); Neutrophils % 79.4 % (38.7-73.9); Platelet Count 301 T/CUMM (130-400); Red Blood Count 3.28 MC/CUMM (3.8-5.5); Red Cell Distribution Width 19.5 % (9.3-17.3); White Blood Count 8.1 T/CUMM (4-12)
[2021-08-21 09:03] LABS: Albumin 1.4 G/DL (3.4-5.0); Bilirubin,Total 0.6 MG/DL (0.20-1.00); Calcium 8.1 MG/DL (8.5-10.1); Potassium 5.8 MMOL/L (3.5-5.1); Total Protein 6.4 G/DL (6.4-8.2)
[2021-08-21] MEDS: SODIUM HYPOCHLORITE 0.25% IRRIG 473 ML BOTTLE TOP SCH (10:14)
[2021-08-21] MEDS: APIXABAN 2.5 MG TABLET PO SCH ×2 (10:14→20:55)
[2021-08-21] MEDS: SERTRALINE 50 MG TABLET PO SCH (10:15)
[2021-08-21] MEDS: MIDODRINE 5 MG TABLET PO SCH ×2 (10:15→20:55)
[2021-08-21] MEDS: COLLAGENASE OINT 30 GM TUBE TOP SCH (10:15)
[2021-08-21] MEDS ORDERED: propofoL 200 MG/20 ML VIAL IV ONE (10:32)
[2021-08-21] MEDS ORDERED: ETOMIDATE 40 MG/20 ML VIAL IV ONE (10:32)
[2021-08-21] MEDS ORDERED: DEXMEDETOMIDINE 200 MCG/2 ML VIAL ONE (10:32)
[2021-08-21] MEDS ORDERED: LIDOCAINE 2% 5 ML VIAL ONE (10:32)
[2021-08-21] MEDS ORDERED: MIDAZOLAM 2 MG/2 ML VIAL ONE (10:33)
[2021-08-21] MEDS ORDERED: ONDANSETRON 4 MG/2 ML VIAL ONE (10:37)
[2021-08-21] MEDS ORDERED: fentaNYL 100 MCG/2 ML VIAL ONE (10:51)
[2021-08-21] MEDS ORDERED: PHENYLEPHRINE 1 MG/10 ML SYRINGE IV ONE (11:00)
[2021-08-21] MEDS ORDERED: SODIUM POLYSTYRENE SULFATE 15 GM/60 ML BOTTLE PO ONE (11:00)
[2021-08-21] MEDS ORDERED: ePHEDrine 50 MG/ML VIAL ONE (11:01)
[2021-08-21] MEDS ORDERED: HYDROCORTISONE 100 MG VIAL ONE (11:04)
[2021-08-21] MEDS: PANTOPRAZOLE 40 MG VIAL IV SCH (13:52)
[2021-08-21] MEDS: MEROPENEM 500 MG in SODIUM CHLORIDE 0.9% 100 ML IV SCH (18:23)
[2021-08-21] MEDS: MELATONIN 3 MG TABLET PO PRN (20:54)
[2021-08-22] MEDS: ALBUTEROL/IPRATROPIUM 3 ML NEB RESP TX SCH ×4 (00:53→19:50)
[2021-08-22] MEDS: INSULIN REGULAR 100 UNIT/ML SUBCUT SCH ×4 (02:40→17:39)
[2021-08-22] MEDS: METOCLOPRAMIDE 10 MG/2 ML VIAL IV SCH ×3 (05:45→18:28)
[2021-08-22 09:21] LABS: Calcium 8.1 MG/DL (8.5-10.1); Osmolality,Calculated 282.5 MOS/KG (273-304)
[2021-08-22 09:24] LABS: Potassium 6.3 MMOL/L (3.5-5.1)
[2021-08-22] MEDS ORDERED: ALTEPLASE 2 MG VIAL IV ONE ×2 (09:30)
[2021-08-22] MEDS: MIDODRINE 5 MG TABLET PO SCH ×2 (10:59→22:38)
[2021-08-22] MEDS: APIXABAN 2.5 MG TABLET PO SCH ×2 (10:59→22:38)
[2021-08-22] MEDS: SERTRALINE 50 MG TABLET PO SCH (10:59)
[2021-08-22] MEDS: oxyCODONE/ACETAMINOPHEN 5-325 MG TABLET PO PRN (10:59)
[2021-08-22] MEDS: HYDROCORTISONE 100 MG VIAL IV SCH (11:00)
[2021-08-22] MEDS: PANTOPRAZOLE 40 MG VIAL IV SCH (11:00)
[2021-08-22] MEDS ORDERED: INSULIN REGULAR 10 UNIT, CALCIUM GLUCONATE 1,000 MG in DEXTROSE 10% 250 ML IV ONE (11:30)
[2021-08-22] MEDS: SODIUM ZIRCONIUM CYCLOSILICATE 10 GM PACK PO SCH ×3 (11:44→22:38)
[2021-08-22 13:38] LABS: Basophils % 0.1 % (0.0-0.8); Eosinophils # 0.1 10*3/uL (0.0-0.87); Eosinophils % 1.3 % (0.00-10.9); Hematocrit 27.3 VOL% (42.0-52.0); Hemoglobin 8.3 GM/DL (14.0-18.0); Immature Granulocytes % 0.8 %; Immature Granulocytes Absolute 0.06 #; Lymphocytes # 0.5 10*3/uL (1.4-4.0); Mean Corpuscular HGB Conc 30.4 GM/DL (32-36); Mean Corpuscular Volume 96.1 FL (87-102); Mean Platelet Volume 10.6 FL (9.6-12.0); Monocytes % 9.6 % (1.7-12.7); Neutrophils % 82.2 % (38.7-73.9); Platelet Count 257 T/CUMM (130-400); Red Blood Count 2.84 MC/CUMM (3.8-5.5); White Blood Count 7.8 T/CUMM (4-12)
[2021-08-22] MEDS: SODIUM HYPOCHLORITE 0.25% IRRIG 473 ML BOTTLE TOP SCH (14:55)
[2021-08-22] MEDS: COLLAGENASE OINT 30 GM TUBE TOP SCH (14:55)
[2021-08-22] MEDS: HYDROmorphone 2 MG/1 ML VIAL IV PRN (15:04)
[2021-08-22 17:10] LABS: Calcium 7.8 MG/DL (8.5-10.1); Potassium 5.4 MMOL/L (3.5-5.1)
[2021-08-22] MEDS: MEROPENEM 500 MG in SODIUM CHLORIDE 0.9% 100 ML IV SCH (18:29)
[2021-08-23] MEDS: ALBUTEROL/IPRATROPIUM 3 ML NEB RESP TX SCH ×5 (01:02→19:25)
[2021-08-23] MEDS: METOCLOPRAMIDE 10 MG/2 ML VIAL IV SCH ×4 (02:15→17:33)
[2021-08-23] MEDS: INSULIN REGULAR 100 UNIT/ML SUBCUT SCH ×4 (06:45→17:33)
[2021-08-23 07:39] LABS: Basophils % 0.1 % (0.0-0.8); Eosinophils # 0.1 10*3/uL (0.0-0.87); Eosinophils % 1.8 % (0.00-10.9); Hematocrit 31.8 VOL% (42.0-52.0); Hemoglobin 9.6 GM/DL (14.0-18.0); Immature Granulocytes % 0.9 %; Immature Granulocytes Absolute 0.07 #; Lymphocytes % 12.8 % (21.2-54.2); Mean Corpuscular HGB Conc 30.2 GM/DL (32-36); Mean Corpuscular Volume 96.1 FL (87-102); Mean Platelet Volume 10.6 FL (9.6-12.0); Monocytes % 9.7 % (1.7-12.7); Neutrophils % 74.7 % (38.7-73.9); Platelet Count 313 T/CUMM (130-400); Red Blood Count 3.31 MC/CUMM (3.8-5.5); Red Cell Distribution Width 18.6 % (9.3-17.3); White Blood Count 7.8 T/CUMM (4-12)
[2021-08-23 08:03] LABS: Calcium 8.6 MG/DL (8.5-10.1); Osmolality,Calculated 289.2 MOS/KG (273-304); Potassium 5.7 MMOL/L (3.5-5.1)
[2021-08-23] MEDS ORDERED: BUPIVACAINE MPF 0.25% 30 ML VIAL ONE (08:21)
[2021-08-23] MEDS ORDERED: LIDOCAINE 1%/EPI INJ 20 ML VIAL ONE (08:21)
[2021-08-23] MEDS ORDERED: HEPARIN 5,000 UNIT/1 ML VIAL ONE (08:21)
[2021-08-23] MEDS ORDERED: DEXAMETHASONE 4 MG/1 ML VIAL ONE ×2 (08:26→09:52)
[2021-08-23] MEDS ORDERED: propofoL 200 MG/20 ML VIAL IV ONE (08:26)
[2021-08-23] MEDS ORDERED: DEXMEDETOMIDINE 200 MCG/2 ML VIAL ONE (08:26)
[2021-08-23] MEDS ORDERED: fentaNYL 100 MCG/2 ML VIAL ONE (08:26)
[2021-08-23] MEDS ORDERED: LIDOCAINE 2% 5 ML VIAL ONE (08:26)
[2021-08-23] MEDS ORDERED: ONDANSETRON 4 MG/2 ML VIAL ONE (08:26)
[2021-08-23] MEDS ORDERED: MIDAZOLAM 2 MG/2 ML VIAL ONE (08:26)
[2021-08-23] MEDS ORDERED: ETOMIDATE 40 MG/20 ML VIAL IV ONE (08:26)
[2021-08-23] MEDS: PANTOPRAZOLE 40 MG VIAL IV SCH (09:00)
[2021-08-23] MEDS: MIDODRINE 5 MG TABLET PO SCH ×2 (09:00→21:24)
[2021-08-23] MEDS: APIXABAN 2.5 MG TABLET PO SCH ×2 (09:00→21:24)
[2021-08-23] MEDS ORDERED: TUBERCULIN SKIN TEST 0.1 ML SYRINGE INTRADERM ONE (09:30)
[2021-08-23] MEDS ORDERED: PHENYLEPHRINE 1 MG/10 ML SYRINGE IV ONE (09:39)
[2021-08-23] MEDS: SODIUM ZIRCONIUM CYCLOSILICATE 10 GM PACK PO SCH ×3 (16:16→21:24)
[2021-08-23] MEDS: HYDROmorphone 2 MG/1 ML VIAL IV PRN (16:16)
[2021-08-23] MEDS: SERTRALINE 50 MG TABLET PO SCH (16:16)
[2021-08-23] MEDS: MEROPENEM 500 MG in SODIUM CHLORIDE 0.9% 100 ML IV SCH (17:34)
[2021-08-23] MEDS: SODIUM HYPOCHLORITE 0.25% IRRIG 473 ML BOTTLE TOP SCH (18:40)
[2021-08-23] MEDS: COLLAGENASE OINT 30 GM TUBE TOP SCH (18:40)
[2021-08-24] MEDS: METOCLOPRAMIDE 10 MG/2 ML VIAL IV SCH ×2 (01:05→05:13)
[2021-08-24] MEDS: MELATONIN 3 MG TABLET PO PRN (01:05)
[2021-08-24] MEDS: ALBUTEROL/IPRATROPIUM 3 ML NEB RESP TX SCH ×4 (01:13→20:05)
[2021-08-24] MEDS: INSULIN REGULAR 100 UNIT/ML SUBCUT SCH ×4 (01:26→18:35)
[2021-08-24 05:17] LABS: Basophils % 0.2 % (0.0-0.8); Eosinophils # 0.1 10*3/uL (0.0-0.87); Eosinophils % 1.5 % (0.00-10.9); Hematocrit 27.7 VOL% (42.0-52.0); Hemoglobin 8.7 GM/DL (14.0-18.0); Immature Granulocytes % 1.1 %; Lymphocytes # 1.3 10*3/uL (1.4-4.0); Lymphocytes % 14.3 % (21.2-54.2); Mean Corpuscular HGB Conc 31.4 GM/DL (32-36); Mean Corpuscular Volume 94.5 FL (87-102); Mean Platelet Volume 10.1 FL (9.6-12.0); Neutrophils % 71.9 % (38.7-73.9); Platelet Count 255 T/CUMM (130-400); Red Blood Count 2.93 MC/CUMM (3.8-5.5); Red Cell Distribution Width 18.3 % (9.3-17.3); White Blood Count 8.9 T/CUMM (4-12)
[2021-08-24 05:41] LABS: Calcium 7.6 MG/DL (8.5-10.1); Osmolality,Calculated 292.4 MOS/KG (273-304); Potassium 4.7 MMOL/L (3.5-5.1)
[2021-08-24] MEDS: SERTRALINE 50 MG TABLET PO SCH (09:00)
[2021-08-24] MEDS: COLLAGENASE OINT 30 GM TUBE TOP SCH (09:00)
[2021-08-24] MEDS: PANTOPRAZOLE 40 MG VIAL IV SCH (09:00)
[2021-08-24] MEDS: SODIUM HYPOCHLORITE 0.25% IRRIG 473 ML BOTTLE TOP SCH (09:00)
[2021-08-24] MEDS: MIDODRINE 5 MG TABLET PO SCH ×2 (09:00→20:48)
[2021-08-24] MEDS: APIXABAN 2.5 MG TABLET PO SCH ×2 (09:00→20:48)
[2021-08-24] MEDS: HYDROmorphone 2 MG/1 ML VIAL IV PRN ×2 (09:06→20:52)
[2021-08-24] MEDS ORDERED: ALTEPLASE 2 MG VIAL INTRACATH ONE (13:00)
[2021-08-24] MEDS: MEROPENEM 500 MG in SODIUM CHLORIDE 0.9% 100 ML IV SCH (17:40)
[2021-08-25] MEDS: ALBUTEROL/IPRATROPIUM 3 ML NEB RESP TX SCH ×4 (00:30→21:03)
[2021-08-25] MEDS: INSULIN REGULAR 100 UNIT/ML SUBCUT SCH ×4 (03:41→19:16)
[2021-08-25] MEDS: HYDROmorphone 2 MG/1 ML VIAL IV PRN ×2 (04:12→21:37)
[2021-08-25] MEDS: DEXTROSE 50% 25 GM/50 ML SYRINGE IV PRN (06:09)
[2021-08-25] MEDS: oxyCODONE/ACETAMINOPHEN 5-325 MG TABLET PO PRN (08:55)
[2021-08-25] MEDS: APIXABAN 2.5 MG TABLET PO SCH ×2 (08:55→21:32)
[2021-08-25] MEDS: SERTRALINE 50 MG TABLET PO SCH (08:55)
[2021-08-25] MEDS: PANTOPRAZOLE 40 MG VIAL IV SCH (08:56)
[2021-08-25] MEDS: COLLAGENASE OINT 30 GM TUBE TOP SCH (08:58)
[2021-08-25] MEDS: MIDODRINE 5 MG TABLET PO SCH ×2 (08:58→21:32)
[2021-08-25] MEDS: SODIUM HYPOCHLORITE 0.25% IRRIG 473 ML BOTTLE TOP SCH (08:58)
[2021-08-25 10:13] LABS: Basophils % 0.5 % (0.0-0.8); Eosinophils # 0.2 10*3/uL (0.0-0.87); Eosinophils % 1.9 % (0.00-10.9); Hematocrit 28.4 VOL% (42.0-52.0); Hemoglobin 8.8 GM/DL (14.0-18.0); Immature Granulocytes % 2.1 %; Immature Granulocytes Absolute 0.16 #; Lymphocytes # 0.7 10*3/uL (1.4-4.0); Lymphocytes % 8.7 % (21.2-54.2); Mean Corpuscular Volume 96.6 FL (87-102); Mean Platelet Volume 9.9 FL (9.6-12.0); Monocytes % 8.9 % (1.7-12.7); Neutrophils % 77.9 % (38.7-73.9); Platelet Count 260 T/CUMM (130-400); Red Blood Count 2.94 MC/CUMM (3.8-5.5); Red Cell Distribution Width 18.4 % (9.3-17.3); White Blood Count 7.7 T/CUMM (4-12)
[2021-08-25 10:29] LABS: Calcium 8.1 MG/DL (8.5-10.1); Osmolality,Calculated 290.8 MOS/KG (273-304); Potassium 5.4 MMOL/L (3.5-5.1)
[2021-08-25] MEDS ORDERED: HEPARIN LOCK FLUSH 500 UNIT/5 ML SYRINGE IV ONE (14:40)
[2021-08-25] MEDS ORDERED: HEPARIN 5,000 UNIT/1 ML VIAL ONE ×2 (16:02→16:03)
[2021-08-25] MEDS ORDERED: BUPIVACAINE MPF 0.25% 30 ML VIAL ONE (16:02)
[2021-08-25] MEDS ORDERED: LIDOCAINE 1%/EPI INJ 20 ML VIAL ONE (16:02)
[2021-08-25] MEDS ORDERED: fentaNYL 100 MCG/2 ML VIAL ONE (16:09)
[2021-08-25] MEDS ORDERED: SODIUM CHLORIDE 0.9% 100 ML IV ONE (16:09)
[2021-08-25] MEDS ORDERED: ETOMIDATE 40 MG/20 ML VIAL IV ONE (16:09)
[2021-08-25] MEDS ORDERED: MIDAZOLAM 2 MG/2 ML VIAL ONE (16:09)
[2021-08-25] MEDS ORDERED: propofoL 200 MG/20 ML VIAL IV ONE (16:09)
[2021-08-25] MEDS ORDERED: CLINDAMYCIN INJ 900 MG/50 ML PREMIX IV ONE (16:47)
[2021-08-25] MEDS: MEROPENEM 500 MG in SODIUM CHLORIDE 0.9% 100 ML IV SCH (19:16)
[2021-08-25 19:58] LABS: Hepatitis B Surface Ag Quant < 0.10 Index; Hepatitis B Surface Ag Result Non-Reactive (NonReactive)
[2021-08-26] MEDS: ALBUTEROL/IPRATROPIUM 3 ML NEB RESP TX SCH ×4 (00:15→20:45)
[2021-08-26] MEDS: HYDROmorphone 2 MG/1 ML VIAL IV PRN (06:26)
[2021-08-26 07:08] LABS: Basophils % 0.5 % (0.0-0.8); Eosinophils # 0.2 10*3/uL (0.0-0.87); Eosinophils % 2.2 % (0.00-10.9); Hematocrit 26.6 VOL% (42.0-52.0); Hemoglobin 8.2 GM/DL (14.0-18.0); Immature Granulocytes % 2.4 %; Immature Granulocytes Absolute 0.19 #; Lymphocytes # 0.7 10*3/uL (1.4-4.0); Lymphocytes % 9.1 % (21.2-54.2); Mean Corpuscular HGB Conc 30.8 GM/DL (32-36); Mean Corpuscular Volume 95.7 FL (87-102); Mean Platelet Volume 10.2 FL (9.6-12.0); Monocytes % 10.5 % (1.7-12.7); Neutrophils % 75.3 % (38.7-73.9); Platelet Count 302 T/CUMM (130-400); Red Blood Count 2.78 MC/CUMM (3.8-5.5); Red Cell Distribution Width 18.6 % (9.3-17.3); White Blood Count 7.8 T/CUMM (4-12)
[2021-08-26 07:27] LABS: Osmolality,Calculated 284.7 MOS/KG (273-304); Potassium 4.4 MMOL/L (3.5-5.1)
[2021-08-26] MEDS: INSULIN REGULAR 100 UNIT/ML SUBCUT SCH ×3 (07:41→17:16)
[2021-08-26] MEDS: MIDODRINE 5 MG TABLET PO SCH ×2 (08:25→20:39)
[2021-08-26] MEDS: PANTOPRAZOLE 40 MG VIAL IV SCH (08:25)
[2021-08-26] MEDS: APIXABAN 2.5 MG TABLET PO SCH ×2 (08:25→20:39)
[2021-08-26] MEDS: SERTRALINE 50 MG TABLET PO SCH (08:25)
[2021-08-26] MEDS: COLLAGENASE OINT 30 GM TUBE TOP SCH (08:29)
[2021-08-26] MEDS: SODIUM HYPOCHLORITE 0.25% IRRIG 473 ML BOTTLE TOP SCH (08:29)
[2021-08-26] MEDS: DEXTROSE 50% 25 GM/50 ML SYRINGE IV PRN (12:40)
[2021-08-26] MEDS: oxyCODONE/ACETAMINOPHEN 5-325 MG TABLET PO PRN (13:55)
[2021-08-26] MEDS: guaiFENesin/DM ER 600-30 MG TABLET PO PRN (16:20)
[2021-08-26] MEDS: MELATONIN 3 MG TABLET PO PRN (16:20)
[2021-08-26] MEDS: MEROPENEM 500 MG in SODIUM CHLORIDE 0.9% 100 ML IV SCH (17:25)
[2021-08-27] MEDS: INSULIN REGULAR 100 UNIT/ML SUBCUT SCH ×4 (04:27→17:30)
[2021-08-27] MEDS: HYDROmorphone 2 MG/1 ML VIAL IV PRN ×3 (04:27→21:58)
[2021-08-27] MEDS: ALBUTEROL/IPRATROPIUM 3 ML NEB RESP TX SCH ×4 (05:47→19:59)
[2021-08-27 05:49] LABS: Basophils % 0.5 % (0.0-0.8); Eosinophils # 0.2 10*3/uL (0.0-0.87); Eosinophils % 1.9 % (0.00-10.9); Hematocrit 26.4 VOL% (42.0-52.0); Hemoglobin 7.9 GM/DL (14.0-18.0); Immature Granulocytes % 2.1 %; Immature Granulocytes Absolute 0.17 #; Lymphocytes # 0.9 10*3/uL (1.4-4.0); Lymphocytes % 11.2 % (21.2-54.2); Mean Corpuscular HGB Conc 29.9 GM/DL (32-36); Mean Corpuscular Volume 97.8 FL (87-102); Mean Platelet Volume 10.1 FL (9.6-12.0); Monocytes % 10.5 % (1.7-12.7); Neutrophils % 73.8 % (38.7-73.9); Platelet Count 255 T/CUMM (130-400); Red Cell Distribution Width 18.6 % (9.3-17.3)
[2021-08-27 06:25] LABS: Calcium 8.3 MG/DL (8.5-10.1); Osmolality,Calculated 284.4 MOS/KG (273-304); Potassium 4.3 MMOL/L (3.5-5.1)
[2021-08-27] MEDS: APIXABAN 2.5 MG TABLET PO SCH ×2 (08:50→21:50)
[2021-08-27] MEDS: MIDODRINE 5 MG TABLET PO SCH ×2 (08:51→21:50)
[2021-08-27] MEDS: SERTRALINE 50 MG TABLET PO SCH (08:51)
[2021-08-27] MEDS: SODIUM HYPOCHLORITE 0.25% IRRIG 473 ML BOTTLE TOP SCH (08:52)
[2021-08-27] MEDS: COLLAGENASE OINT 30 GM TUBE TOP SCH (08:52)
[2021-08-27] MEDS: PANTOPRAZOLE 40 MG VIAL IV SCH (08:52)
[2021-08-27] MEDS: guaiFENesin/DM ER 600-30 MG TABLET PO PRN (08:53)
[2021-08-27] MEDS: MEROPENEM 500 MG in SODIUM CHLORIDE 0.9% 100 ML IV SCH (17:35)
[2021-08-28] MEDS: ALBUTEROL/IPRATROPIUM 3 ML NEB RESP TX SCH ×4 (00:11→19:48)
[2021-08-28] MEDS: INSULIN REGULAR 100 UNIT/ML SUBCUT SCH ×4 (01:49→17:30)
[2021-08-28] MEDS: HYDROmorphone 2 MG/1 ML VIAL IV PRN ×2 (08:56→11:02)
[2021-08-28] MEDS: SERTRALINE 50 MG TABLET PO SCH (09:38)
[2021-08-28] MEDS: APIXABAN 2.5 MG TABLET PO SCH ×2 (09:38→22:41)
[2021-08-28] MEDS: MIDODRINE 5 MG TABLET PO SCH ×2 (09:38→22:41)
[2021-08-28] MEDS: SODIUM HYPOCHLORITE 0.25% IRRIG 473 ML BOTTLE TOP SCH (09:38)
[2021-08-28] MEDS: PANTOPRAZOLE 40 MG VIAL IV SCH (09:38)
[2021-08-28] MEDS: COLLAGENASE OINT 30 GM TUBE TOP SCH (09:38)
[2021-08-28] MEDS: oxyCODONE/ACETAMINOPHEN 5-325 MG TABLET PO PRN (17:29)
[2021-08-28] MEDS: ACETAMINOPHEN 325 MG TABLET PO PRN (22:41)
[2021-08-28] MEDS: MEROPENEM 500 MG in SODIUM CHLORIDE 0.9% 100 ML IV SCH (23:32)
[2021-08-29] MEDS: MEROPENEM 500 MG in SODIUM CHLORIDE 0.9% 100 ML IV SCH ×2 (01:10→23:50)
[2021-08-29] MEDS: ALBUTEROL/IPRATROPIUM 3 ML NEB RESP TX SCH ×4 (01:40→20:44)
[2021-08-29] MEDS: INSULIN REGULAR 100 UNIT/ML SUBCUT SCH ×4 (01:51→17:44)
[2021-08-29] MEDS: ACETAMINOPHEN 325 MG TABLET PO PRN (04:25)
[2021-08-29] MEDS: oxyCODONE/ACETAMINOPHEN 5-325 MG TABLET PO PRN ×3 (08:35→21:05)
[2021-08-29] MEDS: APIXABAN 2.5 MG TABLET PO SCH ×2 (08:35→21:04)
[2021-08-29] MEDS: MIDODRINE 5 MG TABLET PO SCH ×2 (08:35→21:04)
[2021-08-29] MEDS: SERTRALINE 50 MG TABLET PO SCH (08:35)
[2021-08-29] MEDS: PANTOPRAZOLE 40 MG VIAL IV SCH (08:36)
[2021-08-29] MEDS: COLLAGENASE OINT 30 GM TUBE TOP SCH (08:36)
[2021-08-29] MEDS: SODIUM HYPOCHLORITE 0.25% IRRIG 473 ML BOTTLE TOP SCH (08:36)
[2021-08-29 12:50] LABS: Hepatitis B Surface Ag Quant < 0.10 Index; Hepatitis B Surface Ag Result Non-Reactive (NonReactive); Hepatitis C Virus Ab Quant 0.09 Index; Hepatitis C Virus Ab Result Non-Reactive (NonReactive)
[2021-08-29] MEDS: HYDROmorphone 2 MG/1 ML VIAL IV PRN (18:04)
[2021-08-29] MEDS: MELATONIN 3 MG TABLET PO PRN (21:04)
[2021-08-30] MEDS: ALBUTEROL/IPRATROPIUM 3 ML NEB RESP TX SCH ×4 (01:33→21:35)
[2021-08-30] MEDS: INSULIN REGULAR 100 UNIT/ML SUBCUT SCH ×4 (01:40→19:02)
[2021-08-30 05:19] LABS: Basophils # 0.1 10*3/uL (0.0-0.2); Basophils % 0.8 % (0.0-0.8); Eosinophils # 0.2 10*3/uL (0.0-0.87); Eosinophils % 2.2 % (0.00-10.9); Hematocrit 27.2 VOL% (42.0-52.0); Hemoglobin 8.2 GM/DL (14.0-18.0); Immature Granulocytes % 2.2 %; Immature Granulocytes Absolute 0.21 #; Lymphocytes % 10.6 % (21.2-54.2); Mean Corpuscular HGB Conc 30.1 GM/DL (32-36); Mean Corpuscular Volume 99.3 FL (87-102); Mean Platelet Volume 10.1 FL (9.6-12.0); Monocytes % 10.1 % (1.7-12.7); Neutrophils % 74.1 % (38.7-73.9); Platelet Count 229 T/CUMM (130-400); Red Blood Count 2.74 MC/CUMM (3.8-5.5); Red Cell Distribution Width 19.3 % (9.3-17.3); White Blood Count 9.5 T/CUMM (4-12)
[2021-08-30 05:37] LABS: Albumin 1.2 G/DL (3.4-5.0); Bilirubin,Total 0.4 MG/DL (0.20-1.00); Calcium 8.1 MG/DL (8.5-10.1); Osmolality,Calculated 280.7 MOS/KG (273-304); Potassium 5.1 MMOL/L (3.5-5.1); Total Protein 5.5 G/DL (6.4-8.2)
[2021-08-30] MEDS: MIDODRINE 5 MG TABLET PO SCH ×2 (12:17→22:29)
[2021-08-30] MEDS: SODIUM HYPOCHLORITE 0.25% IRRIG 473 ML BOTTLE TOP SCH (12:17)
[2021-08-30] MEDS: APIXABAN 2.5 MG TABLET PO SCH ×2 (12:17→22:29)
[2021-08-30] MEDS: PANTOPRAZOLE 40 MG VIAL IV SCH (12:17)
[2021-08-30] MEDS: COLLAGENASE OINT 30 GM TUBE TOP SCH (12:17)
[2021-08-30] MEDS: SERTRALINE 50 MG TABLET PO SCH (12:18)
[2021-08-30] MEDS: oxyCODONE/ACETAMINOPHEN 5-325 MG TABLET PO PRN (14:39)
[2021-08-30] MEDS: MELATONIN 3 MG TABLET PO PRN (22:29)
[2021-08-31] MEDS: INSULIN REGULAR 100 UNIT/ML SUBCUT SCH ×3 (00:43→13:20)
[2021-08-31] MEDS: ALBUTEROL/IPRATROPIUM 3 ML NEB RESP TX SCH ×4 (01:38→19:23)
[2021-08-31] MEDS: APIXABAN 2.5 MG TABLET PO SCH ×2 (08:51→21:12)
[2021-08-31] MEDS: MIDODRINE 5 MG TABLET PO SCH ×2 (08:51→21:12)
[2021-08-31] MEDS: PANTOPRAZOLE 40 MG VIAL IV SCH (08:51)
[2021-08-31] MEDS: SERTRALINE 50 MG TABLET PO SCH (08:51)
[2021-08-31] MEDS: SODIUM HYPOCHLORITE 0.25% IRRIG 473 ML BOTTLE TOP SCH (11:04)
[2021-08-31] MEDS: COLLAGENASE OINT 30 GM TUBE TOP SCH (11:04)
[2021-08-31] MEDS: oxyCODONE/ACETAMINOPHEN 5-325 MG TABLET PO PRN (12:34)
[2021-09-01] MEDS: ALBUTEROL/IPRATROPIUM 3 ML NEB RESP TX SCH ×6 (00:49→19:52)
[2021-09-01] MEDS: INSULIN REGULAR 100 UNIT/ML SUBCUT SCH ×3 (08:12→17:26)
[2021-09-01] MEDS: SERTRALINE 50 MG TABLET PO SCH (08:17)
[2021-09-01] MEDS: MIDODRINE 5 MG TABLET PO SCH ×2 (08:17→20:02)
[2021-09-01] MEDS: PANTOPRAZOLE 40 MG VIAL IV SCH (08:17)
[2021-09-01] MEDS: APIXABAN 2.5 MG TABLET PO SCH ×2 (08:17→20:02)
[2021-09-01] MEDS: SODIUM HYPOCHLORITE 0.25% IRRIG 473 ML BOTTLE TOP SCH (08:19)
[2021-09-01] MEDS: COLLAGENASE OINT 30 GM TUBE TOP SCH (08:19)
[2021-09-01] MEDS ORDERED: CEFEPIME 1,000 MG in SODIUM CHLORIDE 0.9% 100 ML IV ONE (09:00)
[2021-09-01] MEDS: oxyCODONE/ACETAMINOPHEN 5-325 MG TABLET PO PRN ×2 (13:02→19:53)
[2021-09-01] MEDS: MELATONIN 3 MG TABLET PO PRN (20:02)
[2021-09-02] MEDS: INSULIN REGULAR 100 UNIT/ML SUBCUT SCH ×4 (00:13→19:03)
[2021-09-02] MEDS: ALBUTEROL/IPRATROPIUM 3 ML NEB RESP TX SCH ×3 (07:58→19:44)
[2021-09-02] MEDS: APIXABAN 2.5 MG TABLET PO SCH ×2 (09:41→20:41)
[2021-09-02] MEDS: PANTOPRAZOLE 40 MG VIAL IV SCH (09:41)
[2021-09-02] MEDS: SERTRALINE 50 MG TABLET PO SCH (09:41)
[2021-09-02] MEDS: MIDODRINE 5 MG TABLET PO SCH ×2 (09:41→20:41)
[2021-09-02] MEDS: COLLAGENASE OINT 30 GM TUBE TOP SCH (09:42)
[2021-09-02] MEDS: SODIUM HYPOCHLORITE 0.25% IRRIG 473 ML BOTTLE TOP SCH (09:43)
[2021-09-02] MEDS: HYDROmorphone 2 MG/1 ML VIAL IV PRN (17:55)
[2021-09-02] MEDS: CEFEPIME 1,000 MG in SODIUM CHLORIDE 0.9% 100 ML IV SCH (17:55)
[2021-09-03] MEDS: INSULIN REGULAR 100 UNIT/ML SUBCUT SCH ×4 (00:03→19:01)
[2021-09-03] MEDS: ALBUTEROL/IPRATROPIUM 3 ML NEB RESP TX SCH ×4 (00:50→20:23)
[2021-09-03] MEDS: PANTOPRAZOLE 40 MG VIAL IV SCH (08:45)
[2021-09-03] MEDS: SERTRALINE 50 MG TABLET PO SCH (08:45)
[2021-09-03] MEDS: MIDODRINE 5 MG TABLET PO SCH ×2 (08:45→21:15)
[2021-09-03] MEDS: COLLAGENASE OINT 30 GM TUBE TOP SCH (08:46)
[2021-09-03] MEDS: SODIUM HYPOCHLORITE 0.25% IRRIG 473 ML BOTTLE TOP SCH (08:46)
[2021-09-03] MEDS: CEFEPIME 1,000 MG in SODIUM CHLORIDE 0.9% 100 ML IV SCH (16:40)
[2021-09-04] MEDS: INSULIN REGULAR 100 UNIT/ML SUBCUT SCH ×4 (00:44→19:15)
[2021-09-04] MEDS: ALBUTEROL/IPRATROPIUM 3 ML NEB RESP TX SCH ×4 (01:37→19:53)
[2021-09-04] MEDS: GLUCAGON 1 MG VIAL IM PRN (06:55)
[2021-09-04 07:53] LABS: Basophils # 0.1 10*3/uL (0.0-0.2); Basophils % 1.2 % (0.0-0.8); Eosinophils # 0.5 10*3/uL (0.0-0.87); Hematocrit 26.3 VOL% (42.0-52.0); Hemoglobin 7.8 GM/DL (14.0-18.0); Immature Granulocytes % 0.9 %; Immature Granulocytes Absolute 0.08 #; Lymphocytes # 0.6 10*3/uL (1.4-4.0); Lymphocytes % 6.5 % (21.2-54.2); Mean Corpuscular HGB Conc 29.7 GM/DL (32-36); Mean Corpuscular Volume 99.6 FL (87-102); Monocytes % 11.3 % (1.7-12.7); Neutrophils % 75.1 % (38.7-73.9); Platelet Count 201 T/CUMM (130-400); Red Blood Count 2.64 MC/CUMM (3.8-5.5); Red Cell Distribution Width 19.9 % (9.3-17.3); White Blood Count 9.4 T/CUMM (4-12)
[2021-09-04 08:22] LABS: Albumin 1.2 G/DL (3.4-5.0); Bilirubin,Total 0.4 MG/DL (0.20-1.00); Calcium 8.7 MG/DL (8.5-10.1); Potassium 5.8 MMOL/L (3.5-5.1); Total Protein 5.6 G/DL (6.4-8.2)
[2021-09-04] MEDS: PANTOPRAZOLE 40 MG VIAL IV SCH (08:54)
[2021-09-04] MEDS ORDERED: CEFEPIME 2,000 MG in SODIUM CHLORIDE 0.9% 100 ML IV SCH (09:00)
[2021-09-04] MEDS: SERTRALINE 50 MG TABLET PO SCH (09:45)
[2021-09-04] MEDS: MIDODRINE 5 MG TABLET PO SCH ×2 (09:45→20:37)
[2021-09-04] MEDS ORDERED: PHENYLEPHRINE 1 MG/10 ML SYRINGE IV ONE (12:41)
[2021-09-04] MEDS ORDERED: DEXMEDETOMIDINE 200 MCG/2 ML VIAL ONE (12:41)
[2021-09-04] MEDS ORDERED: NEOMYCIN/POLYMYXIN/BACITRACIN OINT 28.4 GM TUBE TOP ONE (12:45)
[2021-09-04] MEDS: COLLAGENASE OINT 30 GM TUBE TOP SCH (15:29)
[2021-09-04] MEDS: SODIUM HYPOCHLORITE 0.25% IRRIG 473 ML BOTTLE TOP SCH (15:29)
[2021-09-04] MEDS: CEFEPIME 1,000 MG in SODIUM CHLORIDE 0.9% 100 ML IV SCH (17:37)
[2021-09-04] MEDS: DEXTROSE 10% 250 ML BAG IV PRN (17:37)
[2021-09-04] MEDS: SODIUM ZIRCONIUM CYCLOSILICATE 10 GM PACK PO SCH (17:37)
[2021-09-05] MEDS: ALBUTEROL/IPRATROPIUM 3 ML NEB RESP TX SCH ×4 (01:11→20:25)
[2021-09-05] MEDS: APIXABAN 2.5 MG TABLET PO SCH ×3 (01:33→21:26)
[2021-09-05] MEDS: INSULIN REGULAR 100 UNIT/ML SUBCUT SCH ×2 (01:36→07:47)
[2021-09-05] MEDS: ONDANSETRON 4 MG/2 ML VIAL IV PRN (02:25)
[2021-09-05] MEDS: oxyCODONE/ACETAMINOPHEN 5-325 MG TABLET PO PRN ×2 (02:34→17:44)
[2021-09-05 06:02] LABS: Basophils # 0.1 10*3/uL (0.0-0.2); Basophils % 1.2 % (0.0-0.8); Eosinophils # 0.3 10*3/uL (0.0-0.87); Eosinophils % 3.8 % (0.00-10.9); Hemoglobin 7.5 GM/DL (14.0-18.0); Immature Granulocytes % 0.7 %; Immature Granulocytes Absolute 0.06 #; Lymphocytes # 0.5 10*3/uL (1.4-4.0); Mean Corpuscular HGB Conc 31.3 GM/DL (32-36); Mean Corpuscular Volume 98.4 FL (87-102); Mean Platelet Volume 10.6 FL (9.6-12.0); Monocytes % 12.8 % (1.7-12.7); Neutrophils % 75.5 % (38.7-73.9); Platelet Count 192 T/CUMM (130-400); Red Blood Count 2.44 MC/CUMM (3.8-5.5); Red Cell Distribution Width 19.9 % (9.3-17.3); White Blood Count 8.1 T/CUMM (4-12)
[2021-09-05 06:32] LABS: Calcium 8.2 MG/DL (8.5-10.1); Potassium 5.9 MMOL/L (3.5-5.1)
[2021-09-05] MEDS: SODIUM HYPOCHLORITE 0.25% IRRIG 473 ML BOTTLE TOP SCH (09:28)
[2021-09-05] MEDS: PANTOPRAZOLE 40 MG VIAL IV SCH (09:28)
[2021-09-05] MEDS: COLLAGENASE OINT 30 GM TUBE TOP SCH (09:28)
[2021-09-05] MEDS: SERTRALINE 50 MG TABLET PO SCH (09:29)
[2021-09-05] MEDS: MIDODRINE 5 MG TABLET PO SCH ×2 (09:29→21:26)
[2021-09-05] MEDS: SODIUM ZIRCONIUM CYCLOSILICATE 10 GM PACK PO SCH (09:29)
[2021-09-05] MEDS ORDERED: EPOETIN ALFA-EPBX 10,000 UNIT/ML VIAL SUBCUT SCH (16:00)
[2021-09-05] MEDS: CEFEPIME 1,000 MG in SODIUM CHLORIDE 0.9% 100 ML IV SCH (17:44)
[2021-09-06] MEDS: ALBUTEROL/IPRATROPIUM 3 ML NEB RESP TX SCH ×4 (00:42→19:19)
[2021-09-06] MEDS: MIDODRINE 5 MG TABLET PO SCH ×2 (08:52→20:19)
[2021-09-06] MEDS: APIXABAN 2.5 MG TABLET PO SCH ×2 (08:52→20:19)
[2021-09-06] MEDS: SERTRALINE 50 MG TABLET PO SCH (08:52)
[2021-09-06] MEDS: SODIUM HYPOCHLORITE 0.25% IRRIG 473 ML BOTTLE TOP SCH (08:53)
[2021-09-06] MEDS: PANTOPRAZOLE 40 MG VIAL IV SCH (08:53)
[2021-09-06] MEDS: SODIUM ZIRCONIUM CYCLOSILICATE 10 GM PACK PO SCH (08:53)
[2021-09-06] MEDS: COLLAGENASE OINT 30 GM TUBE TOP SCH (08:54)
[2021-09-06] MEDS: HYDROmorphone 2 MG/1 ML VIAL IV PRN (09:39)
[2021-09-06 10:56] LABS: Basophils # 0.1 10*3/uL (0.0-0.2); Basophils % 1.4 % (0.0-0.8); Eosinophils # 0.4 10*3/uL (0.0-0.87); Eosinophils % 5.4 % (0.00-10.9); Hematocrit 23.7 VOL% (42.0-52.0); Hemoglobin 7.2 GM/DL (14.0-18.0); Immature Granulocytes Absolute 0.07 #; Lymphocytes # 0.4 10*3/uL (1.4-4.0); Lymphocytes % 5.5 % (21.2-54.2); Mean Corpuscular HGB Conc 30.4 GM/DL (32-36); Mean Corpuscular Volume 99.2 FL (87-102); Mean Platelet Volume 10.2 FL (9.6-12.0); Neutrophils % 72.7 % (38.7-73.9); Platelet Count 168 T/CUMM (130-400); Red Blood Count 2.39 MC/CUMM (3.8-5.5); Red Cell Distribution Width 19.9 % (9.3-17.3); White Blood Count 7.2 T/CUMM (4-12)
[2021-09-06 11:10] LABS: Calcium 8.1 MG/DL (8.5-10.1); Osmolality,Calculated 284.8 MOS/KG (273-304); Potassium 5.3 MMOL/L (3.5-5.1)
[2021-09-06] MEDS: CEFEPIME 1,000 MG in SODIUM CHLORIDE 0.9% 100 ML IV SCH (16:35)
[2021-09-06] MEDS: ACETAMINOPHEN 325 MG TABLET PO PRN (19:32)
[2021-09-06] MEDS ORDERED: KETOROLAC 15 MG/1 ML VIAL IV ONE (21:28)
[2021-09-07] MEDS: ALBUTEROL/IPRATROPIUM 3 ML NEB RESP TX SCH ×4 (00:49→20:15)
[2021-09-07] MEDS: SODIUM ZIRCONIUM CYCLOSILICATE 10 GM PACK PO SCH (09:35)
[2021-09-07] MEDS: APIXABAN 2.5 MG TABLET PO SCH ×2 (09:35→20:53)
[2021-09-07] MEDS: SERTRALINE 50 MG TABLET PO SCH (09:35)
[2021-09-07] MEDS: MIDODRINE 5 MG TABLET PO SCH ×2 (09:35→20:54)
[2021-09-07] MEDS: COLLAGENASE OINT 30 GM TUBE TOP SCH (09:36)
[2021-09-07] MEDS: PANTOPRAZOLE 40 MG VIAL IV SCH (09:36)
[2021-09-07] MEDS: SODIUM HYPOCHLORITE 0.25% IRRIG 473 ML BOTTLE TOP SCH (09:36)
[2021-09-07 09:43] LABS: Basophils # 0.1 10*3/uL (0.0-0.2); Basophils % 1.5 % (0.0-0.8); Eosinophils # 0.5 10*3/uL (0.0-0.87); Eosinophils % 6.8 % (0.00-10.9); Hematocrit 23.8 VOL% (42.0-52.0); Hemoglobin 7.2 GM/DL (14.0-18.0); Immature Granulocytes % 1.1 %; Immature Granulocytes Absolute 0.08 #; Lymphocytes # 0.5 10*3/uL (1.4-4.0); Lymphocytes % 6.4 % (21.2-54.2); Mean Corpuscular HGB Conc 30.3 GM/DL (32-36); Mean Corpuscular Volume 99.2 FL (87-102); Mean Platelet Volume 10.3 FL (9.6-12.0); Monocytes % 13.3 % (1.7-12.7); Neutrophils % 70.9 % (38.7-73.9); Platelet Count 179 T/CUMM (130-400); Red Cell Distribution Width 19.6 % (9.3-17.3); White Blood Count 7.5 T/CUMM (4-12)
[2021-09-07] MEDS: ACETAMINOPHEN 325 MG TABLET PO PRN (09:46)
[2021-09-07] MEDS: ONDANSETRON 4 MG/2 ML VIAL IV PRN (09:46)
[2021-09-07 10:04] LABS: Calcium 8.2 MG/DL (8.5-10.1); Osmolality,Calculated 276.2 MOS/KG (273-304); Potassium 4.7 MMOL/L (3.5-5.1)
[2021-09-07] MEDS: HYDROmorphone 2 MG/1 ML VIAL IV PRN (15:12)
[2021-09-08] MEDS: ALBUTEROL/IPRATROPIUM 3 ML NEB RESP TX SCH ×4 (02:30→19:55)
[2021-09-08 06:32] LABS: Basophils # 0.1 10*3/uL (0.0-0.2); Basophils % 1.6 % (0.0-0.8); Eosinophils # 0.6 10*3/uL (0.0-0.87); Eosinophils % 8.2 % (0.00-10.9); Hematocrit 26.1 VOL% (42.0-52.0); Hemoglobin 7.9 GM/DL (14.0-18.0); Immature Granulocytes % 0.8 %; Immature Granulocytes Absolute 0.06 #; Lymphocytes # 0.7 10*3/uL (1.4-4.0); Lymphocytes % 9.3 % (21.2-54.2); Mean Corpuscular HGB Conc 30.3 GM/DL (32-36); Mean Corpuscular Volume 99.2 FL (87-102); Mean Platelet Volume 10.3 FL (9.6-12.0); Monocytes % 11.7 % (1.7-12.7); Neutrophils % 68.4 % (38.7-73.9); Platelet Count 234 T/CUMM (130-400); Red Blood Count 2.63 MC/CUMM (3.8-5.5); Red Cell Distribution Width 19.3 % (9.3-17.3); White Blood Count 7.4 T/CUMM (4-12)
[2021-09-08 07:00] LABS: Calcium 8.6 MG/DL (8.5-10.1); Potassium 4.9 MMOL/L (3.5-5.1)
[2021-09-08 07:09] LABS: Hypochromia 1+; Platelet Estimate Normal
[2021-09-08] MEDS: APIXABAN 2.5 MG TABLET PO SCH ×2 (09:20→20:24)
[2021-09-08] MEDS: SERTRALINE 50 MG TABLET PO SCH (09:20)
[2021-09-08] MEDS: SODIUM ZIRCONIUM CYCLOSILICATE 10 GM PACK PO SCH (09:20)
[2021-09-08] MEDS: MIDODRINE 5 MG TABLET PO SCH ×2 (09:20→20:24)
[2021-09-08] MEDS: SODIUM HYPOCHLORITE 0.25% IRRIG 473 ML BOTTLE TOP SCH (09:21)
[2021-09-08] MEDS: PANTOPRAZOLE 40 MG VIAL IV SCH (09:21)
[2021-09-08] MEDS: COLLAGENASE OINT 30 GM TUBE TOP SCH (10:00)
[2021-09-08] MEDS ORDERED: ALTEPLASE 2 MG VIAL IV ONE (11:30)
[2021-09-08] MEDS: HYDROmorphone 2 MG/1 ML VIAL IV PRN (16:11)
[2021-09-09] MEDS: ALBUTEROL/IPRATROPIUM 3 ML NEB RESP TX SCH ×4 (01:50→20:15)
[2021-09-09 06:39] LABS: Basophils # 0.1 10*3/uL (0.0-0.2); Basophils % 1.5 % (0.0-0.8); Eosinophils # 0.8 10*3/uL (0.0-0.87); Eosinophils % 11.5 % (0.00-10.9); Hematocrit 27.1 VOL% (42.0-52.0); Hemoglobin 7.8 GM/DL (14.0-18.0); Immature Granulocytes % 0.8 %; Immature Granulocytes Absolute 0.06 #; Lymphocytes # 0.8 10*3/uL (1.4-4.0); Mean Corpuscular HGB Conc 28.8 GM/DL (32-36); Mean Platelet Volume 10.3 FL (9.6-12.0); Monocytes % 11.7 % (1.7-12.7); Neutrophils % 63.5 % (38.7-73.9); Platelet Count 228 T/CUMM (130-400); Red Blood Count 2.63 MC/CUMM (3.8-5.5); Red Cell Distribution Width 19.8 % (9.3-17.3); White Blood Count 7.3 T/CUMM (4-12)
[2021-09-09 07:03] LABS: Calcium 8.3 MG/DL (8.5-10.1); Osmolality,Calculated 287.8 MOS/KG (273-304); Potassium 5.8 MMOL/L (3.5-5.1)
[2021-09-09 07:07] LABS: Eosinophils 5 % (0-10); Lymphocytes 7 % (20-55); Segmented Neutrophils 79 % (50-85); Total Cells Counted 100
[2021-09-09 07:08] LABS: Hypochromia 1+; Platelet Estimate Normal
[2021-09-09] MEDS: SODIUM ZIRCONIUM CYCLOSILICATE 10 GM PACK PO SCH ×2 (09:25→15:41)
[2021-09-09] MEDS: APIXABAN 2.5 MG TABLET PO SCH ×2 (09:25→20:59)
[2021-09-09] MEDS: MIDODRINE 5 MG TABLET PO SCH ×2 (09:25→20:58)
[2021-09-09] MEDS: SERTRALINE 50 MG TABLET PO SCH (09:25)
[2021-09-09] MEDS: COLLAGENASE OINT 30 GM TUBE TOP SCH (09:26)
[2021-09-09] MEDS: PANTOPRAZOLE 40 MG VIAL IV SCH (09:26)
[2021-09-09] MEDS: SODIUM HYPOCHLORITE 0.25% IRRIG 473 ML BOTTLE TOP SCH (09:26)
[2021-09-09] MEDS ORDERED: INSULIN REGULAR 10 UNIT, CALCIUM GLUCONATE 1,000 MG in DEXTROSE 10% 250 ML IV ONE (13:34)
[2021-09-09] MEDS: HYDROmorphone 2 MG/1 ML VIAL IV PRN ×2 (15:40→20:59)
[2021-09-09] MEDS: ONDANSETRON 4 MG/2 ML VIAL IV PRN (20:58)
[2021-09-10] MEDS ORDERED: SODIUM ZIRCONIUM CYCLOSILICATE 10 GM PACK PO ONE ×2 (00:30→20:28)
[2021-09-10] MEDS: ALBUTEROL/IPRATROPIUM 3 ML NEB RESP TX SCH ×4 (01:50→20:20)
[2021-09-10 05:38] LABS: Calcium 8.4 MG/DL (8.5-10.1); Osmolality,Calculated 281.5 MOS/KG (273-304)
[2021-09-10 05:44] LABS: Basophils # 0.1 10*3/uL (0.0-0.2); Basophils % 1.6 % (0.0-0.8); Eosinophils # 0.9 10*3/uL (0.0-0.87); Eosinophils % 10.1 % (0.00-10.9); Hematocrit 30.1 VOL% (42.0-52.0); Immature Granulocytes % 0.7 %; Immature Granulocytes Absolute 0.06 #; Lymphocytes # 0.9 10*3/uL (1.4-4.0); Lymphocytes % 10.2 % (21.2-54.2); Mean Corpuscular HGB Conc 29.9 GM/DL (32-36); Mean Corpuscular Volume 102.4 FL (87-102); Mean Platelet Volume 10.6 FL (9.6-12.0); Monocytes % 8.8 % (1.7-12.7); Neutrophils % 68.6 % (38.7-73.9); Platelet Count 285 T/CUMM (130-400); Red Blood Count 2.94 MC/CUMM (3.8-5.5); Red Cell Distribution Width 19.7 % (9.3-17.3)
[2021-09-10 06:07] LABS: Potassium 6.3 MMOL/L (3.5-5.1)
[2021-09-10] MEDS: HYDROmorphone 2 MG/1 ML VIAL IV PRN ×2 (06:41→20:22)
[2021-09-10] MEDS ORDERED: INSULIN REGULAR 10 UNIT, CALCIUM GLUCONATE 1,000 MG in DEXTROSE 10% 250 ML IV ONE ×3 (07:19→20:00)
[2021-09-10] MEDS: MIDODRINE 5 MG TABLET PO SCH ×2 (10:07→20:21)
[2021-09-10] MEDS: SERTRALINE 50 MG TABLET PO SCH (10:07)
[2021-09-10] MEDS: PANTOPRAZOLE 40 MG VIAL IV SCH (10:08)
[2021-09-10] MEDS: COLLAGENASE OINT 30 GM TUBE TOP SCH (10:11)
[2021-09-10] MEDS: SODIUM HYPOCHLORITE 0.25% IRRIG 473 ML BOTTLE TOP SCH (10:11)
[2021-09-10] MEDS: SODIUM ZIRCONIUM CYCLOSILICATE 10 GM PACK PO SCH (10:23)
[2021-09-10] MEDS: ONDANSETRON 4 MG/2 ML VIAL IV PRN (19:43)
[2021-09-10] MEDS: DEXTROSE 10% 250 ML BAG IV PRN (20:11)
[2021-09-11] MEDS: SODIUM ZIRCONIUM CYCLOSILICATE 10 GM PACK PO SCH (00:41)
[2021-09-11] MEDS: DEXTROSE 10% 250 ML BAG IV PRN ×2 (00:48→12:44)
[2021-09-11] MEDS: ALBUTEROL/IPRATROPIUM 3 ML NEB RESP TX SCH ×4 (01:34→19:28)
[2021-09-11 05:55] LABS: Basophils # 0.1 10*3/uL (0.0-0.2); Basophils % 1.1 % (0.0-0.8); Eosinophils # 0.2 10*3/uL (0.0-0.87); Eosinophils % 2.3 % (0.00-10.9); Hematocrit 27.5 VOL% (42.0-52.0); Hemoglobin 8.4 GM/DL (14.0-18.0); Immature Granulocytes % 0.6 %; Immature Granulocytes Absolute 0.04 #; Lymphocytes # 0.7 10*3/uL (1.4-4.0); Mean Corpuscular HGB Conc 30.5 GM/DL (32-36); Mean Corpuscular Volume 98.2 FL (87-102); Mean Platelet Volume 10.4 FL (9.6-12.0); Monocytes % 7.2 % (1.7-12.7); Neutrophils % 77.8 % (38.7-73.9); Platelet Count 252 T/CUMM (130-400); Red Cell Distribution Width 19.1 % (9.3-17.3); White Blood Count 6.7 T/CUMM (4-12)
[2021-09-11 06:06] LABS: PT Patient Result 11.1 SECS (10.5-12.0); Partial Thromboplastin Time 26.4 SECS (23.8-32.1)
[2021-09-11 06:24] LABS: Calcium 9.1 MG/DL (8.5-10.1); Osmolality,Calculated 275.9 MOS/KG (273-304)
[2021-09-11 06:26] LABS: Potassium 7.1 MMOL/L (3.5-5.1)
[2021-09-11] MEDS: HYDROmorphone 2 MG/1 ML VIAL IV PRN (07:14)
[2021-09-11] MEDS ORDERED: INSULIN REGULAR 10 UNIT, CALCIUM GLUCONATE 1,000 MG in DEXTROSE 10% 250 ML IV ONE (07:30)
[2021-09-11] MEDS ORDERED: SODIUM ZIRCONIUM CYCLOSILICATE 10 GM PACK PO SCH (07:40)
[2021-09-11] MEDS ORDERED: DEXTROSE 10% IV ONE (08:00)
[2021-09-11] MEDS ORDERED: CALCIUM GLUCONATE IV ONE (08:00)
[2021-09-11] MEDS ORDERED: INSULIN REGULAR IV ONE (08:00)
[2021-09-11] MEDS ORDERED: SODIUM POLYSTYRENE SULFATE 15 GM/60 ML BOTTLE PO ONE (08:50)
[2021-09-11] MEDS ORDERED: SODIUM POLYSTYRENE SULFATE 15 GM/60 ML BOTTLE RECTAL ONE (09:30)
[2021-09-11] MEDS: MIDODRINE 5 MG TABLET PO SCH ×2 (09:30→21:45)
[2021-09-11] MEDS: COLLAGENASE OINT 30 GM TUBE TOP SCH (09:31)
[2021-09-11] MEDS: SODIUM HYPOCHLORITE 0.25% IRRIG 473 ML BOTTLE TOP SCH (09:57)
[2021-09-11] MEDS: SERTRALINE 50 MG TABLET PO SCH (09:58)
[2021-09-11] MEDS: PANTOPRAZOLE 40 MG VIAL IV SCH (09:58)
[2021-09-11] MEDS ORDERED: fentaNYL 100 MCG/2 ML VIAL ONE (13:26)
[2021-09-11] MEDS ORDERED: HEPARIN LOCK FLUSH 500 UNIT/5 ML SYRINGE IV ONE ×2 (13:34→14:45)
[2021-09-11] MEDS ORDERED: fentaNYL 100 MCG/2 ML VIAL IV ONE (13:35)
[2021-09-11] MEDS ORDERED: TISSUE ADHESIVE 1 EACH APPLICATOR TOP ONE (14:46)
[2021-09-11] MEDS ORDERED: HEPARIN LOCK FLUSH 500 UNIT/5 ML SYRINGE IV PRN (15:33)
[2021-09-11 16:57] LABS: Calcium 8.4 MG/DL (8.5-10.1); Osmolality,Calculated 272.4 MOS/KG (273-304); Potassium 3.6 MMOL/L (3.5-5.1)
[2021-09-11] MEDS: ACETAMINOPHEN 325 MG TABLET PO PRN (21:41)
[2021-09-11] MEDS: ONDANSETRON 4 MG/2 ML VIAL IV PRN (21:42)
[2021-09-12] MEDS: ALBUTEROL/IPRATROPIUM 3 ML NEB RESP TX SCH ×4 (00:56→20:04)
[2021-09-12] MEDS: ONDANSETRON 4 MG/2 ML VIAL IV PRN (04:03)
[2021-09-12 05:48] LABS: Basophils # 0.1 10*3/uL (0.0-0.2); Basophils % 0.9 % (0.0-0.8); Eosinophils # 0.2 10*3/uL (0.0-0.87); Eosinophils % 2.3 % (0.00-10.9); Hematocrit 26.5 VOL% (42.0-52.0); Hemoglobin 8.2 GM/DL (14.0-18.0); Immature Granulocytes % 0.7 %; Immature Granulocytes Absolute 0.06 #; Lymphocytes # 0.8 10*3/uL (1.4-4.0); Lymphocytes % 8.8 % (21.2-54.2); Mean Corpuscular HGB Conc 30.9 GM/DL (32-36); Mean Corpuscular Volume 98.1 FL (87-102); Mean Platelet Volume 10.4 FL (9.6-12.0); Monocytes % 7.2 % (1.7-12.7); Neutrophils % 80.1 % (38.7-73.9); Platelet Count 263 T/CUMM (130-400); Red Cell Distribution Width 19.7 % (9.3-17.3); White Blood Count 8.9 T/CUMM (4-12)
[2021-09-12 06:01] LABS: Calcium 8.4 MG/DL (8.5-10.1); Potassium 4.1 MMOL/L (3.5-5.1)
[2021-09-12] MEDS: PANTOPRAZOLE 40 MG VIAL IV SCH (08:41)
[2021-09-12] MEDS: MIDODRINE 5 MG TABLET PO SCH ×2 (08:42→22:08)
[2021-09-12] MEDS: APIXABAN 2.5 MG TABLET PO SCH ×2 (08:42→22:08)
[2021-09-12] MEDS: SODIUM HYPOCHLORITE 0.25% IRRIG 473 ML BOTTLE TOP SCH (10:34)
[2021-09-12] MEDS: SERTRALINE 50 MG TABLET PO SCH (10:34)
[2021-09-12] MEDS: COLLAGENASE OINT 30 GM TUBE TOP SCH (10:34)
[2021-09-12] MEDS ORDERED: SILVER NITRATE STICK 1 EACH TOP ONE (13:42)
[2021-09-12] MEDS: ACETAMINOPHEN 325 MG TABLET PO PRN (14:27)
[2021-09-12] MEDS: MELATONIN 3 MG TABLET PO PRN (22:08)
[2021-09-13] MEDS: ALBUTEROL/IPRATROPIUM 3 ML NEB RESP TX SCH ×4 (00:02→19:25)
[2021-09-13 08:08] LABS: Basophils # 0.1 10*3/uL (0.0-0.2); Basophils % 1.2 % (0.0-0.8); Eosinophils # 0.4 10*3/uL (0.0-0.87); Eosinophils % 5.3 % (0.00-10.9); Hematocrit 25.7 VOL% (42.0-52.0); Hemoglobin 7.6 GM/DL (14.0-18.0); Immature Granulocytes % 0.3 %; Immature Granulocytes Absolute 0.02 #; Lymphocytes # 0.9 10*3/uL (1.4-4.0); Lymphocytes % 13.8 % (21.2-54.2); Mean Corpuscular HGB Conc 29.6 GM/DL (32-36); Mean Corpuscular Volume 100.4 FL (87-102); Mean Platelet Volume 10.2 FL (9.6-12.0); Monocytes % 15.8 % (1.7-12.7); Neutrophils % 63.6 % (38.7-73.9); Platelet Count 228 T/CUMM (130-400); Red Blood Count 2.56 MC/CUMM (3.8-5.5); Red Cell Distribution Width 19.9 % (9.3-17.3); White Blood Count 6.6 T/CUMM (4-12)
[2021-09-13 08:28] LABS: Osmolality,Calculated 280.4 MOS/KG (273-304); Potassium 3.7 MMOL/L (3.5-5.1)
[2021-09-13 08:29] LABS: Eosinophils 6 % (0-10); Hypochromia 1+; Lymphocytes 13 % (20-55); Microcytosis 1+; Platelet Estimate Adequate; Segmented Neutrophils 68 % (50-85); Total Cells Counted 100
[2021-09-13] MEDS: SODIUM HYPOCHLORITE 0.25% IRRIG 473 ML BOTTLE TOP SCH (12:38)
[2021-09-13] MEDS: PANTOPRAZOLE 40 MG VIAL IV SCH (13:10)
[2021-09-13] MEDS: MIDODRINE 5 MG TABLET PO SCH ×2 (13:10→21:07)
[2021-09-13] MEDS: APIXABAN 2.5 MG TABLET PO SCH ×2 (13:10→21:08)
[2021-09-13] MEDS: SERTRALINE 50 MG TABLET PO SCH (13:10)
[2021-09-13] MEDS: HYDROmorphone 2 MG/1 ML VIAL IV PRN (14:08)
[2021-09-13] MEDS: COLLAGENASE OINT 30 GM TUBE TOP SCH (14:30)
[2021-09-13] MEDS: MELATONIN 3 MG TABLET PO PRN (21:57)
[2021-09-14] MEDS: ALBUTEROL/IPRATROPIUM 3 ML NEB RESP TX SCH ×4 (01:18→19:55)
[2021-09-14] MEDS: HYDROmorphone 2 MG/1 ML VIAL IV PRN (04:06)
[2021-09-14] MEDS: ACETAMINOPHEN 325 MG TABLET PO PRN ×2 (05:15→21:56)
[2021-09-14 06:40] LABS: Basophils # 0.1 10*3/uL (0.0-0.2); Basophils % 1.4 % (0.0-0.8); Eosinophils # 0.5 10*3/uL (0.0-0.87); Eosinophils % 7.3 % (0.00-10.9); Hematocrit 25.6 VOL% (42.0-52.0); Hemoglobin 7.8 GM/DL (14.0-18.0); Immature Granulocytes % 0.5 %; Immature Granulocytes Absolute 0.03 #; Lymphocytes % 16.1 % (21.2-54.2); Mean Corpuscular HGB Conc 30.5 GM/DL (32-36); Mean Corpuscular Volume 99.2 FL (87-102); Mean Platelet Volume 9.8 FL (9.6-12.0); NRBC # 0.02 10*3/uL; Neutrophils % 62.7 % (38.7-73.9); Platelet Count 233 T/CUMM (130-400); Red Blood Count 2.58 MC/CUMM (3.8-5.5); Red Cell Distribution Width 19.4 % (9.3-17.3); White Blood Count 6.4 T/CUMM (4-12)
[2021-09-14 07:00] LABS: Calcium 7.8 MG/DL (8.5-10.1); Osmolality,Calculated 274.7 MOS/KG (273-304); Potassium 3.8 MMOL/L (3.5-5.1)
[2021-09-14] MEDS ORDERED: SODIUM CHLORIDE 0.9% 1,000 ML IV PRN (09:19)
[2021-09-14] MEDS: SODIUM HYPOCHLORITE 0.25% IRRIG 473 ML BOTTLE TOP SCH (10:44)
[2021-09-14] MEDS: MIDODRINE 5 MG TABLET PO SCH ×2 (10:44→21:56)
[2021-09-14] MEDS: APIXABAN 2.5 MG TABLET PO SCH ×2 (10:44→21:56)
[2021-09-14] MEDS: PANTOPRAZOLE 40 MG VIAL IV SCH (10:45)
[2021-09-14] MEDS: SERTRALINE 50 MG TABLET PO SCH (10:45)
[2021-09-14] MEDS: COLLAGENASE OINT 30 GM TUBE TOP SCH (10:45)
[2021-09-14] MEDS: MELATONIN 3 MG TABLET PO PRN (21:56)
[2021-09-15] MEDS: ALBUTEROL/IPRATROPIUM 3 ML NEB RESP TX SCH ×4 (01:43→19:34)
[2021-09-15] MEDS: ACETAMINOPHEN 325 MG TABLET PO PRN (03:21)
[2021-09-15 05:45] LABS: Basophils # 0.1 10*3/uL (0.0-0.2); Basophils % 1.7 % (0.0-0.8); Eosinophils # 0.5 10*3/uL (0.0-0.87); Eosinophils % 8.6 % (0.00-10.9); Hematocrit 26.5 VOL% (42.0-52.0); Hemoglobin 8.1 GM/DL (14.0-18.0); Immature Granulocytes % 0.5 %; Immature Granulocytes Absolute 0.03 #; Lymphocytes # 0.9 10*3/uL (1.4-4.0); Lymphocytes % 14.5 % (21.2-54.2); Mean Corpuscular HGB Conc 30.6 GM/DL (32-36); Mean Corpuscular Volume 99.6 FL (87-102); Mean Platelet Volume 10.1 FL (9.6-12.0); Monocytes % 12.1 % (1.7-12.7); NRBC # 0.03 10*3/uL; Neutrophils % 62.6 % (38.7-73.9); Platelet Count 250 T/CUMM (130-400); Red Blood Count 2.66 MC/CUMM (3.8-5.5); Red Cell Distribution Width 19.4 % (9.3-17.3); White Blood Count 6.1 T/CUMM (4-12)
[2021-09-15 06:01] LABS: Calcium 8.5 MG/DL (8.5-10.1); Potassium 4.7 MMOL/L (3.5-5.1)
[2021-09-15 06:09] LABS: Band Neutrophils 1 % (0-10); Eosinophils 7 % (0-10); Hypochromia 1+; Lymphocytes 12 % (20-55); Microcytosis 1+; Platelet Estimate Adequate; Segmented Neutrophils 70 % (50-85); Total Cells Counted 100
[2021-09-15] MEDS: HYDROmorphone 2 MG/1 ML VIAL IV PRN ×2 (09:27→18:34)
[2021-09-15] MEDS: SERTRALINE 50 MG TABLET PO SCH (09:28)
[2021-09-15] MEDS: MIDODRINE 5 MG TABLET PO SCH ×2 (09:28→20:53)
[2021-09-15] MEDS: PANTOPRAZOLE 40 MG VIAL IV SCH (09:29)
[2021-09-15] MEDS: APIXABAN 2.5 MG TABLET PO SCH ×2 (09:30→20:53)
[2021-09-15] MEDS: SODIUM HYPOCHLORITE 0.25% IRRIG 473 ML BOTTLE TOP SCH (17:49)
[2021-09-15] MEDS: COLLAGENASE OINT 30 GM TUBE TOP SCH (17:49)
[2021-09-15] MEDS: MELATONIN 3 MG TABLET PO PRN (20:53)
[2021-09-16] MEDS: ALBUTEROL/IPRATROPIUM 3 ML NEB RESP TX SCH ×4 (00:37→19:42)
[2021-09-16] MEDS: HYDROmorphone 2 MG/1 ML VIAL IV PRN ×3 (01:47→20:47)
[2021-09-16 07:23] LABS: Basophils # 0.1 10*3/uL (0.0-0.2); Basophils % 1.9 % (0.0-0.8); Eosinophils # 0.5 10*3/uL (0.0-0.87); Eosinophils % 8.9 % (0.00-10.9); Hematocrit 27.2 VOL% (42.0-52.0); Immature Granulocytes % 0.9 %; Immature Granulocytes Absolute 0.05 #; Lymphocytes # 0.9 10*3/uL (1.4-4.0); Lymphocytes % 15.6 % (21.2-54.2); Mean Corpuscular HGB Conc 29.4 GM/DL (32-36); Mean Corpuscular Volume 103.4 FL (87-102); Mean Platelet Volume 10.4 FL (9.6-12.0); Monocytes % 15.4 % (1.7-12.7); Neutrophils % 57.3 % (38.7-73.9); Platelet Count 230 T/CUMM (130-400); Red Blood Count 2.63 MC/CUMM (3.8-5.5); Red Cell Distribution Width 20.1 % (9.3-17.3); White Blood Count 5.8 T/CUMM (4-12)
[2021-09-16 07:45] LABS: Calcium 7.9 MG/DL (8.5-10.1); Osmolality,Calculated 279.8 MOS/KG (273-304); Potassium 5.2 MMOL/L (3.5-5.1)
[2021-09-16 08:40] LABS: Eosinophils 9 % (0-10); Lymphocytes 14 % (20-55); Nucleated Red Blood Cells 1 (0-5); Platelet Estimate Normal; Schistocytes Slight; Segmented Neutrophils 61 % (50-85); Total Cells Counted 100
[2021-09-16 08:41] LABS: Anisocytosis 2+; Polychromasia Slight; Target Cells Few
[2021-09-16] MEDS: SERTRALINE 50 MG TABLET PO SCH (08:59)
[2021-09-16] MEDS: MIDODRINE 5 MG TABLET PO SCH ×2 (08:59→20:59)
[2021-09-16] MEDS: PANTOPRAZOLE 40 MG VIAL IV SCH (08:59)
[2021-09-16] MEDS: APIXABAN 2.5 MG TABLET PO SCH ×2 (09:00→20:59)
[2021-09-16] MEDS: SODIUM HYPOCHLORITE 0.25% IRRIG 473 ML BOTTLE TOP SCH (17:07)
[2021-09-16] MEDS: COLLAGENASE OINT 30 GM TUBE TOP SCH (17:07)
[2021-09-17] MEDS: ALBUTEROL/IPRATROPIUM 3 ML NEB RESP TX SCH ×4 (00:17→19:14)
[2021-09-17 06:23] LABS: Basophils # 0.1 10*3/uL (0.0-0.2); Basophils % 1.6 % (0.0-0.8); Eosinophils # 0.5 10*3/uL (0.0-0.87); Eosinophils % 10.7 % (0.00-10.9); Hematocrit 29.2 VOL% (42.0-52.0); Hemoglobin 8.5 GM/DL (14.0-18.0); Immature Granulocytes % 0.6 %; Immature Granulocytes Absolute 0.03 #; Lymphocytes # 0.8 10*3/uL (1.4-4.0); Lymphocytes % 16.5 % (21.2-54.2); Mean Corpuscular HGB Conc 29.1 GM/DL (32-36); Mean Corpuscular Volume 105.4 FL (87-102); Mean Platelet Volume 10.3 FL (9.6-12.0); Monocytes % 16.5 % (1.7-12.7); Neutrophils % 54.1 % (38.7-73.9); Platelet Count 216 T/CUMM (130-400); Red Blood Count 2.77 MC/CUMM (3.8-5.5); Red Cell Distribution Width 20.8 % (9.3-17.3); White Blood Count 4.9 T/CUMM (4-12)
[2021-09-17 06:34] LABS: Calcium 7.7 MG/DL (8.5-10.1); Osmolality,Calculated 278.4 MOS/KG (273-304); Potassium 4.4 MMOL/L (3.5-5.1)
[2021-09-17 07:59] LABS: Platelet Estimate Normal
[2021-09-17 08:00] LABS: Macrocytosis Slight
[2021-09-17 08:01] LABS: Polychromasia Slight; Schistocytes Few
[2021-09-17 08:02] LABS: Target Cells Few
[2021-09-17] MEDS: MIDODRINE 5 MG TABLET PO SCH ×2 (09:05→21:10)
[2021-09-17] MEDS: SERTRALINE 50 MG TABLET PO SCH (09:05)
[2021-09-17] MEDS: HYDROmorphone 2 MG/1 ML VIAL IV PRN ×3 (09:05→15:43)
[2021-09-17] MEDS: APIXABAN 2.5 MG TABLET PO SCH ×2 (09:05→21:10)
[2021-09-17] MEDS: PANTOPRAZOLE 40 MG VIAL IV SCH (09:06)
[2021-09-17] MEDS: COLLAGENASE OINT 30 GM TUBE TOP SCH (14:52)
[2021-09-17] MEDS: SODIUM HYPOCHLORITE 0.25% IRRIG 473 ML BOTTLE TOP SCH (14:52)
[2021-09-17] MEDS: MELATONIN 3 MG TABLET PO PRN (21:09)
[2021-09-17] MEDS: oxyCODONE/ACETAMINOPHEN 5-325 MG TABLET PO PRN (22:47)
[2021-09-18] MEDS: ALBUTEROL/IPRATROPIUM 3 ML NEB RESP TX SCH ×4 (00:23→18:49)
[2021-09-18 05:55] LABS: Basophils # 0.1 10*3/uL (0.0-0.2); Basophils % 1.6 % (0.0-0.8); Eosinophils # 0.5 10*3/uL (0.0-0.87); Eosinophils % 8.2 % (0.00-10.9); Hematocrit 26.3 VOL% (42.0-52.0); Hemoglobin 7.9 GM/DL (14.0-18.0); Immature Granulocytes % 0.9 %; Immature Granulocytes Absolute 0.05 #; Lymphocytes # 1.2 10*3/uL (1.4-4.0); Lymphocytes % 20.1 % (21.2-54.2); Mean Corpuscular Volume 101.5 FL (87-102); Mean Platelet Volume 10.1 FL (9.6-12.0); Monocytes % 17.2 % (1.7-12.7); Platelet Count 201 T/CUMM (130-400); Red Blood Count 2.59 MC/CUMM (3.8-5.5); Red Cell Distribution Width 20.7 % (9.3-17.3); White Blood Count 5.7 T/CUMM (4-12)
[2021-09-18 06:16] LABS: Eosinophils 9 % (0-10); Lymphocytes 20 % (20-55); Segmented Neutrophils 57 % (50-85); Total Cells Counted 100
[2021-09-18 06:17] LABS: Hypochromia 1+; Microcytosis 1+; Platelet Estimate Adequate
[2021-09-18 06:18] LABS: Calcium 8.4 MG/DL (8.5-10.1); Osmolality,Calculated 278.7 MOS/KG (273-304); Potassium 4.9 MMOL/L (3.5-5.1)
[2021-09-18] MEDS: HYDROmorphone 2 MG/1 ML VIAL IV PRN ×2 (09:16→16:45)
[2021-09-18] MEDS: PANTOPRAZOLE 40 MG VIAL IV SCH (09:16)
[2021-09-18] MEDS: APIXABAN 2.5 MG TABLET PO SCH ×2 (09:18→21:07)
[2021-09-18] MEDS: SODIUM HYPOCHLORITE 0.25% IRRIG 473 ML BOTTLE TOP SCH (09:18)
[2021-09-18] MEDS: MIDODRINE 5 MG TABLET PO SCH ×2 (09:18→21:07)
[2021-09-18] MEDS: COLLAGENASE OINT 30 GM TUBE TOP SCH (09:18)
[2021-09-18] MEDS: SERTRALINE 50 MG TABLET PO SCH (09:18)
[2021-09-19] MEDS: HYDROmorphone 2 MG/1 ML VIAL IV PRN ×4 (00:35→20:01)
[2021-09-19] MEDS: ALBUTEROL/IPRATROPIUM 3 ML NEB RESP TX SCH ×5 (00:39→20:41)
[2021-09-19] MEDS: SERTRALINE 50 MG TABLET PO SCH (08:50)
[2021-09-19] MEDS: PANTOPRAZOLE 40 MG VIAL IV SCH (08:50)
[2021-09-19] MEDS: COLLAGENASE OINT 30 GM TUBE TOP SCH (08:50)
[2021-09-19] MEDS: SODIUM HYPOCHLORITE 0.25% IRRIG 473 ML BOTTLE TOP SCH (08:50)
[2021-09-19] MEDS: MIDODRINE 5 MG TABLET PO SCH ×2 (08:50→20:53)
[2021-09-19] MEDS: APIXABAN 2.5 MG TABLET PO SCH ×2 (08:50→20:53)
[2021-09-19] MEDS: oxyCODONE/ACETAMINOPHEN 5-325 MG TABLET PO PRN (23:32)
[2021-09-20] MEDS: ALBUTEROL/IPRATROPIUM 3 ML NEB RESP TX SCH ×4 (00:12→19:12)
[2021-09-20] MEDS: SERTRALINE 50 MG TABLET PO SCH (08:50)
[2021-09-20] MEDS: APIXABAN 2.5 MG TABLET PO SCH ×2 (08:50→20:16)
[2021-09-20] MEDS: MIDODRINE 5 MG TABLET PO SCH ×2 (08:50→20:16)
[2021-09-20] MEDS: PANTOPRAZOLE 40 MG VIAL IV SCH (08:51)
[2021-09-20] MEDS: SODIUM HYPOCHLORITE 0.25% IRRIG 473 ML BOTTLE TOP SCH (08:52)
[2021-09-20] MEDS: COLLAGENASE OINT 30 GM TUBE TOP SCH (08:52)
[2021-09-20] MEDS: HYDROmorphone 2 MG/1 ML VIAL IV PRN ×2 (08:52→18:27)
[2021-09-20] MEDS: oxyCODONE/ACETAMINOPHEN 5-325 MG TABLET PO PRN (13:19)
[2021-09-21] MEDS: ALBUTEROL/IPRATROPIUM 3 ML NEB RESP TX SCH ×4 (00:20→19:48)
[2021-09-21] MEDS: oxyCODONE/ACETAMINOPHEN 5-325 MG TABLET PO PRN ×2 (02:23→14:16)
[2021-09-21] MEDS: HYDROmorphone 2 MG/1 ML VIAL IV PRN ×2 (06:36→19:17)
[2021-09-21] MEDS: MIDODRINE 5 MG TABLET PO SCH ×2 (08:41→22:35)
[2021-09-21] MEDS: APIXABAN 2.5 MG TABLET PO SCH ×2 (08:41→22:35)
[2021-09-21] MEDS: PANTOPRAZOLE 40 MG VIAL IV SCH (08:41)
[2021-09-21] MEDS: SERTRALINE 50 MG TABLET PO SCH (08:41)
[2021-09-21] MEDS: SODIUM HYPOCHLORITE 0.25% IRRIG 473 ML BOTTLE TOP SCH (09:01)
[2021-09-21] MEDS: COLLAGENASE OINT 30 GM TUBE TOP SCH (09:01)
[2021-09-21] MEDS: MELATONIN 3 MG TABLET PO PRN (22:34)
[2021-09-22] MEDS: ALBUTEROL/IPRATROPIUM 3 ML NEB RESP TX SCH ×4 (01:34→19:58)
[2021-09-22] MEDS: oxyCODONE/ACETAMINOPHEN 5-325 MG TABLET PO PRN (05:17)
[2021-09-22] MEDS: PANTOPRAZOLE 40 MG VIAL IV SCH (10:38)
[2021-09-22] MEDS: APIXABAN 2.5 MG TABLET PO SCH ×2 (10:38→20:55)
[2021-09-22] MEDS: SERTRALINE 50 MG TABLET PO SCH (10:38)
[2021-09-22] MEDS: COLLAGENASE OINT 30 GM TUBE TOP SCH (10:39)
[2021-09-22] MEDS: SODIUM HYPOCHLORITE 0.25% IRRIG 473 ML BOTTLE TOP SCH (10:39)
[2021-09-22] MEDS: MIDODRINE 5 MG TABLET PO SCH ×2 (10:39→20:55)
[2021-09-22] MEDS: HYDROmorphone 2 MG/1 ML VIAL IV PRN (17:58)
[2021-09-23] MEDS: ALBUTEROL/IPRATROPIUM 3 ML NEB RESP TX SCH ×5 (01:37→19:48)
[2021-09-23] MEDS: oxyCODONE/ACETAMINOPHEN 5-325 MG TABLET PO PRN ×3 (04:04→16:07)
[2021-09-23 09:42] LABS: Calcium 8.6 MG/DL (8.5-10.1); Osmolality,Calculated 276.1 MOS/KG (273-304); Potassium 5.3 MMOL/L (3.5-5.1)
[2021-09-23] MEDS: SODIUM HYPOCHLORITE 0.25% IRRIG 473 ML BOTTLE TOP SCH (11:02)
[2021-09-23] MEDS: APIXABAN 2.5 MG TABLET PO SCH ×2 (11:02→20:42)
[2021-09-23] MEDS: SERTRALINE 50 MG TABLET PO SCH (11:03)
[2021-09-23] MEDS: COLLAGENASE OINT 30 GM TUBE TOP SCH (11:03)
[2021-09-23] MEDS: MIDODRINE 5 MG TABLET PO SCH ×2 (11:03→20:41)
[2021-09-23] MEDS: PANTOPRAZOLE 40 MG VIAL IV SCH (11:03)
[2021-09-24] MEDS: ALBUTEROL/IPRATROPIUM 3 ML NEB RESP TX SCH ×4 (00:53→19:19)
[2021-09-24] MEDS: oxyCODONE/ACETAMINOPHEN 5-325 MG TABLET PO PRN ×2 (04:54→11:32)
[2021-09-24 07:03] LABS: Basophils # 0.1 10*3/uL (0.0-0.2); Basophils % 0.4 % (0.0-0.8); Eosinophils # 0.4 10*3/uL (0.0-0.87); Eosinophils % 2.4 % (0.00-10.9); Hematocrit 31.1 VOL% (42.0-52.0); Hemoglobin 9.2 GM/DL (14.0-18.0); Immature Granulocytes % 0.8 %; Immature Granulocytes Absolute 0.15 #; Lymphocytes % 5.6 % (21.2-54.2); Mean Corpuscular HGB Conc 29.6 GM/DL (32-36); Mean Corpuscular Volume 103.3 FL (87-102); Mean Platelet Volume 10.5 FL (9.6-12.0); Monocytes % 4.3 % (1.7-12.7); NRBC # 0.02 10*3/uL; Neutrophils % 86.5 % (38.7-73.9); Platelet Count 179 T/CUMM (130-400); Red Blood Count 3.01 MC/CUMM (3.8-5.5); Red Cell Distribution Width 19.8 % (9.3-17.3); White Blood Count 18.4 T/CUMM (4-12)
[2021-09-24] MEDS: SERTRALINE 50 MG TABLET PO SCH (10:25)
[2021-09-24] MEDS: SODIUM HYPOCHLORITE 0.25% IRRIG 473 ML BOTTLE TOP SCH (10:25)
[2021-09-24] MEDS: MIDODRINE 5 MG TABLET PO SCH ×2 (10:25→20:15)
[2021-09-24] MEDS: APIXABAN 2.5 MG TABLET PO SCH ×2 (10:25→20:15)
[2021-09-24] MEDS: PANTOPRAZOLE 40 MG VIAL IV SCH (10:26)
[2021-09-24] MEDS: COLLAGENASE OINT 30 GM TUBE TOP SCH (10:26)
[2021-09-24] MEDS: MELATONIN 3 MG TABLET PO PRN (20:15)
[2021-09-25] MEDS: ALBUTEROL/IPRATROPIUM 3 ML NEB RESP TX SCH ×4 (02:54→19:38)
[2021-09-25 05:50] LABS: Potassium 5.5 MMOL/L (3.5-5.1)
[2021-09-25 06:19] LABS: Basophils # 0.1 10*3/uL (0.0-0.2); Basophils % 0.5 % (0.0-0.8); Eosinophils # 0.2 10*3/uL (0.0-0.87); Eosinophils % 1.7 % (0.00-10.9); Hematocrit 32.4 VOL% (42.0-52.0); Hemoglobin 9.4 GM/DL (14.0-18.0); Immature Granulocytes % 0.9 %; Immature Granulocytes Absolute 0.12 #; Lymphocytes # 0.8 10*3/uL (1.4-4.0); Mean Corpuscular Volume 104.2 FL (87-102); Mean Platelet Volume 10.8 FL (9.6-12.0); Monocytes % 6.1 % (1.7-12.7); Neutrophils % 84.8 % (38.7-73.9); Red Blood Count 3.11 MC/CUMM (3.8-5.5); Red Cell Distribution Width 19.4 % (9.3-17.3); White Blood Count 13.2 T/CUMM (4-12)
[2021-09-25 06:20] LABS: Platelet Count 138 T/CUMM (130-400)
[2021-09-25] MEDS: oxyCODONE/ACETAMINOPHEN 5-325 MG TABLET PO PRN ×2 (08:46→17:25)
[2021-09-25] MEDS: PANTOPRAZOLE 40 MG VIAL IV SCH (08:46)
[2021-09-25] MEDS: GLUCAGON 1 MG VIAL IM PRN (08:46)
[2021-09-25] MEDS: SERTRALINE 50 MG TABLET PO SCH (08:46)
[2021-09-25] MEDS: APIXABAN 2.5 MG TABLET PO SCH ×2 (08:47→20:55)
[2021-09-25] MEDS: MIDODRINE 5 MG TABLET PO SCH ×2 (08:47→20:55)
[2021-09-25] MEDS: SODIUM HYPOCHLORITE 0.25% IRRIG 473 ML BOTTLE TOP SCH (14:18)
[2021-09-25] MEDS: COLLAGENASE OINT 30 GM TUBE TOP SCH (14:18)
[2021-09-25] MEDS ORDERED: EPOETIN ALFA-EPBX 10,000 UNIT/ML VIAL SUBCUT SCH (15:30)
[2021-09-25] MEDS: MELATONIN 3 MG TABLET PO PRN (20:55)
[2021-09-26] MEDS: ALBUTEROL/IPRATROPIUM 3 ML NEB RESP TX SCH ×4 (00:06→19:26)
[2021-09-26 05:33] LABS: Calcium 8.2 MG/DL (8.5-10.1); Potassium 5.9 MMOL/L (3.5-5.1)
[2021-09-26 08:04] LABS: Basophils # 0.1 10*3/uL (0.0-0.2); Basophils % 0.4 % (0.0-0.8); Eosinophils # 0.2 10*3/uL (0.0-0.87); Eosinophils % 1.4 % (0.00-10.9); Hematocrit 32.3 VOL% (42.0-52.0); Immature Granulocytes % 0.7 %; Lymphocytes # 0.8 10*3/uL (1.4-4.0); Lymphocytes % 5.6 % (21.2-54.2); Mean Corpuscular HGB Conc 27.9 GM/DL (32-36); Mean Platelet Volume 11.1 FL (9.6-12.0); Monocytes % 5.5 % (1.7-12.7); Neutrophils % 86.4 % (38.7-73.9); Platelet Count 161 T/CUMM (130-400); Red Blood Count 2.99 MC/CUMM (3.8-5.5); Red Cell Distribution Width 19.6 % (9.3-17.3); White Blood Count 13.8 T/CUMM (4-12)
[2021-09-26] MEDS: PANTOPRAZOLE 40 MG VIAL IV SCH (10:37)
[2021-09-26] MEDS: SERTRALINE 50 MG TABLET PO SCH (10:37)
[2021-09-26] MEDS: APIXABAN 2.5 MG TABLET PO SCH ×2 (10:37→21:50)
[2021-09-26] MEDS: MIDODRINE 5 MG TABLET PO SCH ×2 (10:37→21:50)
[2021-09-26] MEDS: SODIUM HYPOCHLORITE 0.25% IRRIG 473 ML BOTTLE TOP SCH (16:49)
[2021-09-26] MEDS: COLLAGENASE OINT 30 GM TUBE TOP SCH (16:50)
[2021-09-26] MEDS: DEXTROSE 10% 250 ML BAG IV PRN (23:50)
[2021-09-27] MEDS: ALBUTEROL/IPRATROPIUM 3 ML NEB RESP TX SCH ×4 (00:57→19:26)
[2021-09-27] MEDS: ONDANSETRON 4 MG/2 ML VIAL IV PRN (02:00)
[2021-09-27 05:52] LABS: Basophils % 0.4 % (0.0-0.8); Eosinophils # 0.1 10*3/uL (0.0-0.87); Eosinophils % 0.8 % (0.00-10.9); Hematocrit 29.5 VOL% (42.0-52.0); Hemoglobin 8.6 GM/DL (14.0-18.0); Immature Granulocytes % 0.6 %; Immature Granulocytes Absolute 0.06 #; Lymphocytes # 0.7 10*3/uL (1.4-4.0); Lymphocytes % 6.3 % (21.2-54.2); Mean Corpuscular HGB Conc 29.2 GM/DL (32-36); Mean Corpuscular Volume 103.1 FL (87-102); Mean Platelet Volume 11.4 FL (9.6-12.0); Monocytes % 5.1 % (1.7-12.7); Neutrophils % 86.8 % (38.7-73.9); Platelet Count 129 T/CUMM (130-400); Red Blood Count 2.86 MC/CUMM (3.8-5.5); Red Cell Distribution Width 18.8 % (9.3-17.3); White Blood Count 10.7 T/CUMM (4-12)
[2021-09-27 06:14] LABS: Potassium 5.8 MMOL/L (3.5-5.1)
[2021-09-27] MEDS: DEXTROSE 10% 250 ML BAG IV PRN (06:25)
[2021-09-27] MEDS: oxyCODONE/ACETAMINOPHEN 5-325 MG TABLET PO PRN (09:26)
[2021-09-27] MEDS: APIXABAN 2.5 MG TABLET PO SCH ×2 (09:27→21:08)
[2021-09-27] MEDS: MIDODRINE 5 MG TABLET PO SCH ×2 (09:27→21:08)
[2021-09-27] MEDS: PANTOPRAZOLE 40 MG VIAL IV SCH (09:27)
[2021-09-27] MEDS: SERTRALINE 50 MG TABLET PO SCH (09:27)
[2021-09-27] MEDS: COLLAGENASE OINT 30 GM TUBE TOP SCH (09:28)
[2021-09-27] MEDS: SODIUM HYPOCHLORITE 0.25% IRRIG 473 ML BOTTLE TOP SCH (09:28)
[2021-09-28] MEDS: ALBUTEROL/IPRATROPIUM 3 ML NEB RESP TX SCH ×3 (00:06→19:14)
[2021-09-28] MEDS: ACETAMINOPHEN 325 MG TABLET PO PRN (02:19)
[2021-09-28 11:29] LABS: Hepatitis B Surface Ag Quant < 0.10 Index; Hepatitis B Surface Ag Result Non-Reactive (NonReactive); Hepatitis C Virus Ab Quant 0.19 Index; Hepatitis C Virus Ab Result Non-Reactive (NonReactive)
[2021-09-28] MEDS: APIXABAN 2.5 MG TABLET PO SCH ×2 (12:44→21:28)
[2021-09-28] MEDS: SODIUM HYPOCHLORITE 0.25% IRRIG 473 ML BOTTLE TOP SCH (12:44)
[2021-09-28] MEDS: MIDODRINE 5 MG TABLET PO SCH ×2 (12:44→21:28)
[2021-09-28] MEDS: SERTRALINE 50 MG TABLET PO SCH (12:44)
[2021-09-28] MEDS: PANTOPRAZOLE 40 MG TABLET PO SCH (12:44)
[2021-09-28] MEDS: oxyCODONE/ACETAMINOPHEN 5-325 MG TABLET PO PRN ×2 (12:45→21:28)
[2021-09-28] MEDS: COLLAGENASE OINT 30 GM TUBE TOP SCH (12:49)
[2021-09-29] MEDS: ALBUTEROL/IPRATROPIUM 3 ML NEB RESP TX SCH ×5 (00:07→19:47)
[2021-09-29] MEDS: oxyCODONE/ACETAMINOPHEN 5-325 MG TABLET PO PRN ×2 (07:18→22:01)
[2021-09-29] MEDS: MIDODRINE 5 MG TABLET PO SCH ×3 (09:08→21:15)
[2021-09-29] MEDS: PANTOPRAZOLE 40 MG TABLET PO SCH (09:08)
[2021-09-29] MEDS: APIXABAN 2.5 MG TABLET PO SCH ×2 (09:08→21:14)
[2021-09-29] MEDS: SERTRALINE 50 MG TABLET PO SCH (09:08)
[2021-09-29] MEDS: COLLAGENASE OINT 30 GM TUBE TOP SCH (09:09)
[2021-09-29] MEDS: SODIUM HYPOCHLORITE 0.25% IRRIG 473 ML BOTTLE TOP SCH (09:09)
[2021-09-29 11:03] LABS: Calcium 8.3 MG/DL (8.5-10.1); Osmolality,Calculated 277.7 MOS/KG (273-304); Potassium 4.7 MMOL/L (3.5-5.1)
[2021-09-29 11:23] LABS: Basophils % 0.3 % (0.0-0.8); Eosinophils # 0.1 10*3/uL (0.0-0.87); Hematocrit 28.7 VOL% (42.0-52.0); Immature Granulocytes % 0.8 %; Immature Granulocytes Absolute 0.09 #; Lymphocytes # 0.8 10*3/uL (1.4-4.0); Mean Corpuscular HGB Conc 29.6 GM/DL (32-36); Mean Corpuscular Volume 99.7 FL (87-102); Mean Platelet Volume 10.6 FL (9.6-12.0); Monocytes % 4.9 % (1.7-12.7); Platelet Count 162 T/CUMM (130-400); Red Blood Count 2.88 MC/CUMM (3.8-5.5); Red Cell Distribution Width 18.1 % (9.3-17.3); White Blood Count 11.1 T/CUMM (4-12)
[2021-09-29 11:27] LABS: Hemoglobin 8.5 GM/DL (14.0-18.0)
[2021-09-29] MEDS ORDERED: MIDODRINE 5 MG TABLET PO ONE (11:30)
[2021-09-29 12:10] LABS: Hypochromia 1+; Lymphocytes 5 % (20-55); Metamyelocytes 1 %; Microcytosis Slight; Platelet Estimate Normal; Segmented Neutrophils 91 % (50-85); Total Cells Counted 100
[2021-09-29] MEDS ORDERED: SODIUM CHLORIDE 0.9% 500 ML IV ONE (19:15)
[2021-09-29] MEDS: ALBUMIN 25% 25 GM/100 ML VIAL IV SCH (21:10)
[2021-09-29] MEDS: MEROPENEM 500 MG in SODIUM CHLORIDE 0.9% 100 ML IV SCH (22:02)
[2021-09-30] MEDS: ALBUTEROL/IPRATROPIUM 3 ML NEB RESP TX SCH ×4 (00:49→19:08)
[2021-09-30 05:00] LABS: Basophils # 0.1 10*3/uL (0.0-0.2); Basophils % 0.7 % (0.0-0.8); Eosinophils # 0.2 10*3/uL (0.0-0.87); Eosinophils % 2.2 % (0.00-10.9); Hematocrit 28.8 VOL% (42.0-52.0); Hemoglobin 8.3 GM/DL (14.0-18.0); Immature Granulocytes % 0.7 %; Immature Granulocytes Absolute 0.06 #; Lymphocytes % 10.9 % (21.2-54.2); Mean Corpuscular HGB Conc 28.8 GM/DL (32-36); Mean Corpuscular Volume 99.3 FL (87-102); Mean Platelet Volume 10.5 FL (9.6-12.0); Monocytes % 7.3 % (1.7-12.7); Neutrophils % 78.2 % (38.7-73.9); Platelet Count 170 T/CUMM (130-400); Red Cell Distribution Width 17.9 % (9.3-17.3)
[2021-09-30 05:23] LABS: Alanine Aminotransferase < 6 U/L (16-61); Albumin 1.4 G/DL (3.4-5.0); Alkaline Phosphatase 119 U/L (45-117); Aspartate Amino Transferase 14 U/L (0-37); Blood Urea Nitrogen 30 MG/DL (7-18); Carbon Dioxide 25 MMOL/L (21-32); Estimated Glom Filtration Rate 37 ML/MIN; Glucose 67 MG/DL (74-106); Osmolality,Calculated 271.2 MOS/KG (273-304); Potassium 4.5 MMOL/L (3.5-5.1); Sodium 134 MMOL/L (136-145); Total Protein 5.8 G/DL (6.4-8.2)
[2021-09-30 05:28] LABS: Band Neutrophils 11 % (0-10); Eosinophils 5 % (0-10); Lymphocytes 11 % (20-55); Platelet Estimate Normal; Segmented Neutrophils 68 % (50-85); Total Cells Counted 100
[2021-09-30 05:29] LABS: Anisocytosis 2+; Burr Cells Few; Macrocytosis 1+; Ovalocytes Few; Poikilocytosis Slight; Target Cells Few
[2021-09-30] MEDS: SERTRALINE 50 MG TABLET PO SCH (08:38)
[2021-09-30] MEDS: APIXABAN 2.5 MG TABLET PO SCH ×2 (08:38→21:39)
[2021-09-30] MEDS: PANTOPRAZOLE 40 MG TABLET PO SCH (08:38)
[2021-09-30] MEDS: MIDODRINE 5 MG TABLET PO SCH ×3 (08:39→21:39)
[2021-09-30] MEDS: SODIUM HYPOCHLORITE 0.25% IRRIG 473 ML BOTTLE TOP SCH (08:40)
[2021-09-30] MEDS: COLLAGENASE OINT 30 GM TUBE TOP SCH (08:40)
[2021-09-30] MEDS: oxyCODONE/ACETAMINOPHEN 5-325 MG TABLET PO PRN ×2 (08:40→21:39)
[2021-09-30] MEDS: ALBUMIN 25% 25 GM/100 ML VIAL IV SCH ×2 (08:42→20:15)
[2021-09-30] MEDS ORDERED: ALBUMIN 25% 25 GM/100 ML VIAL IV PRN (10:44)
[2021-09-30] MEDS: MELATONIN 3 MG TABLET PO PRN (21:39)
[2021-09-30] MEDS: MEROPENEM 500 MG in SODIUM CHLORIDE 0.9% 100 ML IV SCH (21:39)
[2021-09-30] MEDS: guaiFENesin/DM ER 600-30 MG TABLET PO PRN (21:39)
[2021-10-01] MEDS: ALBUTEROL/IPRATROPIUM 3 ML NEB RESP TX SCH ×4 (00:47→19:05)
[2021-10-01] MEDS: ACETAMINOPHEN 325 MG TABLET PO PRN (02:07)
[2021-10-01 07:02] LABS: Basophils % 0.6 % (0.0-0.8); Eosinophils # 0.2 10*3/uL (0.0-0.87); Immature Granulocytes % 0.6 %; Immature Granulocytes Absolute 0.04 #; Lymphocytes # 0.9 10*3/uL (1.4-4.0); Lymphocytes % 12.3 % (21.2-54.2); Mean Corpuscular HGB Conc 28.5 GM/DL (32-36); Mean Corpuscular Volume 99.6 FL (87-102); Mean Platelet Volume 10.2 FL (9.6-12.0); Monocytes % 9.6 % (1.7-12.7); Neutrophils % 73.9 % (38.7-73.9); Platelet Count 155 T/CUMM (130-400); Red Blood Count 2.43 MC/CUMM (3.8-5.5); White Blood Count 6.9 T/CUMM (4-12)
[2021-10-01 07:03] LABS: Hematocrit 24.2 VOL% (42.0-52.0); Hemoglobin 6.9 GM/DL (14.0-18.0)
[2021-10-01 07:14] LABS: Calcium 8.4 MG/DL (8.5-10.1); Potassium 3.6 MMOL/L (3.5-5.1)
[2021-10-01] MEDS ORDERED: SODIUM CHLORIDE 0.9% 1,000 ML IV PRN ×2 (07:32→14:52)
[2021-10-01 08:24] LABS: Anisocytosis 2+; Macrocytosis 1+; Platelet Estimate Normal
[2021-10-01] MEDS: PANTOPRAZOLE 40 MG TABLET PO SCH (09:24)
[2021-10-01] MEDS: APIXABAN 2.5 MG TABLET PO SCH ×2 (09:24→21:27)
[2021-10-01] MEDS: MIDODRINE 5 MG TABLET PO SCH ×3 (09:25→21:27)
[2021-10-01] MEDS: SERTRALINE 50 MG TABLET PO SCH (09:25)
[2021-10-01] MEDS: SODIUM HYPOCHLORITE 0.25% IRRIG 473 ML BOTTLE TOP SCH (09:25)
[2021-10-01] MEDS: ALBUMIN 25% 25 GM/100 ML VIAL IV SCH (09:25)
[2021-10-01] MEDS: COLLAGENASE OINT 30 GM TUBE TOP SCH (09:26)
[2021-10-01] MEDS: oxyCODONE/ACETAMINOPHEN 5-325 MG TABLET PO PRN (16:52)
[2021-10-01] MEDS: MELATONIN 3 MG TABLET PO PRN (21:28)
[2021-10-02] MEDS: ALBUTEROL/IPRATROPIUM 3 ML NEB RESP TX SCH ×4 (00:15→21:10)
[2021-10-02] MEDS: PANTOPRAZOLE 40 MG TABLET PO SCH (08:05)
[2021-10-02] MEDS: MIDODRINE 5 MG TABLET PO SCH ×3 (08:05→21:30)
[2021-10-02 08:19] LABS: Basophils # 0.1 10*3/uL (0.0-0.2); Basophils % 0.7 % (0.0-0.8); Eosinophils # 0.2 10*3/uL (0.0-0.87); Eosinophils % 3.2 % (0.00-10.9); Hematocrit 25.2 VOL% (42.0-52.0); Hemoglobin 7.4 GM/DL (14.0-18.0); Immature Granulocytes % 0.9 %; Immature Granulocytes Absolute 0.06 #; Lymphocytes # 0.8 10*3/uL (1.4-4.0); Lymphocytes % 11.9 % (21.2-54.2); Mean Corpuscular HGB Conc 29.4 GM/DL (32-36); Mean Corpuscular Volume 99.2 FL (87-102); Mean Platelet Volume 10.1 FL (9.6-12.0); Monocytes % 8.6 % (1.7-12.7); Neutrophils % 74.7 % (38.7-73.9); Platelet Count 172 T/CUMM (130-400); Red Blood Count 2.54 MC/CUMM (3.8-5.5); Red Cell Distribution Width 18.3 % (9.3-17.3); White Blood Count 6.8 T/CUMM (4-12)
[2021-10-02 08:43] LABS: Calcium 8.2 MG/DL (8.5-10.1); Osmolality,Calculated 283.3 MOS/KG (273-304); Potassium 4.3 MMOL/L (3.5-5.1)
[2021-10-02 08:44] LABS: Band Neutrophils 6 % (0-10); Eosinophils 2 % (0-10); Hypochromia 1+; Lymphocytes 10 % (20-55); Microcytosis 1+; Platelet Estimate Adequate; Segmented Neutrophils 77 % (50-85); Total Cells Counted 100
[2021-10-02] MEDS: SERTRALINE 50 MG TABLET PO SCH (11:27)
[2021-10-02] MEDS: APIXABAN 2.5 MG TABLET PO SCH ×2 (11:28→21:30)
[2021-10-02] MEDS ORDERED: LIDOCAINE 1% 20 ML VIAL MISC INJ ONE (11:30)
[2021-10-02] MEDS: DEXTROSE 10% 250 ML BAG IV PRN (13:00)
[2021-10-02] MEDS: SODIUM HYPOCHLORITE 0.25% IRRIG 473 ML BOTTLE TOP SCH (14:31)
[2021-10-02] MEDS: COLLAGENASE OINT 30 GM TUBE TOP SCH (14:32)
[2021-10-02] MEDS: ACETAMINOPHEN 325 MG TABLET PO PRN (18:17)
[2021-10-03] MEDS: ALBUTEROL 2.5 MG/3 ML NEB RESP TX PRN (02:03)
[2021-10-03] MEDS: ALBUTEROL/IPRATROPIUM 3 ML NEB RESP TX SCH ×4 (02:03→19:40)
[2021-10-03 05:36] LABS: Basophils # 0.1 10*3/uL (0.0-0.2); Basophils % 0.8 % (0.0-0.8); Eosinophils # 0.2 10*3/uL (0.0-0.87); Eosinophils % 3.6 % (0.00-10.9); Hematocrit 29.3 VOL% (42.0-52.0); Hemoglobin 8.9 GM/DL (14.0-18.0); Immature Granulocytes % 0.8 %; Immature Granulocytes Absolute 0.05 #; Lymphocytes % 16.9 % (21.2-54.2); Mean Corpuscular HGB Conc 30.4 GM/DL (32-36); Mean Corpuscular Volume 96.1 FL (87-102); Mean Platelet Volume 10.3 FL (9.6-12.0); Monocytes % 11.9 % (1.7-12.7); Platelet Count 178 T/CUMM (130-400); Red Blood Count 3.05 MC/CUMM (3.8-5.5); Red Cell Distribution Width 18.2 % (9.3-17.3); White Blood Count 6.1 T/CUMM (4-12)
[2021-10-03] MEDS: ACETAMINOPHEN 325 MG TABLET PO PRN ×2 (05:54→20:52)
[2021-10-03 05:57] LABS: Osmolality,Calculated 273.7 MOS/KG (273-304); Potassium 3.6 MMOL/L (3.5-5.1)
[2021-10-03 06:17] LABS: Band Neutrophils 1 % (0-10); Eosinophils 1 % (0-10); Hypochromia 1+; Lymphocytes 17 % (20-55); Microcytosis 1+; Platelet Estimate Adequate; Segmented Neutrophils 70 % (50-85); Total Cells Counted 100
[2021-10-03] MEDS: DEXTROSE 10% 250 ML BAG IV PRN (07:21)
[2021-10-03] MEDS: APIXABAN 2.5 MG TABLET PO SCH ×2 (08:11→20:53)
[2021-10-03] MEDS: MIDODRINE 5 MG TABLET PO SCH ×3 (08:11→20:53)
[2021-10-03] MEDS: PANTOPRAZOLE 40 MG TABLET PO SCH (08:12)
[2021-10-03] MEDS: SERTRALINE 50 MG TABLET PO SCH (08:12)
[2021-10-03] MEDS: SODIUM HYPOCHLORITE 0.25% IRRIG 473 ML BOTTLE TOP SCH (09:37)
[2021-10-03] MEDS: EPOETIN ALFA-EPBX 10,000 UNIT/ML VIAL SUBCUT SCH (09:37)
[2021-10-03] MEDS: COLLAGENASE OINT 30 GM TUBE TOP SCH (09:37)
[2021-10-03] MEDS: ONDANSETRON 4 MG/2 ML VIAL IV PRN (17:59)
[2021-10-04] MEDS: ALBUTEROL/IPRATROPIUM 3 ML NEB RESP TX SCH ×4 (00:28→19:23)
[2021-10-04 04:42] LABS: Basophils # 0.1 10*3/uL (0.0-0.2); Basophils % 0.9 % (0.0-0.8); Eosinophils # 0.2 10*3/uL (0.0-0.87); Eosinophils % 2.9 % (0.00-10.9); Hemoglobin 9.4 GM/DL (14.0-18.0); Immature Granulocytes % 1.1 %; Immature Granulocytes Absolute 0.07 #; Lymphocytes # 0.9 10*3/uL (1.4-4.0); Lymphocytes % 13.8 % (21.2-54.2); Mean Corpuscular HGB Conc 30.3 GM/DL (32-36); Mean Corpuscular Volume 96.3 FL (87-102); Mean Platelet Volume 10.5 FL (9.6-12.0); Monocytes % 11.3 % (1.7-12.7); Platelet Count 211 T/CUMM (130-400); Red Blood Count 3.22 MC/CUMM (3.8-5.5); Red Cell Distribution Width 18.3 % (9.3-17.3); White Blood Count 6.5 T/CUMM (4-12)
[2021-10-04 05:02] LABS: Osmolality,Calculated 275.7 MOS/KG (273-304)
[2021-10-04 05:08] LABS: Eosinophils 1 % (0-10); Hypochromia 1+; Lymphocytes 16 % (20-55); Microcytosis 1+; Platelet Estimate Adequate; Segmented Neutrophils 75 % (50-85); Total Cells Counted 100
[2021-10-04] MEDS ORDERED: POTASSIUM PHOSPHATE 15 MMOL in SODIUM CHLORIDE 0.9% 100 ML IV ONE (09:00)
[2021-10-04] MEDS: APIXABAN 2.5 MG TABLET PO SCH ×2 (10:53→21:32)
[2021-10-04] MEDS: COLLAGENASE OINT 30 GM TUBE TOP SCH (10:53)
[2021-10-04] MEDS: SODIUM HYPOCHLORITE 0.25% IRRIG 473 ML BOTTLE TOP SCH (10:53)
[2021-10-04] MEDS: MIDODRINE 5 MG TABLET PO SCH ×3 (10:53→21:32)
[2021-10-04] MEDS: SERTRALINE 50 MG TABLET PO SCH (10:53)
[2021-10-04] MEDS: PANTOPRAZOLE 40 MG TABLET PO SCH (10:53)
[2021-10-04] MEDS: oxyCODONE/ACETAMINOPHEN 5-325 MG TABLET PO PRN ×2 (12:11→21:32)
[2021-10-05] MEDS: ALBUTEROL/IPRATROPIUM 3 ML NEB RESP TX SCH ×4 (00:51→19:16)
[2021-10-05 06:40] LABS: Basophils # 0.1 10*3/uL (0.0-0.2); Basophils % 0.7 % (0.0-0.8); Eosinophils # 0.2 10*3/uL (0.0-0.87); Eosinophils % 3.4 % (0.00-10.9); Hematocrit 32.6 VOL% (42.0-52.0); Hemoglobin 10.1 GM/DL (14.0-18.0); Immature Granulocytes % 0.7 %; Immature Granulocytes Absolute 0.05 #; Lymphocytes # 0.9 10*3/uL (1.4-4.0); Lymphocytes % 12.9 % (21.2-54.2); Mean Corpuscular Volume 95.9 FL (87-102); Mean Platelet Volume 10.4 FL (9.6-12.0); Monocytes % 10.8 % (1.7-12.7); Neutrophils % 71.5 % (38.7-73.9); Platelet Count 198 T/CUMM (130-400); Red Cell Distribution Width 18.4 % (9.3-17.3); White Blood Count 7.1 T/CUMM (4-12)
[2021-10-05 07:06] LABS: Anisocytosis 1+; Band Neutrophils 10 % (0-10); Eosinophils 2 % (0-10); Hypochromia 1+; Lymphocytes 7 % (20-55); Microcytosis 1+; Polychromasia Slight; Segmented Neutrophils 73 % (50-85); Total Cells Counted 100
[2021-10-05 07:07] LABS: Calcium 8.4 MG/DL (8.5-10.1); Osmolality,Calculated 274.8 MOS/KG (273-304); Platelet Estimate Adequate; Potassium 4.4 MMOL/L (3.5-5.1); Target Cells Slight
[2021-10-05] MEDS: MIDODRINE 5 MG TABLET PO SCH ×3 (09:41→21:29)
[2021-10-05] MEDS: APIXABAN 2.5 MG TABLET PO SCH ×2 (09:41→21:29)
[2021-10-05] MEDS: SERTRALINE 50 MG TABLET PO SCH (09:42)
[2021-10-05] MEDS: oxyCODONE/ACETAMINOPHEN 5-325 MG TABLET PO PRN ×2 (09:42→21:29)
[2021-10-05] MEDS: PANTOPRAZOLE 40 MG TABLET PO SCH (09:42)
[2021-10-05] MEDS: EPOETIN ALFA-EPBX 10,000 UNIT/ML VIAL SUBCUT SCH (10:45)
[2021-10-05] MEDS: COLLAGENASE OINT 30 GM TUBE TOP SCH (16:06)
[2021-10-05] MEDS: SODIUM HYPOCHLORITE 0.25% IRRIG 473 ML BOTTLE TOP SCH (16:06)
[2021-10-05] MEDS: AMPICILLIN INJ 2,000 MG in SODIUM CHLORIDE 0.9% 100 ML IV SCH (16:06)
[2021-10-05] MEDS: SODIUM ZIRCONIUM CYCLOSILICATE 10 GM PACK PO SCH (21:29)
[2021-10-06] MEDS: ALBUTEROL/IPRATROPIUM 3 ML NEB RESP TX SCH ×4 (00:33→20:14)
[2021-10-06 05:43] LABS: Basophils # 0.1 10*3/uL (0.0-0.2); Basophils % 0.9 % (0.0-0.8); Eosinophils # 0.2 10*3/uL (0.0-0.87); Eosinophils % 2.8 % (0.00-10.9); Hematocrit 31.7 VOL% (42.0-52.0); Immature Granulocytes % 0.8 %; Immature Granulocytes Absolute 0.05 #; Lymphocytes # 0.8 10*3/uL (1.4-4.0); Lymphocytes % 13.1 % (21.2-54.2); Mean Corpuscular HGB Conc 31.5 GM/DL (32-36); Mean Corpuscular Volume 95.5 FL (87-102); Mean Platelet Volume 10.8 FL (9.6-12.0); Monocytes % 12.9 % (1.7-12.7); Neutrophils % 69.5 % (38.7-73.9); Platelet Count 225 T/CUMM (130-400); Red Blood Count 3.32 MC/CUMM (3.8-5.5); Red Cell Distribution Width 18.7 % (9.3-17.3); White Blood Count 6.3 T/CUMM (4-12)
[2021-10-06 05:53] LABS: Calcium 8.8 MG/DL (8.5-10.1); Potassium 4.6 MMOL/L (3.5-5.1)
[2021-10-06 06:10] LABS: Lymphocytes 14 % (20-55); Segmented Neutrophils 77 % (50-85); Total Cells Counted 100
[2021-10-06 06:11] LABS: Acanthocytes 1+; Platelet Estimate Adequate; Polychromasia 1+; Schistocytes 1+; Target Cells 1+
[2021-10-06] MEDS: SODIUM HYPOCHLORITE 0.25% IRRIG 473 ML BOTTLE TOP SCH (09:58)
[2021-10-06] MEDS: PANTOPRAZOLE 40 MG TABLET PO SCH (09:59)
[2021-10-06] MEDS: MIDODRINE 5 MG TABLET PO SCH ×3 (09:59→21:11)
[2021-10-06] MEDS: COLLAGENASE OINT 30 GM TUBE TOP SCH (09:59)
[2021-10-06] MEDS: SERTRALINE 50 MG TABLET PO SCH (09:59)
[2021-10-06] MEDS: APIXABAN 2.5 MG TABLET PO SCH ×2 (09:59→21:12)
[2021-10-06] MEDS: SODIUM ZIRCONIUM CYCLOSILICATE 10 GM PACK PO SCH ×2 (09:59→21:12)
[2021-10-06] MEDS: oxyCODONE/ACETAMINOPHEN 5-325 MG TABLET PO PRN ×2 (10:21→21:12)
[2021-10-06] MEDS: AMPICILLIN INJ 2,000 MG in SODIUM CHLORIDE 0.9% 100 ML IV SCH (11:20)
[2021-10-07] MEDS: ALBUTEROL/IPRATROPIUM 3 ML NEB RESP TX SCH ×4 (04:45→19:16)
[2021-10-07 05:32] LABS: Basophils # 0.1 10*3/uL (0.0-0.2); Basophils % 1.1 % (0.0-0.8); Eosinophils # 0.2 10*3/uL (0.0-0.87); Eosinophils % 2.6 % (0.00-10.9); Hematocrit 29.9 VOL% (42.0-52.0); Hemoglobin 9.3 GM/DL (14.0-18.0); Immature Granulocytes % 0.9 %; Immature Granulocytes Absolute 0.06 #; Lymphocytes % 15.8 % (21.2-54.2); Mean Corpuscular HGB Conc 31.1 GM/DL (32-36); Mean Corpuscular Volume 95.8 FL (87-102); Mean Platelet Volume 10.8 FL (9.6-12.0); Monocytes % 13.1 % (1.7-12.7); Neutrophils % 66.5 % (38.7-73.9); Platelet Count 228 T/CUMM (130-400); Red Blood Count 3.12 MC/CUMM (3.8-5.5); Red Cell Distribution Width 19.4 % (9.3-17.3); White Blood Count 6.5 T/CUMM (4-12)
[2021-10-07 05:58] LABS: Calcium 8.9 MG/DL (8.5-10.1); Potassium 4.9 MMOL/L (3.5-5.1)
[2021-10-07 06:20] LABS: Band Neutrophils 6 % (0-10); Eosinophils 2 % (0-10); Lymphocytes 10 % (20-55); Platelet Estimate Normal; Segmented Neutrophils 76 % (50-85); Total Cells Counted 100
[2021-10-07] MEDS: APIXABAN 2.5 MG TABLET PO SCH ×2 (08:50→21:51)
[2021-10-07] MEDS: PANTOPRAZOLE 40 MG TABLET PO SCH (08:50)
[2021-10-07] MEDS: SERTRALINE 50 MG TABLET PO SCH (08:50)
[2021-10-07] MEDS: SODIUM HYPOCHLORITE 0.25% IRRIG 473 ML BOTTLE TOP SCH (11:00)
[2021-10-07] MEDS: EPOETIN ALFA-EPBX 10,000 UNIT/ML VIAL SUBCUT SCH (11:01)
[2021-10-07] MEDS: SODIUM ZIRCONIUM CYCLOSILICATE 10 GM PACK PO SCH ×2 (11:01→21:51)
[2021-10-07] MEDS: AMPICILLIN INJ 2,000 MG in SODIUM CHLORIDE 0.9% 100 ML IV SCH (11:01)
[2021-10-07] MEDS: COLLAGENASE OINT 30 GM TUBE TOP SCH (11:01)
[2021-10-07] MEDS: MIDODRINE 5 MG TABLET PO SCH ×3 (11:01→21:51)
[2021-10-07] MEDS: oxyCODONE/ACETAMINOPHEN 5-325 MG TABLET PO PRN ×2 (16:06→22:01)
[2021-10-08] MEDS: ALBUTEROL/IPRATROPIUM 3 ML NEB RESP TX SCH ×4 (01:38→19:39)
[2021-10-08 06:17] LABS: Osmolality,Calculated 282.8 MOS/KG (273-304); Potassium 5.2 MMOL/L (3.5-5.1)
[2021-10-08 06:21] LABS: Basophils # 0.1 10*3/uL (0.0-0.2); Basophils % 0.6 % (0.0-0.8); Eosinophils # 0.1 10*3/uL (0.0-0.87); Eosinophils % 1.3 % (0.00-10.9); Hematocrit 32.7 VOL% (42.0-52.0); Hemoglobin 10.1 GM/DL (14.0-18.0); Immature Granulocytes % 0.7 %; Immature Granulocytes Absolute 0.06 #; Lymphocytes % 11.5 % (21.2-54.2); Mean Corpuscular HGB Conc 30.9 GM/DL (32-36); Mean Platelet Volume 10.7 FL (9.6-12.0); Monocytes % 11.2 % (1.7-12.7); NRBC # 0.02 10*3/uL; Neutrophils % 74.7 % (38.7-73.9); Platelet Count 256 T/CUMM (130-400); Red Blood Count 3.37 MC/CUMM (3.8-5.5); Red Cell Distribution Width 20.3 % (9.3-17.3); White Blood Count 8.7 T/CUMM (4-12)
[2021-10-08 07:27] LABS: Band Neutrophils 8 % (0-10); Eosinophils 1 % (0-10); Hypochromia 1+; Lymphocytes 11 % (20-55); Segmented Neutrophils 64 % (50-85); Total Cells Counted 100
[2021-10-08 07:28] LABS: Macrocytosis 1+; Platelet Estimate Normal; Target Cells Slight
[2021-10-08] MEDS: COLLAGENASE OINT 30 GM TUBE TOP SCH (09:59)
[2021-10-08] MEDS: SERTRALINE 50 MG TABLET PO SCH (09:59)
[2021-10-08] MEDS: PANTOPRAZOLE 40 MG TABLET PO SCH (09:59)
[2021-10-08] MEDS: MIDODRINE 5 MG TABLET PO SCH ×3 (09:59→21:11)
[2021-10-08] MEDS: SODIUM ZIRCONIUM CYCLOSILICATE 10 GM PACK PO SCH (09:59)
[2021-10-08] MEDS: SODIUM HYPOCHLORITE 0.25% IRRIG 473 ML BOTTLE TOP SCH (09:59)
[2021-10-08] MEDS: APIXABAN 2.5 MG TABLET PO SCH ×2 (09:59→21:10)
[2021-10-08] MEDS: AMPICILLIN INJ 2,000 MG in SODIUM CHLORIDE 0.9% 100 ML IV SCH (10:00)
[2021-10-08] MEDS: oxyCODONE/ACETAMINOPHEN 5-325 MG TABLET PO PRN (10:08)
[2021-10-08] MEDS: GLUCAGON 1 MG VIAL IM PRN (12:11)
[2021-10-08] MEDS ORDERED: DEXTROSE 5% 1,000 ML IV SCH (15:00)
[2021-10-09] MEDS: ALBUTEROL/IPRATROPIUM 3 ML NEB RESP TX SCH ×4 (00:33→19:37)
[2021-10-09 07:00] LABS: Calcium 9.4 MG/DL (8.5-10.1); Osmolality,Calculated 280.1 MOS/KG (273-304); Potassium 5.3 MMOL/L (3.5-5.1)
[2021-10-09] MEDS ORDERED: HYDROCORTISONE 100 MG VIAL ONE (09:43)
[2021-10-09] MEDS ORDERED: NOREPINEPHRINE 4 MG/4 ML VIAL IV ONE (09:46)
[2021-10-09] MEDS: LACTULOSE 20 GM/30 ML UDCUP PO SCH ×2 (10:03→22:16)
[2021-10-09] MEDS: APIXABAN 2.5 MG TABLET PO SCH ×2 (10:03→22:16)
[2021-10-09] MEDS: SODIUM HYPOCHLORITE 0.25% IRRIG 473 ML BOTTLE TOP SCH (10:03)
[2021-10-09] MEDS: COLLAGENASE OINT 30 GM TUBE TOP SCH (10:03)
[2021-10-09] MEDS: HYDROCORTISONE 100 MG VIAL IV SCH ×2 (10:04→17:07)
[2021-10-09] MEDS: NOREPINEPHRINE 8 MG in SODIUM CHLORIDE 0.9% 242 ML IV PRN ×3 (10:10→23:24)
[2021-10-09] MEDS: PANTOPRAZOLE 40 MG TABLET PO SCH (10:17)
[2021-10-09] MEDS: MIDODRINE 5 MG TABLET PO SCH (10:17)
[2021-10-09] MEDS ORDERED: AMIODARONE 450 MG/9 ML VIAL IV ONE (10:43)
[2021-10-09 10:44] LABS: Basophils % 0.2 % (0.0-0.8); Hematocrit 33.3 VOL% (42.0-52.0); Hemoglobin 10.3 GM/DL (14.0-18.0); Immature Granulocytes % 1.1 %; Lymphocytes # 0.4 10*3/uL (1.4-4.0); Lymphocytes % 2.2 % (21.2-54.2); Mean Corpuscular HGB Conc 30.9 GM/DL (32-36); Mean Corpuscular Volume 97.9 FL (87-102); Mean Platelet Volume 10.6 FL (9.6-12.0); Monocytes % 5.3 % (1.7-12.7); NRBC # 0.07 10*3/uL; Neutrophils % 91.2 % (38.7-73.9); Platelet Count 295 T/CUMM (130-400); Red Cell Distribution Width 21.6 % (9.3-17.3); White Blood Count 18.8 T/CUMM (4-12)
[2021-10-09 10:51] LABS: ABG Base Excess -5.4 MMOL/L (-2.5-2.5); ABG PCO2 34.5 MM HG (35-48); ABG PH 7.357 (7.35-7.45); ABG TCO2 17.6 MMOL/L (23-27); Allen Test Positive; Pt O2 Delivery Device Ventilator
[2021-10-09 11:00] LABS: Alanine Aminotransferase < 9 U/L (16-61); Albumin 1.2 G/DL (3.4-5.0); Alkaline Phosphatase 146 U/L (45-117); Aspartate Amino Transferase 29 U/L (0-37); Blood Urea Nitrogen 49 MG/DL (7-18); Carbon Dioxide 18 MMOL/L (21-32); Estimated Glom Filtration Rate 16 ML/MIN; Glucose 230 MG/DL (74-106); Potassium 5.6 MMOL/L (3.5-5.1); Sodium 136 MMOL/L (136-145); Total Protein 5.1 G/DL (6.4-8.2)
[2021-10-09] MEDS ORDERED: AMIODARONE INJ 450 MG in DEXTROSE 5% 241 ML IV SCH (11:00)
[2021-10-09] MEDS: AMPICILLIN INJ 2,000 MG in SODIUM CHLORIDE 0.9% 100 ML IV SCH (12:08)
[2021-10-09 12:46] LABS: Anisocytosis 1+; Band Neutrophils 4 % (0-10); Lymphocytes 2 % (20-55); Segmented Neutrophils 92 % (50-85); Target Cells Few; Total Cells Counted 100
[2021-10-09 12:47] LABS: Burr Cells Few; Ovalocytes Slight; Platelet Estimate Adequate
[2021-10-09 12:48] LABS: Hypochromia Slight
[2021-10-09] MEDS ORDERED: SODIUM CHLORIDE 0.9% 500 ML IV ONE (13:15)
[2021-10-09 13:21] LABS: Basophils % 0.1 % (0.0-0.8); Eosinophils % 0.1 % (0.00-10.9); Hematocrit 35.3 VOL% (42.0-52.0); Hemoglobin 11.3 GM/DL (14.0-18.0); Immature Granulocytes % 0.9 %; Lymphocytes % 5.5 % (21.2-54.2); Mean Corpuscular Volume 95.7 FL (87-102); Mean Platelet Volume 10.7 FL (9.6-12.0); Monocytes % 7.5 % (1.7-12.7); Neutrophils % 85.9 % (38.7-73.9); Platelet Count 303 T/CUMM (130-400); Red Blood Count 3.69 MC/CUMM (3.8-5.5); Red Cell Distribution Width 21.6 % (9.3-17.3); White Blood Count 18.1 T/CUMM (4-12)
[2021-10-09 13:22] LABS: Immature Granulocytes Absolute 0.16 #
[2021-10-09] MEDS: AMIODARONE INJ 450 MG in DEXTROSE 5% 241 ML IV SCH (17:07)
[2021-10-09] MEDS ORDERED: SODIUM BICARBONATE 50 MEQ/50 ML VIAL IV ONE ×3 (21:46→22:55)
[2021-10-09 22:11] LABS: ABG Base Excess -10.9 MMOL/L (-2.5-2.5); ABG HCO3 15.3 MMOL/L (20-26); ABG PCO2 44.1 MM HG (35-48); ABG PO2 41.6 MM HG (80-95); ABG TCO2 15.9 MMOL/L (23-27)
[2021-10-09 22:12] LABS: ABG PH 7.195 (7.35-7.45)
[2021-10-09] MEDS ORDERED: SODIUM BICARB IV SCH (22:30)
[2021-10-09] MEDS ORDERED: DEXTROSE 5% IV SCH (22:30)
[2021-10-09] MEDS ORDERED: SODIUM BICARBONATE 50 MEQ/50 ML SYRINGE IV ONE (22:47)
[2021-10-09] MEDS: SODIUM BICARB INJ 150 MEQ in DEXTROSE 5% 1,000 ML IV SCH (23:15)
[2021-10-09] MEDS ORDERED: DEXTROSE 50% 25 GM/50 ML SYRINGE IV ONE ×2 (23:20→23:30)
[2021-10-10] MEDS: DEXTROSE 10% 1,000 ML IV SCH
[2021-10-10] MEDS: ALBUTEROL/IPRATROPIUM 3 ML NEB RESP TX SCH ×4 (00:17→19:06)
[2021-10-10] MEDS: ACETAMINOPHEN 325 MG TABLET PO PRN (01:12)
[2021-10-10] MEDS: HYDROCORTISONE 100 MG VIAL IV SCH ×3 (01:12→17:35)
[2021-10-10 03:32] LABS: Eosinophils % 0.2 % (0.00-10.9); Hemoglobin 13.1 GM/DL (14.0-18.0); Immature Granulocytes % 2.5 %; Immature Granulocytes Absolute 0.66 #; Lymphocytes # 1.5 10*3/uL (1.4-4.0); Lymphocytes % 5.6 % (21.2-54.2); Mean Corpuscular HGB Conc 29.4 GM/DL (32-36); Mean Corpuscular Volume 103.5 FL (87-102); Mean Platelet Volume 11.7 FL (9.6-12.0); Monocytes % 9.9 % (1.7-12.7); NRBC # 0.18 10*3/uL; Neutrophils % 81.8 % (38.7-73.9); Platelet Count 229 T/CUMM (130-400); Red Blood Count 4.31 MC/CUMM (3.8-5.5); Red Cell Distribution Width 22.9 % (9.3-17.3); White Blood Count 26.3 T/CUMM (4-12)
[2021-10-10 03:51] LABS: Hematocrit 44.6 VOL% (42.0-52.0)
[2021-10-10 04:00] LABS: Lymphocytes 9 % (20-55); Platelet Estimate Adequate; Segmented Neutrophils 81 % (50-85); Total Cells Counted 100
[2021-10-10 04:06] LABS: Albumin 1.2 G/DL (3.4-5.0); Calcium 9.2 MG/DL (8.5-10.1); Total Protein 5.5 G/DL (6.4-8.2)
[2021-10-10 04:13] LABS: Potassium 6.8 MMOL/L (3.5-5.1)
[2021-10-10] MEDS: NOREPINEPHRINE 8 MG in SODIUM CHLORIDE 0.9% 242 ML IV PRN ×5 (04:20→23:45)
[2021-10-10 04:24] LABS: ABG Base Excess -13.9 MMOL/L (-2.5-2.5); ABG HCO3 11.9 MMOL/L (20-26); ABG Oxygen Saturation 98.7 % (95-100); ABG PCO2 27.7 MM HG (35-48); ABG PO2 161.7 MM HG (80-95); ABG TCO2 12.7 MMOL/L (23-27); Allen Test Positive; Pt O2 Delivery Device Ventilator
[2021-10-10] MEDS ORDERED: INSULIN REGULAR 10 UNIT, CALCIUM GLUCONATE 1,000 MG in DEXTROSE 10% 250 ML IV ONE ×2 (04:29→05:30)
[2021-10-10] MEDS ORDERED: SODIUM ZIRCONIUM CYCLOSILICATE 10 GM PACK PO ONE (04:29)
[2021-10-10] MEDS ORDERED: SODIUM BICARBONATE 50 MEQ/50 ML VIAL IV ONE (07:27)
[2021-10-10] MEDS: APIXABAN 2.5 MG TABLET PO SCH ×2 (08:39→21:24)
[2021-10-10] MEDS: PANTOPRAZOLE 40 MG VIAL IV SCH (08:39)
[2021-10-10] MEDS: LACTULOSE 20 GM/30 ML UDCUP PO SCH ×2 (08:39→21:24)
[2021-10-10] MEDS: SODIUM HYPOCHLORITE 0.25% IRRIG 473 ML BOTTLE TOP SCH (08:45)
[2021-10-10] MEDS: AMIODARONE INJ 450 MG in DEXTROSE 5% 241 ML IV SCH (09:00)
[2021-10-10] MEDS: SODIUM ZIRCONIUM CYCLOSILICATE 10 GM PACK PO SCH ×2 (09:07→21:24)
[2021-10-10] MEDS: AMPICILLIN INJ 2,000 MG in SODIUM CHLORIDE 0.9% 100 ML IV SCH (09:21)
[2021-10-10] MEDS ORDERED: DILTIAZEM 50 MG/10 ML VIAL IV ONE ×2 (09:30→17:17)
[2021-10-10] MEDS: COLLAGENASE OINT 30 GM TUBE TOP SCH (09:59)
[2021-10-10] MEDS: EPOETIN ALFA-EPBX 10,000 UNIT/ML VIAL SUBCUT SCH (10:04)
[2021-10-10 17:48] VITALS: BP 105/58
[2021-10-10] MEDS: SODIUM BICARB INJ 150 MEQ in DEXTROSE 5% 1,000 ML IV SCH (22:18)
[2021-10-10 23:05] LABS: Basophils % 0.1 % (0.0-0.8); Hematocrit 22.3 VOL% (42.0-52.0); Hemoglobin 6.6 GM/DL (14.0-18.0); Immature Granulocytes % 1.5 %; Immature Granulocytes Absolute 0.22 #; Lymphocytes # 0.9 10*3/uL (1.4-4.0); Lymphocytes % 6.5 % (21.2-54.2); Mean Corpuscular HGB Conc 29.6 GM/DL (32-36); Mean Corpuscular Volume 103.2 FL (87-102); Mean Platelet Volume 11.2 FL (9.6-12.0); Monocytes % 5.6 % (1.7-12.7); Neutrophils % 86.3 % (38.7-73.9); Platelet Count 136 T/CUMM (130-400); Red Blood Count 2.16 MC/CUMM (3.8-5.5); Red Cell Distribution Width 22.2 % (9.3-17.3); White Blood Count 14.2 T/CUMM (4-12)
[2021-10-10 23:37] LABS: Potassium 4.2 MMOL/L (3.5-5.1)
[2021-10-10 23:39] LABS: Calcium 7.5 MG/DL (8.5-10.1); Lymphocytes 5 % (20-55); Segmented Neutrophils 95 % (50-85); Total Cells Counted 100
[2021-10-10 23:40] LABS: Osmolality,Calculated 287.1 MOS/KG (273-304); Platelet Estimate Adequate
[2021-10-11] MEDS: ALBUTEROL/IPRATROPIUM 3 ML NEB RESP TX SCH ×4 (00:10→19:50)
[2021-10-11] MEDS: AMIODARONE INJ 450 MG in DEXTROSE 5% 241 ML IV SCH ×2 (00:39→17:20)
[2021-10-11] MEDS: HYDROCORTISONE 100 MG VIAL IV SCH ×3 (01:34→17:50)
[2021-10-11] MEDS: DEXTROSE 10% 1,000 ML IV SCH (01:34)
[2021-10-11 03:58] LABS: ABG Base Excess -9.3 MMOL/L (-2.5-2.5); ABG HCO3 14.5 MMOL/L (20-26); ABG Oxygen Saturation 98.8 % (95-100); ABG PCO2 25.4 MM HG (35-48); ABG PH 7.375 (7.35-7.45); ABG PO2 165.5 MM HG (80-95); ABG TCO2 15.3 MMOL/L (23-27)
[2021-10-11] MEDS: NOREPINEPHRINE 8 MG in SODIUM CHLORIDE 0.9% 242 ML IV PRN ×6 (04:15→23:00)
[2021-10-11 06:57] LABS: Basophils % 0.1 % (0.0-0.8); Eosinophils % 0.2 % (0.00-10.9); Immature Granulocytes % 1.2 %; Immature Granulocytes Absolute 0.25 #; Lymphocytes # 1.5 10*3/uL (1.4-4.0); Mean Corpuscular HGB Conc 29.4 GM/DL (32-36); Mean Corpuscular Volume 103.4 FL (87-102); Mean Platelet Volume 11.8 FL (9.6-12.0); Monocytes % 4.1 % (1.7-12.7); NRBC # 0.16 10*3/uL; Neutrophils % 87.4 % (38.7-73.9); Platelet Count 167 T/CUMM (130-400); Red Cell Distribution Width 23.2 % (9.3-17.3)
[2021-10-11 07:06] LABS: White Blood Count 20.7 T/CUMM (4-12)
[2021-10-11 07:07] LABS: Red Blood Count 3.19 MC/CUMM (3.8-5.5)
[2021-10-11 07:09] LABS: Hemoglobin 9.7 GM/DL (14.0-18.0)
[2021-10-11 07:21] LABS: Hypochromia 1+; Lymphocytes 5 % (20-55); Microcytosis 1+; Nucleated Red Blood Cells 3 (0-5); Platelet Estimate Adequate; Segmented Neutrophils 90 % (50-85); Total Cells Counted 100
[2021-10-11 07:24] LABS: Albumin 1.2 G/DL (3.4-5.0); Osmolality,Calculated 275.5 MOS/KG (273-304); Total Protein 5.3 G/DL (6.4-8.2)
[2021-10-11] MEDS ORDERED: SODIUM BICARBONATE 50 MEQ/50 ML VIAL IV ONE ×4 (09:21→23:58)
[2021-10-11] MEDS: SODIUM HYPOCHLORITE 0.25% IRRIG 473 ML BOTTLE TOP SCH (10:31)
[2021-10-11] MEDS: LACTULOSE 20 GM/30 ML UDCUP PO SCH ×2 (10:36→21:36)
[2021-10-11] MEDS: APIXABAN 2.5 MG TABLET PO SCH ×2 (10:36→11:12)
[2021-10-11] MEDS: SODIUM ZIRCONIUM CYCLOSILICATE 10 GM PACK PO SCH ×2 (10:37→21:36)
[2021-10-11] MEDS: PANTOPRAZOLE 40 MG VIAL IV SCH (10:41)
[2021-10-11] MEDS: AMPICILLIN INJ 2,000 MG in SODIUM CHLORIDE 0.9% 100 ML IV SCH (10:46)
[2021-10-11] MEDS ORDERED: PHENYLEPHRINE DRIP 40 MG/250 ML PREMIX IV ONE (19:06)
[2021-10-11] MEDS: PHENYLEPHRINE DRIP 40 MG/250 ML PREMIX IV PRN ×3 (19:19→23:20)
[2021-10-11] MEDS ORDERED: SODIUM BICARBONATE 50 MEQ/50 ML SYRINGE IV ONE ×3 (19:30→23:00)
[2021-10-11] MEDS: SODIUM BICARB INJ 150 MEQ in DEXTROSE 5% 1,000 ML IV SCH (21:00)
[2021-10-11] MEDS ORDERED: DEXTROSE 50% 25 GM/50 ML SYRINGE IV ONE (21:26)
[2021-10-11] MEDS ORDERED: DEXTROSE 10% 250 ML BAG IV ONE (22:00)
[2021-10-12] MEDS: NOREPINEPHRINE 8 MG in SODIUM CHLORIDE 0.9% 242 ML IV PRN ×5 (01:00→11:40)
[2021-10-12] MEDS ORDERED: SODIUM BICARBONATE 50 MEQ/50 ML SYRINGE IV ONE ×3 (01:14→13:13)
[2021-10-12] MEDS ORDERED: DEXTROSE 50% 25 GM/50 ML SYRINGE IV ONE ×2 (01:16→02:00)
[2021-10-12] MEDS: PHENYLEPHRINE DRIP 40 MG/250 ML PREMIX IV PRN ×6 (01:22→12:22)
[2021-10-12 01:37] LABS: Albumin 0.8 G/DL (3.4-5.0); Bilirubin,Total 1.4 MG/DL (0.20-1.00); Calcium 7.4 MG/DL (8.5-10.1); Osmolality,Calculated 286.5 MOS/KG (273-304); Total Protein 3.7 G/DL (6.4-8.2)
[2021-10-12 01:40] LABS: Potassium 6.2 MMOL/L (3.5-5.1)
[2021-10-12] MEDS: ALBUTEROL/IPRATROPIUM 3 ML NEB RESP TX SCH ×3 (01:53→14:27)
[2021-10-12] MEDS ORDERED: SODIUM BICARBONATE 50 MEQ/50 ML VIAL IV ONE ×2 (01:57→04:22)
[2021-10-12 02:16] LABS: Basophils % 0.1 % (0.0-0.8); Hemoglobin 7.4 GM/DL (14.0-18.0); Immature Granulocytes % 5.6 %; Immature Granulocytes Absolute 1.16 #; Lymphocytes # 1.8 10*3/uL (1.4-4.0); Lymphocytes % 8.5 % (21.2-54.2); Mean Corpuscular HGB Conc 27.7 GM/DL (32-36); Mean Corpuscular Volume 110.3 FL (87-102); Mean Platelet Volume 12.5 FL (9.6-12.0); Monocytes % 2.7 % (1.7-12.7); NRBC # 0.88 10*3/uL; Neutrophils % 83.1 % (38.7-73.9); Platelet Count 71 T/CUMM (130-400); Red Blood Count 2.42 MC/CUMM (3.8-5.5); White Blood Count 20.7 T/CUMM (4-12)
[2021-10-12 02:18] LABS: Hematocrit 26.7 VOL% (42.0-52.0)
[2021-10-12 02:43] LABS: Lymphocytes 8 % (20-55); Nucleated Red Blood Cells 4 (0-5); Platelet Estimate Decreased; Segmented Neutrophils 88 % (50-85); Total Cells Counted 100
[2021-10-12] MEDS: HYDROCORTISONE 100 MG VIAL IV SCH ×2 (02:53→09:24)
[2021-10-12 03:51] LABS: ABG HCO3 9.9 MMOL/L (20-26); ABG Oxygen Saturation 88.2 % (95-100); ABG PCO2 30.1 MM HG (35-48); ABG PO2 78.3 MM HG (80-95); ABG TCO2 9.2 MMOL/L (23-27)
[2021-10-12 03:54] LABS: ABG PH 7.099 (7.35-7.45)
[2021-10-12] MEDS: DEXTROSE 10% 1,000 ML IV SCH (04:41)
[2021-10-12] MEDS: LACTULOSE 20 GM/30 ML UDCUP PO SCH (08:44)
[2021-10-12] MEDS: SODIUM ZIRCONIUM CYCLOSILICATE 10 GM PACK PO SCH (08:44)
[2021-10-12] MEDS: PANTOPRAZOLE 40 MG VIAL IV SCH (08:44)
[2021-10-12] MEDS: AMIODARONE INJ 450 MG in DEXTROSE 5% 241 ML IV SCH (09:23)
[2021-10-12] MEDS: AMPICILLIN INJ 2,000 MG in SODIUM CHLORIDE 0.9% 100 ML IV SCH (09:24)
[2021-10-12] MEDS ORDERED: EPINEPHrine 1 MG/10 ML SYRINGE IV ONE (13:13)
[2021-10-12] MEDS ORDERED: EPINEPHrine 1 MG/10 ML SYRINGE ONE (13:13)
== END 2021-10-12 13:22 | disposition expired | DRG 710 ==
LOC: EDBD → EDUNIT# → N.ED 20:54 → N.EDINP 07-13 00:18 → SUATTDRO 07-13 00:18 → N.3E 07-13 02:33 → N.ICU 07-13 03:18 → N.3E 08-10 23:01 → N.ICU 10-09 09:43
PROVIDERS: ADMIT Internal Medicine; ATTEND Family Medicine